=== PATIENT | female | born 1940 | race Caucasian/White ===

== ENCOUNTER 2019-07-17 04:47 | Inpatient (IN) | payer MEDICARE, MEDICAID, SELFPAY | END 2019-07-19 20:55 | disposition home or self-care (01) | DRG 391 | PROVIDERS: Admitting Provider Internal Medicine; Emergency Provider Emergency Medicine; PCP Physician Assistant; Visit Provider Family Medicine | DX: A08.4 Viral intestinal infection, unspecified (principal); N18.6 End stage renal disease; I50.32 Chronic diastolic (congestive) heart failure; I13.2 Hypertensive heart and chronic kidney disease with heart failure and with stage 5 chronic kidney disease, or end stage renal disease; Z28.21 Immunization not carried out because of patient refusal; M79.662 Pain in left lower leg; M79.661 Pain in right lower leg; E11.22 Type 2 diabetes mellitus with diabetic chronic kidney disease; H40.9 Unspecified glaucoma; H54.7 Unspecified visual loss; E11.42 Type 2 diabetes mellitus with diabetic polyneuropathy; E03.9 Hypothyroidism, unspecified; G47.33 Obstructive sleep apnea (adult) (pediatric); R91.1 Solitary pulmonary nodule; Z87.11 Personal history of peptic ulcer disease; Z91.19 Patient's noncompliance with other medical treatment and regimen; Z86.73 Personal history of transient ischemic attack (TIA), and cerebral infarction without residual deficits; I35.0 Nonrheumatic aortic (valve) stenosis; Z95.0 Presence of cardiac pacemaker; Z98.49 Cataract extraction status, unspecified eye; Z90.49 Acquired absence of other specified parts of digestive tract; Z90.710 Acquired absence of both cervix and uterus; Z90.722 Acquired absence of ovaries, bilateral; R58 Hemorrhage, not elsewhere classified; M19.90 Unspecified osteoarthritis, unspecified site; M10.9 Gout, unspecified; Z99.2 Dependence on renal dialysis; K57.30 Diverticulosis of large intestine without perforation or abscess without bleeding; J45.909 Unspecified asthma, uncomplicated | CPT/HCPCS: 36415; 71045; 74176; 80048; 80053; 80069; 82607; 82746; 83036; 83690; 83735; 84100; 84443; 85014; 85018; 85025; 85027; 85610; 85730; 87081; 93306; 93970; 94640; 96361; 96374; 96375; 97110; 97116; 97162; 97165; 99285; A9270; G0257; G0378; J1815; J2405; J7030; J7120; Q4081 ==

== ENCOUNTER 2019-11-26 08:38 | Inpatient (IN) | payer MEDICARE, MEDICAID, SELFPAY ==
[2019-11-26] VITALS (29 sets, daily range): BP systolic 156–193; BP diastolic 49–76; PULSE 69–88; RESP 14–24; TEMP 36.3–36.7; O2SAT 85–100; BMI 42.1
--- NOTE | ~2019-11-26 | XR_ITS ---
EXAMINATION: XR chest 1V portable DATE: 11/26/2019 09:51 INDICATION: Shortness of breath TECHNIQUE: frontal view of the chest was obtained. COMPARISON: Chest radiograph dated 07/17/[address] dated 07/31/2019 FINDINGS: Right apical pleural-parenchymal scarring. Mild streaky atelectasis in the lateral right midlung zone . Cardiomegaly with pulmonary vascular congestion but without melchor pulmonary edema. No pleural effus ion or pneumothorax. Dual lead pacemaker seen with leads projecting over the expected locations of th e right atrium and right ventricle. Stenting at the right subclavian vein. IMPRESSION: 1. Cardiomegaly with pulmonary vascular congestion but without melchor pulmonary edema. 2. Streaky atelectasis in the right midlung zone and chronic pleural parenchymal scarring at the righ t apex. Reviewed, dictated and finalized at location A. 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 Cardiomegaly with pulmonary vascular congestion but without melchor pulmonary edema. 2. Streaky atelectasis in the right midlung zone and chronic pleural parenchyma l scarring at the right apex.
--- NOTE | ~2019-11-26 | XR_ITS ---
XR chest 2V DATE: 11/28/2019 13:43 INDICATION: Shortness of breath. Weakness. TECHNIQUE: AP and lateral views COMPARISON: 11/26/2019 portable AP chest FINDINGS: Left-sided dual-lead pacemaker device with leads overlying right atrium and right ventricle . Mild cardiomegaly. There is aortic calcification and mild unfolding. No hilar or mediastinal enlarg ement. No pulmonary infiltrate or consolidation, pleural effusion or pulmonary vascular congestion or pneumothorax. There is a vascular stent overlying the right subclavian artery. Moderate diffuse osteopenia is suggested. Postoperative change of the upper abdomen. IMPRESSION: Mild cardiomegaly. 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
--- NOTE | 2019-11-26 08:50 | ED.SOB ---
HPI - SOB/Dyspnea General Chief Complaint: Shortness of Breath/Dyspnea Stated Complaint: short of breath Time Seen by Provider: 11/26/19 08:50 Source: patient Mode of arrival: EMS Limitations: other (hearing impairment) History of Present Illness HPI Narrative: An 79 y/o female presents to the ED from [facility], via EMS, with c/o SOB that began a couple days ago and worsened today. Pt does not normally wear oxygen. She reports a cough and a subjective fever, but denies smoking. A complete HPI is limited due to pt's hearing impairment. Onset (ago): day(s) (couple) Timing: progressively worsening Related Data Home Medications Medication Instructions Recorded Confirmed Basaglar KwikPen U-100 Insulin See Rx Instructions .ROUTE .COMPLEX 11/02/19 12/05/19 bumetanide 2 mg PO DAILY 11/02/19 12/05/19 carvedilol 3.125 mg PO BID 11/02/19 12/05/19 gabapentin 100 mg PO BID 11/02/19 12/05/19 levothyroxine 25 mcg PO DAILY 11/02/19 12/05/19 simvastatin 10 mg PO HS 11/02/19 12/05/19 acetaminophen 500 mg tablet 500 mg PO Q6H PRN tablet 11/03/19 12/05/19 blood sugar diagnostic #10 each 11/03/19 12/05/19 docusate sodium 100 mg tablet 100 mg PO .qhs PRN tablet 11/03/19 12/05/19 lancets 30 gauge #25 each 11/03/19 12/05/19 melatonin 3 mg tablet 3 mg PO DAILY PRN tablet 11/03/19 12/05/19 pen needle, diabetic 32 gauge x #50 each 11/03/19 12/05/19 1/ aspirin [Aspir-Low] 81 mg PO DAILY 11/26/19 12/05/19 colchicine 0.6 mg PO DIRECTED 11/26/19 12/05/19 ergocalciferol (vitamin D2) 50,000 unit PO WEEKLY 11/26/19 12/05/19 [Vitamin D2] guaifenesin [Robafen] 200 mg PO DIRECTED 11/26/19 12/05/19 pantoprazole 40 mg PO DAILY 11/26/19 12/05/19 polyethylene glycol 3350 [Gavilax] 17 g PO DAILY PRN 11/26/19 12/05/19 sevelamer HCl 800 mg PO TID 11/26/19 12/05/19 Allergies Allergy/AdvReac Type Severity Reaction Status Date / Time Penicillins Allergy Unknown Unknown Verified 11/26/19 08:48 Review of Systems Review of Systems: Narrative: A complete ROS is limited due to pt's hearing impairment. Constitutional: Constitutional: Reports fever(s) (subjective) Respiratory: Respiratory: Reports cough and Reports dyspnea PMFSH Past Medical History Medical History (Updated 12/05/19 @ 07:08 by Glen Ahn APN) Anemia Arthritis Asthma Bronchitis Cataracts, bilateral CHF (congestive heart failure) CVA (cerebral vascular accident) Several. Affected her memory, her site and her hearing Depression Dialysis patient Wednesday DM II (diabetes mellitus, type II), controlled Glaucoma History of GI bleed History of rectal polyps HTN (hypertension) with goal to be determined Hunner's ulcer Hx of gout Hx of transient ischemic attack (TIA) Multiple Hx: UTI (urinary tract infection) Hypercholesteremia Hyperkalemia Hypothyroid OA (osteoarthritis) Peripheral neuropathy Renal disease Sleep apnea Cannot tolerate a mask but is willing to use a nasal pillow Surgical History Surgical History History of appendectomy History of cholecystectomy History of hysterectomy History of permanent cardiac pacemaker placement History of vascular surgery An abscess to the right arm fistula removed still has a right arm fistula that is actively working Hx of bilateral cataract extraction Family History Family History Father Acute myocardial infarction Mother Family history of congestive heart failure Breast cancer Sibling Family history of cardiovascular disease Family history of rheumatic fever Sister Other Cerebrovascular accident Diabetes mellitus Family history of malignant neoplasm Hypertension Social History Social History Social History: She desires to be a full code. She had 4 pregnancies but had 1 miscarriage. Had 3 live births. 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
--- NOTE | 2019-11-26 09:28 | ECG_ITS ---
Measurements Intervals [place] Rate: 70 P: [place]: 0 QRS: -60 QRSD: 170 T: 91 QT: 479 QTc: 518 Interpretive Statements ELECTRONIC VENTRICULAR PACEMAKER BASELINE ARTIFACT- V1 NO FURTHER INTERPRETATION IS POSSIBLE ATYPICAL ECG Electronically Signed On 11-26-2019 12:40:24 STRETCHING MACHINE TENDER FRAME by Nagi Devi D.O.
[2019-11-26 09:40] LABS: Basophils Percent Auto 0.4 % (0.2-1.2); Eosinophils Absolute Auto 0.4 K/mm3 (0-0.3); Eosinophils Percent Auto 7.4 % (0-4.4); Hematocrit 36.3 % (37.0-47.0); Hemoglobin 11.1 g/dL (12.0-15.0); Immature Granulocyte Absolute 0.02 K/mm3 (0.00-0.031); Immature Granulocyte Percent A 0.4 % (0-0.5); Lymphocytes Absolute Auto 1.03 K/mm3 (0.9-3.2); Lymphocytes Percent Auto 21.7 % (18.3-44.2); Mean Corpuscular HGB Conc 30.6 g/dl (32-36); Mean Corpuscular Hemoglobin 33.4 pg (26-34); Mean Corpuscular Volume 109.3 fl (80-100); Mean Platelet Volume 10.4 fl (7.4-10.4); Monocytes Absolute Auto 0.5 K/mm3 (0.1-0.6); Monocytes Percent Auto 10.8 % (2.6-8.5); Neutrophils Absolute Auto 2.8 K/mm3 (1.3-6.7); Neutrophils Percent Auto 59.3 % (45.5-73.1); Platelet Count Result 186 k/mm3 (150-375); Red Blood Count 3.32 M/mm3 (4.2-5.4); Red Cell Distribution Width 14.5 % (11.5-14.5); White Blood Count 4.7 K/mm3 (4.5-10.0)
[2019-11-26 09:53] LABS: Blood Urea Nitrogen 42 mg/dL (7-17); Calcium 7.8 mg/dL (8.4-10.2); Carbon Dioxide 20 mmol/L (22-30); Chloride 98 mmol/L (98-107); Estimated Glomerular Filt Rate 4; Glucose 131 mg/dL (65-105); Potassium 5.1 mmol/L (3.4-5.0); Sodium 135 mmol/L (137-145)
[2019-11-26 09:58] LABS: INR 1.2; Prothrombin Time 14.4 Seconds (11.1-14.7)
[2019-11-26 09:59] LABS: Partial Thromboplastin Time 32.7 SECONDS (22.3-36.8)
[2019-11-26] MEDS: ALBUTEROL SULFATE NEB 2.5 MG/0.5 ML INH 5 MG INHALATION ×3 (10:08→19:30)
[2019-11-26 10:09] LABS: NT Pro B Type Natriuretic Pept 21900 PG/ML (5-100)
[2019-11-26] MEDS: IPRATROPIUM BR 0.02% INH SOLN 0.5 MG/2.5 ML VIAL INHALATION ×2 (10:09→19:30)
--- NOTE | 2019-11-26 10:10 | PC.NURSE ---
RT at bedside for ABG's and UDT
[2019-11-26 10:13] LABS: Troponin I 0.041 ng/mL (0.000-0.034)
[2019-11-26 10:14] LABS: Alveolar/Arterial O2 Gradient 42.7 mmHg; Base Excess ABG -8.3 mEq/l (+/-2.0); Fractional Inspired Oxygen 21 %; HCO3 ABG 17.9 mEq/l (22.0-26.0); Oxygen Content ABG 14.6 %vol (16.0-22.0); Oxygen Saturation ABG 88.2 % (95.0-100.0); Oxyhemoglobin 87.1 % THb (90.0-100.0); PO2 ABG 60.3 mmHg (80.0-100.0); PO2 FiO2 Ratio Arterial Blood 2.87 %; Total Hemoglobin 11.9 g/dL (12.0-18.0)
[2019-11-26 10:15] LABS: Device ROOM AIR; Site Drawn LEFT BRACHIAL; pH ABG 7.279 (7.350-7.450)
--- NOTE | 2019-11-26 10:45 | PC.NURSE ---
Pt states is feeling much better after udt. Note is napping and snoring loudly. Pt states she should probably have a sleep apnea machine but she would never wear it.
[2019-11-26] MEDS: methylPREDNISolone SOD SUCC 40 MG VIAL IV PUSH (11:40)
--- NOTE | 2019-11-26 12:21 | PC.NURSE ---
floor unable to take report at this time
--- NOTE | 2019-11-26 13:22 | ADMGEN ---
This patient, Christopher Larry, was admitted to IMU Room 203-01. Patient/family oriented to hospital policies and general routines including ID bracelet, bed and alarms, visiting hours, pain management, procedures, bathroom and other care routines, personal items, smoking policy, room service/diet, and visiting hours. Valuables list has been completed. Information on how to activate the Rapid Response Team has been discussed. Patient/Family are encouraged to report perceived risks to care and to ask questions if they do not understand what they are told or what they should do.
--- NOTE | 2019-11-26 14:10 | PM.IMHP ---
H&P: HPI History of Present Illness Chief complaint: acute hypoxic respiratory failure/resp viral infec Narrative: Christopher Larry is a 79 year old female who resides at [facility]. The patient is on dialysis Wednesday and has not missed any treatments. The patient does have a history of diastolic congestive heart failure. The patient started to cough yesterday and felt like she had an upper respiratory infection. The patient was checked for influenza a and B was found to be negative. She had a nonproductive cough and felt herself wheezing. She does not have a smoking history or any history of COPD. Patient does dialysis on Wednesday. Patient stated she has been short of breath for the last couple days but today she started to cough but did not remember having a fever. She does not wear home O2. Chest x-ray was read as cardiomegaly with pulmonary vascular congestion but without melchor pulmonary edema. History atelectasis in the right mid lung zone and chronic pleural parenchymal scarring at the right apex. Patient was given nebulizer treatment and a dose of steroids in the emergency room. Nephrology has been consulted. Date of service 11/26/2019 Review of Systems Review of Systems: All systems reviewed & are unremarkable except as noted in HPI and below Constitutional: Constitutional: Reports as per HPI, Reports no additional constitutional complaints and Reports fatigue Eyes: Eyes: Reports as per HPI and Reports no additional eye complaints ENT: Reports system reviewed and no additional complaints, except as documented, Reports Normal hearing present and Reports hearing loss (After stroke. Only has 1 hearing aid with her) Cardiovascular: Cardiovascular: Reports no additional cardiovascular complaints Comments: History of congestive heart failure. She has been coughing nonproductive cough Respiratory: Respiratory: Reports no additional respiratory complaints and Reports no additional respiratory complaints Gastrointestinal: Gastrointestinal: Reports as per HPI and Reports no additional gastrointestinal complaints Musculoskeletal: Musculoskeletal: Reports no additional musculoskeletal complaints Integumentary/Breasts: Skin/Breast: Reports system reviewed and no additional complaints, except as docu and Reports as per HPI Neurologic: Reports system reviewed and no additional complaints, except as documented, Reports as per HPI and Reports Normal hearing present Psychiatric: Psychiatric: Reports no additional psychiatric complaints and Reports as per HPI Endocrine: Endocrine: Reports no additional endocrine complaints Hematologic/Lymphatic: Hematologic/Lymphatic: Reports no additional hematologic/lymphatic complaints Allergic/Immunologic: Allergic/Immunologic: Reports no additional allergic/immunologic complaints PMFSH Past Medical History Medical History (Updated 11/26/19 @ 14:20 by Mary Snyder NP) Anemia Arthritis Asthma Bronchitis Cataracts, bilateral CHF (congestive heart failure) CVA (cerebral vascular accident) Several. Affected her memory, her site and her hearing Depression Dialysis patient Wednesday DM II (diabetes mellitus, type II), controlled Glaucoma History of GI bleed History of rectal polyps HTN (hypertension) with goal to be determined Hunner's ulcer Hx of gout Hx of transient ischemic attack (TIA) Multiple Hx: UTI (urinary tract infection) Hypercholesteremia Hypothyroid OA (osteoarthritis) Peripheral neuropathy Renal disease Sleep apnea Cannot tolerate a mask but is willing to use a nasal pillow Surgical History Surgical History (Updated 11/26/19 @ 14:20 by Mary Snyder NP) History of appendectomy History of cholecystectomy History of hysterectomy History of permanent cardiac pacemaker placement History of vascular surgery An abscess to the right arm fistula removed still has a right arm fistula that is actively
[2019-11-26 15:14] LABS: Troponin I 0.037 ng/mL (0.000-0.034)
[2019-11-26] MEDS: BUMETANIDE INJ 1 MG/4 ML VIAL IV PUSH (15:35)
[2019-11-26 17:55] LABS: Glucose Point of Care 195 (65-105)
[2019-11-26 18:22] LABS: Troponin I 0.037 ng/mL (0.000-0.034)
[2019-11-26 20:24] LABS: Glucose Point of Care 310 (65-105)
[2019-11-26] MEDS: INSULIN GLARGINE (*BKC) 100 UNITS/ML 20 UNITS SUB-Q (21:14)
[2019-11-26] MEDS: ERGOCALCIFEROL 50,000 UNIT CAPSULE 50000 UNITS PO (21:39)
[2019-11-26] MEDS: carvediloL 3.125 MG TABLET PO (21:40)
[2019-11-26] MEDS: GABAPENTIN 100 MG CAPSULE PO (21:40)
[2019-11-26] MEDS: SIMVASTATIN 10 MG TABLET PO (21:40)
[2019-11-26] MEDS: SEVELAMER CARBONATE 800 MG TABLET PO (21:40)
[2019-11-27] VITALS (33 sets, daily range): BP systolic 130–179; BP diastolic 41–67; PULSE 68–83; RESP 15–24; TEMP 36.1–37; O2SAT 91–96
[2019-11-27] MEDS: IPRATROPIUM BR 0.02% INH SOLN 0.5 MG/2.5 ML VIAL INHALATION ×4 (02:08→22:00)
[2019-11-27] MEDS: ALBUTEROL SULFATE NEB 2.5 MG/0.5 ML INH 5 MG INHALATION ×4 (02:08→21:59)
[2019-11-27 05:32] LABS: Basophils Percent Auto 0.3 % (0.2-1.2); Eosinophils Percent Auto 0.3 % (0-4.4); Hemoglobin 9.9 g/dL (12.0-15.0); Immature Granulocyte Absolute 0.01 K/mm3 (0.00-0.031); Immature Granulocyte Percent A 0.3 % (0-0.5); Lymphocytes Absolute Auto 0.84 K/mm3 (0.9-3.2); Lymphocytes Percent Auto 21.1 % (18.3-44.2); Mean Corpuscular HGB Conc 30.9 g/dl (32-36); Mean Corpuscular Hemoglobin 33.6 pg (26-34); Mean Corpuscular Volume 108.5 fl (80-100); Mean Platelet Volume 10.6 fl (7.4-10.4); Monocytes Absolute Auto 0.5 K/mm3 (0.1-0.6); Monocytes Percent Auto 11.3 % (2.6-8.5); Neutrophils Absolute Auto 2.7 K/mm3 (1.3-6.7); Neutrophils Percent Auto 66.7 % (45.5-73.1); Platelet Count Result 168 k/mm3 (150-375); Red Blood Count 2.95 M/mm3 (4.2-5.4); Red Cell Distribution Width 14.6 % (11.5-14.5)
[2019-11-27 05:38] LABS: Alanine Aminotransferase 18 U/L (4-35); Albumin Level 3.9 g/dL (3.5-5.1); Alkaline Phosphatase 177 U/L (38-126); Aspartate Amino Transferase 29 U/L (14-36); Bilirubin,Total 0.5 mg/dL (0.2-1.3); Blood Urea Nitrogen 55 mg/dL (7-17); Calcium 7.5 mg/dL (8.4-10.2); Carbon Dioxide 16 mmol/L (22-30); Chloride 99 mmol/L (98-107); Estimated CRCL calculation 5 ml/min; Estimated Glomerular Filt Rate 4; Glucose 189 mg/dL (65-105); Magnesium 2.1 mg/dL (1.6-2.3); Sodium 132 mmol/L (137-145)
[2019-11-27] MEDS: LEVOTHYROXINE SODIUM 25 MCG TABLET PO (06:30)
--- NOTE | 2019-11-27 07:09 | PM.CNNEP ---
Assessment and Plan Assessment and plan (1) Viral respiratory infection: Code(s): J98.8 - Other specified respiratory disorders; B97.89 - Other viral agents as the cause of diseases classified elsewhere Status: Acute Assessment and Plan: The patient has cough and shortness of breath. She has been diagnosed with viral bronchitis. She is still somewhat short of breath. She is on her CPAP machine. She is not on oxygen. Her flu swabs were negative. (2) DM II (diabetes mellitus, type II), controlled: Code(s): E11.9 - Type 2 diabetes mellitus without complications Status: Chronic Assessment and Plan: The patient has diabetes. Her sugars are running 120-190. (3) Hyperkalemia: Code(s): E87.5 - Hyperkalemia Status: Acute Assessment and Plan: 6 this morning. The nurse is going to find out what time she is getting dialysis. If it is not till later today will give her some Kayexalate. (4) Anemia: Code(s): D64.9 - Anemia, unspecified Status: Chronic Assessment and Plan: She has anemia from her chronic kidney disease. Hemoglobin runs around 10-11 usually. Today she is 9.9. It might be down a little bit because of her infection. We will give her Epogen with dialysis. If it drops much more will look into other sources of anemia. (5) Sleep apnea: Code(s): G47.30 - Sleep apnea, unspecified Status: Chronic Assessment and Plan: She uses a CPAP machine religiously. (6) CHF (congestive heart failure): Code(s): I50.9 - Heart failure, unspecified Status: Chronic Assessment and Plan: She has a little pulmonary vascular congestion on her chest x-ray. Will go ahead and take some fluid off with dialysis today. History of Present Illness Reason for Consult Consult date: 11/27/19 Chief Complaint Chief complaint: acute hypoxic respiratory failure/resp viral infec History of Present Illness Narrative: Christopher is a very pleasant 79-year-old lady was multiple medical problems including end-stage renal disease on dialysis 3 times a week on Wednesdays and Fridays under Dr. Mayorga, congestive heart failure, gout, vitamin-D deficiency, renal osteodystrophy, anemia of chronic kidney disease, diabetes, hypothyroidism, GERD, hyperlipidemia. The patient came into the hospital because she has been short of breath and has had a cough. This is been slowly worsening over the last couple of days. She went to dialysis on Wednesday and had a good treatment and felt okay at that time. She started feeling bad Wednesday night and Wednesday. She has not had any fevers. No chest pain. It has been gradually worsening. There is been scant sputum production. She has been taking her medications as prescribed. Review of Systems Constitutional: Constitutional: Reports no additional constitutional complaints Eyes: Eyes: Reports no additional eye complaints ENT: Reports system reviewed and no additional complaints, except as documented Cardiovascular: Cardiovascular: Reports no additional cardiovascular complaints Respiratory: Respiratory: Reports no additional respiratory complaints Gastrointestinal: Gastrointestinal: Reports no additional gastrointestinal complaints Genitourinary: Genitourinary: Reports no additional female genitourinary complaints Musculoskeletal: Musculoskeletal: Reports no additional musculoskeletal complaints Integumentary/Breasts: Skin/Breast: Reports system reviewed and no additional complaints, except as docu Neurologic: Reports system reviewed and no additional complaints, except as documented Psychiatric: Psychiatric: Reports no additional psychiatric complaints [facility] Past Medical History Medical History Anemia Arthritis Asthma Bronchitis Cataracts, bilateral CHF (congestive heart failure) CVA (cerebral vascular accident) Several. Affected her memory,
--- NOTE | 2019-11-27 08:02 | PHAR ---
EPOGEN PT INFO SHEET SENT WITH FIRST DOSE
[2019-11-27 08:10] LABS: Glucose Point of Care 144 (65-105)
[2019-11-27] MEDS: PANTOPRAZOLE 40 MG TABLET PO (08:38)
[2019-11-27] MEDS: ASPIRIN 81 MG ENTERIC TABLET PO (08:38)
[2019-11-27] MEDS: carvediloL 3.125 MG TABLET PO ×2 (08:39→16:56)
[2019-11-27] MEDS: GABAPENTIN 100 MG CAPSULE PO ×2 (08:39→16:56)
[2019-11-27] MEDS: SEVELAMER CARBONATE 800 MG TABLET PO ×3 (08:39→16:56)
[2019-11-27] MEDS: BUMETANIDE 1 MG TABLET 2 MG PO (08:39)
[2019-11-27 09:30] LABS: Hepatitis B Surface Antigen Negative (Negative)
[2019-11-27 09:47] LABS: Hepatitis B Surface Anti Res Negative
--- NOTE | 2019-11-27 10:01 | PM.EVENT ---
Event Note Event Note Event Note: On HD alyce it well. seen at 9:45am bp is doing well. removing fluid as tolerated.
[2019-11-27 13:46] LABS: Glucose Point of Care 120 (65-105)
--- NOTE | 2019-11-27 16:22 | PM.IMPN ---
Progress Note: A&P Assessment and Plan (1) CHF (congestive heart failure): Code(s): I50.9 - Heart failure, unspecified Status: Chronic Assessment and Plan: . As her chest x-ray looks more like mild pulmonary edema she will have dialysis within the hour.. She has had a recent echo that shows diastolic dysfunction.11/23/19 which also revealed mild to moderate MR, mild mitral stenosis, and mild aortic stenosis with pulmonary hypertension estimated at 50 Fluid removal at dialysis should help (2) Acute respiratory failure with hypoxia: Code(s): J96.01 - Acute respiratory failure with hypoxia Status: Acute Assessment and Plan: Patient has an upper respiratory infection is wheezing she has a history of asthma but she is not tachypneic or hypoxic so will not give parental steroids since she is diabetic and end-stage renal disease which may worsen fluid retention and elevated blood sugar. She only received 1 dose in the emergency room . Continue with nebulizer treatments. (3) Dialysis patient: Code(s): Z99.2 - Dependence on renal dialysis Status: Chronic Assessment and Plan: On dialysis Wednesday. She has not missed any sessions. Nephrology has been consulted. Continue with renal diet and Renvela. She has a positive bruit and thrill to right AV fistula. Dialysis early this a.m. (4) Asthma: Code(s): J45.909 - Unspecified asthma, uncomplicated Status: Chronic Assessment and Plan: Continue with nebulizer treatments and guaifenesin. (5) Hypothyroid: Code(s): E03.9 - Hypothyroidism, unspecified Status: Chronic Assessment and Plan: Continue with levothyroxine and check her thyroid level. (6) HTN (hypertension) with goal to be determined: Code(s): I10 - Essential (primary) hypertension Status: Chronic Assessment and Plan: Continue with Coreg and Bumex (7) Sleep apnea: Code(s): G47.30 - Sleep apnea, unspecified Status: Chronic Assessment and Plan: The patient does not typically use of machine at home and cannot tolerate a mask. She stated that she would be willing to try a CPAP with a nasal pillow while she is here. (8) DM II (diabetes mellitus, type II), controlled: Code(s): E11.9 - Type 2 diabetes mellitus without complications Status: Chronic Assessment and Plan: Accu-Cheks and HS. (9) Anemia: Code(s): D64.9 - Anemia, unspecified Status: Chronic Assessment and Plan: Of chronic disease related to the chronic renal failure. Slightly lower than it has been in the past will recheck iron studies and B12 with the elevated MCV (10) DVT prophylaxis: Code(s): Z29.9 - Encounter for prophylactic measures, unspecified Status: Acute Assessment and Plan: Subcu heparin with her renal failure Subjective Date/time seen: 11/27/19 16:22 Interval history: Date of visit 11/27. 79-year-old white female with end-stage renal disease on dialysis and history of diastolic heart failure with mild valvular heart disease admitted with increasing cough wheezing and shortness of breath. No infiltrates on chest x-ray and thought to be bronchospasm with possible mild fluid overload. Potassium is elevated 6.0 but was having dialysis within the hour. No chest pain PND orthopnea Exam Narrative: Exam Narrative: Blood pressure 140/52 pulse 70 respirations 18 per minute saturating 93% on room air afebrile Pupil equal reactive to light sclera anicteric Lungs prolonged expiratory phase and end expiratory faint wheeze no rales CV faint systolic murmur regular Abdomen is soft nontender obese Extremities trace edema if any dorsalis pedis posterior tibial 1+ Neuro alert cooperative pleasant no focal deficits Objective Data Vital Signs Vital Signs: Vital Signs - 24 hr 11/26/19 18:00 11/26/19 19:30 11/26/19 19:31 Temperature Pulse Rate 70 88 Respiratory R
[2019-11-27] MEDS: HEPARIN SODIUM 5,000 UNITS/ML VIAL 5000 UNITS SUB-Q ×2 (16:55→22:54)
[2019-11-27 17:11] LABS: Glucose Point of Care 150 (65-105)
--- NOTE | 2019-11-27 17:15 | PC.NURSE ---
This patient, Christopher Larry, was received from IMU on 11/27/19 at 1715. Personal belongings list checked and signed. Patient/family oriented to unit policies and routines
--- NOTE | 2019-11-27 17:15 | PC.NURSE ---
Patient transferred to room 312, report given to Giana SHUKLA, all belongings sent with patient
[2019-11-27] MEDS: INSULIN GLARGINE (*BKC) 100 UNITS/ML 20 UNITS SUB-Q (18:22)
[2019-11-27 18:23] LABS: Glucose Point of Care 137 (65-105)
[2019-11-27] MEDS: SIMVASTATIN 10 MG TABLET PO (21:40)
[2019-11-27 22:17] LABS: Glucose Point of Care 135 (65-105)
[2019-11-28] VITALS (13 sets, daily range): BP systolic 142–156; BP diastolic 54–76; PULSE 70–102; RESP 15–20; TEMP 36.3–36.9; O2SAT 91–97
[2019-11-28] MEDS: HEPARIN SODIUM 5,000 UNITS/ML VIAL 5000 UNITS SUB-Q ×3 (06:13→21:41)
[2019-11-28] MEDS: LEVOTHYROXINE SODIUM 25 MCG TABLET PO (06:13)
[2019-11-28 06:34] LABS: Basophils Percent Auto 0.5 % (0.2-1.2); Eosinophils Absolute Auto 0.3 K/mm3 (0-0.3); Eosinophils Percent Auto 7.9 % (0-4.4); Hematocrit 33.3 % (37.0-47.0); Hemoglobin 10.4 g/dL (12.0-15.0); Lymphocytes Absolute Auto 0.85 K/mm3 (0.9-3.2); Lymphocytes Percent Auto 23.3 % (18.3-44.2); Mean Corpuscular HGB Conc 31.2 g/dl (32-36); Mean Corpuscular Hemoglobin 33.4 pg (26-34); Mean Corpuscular Volume 107.1 fl (80-100); Mean Platelet Volume 10.3 fl (7.4-10.4); Monocytes Absolute Auto 0.5 K/mm3 (0.1-0.6); Monocytes Percent Auto 13.4 % (2.6-8.5); Neutrophils Percent Auto 54.9 % (45.5-73.1); Platelet Count Result 160 k/mm3 (150-375); Red Blood Count 3.11 M/mm3 (4.2-5.4); Red Cell Distribution Width 14.4 % (11.5-14.5); White Blood Count 3.7 K/mm3 (4.5-10.0)
[2019-11-28 06:44] LABS: Albumin Level 3.9 g/dL (3.5-5.1); Blood Urea Nitrogen 36 mg/dL (7-17); Calcium 7.8 mg/dL (8.4-10.2); Carbon Dioxide 21 mmol/L (22-30); Chloride 93 mmol/L (98-107); Estimated CRCL calculation 7 ml/min; Estimated Glomerular Filt Rate 6; Glucose 87 mg/dL (65-105); Phosphorus 4.2 mg/dL (2.5-4.5); Potassium 4.7 mmol/L (3.4-5.0); Sodium 133 mmol/L (137-145)
[2019-11-28 07:01] LABS: Iron 36 ug/dL (37-170)
[2019-11-28 07:10] LABS: Percent Iron Saturation 13 % (20-50)
[2019-11-28 07:44] LABS: Glucose Point of Care 86 (65-105)
--- NOTE | 2019-11-28 08:16 | PM.PNNEP ---
Progress Note: A&P Assessment and Plan (1) Viral respiratory infection: Code(s): J98.8 - Other specified respiratory disorders; B97.89 - Other viral agents as the cause of diseases classified elsewhere Status: Acute Assessment and Plan: The patient has cough and shortness of breath. She has been diagnosed with viral bronchitis. She is breathing better today. She no longer needs the Pap machine During the day. on no oxygen (2) DM II (diabetes mellitus, type II), controlled: Code(s): E11.9 - Type 2 diabetes mellitus without complications Status: Chronic Assessment and Plan: The patient has diabetes. Her sugars are running 120-190. (3) Hyperkalemia: Code(s): E87.5 - Hyperkalemia Status: Acute Assessment and Plan: potassium is better today. (4) Anemia: Code(s): D64.9 - Anemia, unspecified Status: Chronic Assessment and Plan: Hemoglobin is back up to 10.4 today. She is getting Epogen therapy (5) Sleep apnea: Code(s): G47.30 - Sleep apnea, unspecified Status: Chronic Assessment and Plan: She uses a CPAP machine religiously. for sleep (6) CHF (congestive heart failure): Code(s): I50.9 - Heart failure, unspecified Status: Chronic Assessment and Plan: She is feeling better with respect to breathing. on her echo in July, her LVEF is okay, she has some diastolic dysfunction, she has moderate mitral regurgitation, and [id number] tricuspid regurgitation. Her chest x-ray on admission was wet. We removed fluid yesterday. Will check another chest x-ray today to guide fluid removal tomorrow. Subjective Date/time seen: 11/28/19 08:16 Interval history: Patient is alert. breathing is better. She says that she is okay when she is lying in bed but when she gets up the bathroom she become short of breath. Review of Systems Cardiovascular: Cardiovascular: Reports no additional cardiovascular complaints Respiratory: Respiratory: Reports no additional respiratory complaints Gastrointestinal: Gastrointestinal: Reports no additional gastrointestinal complaints Genitourinary: Genitourinary: Reports no additional female genitourinary complaints Exam Narrative: Exam Narrative: Well developed well-nourished in no acute distress Lungs Bilateral rhonchi. Increased expiratory phase. Heart regular without rub Abdomen bowel sounds positive soft nontender Extremities no edema Skin no rash Objective Data Vital Signs Vital Signs: Vital Signs - 24 hr 11/27/19 08:29 11/27/19 08:36 11/27/19 08:39 Temperature Pulse Rate 70 70 70 Respiratory Rate 16 16 Blood Pressure Pulse Oximetry 93 11/27/19 08:48 11/27/19 09:00 11/27/19 09:15 Temperature 36.6 C Pulse Rate 70 70 70 Respiratory Rate 16 Blood Pressure 148/52 H 141/52 H 154/57 H Pulse Oximetry 11/27/19 09:30 11/27/19 09:45 11/27/19 10:00 Temperature Pulse Rate 72 70 70 Respiratory Rate Blood Pressure 139/56 L 157/54 H 150/57 H Pulse Oximetry 11/27/19 10:15 11/27/19 10:30 11/27/19 10:45 Temperature Pulse Rate 71 71 70 Respiratory Rate Blood Pressure 154/58 H 167/43 H 152/49 H Pulse Oximetry 11/27/19 11:00 11/27/19 11:15 11/27/19 11:30 Temperature Pulse Rate 70 70 70 Respiratory Rate Blood Pressure 159/56 H 169/51 H 162/52 H Pulse Oximetry 11/27/19 11:45 11/27/19 12:00 11/27/19 12:15 Temperature 36.6 C Pulse Rate 70 70 70 Respiratory Rate 18 Blood Pressure 166/56 H 144/53 H 171/52 H Pulse Oximetry 93 11/27/19 12:30 11/27/19 12:35 11/27/19 16:11 Temperature 36.6 C Pulse Rate 70 70 75 Respiratory Rate 18 16 Blood Pressure 179/55 H 170/57 H Pulse Oximetry 11/27/19 16:20 11/27/19 16:56 11/27/19 17:30 Temperature 36.3 C L Pulse Rate 76 70 69 Respiratory Rate 16 20 Blood Pressure 159/62 H Pulse Oximetry 95 02/1
[2019-11-28] MEDS: ALBUTEROL SULFATE NEB 2.5 MG/0.5 ML INH 5 MG INHALATION ×3 (08:38→21:24)
[2019-11-28] MEDS: IPRATROPIUM BR 0.02% INH SOLN 0.5 MG/2.5 ML VIAL INHALATION ×3 (08:38→21:25)
[2019-11-28] MEDS: BUMETANIDE 1 MG TABLET 2 MG PO (08:49)
[2019-11-28] MEDS: SEVELAMER CARBONATE 800 MG TABLET PO ×3 (08:49→17:21)
[2019-11-28] MEDS: ASPIRIN 81 MG ENTERIC TABLET PO (08:49)
[2019-11-28] MEDS: PANTOPRAZOLE 40 MG TABLET PO (08:50)
[2019-11-28] MEDS: GABAPENTIN 100 MG CAPSULE PO ×2 (08:50→17:21)
[2019-11-28] MEDS: carvediloL 3.125 MG TABLET PO ×2 (08:50→17:20)
[2019-11-28 11:26] LABS: Glucose Point of Care 153 (65-105)
--- NOTE | 2019-11-28 15:53 | PM.IMPN ---
Progress Note: A&P Assessment and Plan (1) CHF (congestive heart failure): Qualifiers: Heart failure type: diastolic Heart failure chronicity: acute on chronic Qualified Code(s): I50.33 - Acute on chronic diastolic (congestive) heart failure Code(s): I50.9 - Heart failure, unspecified Status: Chronic Assessment and Plan: Continue with dialysis for volume management (2) Acute respiratory failure with hypoxia: Code(s): J96.01 - Acute respiratory failure with hypoxia Status: Acute Assessment and Plan: Viral upper respiratory infection with asthma exacerbation Now off oxygen Continue steroids and bronchodilators (3) Asthma: Qualifiers: Asthma severity: unspecified severity Asthma persistence: unspecified Asthma complication type: unspecified Qualified Code(s): J45.909 - Unspecified asthma, uncomplicated Code(s): J45.909 - Unspecified asthma, uncomplicated Status: Chronic Assessment and Plan: Continue with nebulizer treatments and guaifenesin. (4) Hypothyroid: Qualifiers: Hypothyroidism type: acquired Qualified Code(s): E03.9 - Hypothyroidism, unspecified Code(s): E03.9 - Hypothyroidism, unspecified Status: Chronic Assessment and Plan: Continue with levothyroxine and check her thyroid level. (5) HTN (hypertension) with goal to be determined: Code(s): I10 - Essential (primary) hypertension Status: Chronic Assessment and Plan: Continue with Coreg and Bumex (6) Sleep apnea: Qualifiers: Sleep apnea type: unspecified type Qualified Code(s): G47.30 - Sleep apnea, unspecified Code(s): G47.30 - Sleep apnea, unspecified Status: Chronic Assessment and Plan: The patient does not typically use of machine at home and cannot tolerate a mask. She stated that she would be willing to try a CPAP with a nasal pillow while she is here. (7) DM II (diabetes mellitus, type II), controlled: Qualifiers: Diabetes mellitus terminal make up operator insulin use: unspecified long-term insulin use status Diabetes mellitus complication status: with unspecified complications Qualified Code(s): E11.8 - Type 2 diabetes mellitus with unspecified complications Code(s): E11.9 - Type 2 diabetes mellitus without complications Status: Chronic Assessment and Plan: Accu-Cheks AC and HS. (8) Anemia: Qualifiers: Anemia type: due to chronic kidney disease Chronic kidney disease stage: on chronic dialysis Qualified Code(s): N18.6 - End stage renal disease; D63.1 - Anemia in chronic kidney disease; Z99.2 - Dependence on renal dialysis Code(s): D64.9 - Anemia, unspecified Status: Chronic Assessment and Plan: Of chronic disease related to the chronic renal failure. Slightly lower than it has been in the past will recheck iron studies and B12 with the elevated MCV (9) Dialysis patient: Code(s): Z99.2 - Dependence on renal dialysis Status: Chronic Assessment and Plan: On dialysis Wednesday. She has not missed any sessions. Nephrology has been consulted. Continue with renal diet and Renvela. She has a positive bruit and thrill to right AV fistula. Dialysis early this a.m. Subjective Date/time seen: 11/28/19 15:53 Interval history: Still feeling very tired. Short of breath with exertion. Dry cough. No chest pain, nausea vomiting, diarrhea constipation, dysuria hematuria, other abnormal bleeding, fevers chills or sweats. Review of Systems Review of Systems: All systems reviewed & are unremarkable except as noted in HPI and below Exam Narrative: Exam Narrative: HEENT: EOMI, PERRL, pharyngeal mucosa pink and intact NECK: No JVD, adenopathy, or thyromegaly CHEST: Diffuse rhonchi with normal effort HEART: NL S1/S2, regular, no murmur ABDOMEN: BS+, soft, nontender, no mass, no bruits EXTREMITIES: No cyanosis, jesica
[2019-11-28] MEDS: INSULIN GLARGINE (*BKC) 100 UNITS/ML 20 UNITS SUB-Q (17:19)
[2019-11-28 17:27] LABS: Glucose Point of Care 142 (65-105)
[2019-11-28] MEDS: SIMVASTATIN 10 MG TABLET PO (21:42)
[2019-11-28 21:58] LABS: Glucose Point of Care 118 (65-105)
[2019-11-29] VITALS (34 sets, daily range): BP systolic 126–153; BP diastolic 40–58; PULSE 64–84; RESP 14–20; TEMP 36.5–37; O2SAT 92–100
[2019-11-29] MEDS: ALBUTEROL SULFATE NEB 2.5 MG/0.5 ML INH 5 MG INHALATION ×4 (01:37→20:15)
[2019-11-29] MEDS: IPRATROPIUM BR 0.02% INH SOLN 0.5 MG/2.5 ML VIAL INHALATION ×4 (01:38→15:22)
[2019-11-29] MEDS: LEVOTHYROXINE SODIUM 25 MCG TABLET PO (05:40)
[2019-11-29] MEDS: HEPARIN SODIUM 5,000 UNITS/ML VIAL 5000 UNITS SUB-Q ×3 (05:40→21:20)
[2019-11-29 05:46] LABS: Hepatitis B Core Ab Total Nonreactive (Nonreactive)
[2019-11-29 06:22] LABS: Hematocrit 31.7 % (37.0-47.0); Hemoglobin 10.1 g/dL (12.0-15.0); Mean Corpuscular HGB Conc 31.9 g/dl (32-36); Mean Corpuscular Hemoglobin 33.8 pg (26-34); Mean Platelet Volume 10.6 fl (7.4-10.4); Platelet Count Result 164 k/mm3 (150-375); Red Blood Count 2.99 M/mm3 (4.2-5.4); Red Cell Distribution Width 14.3 % (11.5-14.5)
[2019-11-29 06:31] LABS: Albumin Level 3.8 g/dL (3.5-5.1); Calcium 7.6 mg/dL (8.4-10.2); Carbon Dioxide 23 mmol/L (22-30); Chloride 92 mmol/L (98-107); Glucose 65 mg/dL (65-105); Phosphorus 4.8 mg/dL (2.5-4.5); Potassium 4.4 mmol/L (3.4-5.0); Sodium 134 mmol/L (137-145)
[2019-11-29] MEDS: SEVELAMER CARBONATE 800 MG TABLET PO ×3 (08:30→18:09)
[2019-11-29] MEDS: PANTOPRAZOLE 40 MG TABLET PO (08:31)
[2019-11-29] MEDS: GABAPENTIN 100 MG CAPSULE PO ×2 (08:31→17:14)
--- NOTE | 2019-11-29 09:00 | PC.NURSE ---
To dialysis via bed.
--- NOTE | 2019-11-29 09:47 | PM.PNNEP ---
Progress Note: A&P Assessment and Plan (1) Viral respiratory infection: Code(s): J98.8 - Other specified respiratory disorders; B97.89 - Other viral agents as the cause of diseases classified elsewhere Status: Acute Assessment and Plan: The patient has cough and shortness of breath. She has been diagnosed with viral bronchitis. feels better. looks better. off oxygen. (2) DM II (diabetes mellitus, type II), controlled: Qualifiers: Diabetes mellitus fpc insulin use: unspecified fpc insulin use status Diabetes mellitus complication status: with unspecified complications Qualified Code(s): E11.8 - Type 2 diabetes mellitus with unspecified complications Code(s): E11.9 - Type 2 diabetes mellitus without complications Status: Chronic Assessment and Plan: The patient has diabetes. on accuchecks. (3) Hyperkalemia: Code(s): E87.5 - Hyperkalemia Status: Acute Assessment and Plan: resolved. (4) Anemia: Qualifiers: Anemia type: due to chronic kidney disease Chronic kidney disease stage: on chronic dialysis Qualified Code(s): N18.6 - End stage renal disease; D63.1 - Anemia in chronic kidney disease; Z99.2 - Dependence on renal dialysis Code(s): D64.9 - Anemia, unspecified Status: Chronic Assessment and Plan: Hemoglobin is ranging in the 10s. She is getting Epogen therapy with dialysis. (5) Sleep apnea: Qualifiers: Sleep apnea type: unspecified type Qualified Code(s): G47.30 - Sleep apnea, unspecified Code(s): G47.30 - Sleep apnea, unspecified Status: Chronic Assessment and Plan: She uses a CPAP machine religiously. for sleep (6) CHF (congestive heart failure): Qualifiers: Heart failure type: diastolic Heart failure chronicity: acute on chronic Qualified Code(s): I50.33 - Acute on chronic diastolic (congestive) heart failure Code(s): I50.9 - Heart failure, unspecified Status: Chronic Assessment and Plan: She is feeling better with respect to breathing. on her echo in July, her LVEF is okay, she has some diastolic dysfunction, she has moderate mitral regurgitation, and [id number] tricuspid regurgitation. Her chest x-ray on admission was wet. repeta yesteday was better. no fluid. We are removing fluid today. (7) Dialysis patient: Code(s): Z99.2 - Dependence on renal dialysis Status: Chronic Assessment and Plan: ON HD doing well. Subjective Date/time seen: 11/29/19 09:47 Interval history: Patient is alert. breathing is better. coughing occasionally but better. On HD alyce it well. seen at 940am. her BP is good. removing some fluid. Review of Systems Constitutional: Constitutional: Reports no additional constitutional complaints Eyes: Eyes: Reports no additional eye complaints ENT: Reports system reviewed and no additional complaints, except as documented Cardiovascular: Cardiovascular: Reports no additional cardiovascular complaints Respiratory: Respiratory: Reports no additional respiratory complaints Gastrointestinal: Gastrointestinal: Reports no additional gastrointestinal complaints Genitourinary: Genitourinary: Reports no additional female genitourinary complaints Musculoskeletal: Musculoskeletal: Reports no additional musculoskeletal complaints Integumentary/Breasts: Skin/Breast: Reports system reviewed and no additional complaints, except as docu Neurologic: Reports system reviewed and no additional complaints, except as documented Psychiatric: Psychiatric: Reports no additional psychiatric complaints Objective Data Vital Signs Vital Signs: Vital Signs - 24 hr 11/28/19 13:00 11/28/19 13:09 11/28/19 14:00 Temperature 36.3 C L Pulse Rate 75 73 72 Respiratory Rate 16 18 20 Blood Pressure 156/76 H Pulse Oximetry 93 11/28/19 17:20 11/28/19 21:30
[2019-11-29 10:39] LABS: Glucose Point of Care 78 (65-105)
[2019-11-29 11:47] LABS: Blood Urea Nitrogen 15 mg/dL (7-17); Estimated CRCL calculation 57 ml/min; Estimated Glomerular Filt Rate > 60
[2019-11-29] MEDS: EPOETIN ALFA 10,000 UNITS/ML VIAL 10000 UNITS IV PUSH (11:49)
--- NOTE | 2019-11-29 13:13 | PC.NURSE ---
Back from dialysis via bed.
[2019-11-29] MEDS: ASPIRIN 81 MG ENTERIC TABLET PO (14:33)
[2019-11-29] MEDS: carvediloL 3.125 MG TABLET PO ×2 (14:33→20:23)
[2019-11-29] MEDS: BUMETANIDE 1 MG TABLET 2 MG PO (14:35)
[2019-11-29 14:43] LABS: Glucose Point of Care 97 (65-105)
--- NOTE | 2019-11-29 15:27 | PM.IMPN ---
Progress Note: A&P Assessment and Plan (1) CHF (congestive heart failure): Qualifiers: Heart failure type: diastolic Heart failure chronicity: acute on chronic Qualified Code(s): I50.33 - Acute on chronic diastolic (congestive) heart failure Code(s): I50.9 - Heart failure, unspecified Status: Chronic Assessment and Plan: Continue with dialysis for volume management (2) Acute respiratory failure with hypoxia: Code(s): J96.01 - Acute respiratory failure with hypoxia Status: Acute Assessment and Plan: Viral upper respiratory infection with asthma exacerbation Now off oxygen Continue steroids and bronchodilators PT/OT Possibly return to [facility] 11/30/19 (3) Asthma: Qualifiers: Asthma severity: unspecified severity Asthma persistence: unspecified Asthma complication type: unspecified Qualified Code(s): J45.909 - Unspecified asthma, uncomplicated Code(s): J45.909 - Unspecified asthma, uncomplicated Status: Chronic Assessment and Plan: Continue with nebulizer treatments and guaifenesin. (4) Hypothyroid: Qualifiers: Hypothyroidism type: acquired Qualified Code(s): E03.9 - Hypothyroidism, unspecified Code(s): E03.9 - Hypothyroidism, unspecified Status: Chronic Assessment and Plan: Continue with levothyroxine and check her thyroid level. (5) HTN (hypertension) with goal to be determined: Code(s): I10 - Essential (primary) hypertension Status: Chronic Assessment and Plan: Continue with Coreg and Bumex (6) Sleep apnea: Qualifiers: Sleep apnea type: unspecified type Qualified Code(s): G47.30 - Sleep apnea, unspecified Code(s): G47.30 - Sleep apnea, unspecified Status: Chronic Assessment and Plan: The patient does not typically use of machine at home and cannot tolerate a mask. She stated that she would be willing to try a CPAP with a nasal pillow while she is here. (7) DM II (diabetes mellitus, type II), controlled: Qualifiers: Diabetes mellitus assisted insulin use: unspecified assisted insulin use status Diabetes mellitus complication status: with unspecified complications Qualified Code(s): E11.8 - Type 2 diabetes mellitus with unspecified complications Code(s): E11.9 - Type 2 diabetes mellitus without complications Status: Chronic Assessment and Plan: Accu-Cheks AC and HS. (8) Anemia: Qualifiers: Anemia type: due to chronic kidney disease Chronic kidney disease stage: on chronic dialysis Qualified Code(s): N18.6 - End stage renal disease; D63.1 - Anemia in chronic kidney disease; Z99.2 - Dependence on renal dialysis Code(s): D64.9 - Anemia, unspecified Status: Chronic Assessment and Plan: Of chronic disease related to the chronic renal failure. Slightly lower than it has been in the past will recheck iron studies and B12 with the elevated MCV (9) Dialysis patient: Code(s): Z99.2 - Dependence on renal dialysis Status: Chronic Assessment and Plan: On dialysis Wednesday. She has not missed any sessions. Nephrology has been consulted. Continue with renal diet and Renvela. She has a positive bruit and thrill to right AV fistula. Dialysis early this a.m. Subjective Date/time seen: 11/29/19 15:27 Interval history: Still with dry cough. Mild wheezing. Dyspnea on exertion. Ate well. no chest pain palpitations dizziness or edema. No GI or complaints. No abnormal bleeding. No fevers or chills. Tolerated hemodialysis. Review of Systems Review of Systems: All systems reviewed & are unremarkable except as noted in HPI and below Exam Narrative: Exam Narrative: HEENT: EOMI, PERRL, pharyngeal mucosa pink and intact NECK: No JVD, adenopathy, or thyromegaly CHEST: Diffuse rhonchi with normal effort HEART: NL S1/S2, regular, no murmur ABDOMEN: BS+, soft
[2019-11-29] MEDS: INSULIN GLARGINE (*BKC) 100 UNITS/ML 20 UNITS SUB-Q (17:15)
[2019-11-29 18:54] LABS: Glucose Point of Care 148 (65-105)
--- NOTE | 2019-11-29 20:22 | PC.NURSE ---
1700 dose of Coreg given now since patient didn't receive first dose of the day until 1433 because she was in dialysis.
[2019-11-29] MEDS: SIMVASTATIN 10 MG TABLET PO (20:23)
[2019-11-29 21:25] LABS: Glucose Point of Care 146 (65-105)
[2019-11-30] VITALS (8 sets, daily range): BP systolic 119–150; BP diastolic 41–71; PULSE 72–84; RESP 14–16; TEMP 36.7–37.2; O2SAT 92–100
[2019-11-30] MEDS: IPRATROPIUM BR 0.02% INH SOLN 0.5 MG/2.5 ML VIAL INHALATION ×2 (02:55→08:15)
[2019-11-30] MEDS: ALBUTEROL SULFATE NEB 2.5 MG/0.5 ML INH 5 MG INHALATION ×2 (02:55→08:15)
[2019-11-30] MEDS: HEPARIN SODIUM 5,000 UNITS/ML VIAL 5000 UNITS SUB-Q (05:39)
[2019-11-30] MEDS: LEVOTHYROXINE SODIUM 25 MCG TABLET PO (05:39)
[2019-11-30 08:24] LABS: Glucose Point of Care 122 (65-105)
[2019-11-30] MEDS: GABAPENTIN 100 MG CAPSULE PO (08:44)
[2019-11-30] MEDS: carvediloL 3.125 MG TABLET PO (08:45)
[2019-11-30] MEDS: SEVELAMER CARBONATE 800 MG TABLET PO ×2 (08:45→12:45)
[2019-11-30] MEDS: BUMETANIDE 1 MG TABLET 2 MG PO (08:45)
[2019-11-30] MEDS: PANTOPRAZOLE 40 MG TABLET PO (08:46)
[2019-11-30] MEDS: ASPIRIN 81 MG ENTERIC TABLET PO (08:46)
--- NOTE | 2019-11-30 11:51 | PM.DS ---
DS: Diagnosis Admitting Diagnosis Admitting Diagnosis: Heart failure, unspecified Discharge Diagnosis (1) CHF (congestive heart failure): Qualifiers: Heart failure chronicity: acute on chronic Heart failure type: diastolic Qualified Code(s): I50.33 - Acute on chronic diastolic (congestive) heart failure Code(s): I50.9 - Heart failure, unspecified Status: Chronic Assessment and Plan: Continue with dialysis for volume management (2) Acute respiratory failure with hypoxia: Code(s): J96.01 - Acute respiratory failure with hypoxia Status: Acute Assessment and Plan: Viral upper respiratory infection with asthma exacerbation Now off oxygen Continue steroids and bronchodilators PT/OT return to [facility] 11/30/19 (3) Asthma: Qualifiers: Asthma complication type: unspecified Asthma persistence: unspecified Asthma severity: unspecified severity Qualified Code(s): J45.909 - Unspecified asthma, uncomplicated Code(s): J45.909 - Unspecified asthma, uncomplicated Status: Chronic Assessment and Plan: Continue with nebulizer treatments and guaifenesin. (4) Hypothyroid: Qualifiers: Hypothyroidism type: acquired Qualified Code(s): E03.9 - Hypothyroidism, unspecified Code(s): E03.9 - Hypothyroidism, unspecified Status: Chronic Assessment and Plan: Continue with levothyroxine (5) HTN (hypertension) with goal to be determined: Code(s): I10 - Essential (primary) hypertension Status: Chronic Assessment and Plan: Continue with Coreg and Bumex (6) Sleep apnea: Qualifiers: Sleep apnea type: unspecified type Qualified Code(s): G47.30 - Sleep apnea, unspecified Code(s): G47.30 - Sleep apnea, unspecified Status: Chronic Assessment and Plan: The patient does not typically use of machine at home and cannot tolerate a mask. She stated that she would be willing to try a CPAP with a nasal pillow while she is here. (7) DM II (diabetes mellitus, type II), controlled: Qualifiers: Diabetes mellitus complication status: with unspecified complications Diabetes mellitus group home insulin use: unspecified buttermilk drier operator insulin use status Qualified Code(s): E11.8 - Type 2 diabetes mellitus with unspecified complications Code(s): E11.9 - Type 2 diabetes mellitus without complications Status: Chronic Assessment and Plan: Accu-Cheks AC and HS. (8) Anemia: Qualifiers: Anemia type: due to chronic kidney disease Chronic kidney disease stage: on chronic dialysis Qualified Code(s): N18.6 - End stage renal disease; D63.1 - Anemia in chronic kidney disease; Z99.2 - Dependence on renal dialysis Code(s): D64.9 - Anemia, unspecified Status: Chronic Assessment and Plan: Of chronic disease related to the chronic renal failure. Slightly lower than it has been in the past will recheck iron studies and B12 with the elevated MCV (9) Dialysis patient: Code(s): Z99.2 - Dependence on renal dialysis Status: Chronic Assessment and Plan: On dialysis Wednesday. DS: Summary Hospital Course Reason for hospitalization: Cough and dyspnea Hospital Course: Admitted with nonproductive cough dyspnea. X-ray consistent with. CBC with leukopenia. Symptoms began with upper respiratory congestion. Diagnosis was volume overload due to heart failure and chronic kidney failure with end-stage renal disease as well as viral upper respiratory syndrome acute bronchitis bronchospasm. She responded well to dialysis treatments and bronchodilators and steroids. By day of discharge was able ambulate independently with standby assist. She was tolerating diet and up and about without difficulty. Time Spent with Patient Time attestation: Total time spent providing and/or coordinating discharge services: 35 min Exam Narrative: Exam Narrative:
--- NOTE | 2019-11-30 12:03 | PM.PNNEP ---
Progress Note: A&P Assessment and Plan (1) Viral respiratory infection: Code(s): J98.8 - Other specified respiratory disorders; B97.89 - Other viral agents as the cause of diseases classified elsewhere Status: Acute Assessment and Plan: The patient has cough and shortness of breath. She has been diagnosed with viral bronchitis. Still has a little bit of a cough but not bad. (2) DM II (diabetes mellitus, type II), controlled: Qualifiers: Diabetes mellitus senior care insulin use: unspecified senior care insulin use status Diabetes mellitus complication status: with unspecified complications Qualified Code(s): E11.8 - Type 2 diabetes mellitus with unspecified complications Code(s): E11.9 - Type 2 diabetes mellitus without complications Status: Chronic Assessment and Plan: The patient has diabetes. on accuchecks. (3) Hyperkalemia: Code(s): E87.5 - Hyperkalemia Status: Acute Assessment and Plan: resolved. (4) Anemia: Qualifiers: Anemia type: due to chronic kidney disease Chronic kidney disease stage: on chronic dialysis Qualified Code(s): N18.6 - End stage renal disease; D63.1 - Anemia in chronic kidney disease; Z99.2 - Dependence on renal dialysis Code(s): D64.9 - Anemia, unspecified Status: Chronic Assessment and Plan: Hemoglobin is ranging in the 10s. She is getting Epogen therapy with dialysis. (5) Sleep apnea: Qualifiers: Sleep apnea type: unspecified type Qualified Code(s): G47.30 - Sleep apnea, unspecified Code(s): G47.30 - Sleep apnea, unspecified Status: Chronic Assessment and Plan: She uses a CPAP machine religiously. for sleep (6) CHF (congestive heart failure): Qualifiers: Heart failure type: diastolic Heart failure chronicity: acute on chronic Qualified Code(s): I50.33 - Acute on chronic diastolic (congestive) heart failure Code(s): I50.9 - Heart failure, unspecified Status: Chronic Assessment and Plan: Compensated. (7) Dialysis patient: Code(s): Z99.2 - Dependence on renal dialysis Status: Chronic Assessment and Plan: ON HD doing well. Subjective Date/time seen: 11/30/19 12:03 Interval history: Patient is alert. breathing is better. Eager for discharge Review of Systems Cardiovascular: Cardiovascular: Reports no additional cardiovascular complaints Respiratory: Respiratory: Reports no additional respiratory complaints Gastrointestinal: Gastrointestinal: Reports no additional gastrointestinal complaints Genitourinary: Genitourinary: Reports no additional female genitourinary complaints Exam Narrative: Exam Narrative: Well developed well-nourished in no acute distress Lungs fairly clear today. Heart regular without rub Abdomen bowel sounds positive soft nontender Extremities no edema Skin no rash or subcu nodules Objective Data Vital Signs Vital Signs: Vital Signs - 24 hr 11/29/19 12:15 11/29/19 12:30 11/29/19 12:45 Temperature Pulse Rate 70 70 70 Respiratory Rate Blood Pressure 135/50 L 134/42 L 127/42 L Pulse Oximetry 11/29/19 12:50 11/29/19 13:00 11/29/19 14:00 Temperature 36.8 C 36.7 C Pulse Rate 70 72 68 Respiratory Rate 16 16 Blood Pressure 132/42 L 136/46 L 140/40 L Pulse Oximetry 100 11/29/19 14:20 11/29/19 14:33 11/29/19 20:15 Temperature Pulse Rate 71 64 73 Respiratory Rate 16 16 16 Blood Pressure Pulse Oximetry 95 11/29/19 20:21 11/29/19 20:23 11/29/19 20:24 Temperature Pulse Rate 70 70 73 Respiratory Rate 16 Blood Pressure 132/55 L Pulse Oximetry 95 11/29/19 20:30 11/29/19 22:00 11/30/19 00:00 Temperature 36.6 C Pulse Rate 71 71 Respiratory Rate 16 16 Blood Pressure 128/41 L Pulse Oximetry 92 96 11/30/19 02:55 11/30/19 03:06 11/30/19 06:00 Temperature 36.7 C Pulse Rate 72 74 78 Respiratory R
[2019-11-30] MEDS: predniSONE 20 MG TABLET 40 MG PO (12:44)
[2019-11-30 13:26] LABS: Glucose Point of Care 182 (65-105)
== END 2019-11-30 14:10 | disposition home or self-care (01) | DRG 291 ==
LOC: ANHED 11:35 → ANHIMU 13:37 → ANH3MEDSUR 11-28 01:09 → ANHIMU 12-04 10:47
PROVIDERS: Internal Medicine; Internal Medicine Nephrology; Nurse Practitioner; Admitting Provider Hospitalist; Emergency Provider Emergency Medicine; PCP Physician Assistant; Visit Provider Internal Medicine
DX: I13.2 Hypertensive heart and chronic kidney disease with heart failure and with stage 5 chronic kidney disease, or end stage renal disease (principal); J96.01 Acute respiratory failure with hypoxia; N18.6 End stage renal disease; I50.33 Acute on chronic diastolic (congestive) heart failure; Z99.2 Dependence on renal dialysis; M19.90 Unspecified osteoarthritis, unspecified site; J45.909 Unspecified asthma, uncomplicated; Z90.49 Acquired absence of other specified parts of digestive tract; H40.9 Unspecified glaucoma; I69.311 Memory deficit following cerebral infarction; I69.398 Other sequelae of cerebral infarction; H53.9 Unspecified visual disturbance; H93.299 Other abnormal auditory perceptions, unspecified ear; E11.42 Type 2 diabetes mellitus with diabetic polyneuropathy; Z87.19 Personal history of other diseases of the digestive system; M10.9 Gout, unspecified; E78.00 Pure hypercholesterolemia, unspecified; E03.9 Hypothyroidism, unspecified; Z95.0 Presence of cardiac pacemaker; G47.30 Sleep apnea, unspecified; Z98.41 Cataract extraction status, right eye; Z98.42 Cataract extraction status, left eye; E11.22 Type 2 diabetes mellitus with diabetic chronic kidney disease; J20.8 Acute bronchitis due to other specified organisms; E87.5 Hyperkalemia; D63.1 Anemia in chronic kidney disease; E55.9 Vitamin D deficiency, unspecified; Z90.710 Acquired absence of both cervix and uterus
CPT/HCPCS: 36415; 36600; 71045; 71046; 80048; 80053; 80069; 82607; 82728; 82805; 83540; 83550; 83735; 83880; 84443; 84484; 85025; 85027; 85610; 85730; 86704; 86706; 87340; 87420; 87804; 93005; 94003; 94640; 94660; 96374; 97161; 97165; 99291; A9270; G0257; J1644; J1815; J2920; J7030; J7512; Q4081

== ENCOUNTER 2019-12-25 08:56 | Outpatient (CLI) | payer MEDICARE, MEDICAID, SELFPAY | END 2019-12-25 08:57 | disposition home or self-care (01) | LOC: ANHCSM 08:57 | PROVIDERS: PCP Physician Assistant; Visit Provider Nurse Practitioner Family | DX: G47.10 Hypersomnia, unspecified (principal) | CPT/HCPCS: 95811 ==

== ENCOUNTER 2020-01-21 09:53 | Emergency (ER) | payer MEDICARE, MEDICAID, SELFPAY ==
--- NOTE | ~2020-01-21 | XR_ITS ---
EXAMINATION: XR ankle RT 2V DATE: 01/21/2020 10:10 INDICATION: Right ankle pain. TECHNIQUE: 2 views of right ankle were obtained. COMPARISON: None. FINDINGS: Bone alignment is normal. No fracture. There is moderate midfoot osteoarthritis. There are enthesophytes at the posterior and plantar aspects of calcaneal tuberosity. Ankle soft tissue swellin g is noted. IMPRESSION: 1. Moderate midfoot osteoarthritis. Reviewed, dictated and finalized at location A.
--- NOTE | ~2020-01-21 | US_ITS ---
EXAMINATION: US venous doppler LE RT DATE: 01/21/2020 10:58 INDICATION: Right lower limb pain. TECHNIQUE: Grayscale ultrasound images without and with compression and Doppler ultrasound images of the right lower extremity veins were obtained. COMPARISON: Ultrasound 07/18/2019 FINDINGS: The visualized portions of right common femoral vein, profunda (deep) femoral vein, femoral vein, pop liteal vein, peroneal veins, posterior tibial veins, and greater saphenous vein outflow are patent. IMPRESSION: 1. No deep venous thrombosis. Reviewed, dictated and finalized at location A.
[2020-01-21 09:51] VITALS: PULSE 72; RESP 12; TEMP 36.6; O2SAT 100
[2020-01-21 10:03] VITALS: BP 160/106; PULSE 70; RESP 14; O2SAT 97
--- NOTE | 2020-01-21 10:04 | ED.EXTPRO ---
HPI - Extremity Problem General Chief complaint: Extremity Problem,Nontraumatic Stated complaint: leg pain Time Seen by Provider: 01/21/20 09:56 History of Present Illness HPI Narrative: Pain and swelling in the right ankle and calf since yesterday. Noted a small tender bump on the lateral ankle today. Pain is moderate in severity. Worse with pressure. She has never had this before. No h/o DVT, trauma. Related Data Home Medications Medication Instructions Recorded Confirmed Basaglar KwikPen U-100 Insulin See Rx Instructions .ROUTE .COMPLEX 11/02/19 12/05/19 bumetanide 2 mg PO DAILY 11/02/19 12/05/19 carvedilol 3.125 mg PO BID 11/02/19 12/05/19 gabapentin 100 mg PO BID 11/02/19 12/05/19 levothyroxine 25 mcg PO DAILY 11/02/19 12/05/19 simvastatin 10 mg PO HS 11/02/19 12/05/19 acetaminophen 500 mg tablet 500 mg PO Q6H PRN tablet 11/03/19 12/05/19 blood sugar diagnostic #10 each 11/03/19 12/05/19 docusate sodium 100 mg tablet 100 mg PO .qhs PRN tablet 11/03/19 12/05/19 lancets 30 gauge #25 each 11/03/19 12/05/19 melatonin 3 mg tablet 3 mg PO DAILY PRN tablet 11/03/19 12/05/19 pen needle, diabetic 32 gauge x #50 each 11/03/19 12/05/19 1/ aspirin [Aspir-Low] 81 mg PO DAILY 11/26/19 12/05/19 colchicine 0.6 mg PO DIRECTED 11/26/19 12/05/19 ergocalciferol (vitamin D2) 50,000 unit PO WEEKLY 11/26/19 12/05/19 [Vitamin D2] guaifenesin [Robafen] 200 mg PO DIRECTED 11/26/19 12/05/19 pantoprazole 40 mg PO DAILY 11/26/19 12/05/19 polyethylene glycol 3350 [Gavilax] 17 g PO DAILY PRN 11/26/19 12/05/19 sevelamer HCl 800 mg PO TID 11/26/19 12/05/19 guaifenesin [Robafen] 200 mg PO Q4H PRN 01/21/20 polyethylene glycol 3350 [Miralax] 17 g PO DAILY 01/21/20 Allergies Allergy/AdvReac Type Severity Reaction Status Date / Time Penicillins Allergy Unknown Unknown Verified 01/21/20 09:56 Review of Systems Review of Systems: All systems reviewed & are unremarkable except as noted in HPI and below Constitutional: Constitutional: Denies chills and Denies fever(s) ENT: Denies dizziness Cardiovascular: Cardiovascular: Reports no additional cardiovascular complaints and Denies chest pain Respiratory: Respiratory: Reports dyspnea (chronic) Gastrointestinal: Gastrointestinal: Denies nausea and Denies vomiting Neurologic: Denies dizziness and Denies weakness [facility] Past Medical History Medical History Anemia Arthritis Asthma Bronchitis Cataracts, bilateral CHF (congestive heart failure) CVA (cerebral vascular accident) Several. Affected her memory, her site and her hearing Depression Dialysis patient Wednesday DM II (diabetes mellitus, type II), controlled Glaucoma History of GI bleed History of rectal polyps HTN (hypertension) with goal to be determined Hunner's ulcer Hx of gout Hx of transient ischemic attack (TIA) Multiple Hx: UTI (urinary tract infection) Hypercholesteremia Hyperkalemia Hypothyroid OA (osteoarthritis) Peripheral neuropathy Renal disease Sleep apnea Cannot tolerate a mask but is willing to use a nasal pillow Surgical History Surgical History History of appendectomy History of cholecystectomy History of hysterectomy History of permanent cardiac pacemaker placement History of vascular surgery An abscess to the right arm fistula removed still has a right arm fistula that is actively working Hx of bilateral cataract extraction Family History Family History Father Acute myocardial infarction Mother Family history of congestive heart failure Breast cancer Sibling Family history of cardiovascular disease Family history of rheumatic fever Sister Other Cerebrovascular accident Diabetes mellitus Family history of malignant neoplasm Hypertension Social History Social History (Reviewed
[2020-01-21 10:16] VITALS: BP 179/66
[2020-01-21 10:19] LABS: Basophils Percent Auto 0.5 % (0.2-1.2); Eosinophils Absolute Auto 0.4 K/mm3 (0-0.3); Eosinophils Percent Auto 8.8 % (0-4.4); Hematocrit 36.1 % (37.0-47.0); Immature Granulocyte Absolute 0.01 K/mm3 (0.00-0.031); Immature Granulocyte Percent A 0.2 % (0-0.5); Lymphocytes Absolute Auto 1.22 K/mm3 (0.9-3.2); Lymphocytes Percent Auto 28.1 % (18.3-44.2); Mean Corpuscular HGB Conc 30.5 g/dl (32-36); Mean Corpuscular Hemoglobin 32.5 pg (26-34); Mean Corpuscular Volume 106.8 fl (80-100); Mean Platelet Volume 10.4 fl (7.4-10.4); Monocytes Absolute Auto 0.5 K/mm3 (0.1-0.6); Monocytes Percent Auto 10.4 % (2.6-8.5); Neutrophils Absolute Auto 2.3 K/mm3 (1.3-6.7); Platelet Count Result 146 k/mm3 (150-375); Red Blood Count 3.38 M/mm3 (4.2-5.4); Red Cell Distribution Width 14.8 % (11.5-14.5); White Blood Count 4.3 K/mm3 (4.5-10.0)
[2020-01-21 10:29] LABS: INR 1.1; Prothrombin Time 14.2 Seconds (11.1-14.7)
[2020-01-21 10:30] LABS: Blood Urea Nitrogen 43 mg/dL (7-17); Calcium 7.7 mg/dL (8.4-10.2); Carbon Dioxide 22 mmol/L (22-30); Chloride 103 mmol/L (98-107); Estimated CRCL calculation 5 ml/min; Estimated Glomerular Filt Rate 4; Glucose 119 mg/dL (65-105); Potassium 4.7 mmol/L (3.4-5.0); Sodium 138 mmol/L (137-145)
--- NOTE | 2020-01-21 10:31 | PC.NURSE ---
Pt to US
--- NOTE | 2020-01-21 10:51 | PC.NURSE ---
Returned from US
[2020-01-21 10:52] VITALS: BP 187/66; PULSE 70; RESP 25; O2SAT 97
[2020-01-21] MEDS: ACETAMINOPHEN 500 MG TABLET 1000 MG PO (11:38)
[2020-01-21] MEDS: TRAMADOL HCL 50 MG TABLET PO (11:39)
[2020-01-21 11:40] VITALS: BP 196/67; PULSE 70; RESP 14; O2SAT 98
--- NOTE | 2020-01-21 12:34 | PC.NURSE ---
Patients daughter, Jaimee. Updated her on plan of care.
[2020-01-21 12:45] VITALS: BP 202/91; PULSE 70; RESP 14; O2SAT 99
== END 2020-01-21 13:04 ==
PROVIDERS: Emergency Provider Emergency Medicine; PCP Physician Assistant
DX: M25.571 Pain in right ankle and joints of right foot (principal); I13.2 Hypertensive heart and chronic kidney disease with heart failure and with stage 5 chronic kidney disease, or end stage renal disease; N18.6 End stage renal disease; I50.9 Heart failure, unspecified; E11.22 Type 2 diabetes mellitus with diabetic chronic kidney disease; Z99.2 Dependence on renal dialysis; D64.9 Anemia, unspecified; E11.42 Type 2 diabetes mellitus with diabetic polyneuropathy; I69.311 Memory deficit following cerebral infarction; I69.398 Other sequelae of cerebral infarction; H53.9 Unspecified visual disturbance; H93.90 Unspecified disorder of ear, unspecified ear; M10.9 Gout, unspecified; J45.909 Unspecified asthma, uncomplicated; H40.9 Unspecified glaucoma; E78.00 Pure hypercholesterolemia, unspecified; E03.9 Hypothyroidism, unspecified; M19.071 Primary osteoarthritis, right ankle and foot; G47.30 Sleep apnea, unspecified; Z79.4 Long term (current) use of insulin; Z79.82 Long term (current) use of aspirin; Z95.0 Presence of cardiac pacemaker; Z98.42 Cataract extraction status, left eye; Z98.41 Cataract extraction status, right eye
CPT/HCPCS: 36415; 73600; 80048; 85025; 85610; 85730; 93971; 99284; A9270

== ENCOUNTER 2020-02-05 15:00 | Inpatient (IN) | payer MEDICARE, MEDICAID, SELFPAY ==
[2020-02-05] VITALS (8 sets, daily range): BP systolic 122–142; BP diastolic 61–86; PULSE 70; RESP 12–18; TEMP 35.5–36.3; O2SAT 90–100; BMI 34.9
--- NOTE | ~2020-02-05 | XR_ITS ---
EXAMINATION: XR chest 1V portable EXAM DATE: 02/05/2020 16:11 INDICATION: Shortness of breath. TECHNIQUE: Portable AP frontal chest x-ray was obtained. Comparison is made to prior examination from 11/28/2019. FINDINGS: There is a dual lead pacemaker/AICD seen with leads projecting over the expected locations of the right atrial appendage and right ventricle. There is cardiomegaly and pulmonary vascular conge stion. Some developing indistinct reticulation, could be mild pulmonary edema, clinical correlation. No confluent consolidation, pneumothorax or pleural effusion. There is aortic arterial sclerosis. IMPRESSION: 1. Cardiomegaly. Possible developing mild pulmonary edema. Reviewed, dictated and finalized at location A.
--- NOTE | 2020-02-05 15:06 | ECG_ITS ---
Measurements Intervals [place] Rate: 70 P: ID: 0 QRS: -64 QRSD: 166 T: 109 QT: 492 QTc: 532 Interpretive Statements ELECTRONIC VENTRICULAR PACEMAKER BASELINE ARTIFACT- I, II, AVR NO FURTHER INTERPRETATION IS POSSIBLE ATYPICAL ECG Electronically Signed On 02-05-2020 16:22:26 CDT by Nagi Devi D.O.
--- NOTE | 2020-02-05 15:21 | ED.URI ---
HPI - URI/Sore Throat General Chief Complaint: Upper Respiratory Infection Stated Complaint: SOB Time Seen by Provider: 02/05/20 15:04 History of Present Illness HPI Narrative: Patient presents via EMS from the senior living for increasing shortness of breath. She is a dialysis patient and they just changed her from Wednesday to Wednesday. She is to have dialysis tomorrow. Otherwise she is up-to-date with her treatments. She is able to walk and she says the shortness of breath is worse with any exertion. She does not wear oxygen at home. She denies having any inhalers although they are on her med list. She denies having problems with her memory and knows the year. Her dialysis site is on her right forearm. She has a chronic dry cough, and said that she was told she had a fever in the ambulance. Related Data Home Medications Medication Instructions Recorded Confirmed Basaglar KwikPen U-100 Insulin See Rx Instructions .ROUTE .COMPLEX 11/02/19 12/05/19 bumetanide 2 mg PO DAILY 11/02/19 12/05/19 carvedilol 3.125 mg PO BID 11/02/19 12/05/19 gabapentin 100 mg PO BID 11/02/19 12/05/19 levothyroxine 25 mcg PO DAILY 11/02/19 12/05/19 simvastatin 10 mg PO HS 11/02/19 12/05/19 acetaminophen 500 mg tablet 500 mg PO Q6H PRN tablet 11/03/19 12/05/19 blood sugar diagnostic #10 each 11/03/19 12/05/19 docusate sodium 100 mg tablet 100 mg PO .qhs PRN tablet 11/03/19 12/05/19 lancets 30 gauge #25 each 11/03/19 12/05/19 melatonin 3 mg tablet 3 mg PO DAILY PRN tablet 11/03/19 12/05/19 pen needle, diabetic 32 gauge x #50 each 11/03/19 12/05/19 1/ aspirin [Aspir-Low] 81 mg PO DAILY 11/26/19 12/05/19 colchicine 0.6 mg PO DIRECTED 11/26/19 12/05/19 ergocalciferol (vitamin D2) 50,000 unit PO WEEKLY 11/26/19 12/05/19 [Vitamin D2] guaifenesin [Robafen] 200 mg PO DIRECTED 11/26/19 12/05/19 pantoprazole 40 mg PO DAILY 11/26/19 12/05/19 sevelamer HCl 800 mg PO TID 11/26/19 12/05/19 guaifenesin [Robafen] 200 mg PO Q4H PRN 01/21/20 polyethylene glycol 3350 [Miralax] 17 g PO DAILY 01/21/20 Allergies Allergy/AdvReac Type Severity Reaction Status Date / Time Penicillins Allergy Unknown Unknown Verified 02/05/20 16:04 Review of Systems Review of Systems: Narrative: CONSTITUTIONAL: Denies chills, or sweats. EYES: Denies visual changes, redness, or discharge. ENT: Denies rhinorrhea, congestion, sore throat, or otalgia. CARDIOVASCULAR: Denies chest pain, palpitations, or edema. RESPIRATORY: She has cough and shortness of breath. GASTROINTESTINAL: Denies abdominal pain, nausea, vomiting, or diarrhea. GENITOURINARY: Denies dysuria or hematuria. SKIN: Denies rash or itching. MUSCULOSKELETAL: Denies back pain, joint pain, or myalgia. NEUROLOGIC: Denies headache, numbness, or weakness. PSYCHIATRIC: Denies anxiety or depression. [facility] Past Medical History Medical History Anemia Arthritis Asthma Bronchitis Cataracts, bilateral CHF (congestive heart failure) CVA (cerebral vascular accident) Several. Affected her memory, her site and her hearing Depression Dialysis patient Wednesday DM II (diabetes mellitus, type II), controlled Glaucoma History of GI bleed History of rectal polyps HTN (hypertension) with goal to be determined Hunner's ulcer Hx of gout Hx of transient ischemic attack (TIA) Multiple Hx: UTI (urinary tract infection) Hypercholesteremia Hyperkalemia Hypothyroid OA (osteoarthritis) Peripheral neuropathy Renal disease Sleep apnea Cannot tolerate a mask but is willing to use a nasal pillow Surgical History Surgical History History of appendectomy History of cholecystectomy History of hysterectomy History of permanent cardiac pacemaker placement History of vascular surgery An abscess to the right arm fistula removed still has a right arm fistula that is actively working Hx
[2020-02-05 15:35] LABS: Basophils Percent Auto 0.5 % (0.2-1.2); Eosinophils Absolute Auto 0.2 K/mm3 (0-0.3); Hematocrit 36.1 % (37.0-47.0); Immature Granulocyte Absolute 0.01 K/mm3 (0.00-0.031); Immature Granulocyte Percent A 0.3 % (0-0.5); Lymphocytes Absolute Auto 0.94 K/mm3 (0.9-3.2); Lymphocytes Percent Auto 23.5 % (18.3-44.2); Mean Corpuscular HGB Conc 30.5 g/dl (32-36); Mean Corpuscular Hemoglobin 32.4 pg (26-34); Mean Corpuscular Volume 106.5 fl (80-100); Mean Platelet Volume 10.9 fl (7.4-10.4); Monocytes Absolute Auto 0.5 K/mm3 (0.1-0.6); Monocytes Percent Auto 11.5 % (2.6-8.5); Neutrophils Absolute Auto 2.4 K/mm3 (1.3-6.7); Neutrophils Percent Auto 60.2 % (45.5-73.1); Platelet Count Result 174 k/mm3 (150-375); Red Blood Count 3.39 M/mm3 (4.2-5.4); Red Cell Distribution Width 15.7 % (11.5-14.5)
[2020-02-05 15:47] LABS: Potassium 5.3 mmol/L (3.4-5.0)
[2020-02-05 15:53] LABS: Alanine Aminotransferase 25 U/L (4-35); Albumin Level 4.5 g/dL (3.5-5.1); Alkaline Phosphatase 177 U/L (38-126); Aspartate Amino Transferase 37 U/L (14-36); Bilirubin,Total 0.6 mg/dL (0.2-1.3); Blood Urea Nitrogen 50 mg/dL (7-17); Calcium 7.4 mg/dL (8.4-10.2); Carbon Dioxide 23 mmol/L (22-30); Chloride 94 mmol/L (98-107); Estimated Glomerular Filt Rate 4; Glucose 131 mg/dL (65-105); Sodium 132 mmol/L (137-145)
[2020-02-05 16:05] LABS: Troponin I 0.096 ng/mL (0.000-0.034)
[2020-02-05 16:19] LABS: NT Pro B Type Natriuretic Pept > 35000 PG/ML (5-100)
[2020-02-05] MEDS: FUROSEMIDE INJ 100 MG/10 ML VIAL 80 MG IV PUSH (16:40)
[2020-02-05] MEDS: ASPIRIN 81 MG CHEWABLE TABLET 324 MG PO (16:40)
[2020-02-05 16:53] LABS: Add Urine Microscopic? YES; Appearance Urine Turbid (Clear); Bacteria Urine 1+ /hpf; Bilirubin Urine Negative (Negative); Blood Urine 2+ (Negative); Budding Yeast Urine Present /hpf; Color Urine Yellow (Yellow); Glucose Urine UA Negative (Negative); Ketones Urine Negative (Negative); Leukocyte Esterase Ur 2+ LEU/UL (Negative); Mucus Urine Heavy /lpf; Nitrate Urine Negative (Negative); Protein Urine 2+ mg/dL (Negative); RBC Urine 51-75 /hpf (0-2); Specific Grav Ur 1.015 (1.001-1.035); Squamous Epithelial Cell Urine Many /hpf (Few); Urobilinogen Urine Negative mg/dL (<2.0); WBC Clumps Urine Present /HPF; WBC Urine >75 /hpf
--- NOTE | 2020-02-05 16:55 | PCRCNOTE ---
UNABLE TO OBTAIN ABG. DIFFICULT STICK
--- NOTE | 2020-02-05 18:40 | PC.NURSE ---
This patient, Christopher Larry, was admitted to Intensive Care Unit-3. Patient/family oriented to hospital policies and general routines including ID bracelet, bed and alarms, visiting hours, pain management, procedures, bathroom and other care routines, personal items, smoking policy, room service/diet, and visiting hours. Valuables list has been completed. Information on how to activate the Rapid Response Team has been discussed. Patient/Family are encouraged to report perceived risks to care and to ask questions if they do not understand what they are told or what they should do.
[2020-02-05 18:44] LABS: Troponin I 0.076 ng/mL (0.000-0.034)
--- NOTE | 2020-02-05 19:47 | PM.IMHP ---
H&P: HPI History of Present Illness Chief complaint: shortness of breath++ Narrative: This is a moribdly obese Diabetic female with known history of CHF, ESRD on HD normally M/W/F, Hypothyroidism, SHANE among other diseases who presented to the hospital today with a complaint of shortness of breath for the past few days. The patient is known to have a chronic sporadic dry cough although tonight she denies any coughing. She also denies fevers or chills. The patient has been compliant with her dialysis sessions and she reports that today she did not undergo dialysis as she has just been switched to dialysis on //Wed. The patient denies any sore throat, wheezing, palpitations, chest pain, abdominal pain, worsening LE swelling, nausea, vomiting, diarrhea or rectal bleeding. She was evaluated in the ER today and found to have an abnormal urinalysis. CXR demonstrated mild pulmonary edema. Troponin was mildly elevated. The patient was treated with ceftriaxone IV. She has recently been tested for novel COVID-19 viral infection at the snf although the results are not back yet. The patient was admitted to the hospital for dialysis. Review of Systems Review of Systems: All systems reviewed & are unremarkable except as noted in HPI and below PMFSH Past Medical History Medical History Anemia Arthritis Asthma Bronchitis Cataracts, bilateral CHF (congestive heart failure) CVA (cerebral vascular accident) Several. Affected her memory, her site and her hearing Depression Dialysis patient Wednesday DM II (diabetes mellitus, type II), controlled Glaucoma History of GI bleed History of rectal polyps HTN (hypertension) with goal to be determined Hunner's ulcer Hx of gout Hx of transient ischemic attack (TIA) Multiple Hx: UTI (urinary tract infection) Hypercholesteremia Hyperkalemia Hypothyroid OA (osteoarthritis) Peripheral neuropathy Renal disease Sleep apnea Cannot tolerate a mask but is willing to use a nasal pillow Surgical History Surgical History History of appendectomy History of cholecystectomy History of hysterectomy History of permanent cardiac pacemaker placement History of vascular surgery An abscess to the right arm fistula removed still has a right arm fistula that is actively working Hx of bilateral cataract extraction Family History Family History Father Acute myocardial infarction Mother Family history of congestive heart failure Breast cancer Sibling Family history of cardiovascular disease Family history of rheumatic fever Sister Other Cerebrovascular accident Diabetes mellitus Family history of malignant neoplasm Hypertension Social History Social History Social History: She desires to be a full code. She had 4 pregnancies but had 1 miscarriage. Had 3 live births. 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 Lifelong nonsmoker does not drink or use illicit drugs Smoking status: Never smoker Second hand tobacco smoke exposure: No Alcohol intake: never Substance use: never Substance use type: does not use Gender identity (if verbalized by the patient): Female Spiritual care concerns: No Agree to blood products: Yes Meds Home Medications and Allergies Home Medications Medication Instructions Recorded Confirmed Type Basaglar KwikPen U-100 Insulin See Rx Instructions .ROUTE .COMPLEX 11/02/19 02/05/20 History bumetanide 2 mg PO DAILY 11/02/19 02/05/20 History carvedilol 3.125 mg PO DIRECTED 11/02/19 02/05/20 History gabapentin 100 mg PO BID 11/02/19 02/05/20 History levothyroxine 25 mcg PO DAILY 11/02/19 02/05/20 History simvastatin 10 mg PO HS 11/02/19 02/05/20 History acetaminophen 500 mg tablet 500 mg PO Q6H PRN tablet 11/03/19 02/05/20 His
[2020-02-05] MEDS: carvediloL 3.125 MG TABLET PO (21:37)
[2020-02-05] MEDS: GABAPENTIN 100 MG CAPSULE PO (21:37)
[2020-02-05] MEDS: SIMVASTATIN 10 MG TABLET PO (21:38)
[2020-02-05 22:16] LABS: CRP < 0.5 mg/dL (<1.0); Lactate Dehydrogenase 365 U/L (313-618)
[2020-02-05 22:27] LABS: Troponin I 0.066 ng/mL (0.000-0.034)
[2020-02-05 23:03] LABS: Glucose 162 mg/dL (65-105)
[2020-02-06] VITALS (32 sets, daily range): BP systolic 102–148; BP diastolic 51–93; PULSE 68–70; RESP 11–21; TEMP 35.9–37; O2SAT 93–100
[2020-02-06] MEDS: LEVOTHYROXINE SODIUM 25 MCG TABLET PO (05:02)
[2020-02-06 05:10] LABS: Basophils Percent Auto 0.3 % (0.2-1.2); Eosinophils Absolute Auto 0.2 K/mm3 (0-0.3); Eosinophils Percent Auto 4.2 % (0-4.4); Hematocrit 33.1 % (37.0-47.0); Hemoglobin 10.3 g/dL (12.0-15.0); Immature Granulocyte Absolute 0.01 K/mm3 (0.00-0.031); Immature Granulocyte Percent A 0.3 % (0-0.5); Lymphocytes Absolute Auto 0.86 K/mm3 (0.9-3.2); Lymphocytes Percent Auto 22.7 % (18.3-44.2); Mean Corpuscular HGB Conc 31.1 g/dl (32-36); Mean Corpuscular Hemoglobin 32.9 pg (26-34); Mean Corpuscular Volume 105.8 fl (80-100); Mean Platelet Volume 10.9 fl (7.4-10.4); Monocytes Absolute Auto 0.4 K/mm3 (0.1-0.6); Neutrophils Absolute Auto 2.4 K/mm3 (1.3-6.7); Neutrophils Percent Auto 62.5 % (45.5-73.1); Platelet Count Result 144 k/mm3 (150-375); Red Blood Count 3.13 M/mm3 (4.2-5.4); Red Cell Distribution Width 15.5 % (11.5-14.5); White Blood Count 3.8 K/mm3 (4.5-10.0)
[2020-02-06 05:21] LABS: Blood Urea Nitrogen 54 mg/dL (7-17); Calcium 6.9 mg/dL (8.4-10.2); Carbon Dioxide 21 mmol/L (22-30); Chloride 96 mmol/L (98-107); Estimated CRCL calculation 5 ml/min; Estimated Glomerular Filt Rate 4; Glucose 103 mg/dL (65-105); Magnesium 2.1 mg/dL (1.6-2.3); Potassium 5.4 mmol/L (3.4-5.0); Sodium 132 mmol/L (137-145)
[2020-02-06 06:17] LABS: Hepatitis B Surface Antigen Negative (Negative)
[2020-02-06 06:23] LABS: HAV RESULT Negative (Negative); Hepatitis B Core IgM Result Negative (Negative)
[2020-02-06 06:34] LABS: Hepatitis B Surface Anti Res Negative; Hepatitis C Virus Antibody Negative (Negative)
[2020-02-06] MEDS: BUMETANIDE 1 MG TABLET 2 MG PO (08:33)
[2020-02-06] MEDS: PANTOPRAZOLE 40 MG TABLET PO (08:33)
[2020-02-06] MEDS: SEVELAMER CARBONATE 800 MG TABLET PO ×3 (08:33→16:12)
[2020-02-06] MEDS: ASPIRIN 81 MG ENTERIC TABLET PO (08:33)
[2020-02-06] MEDS: GABAPENTIN 100 MG CAPSULE PO ×2 (08:34→20:52)
[2020-02-06] MEDS: SODIUM CHLORIDE 0.9% IV 1,000 ML 333 ML (10:11)
--- NOTE | 2020-02-06 11:37 | PM.IMPN ---
Progress Note: A&P Assessment and Plan (1) SOB (shortness of breath): Code(s): R06.02 - Shortness of breath Status: Acute Assessment and Plan: CXR showing mild pulmonary edema and BNP>35K. Secondary to being fluid overloaded from ESRD. The patient currently undergoing hemodialysis. Continue oxygen therapy as needed to maintain pulse ox >94%. Wean oxygen as tolerated. Continuous pulse oximetry. COVID negative. (2) End-stage renal disease needing dialysis: Code(s): N18.6 - End stage renal disease; Z99.2 - Dependence on renal dialysis Status: Chronic Assessment and Plan: Nephrology has been consulted. Continue hemodialysis per Nephrology recommendations. Continue to manage fluid status with dialysis. Appreciate Nephrology input. (3) Suspected 2019 novel coronavirus infection: Code(s): R68.89 - Other general symptoms and signs Status: Acute Assessment and Plan: The patient has been tested for Coronavirus at the longterm and results are still pending. Repeat testing was performed here. Continue isolation and supportive care. (4) Elevated troponin: Code(s): R79.89 - Other specified abnormal findings of blood chemistry Status: Acute Assessment and Plan: Elevated 0.096. EKG showing paced rhythm. No complaints of chest pain. Elevated Troponin likely secondary to ESRD and fluid overload. (5) Acute hyperkalemia: Code(s): E87.5 - Hyperkalemia Status: Acute Assessment and Plan: Potassium to 5.4. Likely secondary to ESRD. Hemodialysis today. Continue to monitor potassium level. (6) Anemia: Qualifiers: Anemia type: unspecified type Qualified Code(s): D64.9 - Anemia, unspecified Code(s): D64.9 - Anemia, unspecified Status: Chronic Assessment and Plan: Likely anemia of chronic disease from ERSD. Hemoglobin in the 10-11 range in stable. Monitor periodically. (7) Type 2 diabetes mellitus with chronic kidney disease: Qualifiers: Chronic kidney disease stage: on chronic dialysis Diabetes mellitus medical terminologist insulin use: with medical terminologist use Qualified Code(s): E11.22 - Type 2 diabetes mellitus with diabetic chronic kidney disease; N18.6 - End stage renal disease; Z79.4 - termite control servicer (current) use of insulin; Z99.2 - Dependence on renal dialysis Code(s): E11.22 - Type 2 diabetes mellitus with diabetic chronic kidney disease Status: Chronic Assessment and Plan: A1c 6.5 in July. Glucose reviewed on 02/06/2020. Glucose well controlled. Continue Accuchecks with SSI Coverage. Continue home insulin regimen. Hypoglycemic protocol available as needed. (8) HTN (hypertension) with goal to be determined: Code(s): I10 - Essential (primary) hypertension Status: Chronic Assessment and Plan: Blood pressure reviewed on 02/06/2020. Blood pressure well controlled. Continue Coreg. (9) Hypothyroid: Qualifiers: Hypothyroidism type: acquired Qualified Code(s): E03.9 - Hypothyroidism, unspecified Code(s): E03.9 - Hypothyroidism, unspecified Status: Chronic Assessment and Plan: TSH normal in Februrary. Continue Levothyroxine. 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 She requires 15L nasal pillows. Will discuss with her to see if this has been started at home. (11) Hypercholesteremia: Code(s): E78.00 - Pure hypercholesterolemia, unspecified Status: Chronic Assessment and Plan: LFTs reasonable. Continue simvastatin. Subjective Date/time seen: 02/06/20 11:37 Interval history: 79yo female with ESRD here for SOB from probable fluid overload.
--- NOTE | 2020-02-06 11:38 | PM.PNNEP ---
Progress Note: A&P Assessment and Plan (1) End stage renal disease: Code(s): N18.6 - End stage renal disease Status: Acute Assessment and Plan: HD today currently on T/T/S schedule while under investigation of possibility of COVID-19 exposure follow electrolytes, volume status, and clearance if COVID-19 testing negative, plan to resume M/W/F schedule FULL CONSULT TO FOLLOW Subjective Date/time seen: 02/06/20 11:38 Tolerating dialysis at the time of my visit (seen on HD at ~ 11:20AM); sleeping comfortably at the time of my visit; no apparent distress noted. Exam Narrative: Exam Narrative: General: WD/WN female in NAD Heart: normal S1 and S2; no rub Lungs: coarse with decreased breath sounds at bases Abdomen: soft, nontender, nondistended, positive bowel sounds Extremities: no cyanosis or clubbing; no edema Skin: warm and dry Objective Data Vital Signs Vital Signs: Vital Signs Temp Pulse Resp BP Pulse Ox 02/06/20 11:30 70 139/57 L 02/06/20 11:15 69 121/66 02/06/20 11:00 69 133/62 02/06/20 10:45 69 142/63 H 02/06/20 10:30 70 133/66 02/06/20 10:15 70 142/69 H 02/06/20 10:11 70 135/64 02/06/20 10:00 70 02/06/20 09:51 35.9 C L 70 11 L 123/57 L 98 02/06/20 08:00 35.9 C L 70 15 142/93 H 100 02/06/20 06:00 70 02/06/20 05:05 36.3 C L 02/06/20 04:00 70 21 H 102/60 98 02/06/20 02:00 70 02/06/20 00:00 70 11 L 141/61 H 98 02/05/20 22:00 70 02/05/20 21:37 70 02/05/20 20:00 36.2 C L 70 12 142/86 H 98 02/05/20 18:42 35.5 C L 70 13 136/69 90 02/05/20 18:24 70 13 122/61 99 02/05/20 17:34 70 17 123/65 100 02/05/20 16:40 70 14 135/65 100 02/05/20 15:03 36.3 C L 70 18 95 Intake/Output Intake/Output: Intake & Output 02/03/20 02/04/20 02/05/20 02/06/20 23:59 23:59 23:59 23:59 Intake Total 180 Output Total 20 Balance -20 180 Meds/Results Medications: Active Medications Generic Name Dose Route Start Last Admin Trade Name Freq PRN Reason Stop Dose Admin Acetaminophen 650 mg 02/05/20 20:11 Tylenol Tablet PO Q4H PRN Mild Pain (1-3) or Fever Albuterol 2 puff 02/05/20 20:11 Proventil Hfa INHALATION Q6H PRN Shortness Of Breath Aspirin 81 mg 02/06/20 09:00 02/06/20 08:33 Aspirin Ec PO 81 mg DAILY ANISA Administration Bumetanide 2 mg 02/06/20 09:00 02/06/20 08:33 Bumex Po PO 2 mg DAILY AINSA Administration Carvedilol 3.125 mg 02/05/20 21:00 02/05/20 21:37 Coreg PO 3.125 mg 1200,2100 ANIAS Administration Colchicine 0.6 mg 02/07/20 09:00 Colchicine Po PO MoWeFr [facility] Dextrose 12.5 gm 02/05/20 20:07 Dextrose 50% Syringe IV PUSH PRN PRN Hypoglycemia Protocol Docusate Sodium 100 mg 02/05/20 21:00 Colace Capsule PO HS PRN Constipation Epoetin Wallace 10,000 units 02/06/20 08:00 Epogen IV PUSH TuThSa [facility] Ergocalciferol 50,000 unit 02/11/20 09:00 Drisdol PO WEEKLY ANISA Gabapentin 100 mg 02/05/20 21:00 02/06/20 08:34 Neurontin PO 100 mg Q12HR ANISA Administration Glucagon 1 mg 02/05/20 20:07 Glucagon For Inj IM PRN PRN Hypoglycemia Protocol Glucose 15 gm 02/05/20 20:07 Glutose 15 PO PRN PRN Hypoglycemia Protocol Guaifenesin 200 mg 02/05/20 20:11 Guaifenesin Liq PO Q4H PRN Cough Dextrose 1,000 mls @ 100 mls/hr 02/05/20 20:07 Dextrose 5% 1,000 Ml IVPB PRN PRN Hypoglycemia Protocol Albumin Human 50 mls @ 999 mls/hr 02/06/20 07:22 Albutein IVPB 03/07/20 07:23 Q10M PRN HYPOTENSION Insulin Aspart 3 - 6 units 02/06/20 08:00 02/06/20 08:16 Novolog SUB-Q Not Given TIDWM ANISA Protocol Insulin Glargine 20 units 02/06/20 17:00 Lantus SUB-Q 1700 ANISA Levothyroxine Sodium 25 mcg 02/06/20 06:30
[2020-02-06 12:09] LABS: Glucose Point of Care 97 (65-105)
[2020-02-06] MEDS: carvediloL 3.125 MG TABLET PO ×2 (14:10→20:52)
[2020-02-06 14:31] LABS: SARS-CoV-2 RNA PCR Negative
[2020-02-06 16:19] LABS: Glucose Point of Care 122 (65-105)
[2020-02-06] MEDS: INSULIN GLARGINE (*BKC) 100 UNITS/ML 20 UNITS SUB-Q (16:42)
--- NOTE | 2020-02-06 18:00 | PC.NURSE ---
This patient, Christopher Larry, was received from ICU-3 on 02/06/20 at 1600. Personal belongings list checked and signed. Patient/family oriented to unit policies and routines
[2020-02-06 20:35] LABS: Glucose Point of Care 159 (65-105)
[2020-02-06] MEDS: SIMVASTATIN 10 MG TABLET PO (20:52)
[2020-02-06] MEDS: MELATONIN 3 MG TABLET PO (22:10)
[2020-02-07] VITALS (31 sets, daily range): BP systolic 112–177; BP diastolic 49–71; PULSE 60–71; RESP 12–20; TEMP 35.6–37; O2SAT 94–98
[2020-02-07 04:37] LABS: Hematocrit 32.9 % (37.0-47.0); Hemoglobin 10.1 g/dL (12.0-15.0); Mean Corpuscular HGB Conc 30.7 g/dl (32-36); Mean Corpuscular Hemoglobin 33.1 pg (26-34); Mean Corpuscular Volume 107.9 fl (80-100); Mean Platelet Volume 11.5 fl (7.4-10.4); Platelet Count Result 105 k/mm3 (150-375); Red Blood Count 3.05 M/mm3 (4.2-5.4)
[2020-02-07] MEDS: LEVOTHYROXINE SODIUM 25 MCG TABLET PO (06:19)
[2020-02-07 06:31] LABS: Albumin Level 3.9 g/dL (3.5-5.1); Blood Urea Nitrogen 37 mg/dL (7-17); Calcium 7.2 mg/dL (8.4-10.2); Carbon Dioxide 21 mmol/L (22-30); Chloride 95 mmol/L (98-107); Estimated CRCL calculation 12 ml/min; Estimated Glomerular Filt Rate 6; Glucose 93 mg/dL (65-105); Phosphorus 5.3 mg/dL (2.5-4.5); Potassium 4.3 mmol/L (3.4-5.0); Sodium 131 mmol/L (137-145)
[2020-02-07] MEDS: ACETAMINOPHEN 325 MG TABLET 650 MG PO (06:55)
[2020-02-07 07:35] LABS: Folic Acid 7.3 ng/mL (2.76->20)
[2020-02-07 08:45] LABS: Glucose Point of Care 87 (65-105)
[2020-02-07] MEDS: ASPIRIN 81 MG ENTERIC TABLET PO (09:06)
[2020-02-07] MEDS: carvediloL 3.125 MG TABLET PO (09:06)
[2020-02-07] MEDS: SEVELAMER CARBONATE 800 MG TABLET PO ×2 (09:07→13:50)
[2020-02-07] MEDS: PANTOPRAZOLE 40 MG TABLET PO (09:07)
[2020-02-07] MEDS: GABAPENTIN 100 MG CAPSULE PO (09:07)
[2020-02-07] MEDS: COLCHICINE 0.6 MG TABLET PO (09:07)
[2020-02-07] MEDS: BUMETANIDE 1 MG TABLET 2 MG PO (09:07)
[2020-02-07] MEDS: FLUCONAZOLE 150 MG TABLET PO (10:14)
--- NOTE | 2020-02-07 10:29 | PM.CNNEP ---
Assessment and Plan Assessment and plan (1) End stage renal disease: Code(s): N18.6 - End stage renal disease Status: Acute (2) SOB (shortness of breath): Code(s): R06.02 - Shortness of breath Status: Acute (3) Suspected 2019 novel coronavirus infection: Code(s): R68.89 - Other general symptoms and signs Status: Acute Assessment and Plan: . Additional Plan Christopher has end-stage renal disease and is currently receiving dialysis at this time. She received dialysis yesterday given her admission symptoms with remarkable improvement in her respiratory status. Her COVID-19 testing is negative which argues that her shortness of breath is more related to fluid overload likely precipitated by the fact that she has stretched from last Wednesday to Wednesday of this week without dialysis. This would argue that she does not tolerate too long of stretches and when comes dialysis in general. As she is clinically better at this time, I am not opposed to discharge from a kidney perspective. I will discuss with her outpatient dialysis unit the possibility of doing dialysis 4 days a week in the hopes that maintain stability in her respiratory and volume status thereby preventing future hospital admissions. I will continue follow patient with you while she remains hospitalized and make further recommendations during her hospital course. Thank you for allowing me to participate in the care of this patient. History of Present Illness Reason for Consult Consult date: 02/07/20 Reason for consult: end stage renal disease Chief Complaint Chief complaint: ESRD needs dialysis, Fluid overload History of Present Illness Narrative: The patient is a 79y/o female with past medical history as outlined below who presented to the [facility] ER with a complaints of shortness of breath. Her shortness of breath appears to have been present for the last few days. Associated symptoms include dry cough but no reported chest pain, sore throat, wheezing, palpitations, chest pain, abdominal pain, worsening LE swelling, nausea, vomiting, fevers, or chills. It should be noted that she was switched to T/T/S schedule from // schedule due to concerns for possible COVID-19 infection so her last dialysis treatment was on February 01, prior to admssion. Work-up and evaluation in the ER demonstrated found labs consistent with her known history of end-stage renal disease as well as a chest x-ray which demonstrated mild pulmonary edema. Her urinalysis was also somewhat suggestive of a urinary tract infection as well. Her troponin was mildly elevated. Appropriate cultures were obtained and she was started on IV antibiotic therapy. She was subsequently to the hospital for further evaluation and therapy. Renal consultation was requested due to her end-stage renal disease. The patient is quite familiar to me as I take care of her outpatient needs with regard to her end-stage disease. As mentioned above, she normally dialyzes on a Wednesday, Wednesday, Wednesday schedule but was switched to Wednesday, , Wednesday as there was some concern that she may have COVID-19 infection. Outpatient testing was performed but the results were not back by the time of admission. Since her admission, she received dialysis yesterday and is currently receiving dialysis at this time. Her COVID-19 testing was negative and she clinically feels better with more aggressive ultrafiltration arguing that her shortness of breath is more related to fluid overload. Currently, as we mentioned, her respiratory status has improved significantly and she is likely to be discharged after dialysis today. [facility] Past Medical History Medical History Anemia Arthritis Asthma Bronchitis Cataracts, bilateral CHF (congestive heart failure) CVA (cerebral vascular accident) Several. Affected her memory, her site and
--- NOTE | 2020-02-07 11:15 | PM.DS ---
DS: Diagnosis Admitting Diagnosis Admitting Diagnosis: Other fluid overload Discharge Diagnosis (1) SOB (shortness of breath): Code(s): R06.02 - Shortness of breath Status: Acute Assessment and Plan: CXR showing mild pulmonary edema and BNP>35K. Secondary to being fluid overloaded from ESRD. Tolerated HD 02/05 and 02/06 with marked improvement in dyspnea SARS-CoV-2 rt-PCR negative. (2) End-stage renal disease needing dialysis: Code(s): N18.6 - End stage renal disease; Z99.2 - Dependence on renal dialysis Status: Chronic Assessment and Plan: Nephrology managing HD (3) Suspected 2019 novel coronavirus infection: Code(s): R68.89 - Other general symptoms and signs Status: Acute Assessment and Plan: 02/04 NEGATIVE rt-PCR (4) Elevated troponin: Code(s): R79.89 - Other specified abnormal findings of blood chemistry Status: Acute Assessment and Plan: Elevated 0.096. EKG showing paced rhythm. No complaints of chest pain. Elevated Troponin likely secondary to ESRD and fluid overload. (5) Acute hyperkalemia: Code(s): E87.5 - Hyperkalemia Status: Acute Assessment and Plan: Resolved with HD (6) Anemia: Qualifiers: Anemia type: unspecified type Qualified Code(s): D64.9 - Anemia, unspecified Code(s): D64.9 - Anemia, unspecified Status: Chronic Assessment and Plan: Likely anemia of chronic disease from ERSD. Hemoglobin in the 10-11 range in stable. Monitor periodically. (7) Type 2 diabetes mellitus with chronic kidney disease: Qualifiers: Chronic kidney disease stage: on chronic dialysis Diabetes mellitus long-term insulin use: with lobsterman use Qualified Code(s): E11.22 - Type 2 diabetes mellitus with diabetic chronic kidney disease; N18.6 - End stage renal disease; Z79.4 - joint terminal attack controller (current) use of insulin; Z99.2 - Dependence on renal dialysis Code(s): E11.22 - Type 2 diabetes mellitus with diabetic chronic kidney disease Status: Chronic Assessment and Plan: A1c 6.5 in July. Glucose reviewed on 02/06/2020. Glucose well controlled. Continue Accuchecks with SSI Coverage. Continue home insulin regimen. Hypoglycemic protocol available as needed. Home regimen upon discharge. (8) HTN (hypertension) with goal to be determined: Code(s): I10 - Essential (primary) hypertension Status: Chronic Assessment and Plan: Blood pressure reviewed on 02/06/2020. Blood pressure well controlled. Continue Coreg. (9) Hypothyroid: Qualifiers: Hypothyroidism type: acquired Qualified Code(s): E03.9 - Hypothyroidism, unspecified Code(s): E03.9 - Hypothyroidism, unspecified Status: Chronic Assessment and Plan: TSH normal in Februrary. Continue Levothyroxine. 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 She requires 15L nasal pillows. Will discuss with her to see if this has been started at home. (11) Hypercholesteremia: Code(s): E78.00 - Pure hypercholesterolemia, unspecified Status: Chronic Assessment and Plan: LFTs reasonable. Continue simvastatin. DS: Summary Hospital Course Reason for hospitalization: dyspnea Hospital Course: Admitted with increasing dyspnea after change in dialysis schedule. Improved dramatically after 2 HD treatments and hospital. Was tolerating diet. Never required supplemental oxygen. Tolerated diet. Blood sugars well controlled from 80s to 150s. Time Spent with Patient Time attestation: Total time spent providing and/or coordinating discharge services: Exam Narrative: Exam Narrative: Gen Kwan FISCHER, appears comf
[2020-02-07 11:46] LABS: Glucose Point of Care 153 (65-105)
--- NOTE | 2020-02-07 15:51 | PCPTNOTE ---
Attempted to see Christopher for PT francis this p.m. She was in dialysis and then possibly be discharged from hospital afterwards. Will try tomorrow for PT francis if she is still an inpatient.
[2020-02-07] MEDS: EPOETIN ALFA 10,000 UNITS/ML VIAL 10000 UNITS IV PUSH (17:10)
[2020-02-07 18:47] LABS: Glucose Point of Care 79 (65-105)
== END 2020-02-07 19:00 | disposition home or self-care (01) | DRG 640 ==
LOC: ANHED 17:23 → ANHICU 17:45 → ANHIMU 02-07 10:46 → ANHICU 02-08 14:17 → ANHIMU 02-08 14:17
PROVIDERS: Family Medicine; Internal Medicine; Internal Medicine Nephrology; Admitting Provider Internal Medicine; Emergency Provider Emergency Medicine; PCP Physician Assistant; Visit Provider Internal Medicine
DX: E87.79 Other fluid overload (principal); N18.6 End stage renal disease; I13.2 Hypertensive heart and chronic kidney disease with heart failure and with stage 5 chronic kidney disease, or end stage renal disease; Z68.45 Body mass index [BMI] 70 or greater, adult; M19.90 Unspecified osteoarthritis, unspecified site; I50.9 Heart failure, unspecified; H40.9 Unspecified glaucoma; Z87.19 Personal history of other diseases of the digestive system; Z87.442 Personal history of urinary calculi; Z90.49 Acquired absence of other specified parts of digestive tract; Z98.41 Cataract extraction status, right eye; Z98.42 Cataract extraction status, left eye; Z20.828 Contact with and (suspected) exposure to other viral communicable diseases; E66.01 Morbid (severe) obesity due to excess calories; E11.9 Type 2 diabetes mellitus without complications; E03.9 Hypothyroidism, unspecified; G47.33 Obstructive sleep apnea (adult) (pediatric); J45.909 Unspecified asthma, uncomplicated; E78.00 Pure hypercholesterolemia, unspecified; Z95.0 Presence of cardiac pacemaker; Z90.710 Acquired absence of both cervix and uterus; E87.5 Hyperkalemia; D63.1 Anemia in chronic kidney disease; Z99.2 Dependence on renal dialysis; G62.9 Polyneuropathy, unspecified; I69.398 Other sequelae of cerebral infarction; I69.311 Memory deficit following cerebral infarction; H53.9 Unspecified visual disturbance
CPT/HCPCS: 36415; 51701; 71045; 80048; 80053; 80069; 80074; 81001; 82607; 82728; 82746; 82947; 83615; 83735; 83880; 84484; 85025; 85027; 86140; 86706; 87086; 87635; 87804; 93005; 96374; 96375; 97165; 99285; A9270; G0257; G0378; J0696; J1644; J1815; J1940; J7030; Q4081; U0003

== ENCOUNTER 2020-03-28 07:45 | Outpatient (CLI) | payer MEDICARE, MEDICAID, SELFPAY | END 2020-03-28 07:46 | disposition home or self-care (01) | LOC: ANHAUDIO 07:48 | PROVIDERS: PCP Physician Assistant; Visit Provider Physician Assistant | DX: H90.41 Sensorineural hearing loss, unilateral, right ear, with unrestricted hearing on the contralateral side (principal); H90.72 Mixed conductive and sensorineural hearing loss, unilateral, left ear, with unrestricted hearing on the contralateral side | CPT/HCPCS: 92557; 92567 ==

== ENCOUNTER 2020-04-09 08:39 | Outpatient (RCR) | payer MEDICAID, SELFPAY | END 2020-04-09 23:59 | disposition home or self-care (01) | LOC: ANHAUDIO 08:39 | PROVIDERS: PCP Physician Assistant; Visit Provider Physician Assistant | DX: Z46.1 Encounter for fitting and adjustment of hearing aid (principal) | CPT/HCPCS: V5160; V5260 ==

== ENCOUNTER 2020-04-17 14:14 | Outpatient (CLI) | payer MEDICARE, MEDICAID, SELFPAY ==
[2020-04-17 14:52] LABS: Alanine Aminotransferase 20 U/L (4-35); Albumin Level 4.5 g/dL (3.5-5.1); Alkaline Phosphatase 148 U/L (38-126); Aspartate Amino Transferase 25 U/L (14-36); Bilirubin,Total 0.6 mg/dL (0.2-1.3); Blood Urea Nitrogen 25 mg/dL (7-17); Calcium 8.4 mg/dL (8.4-10.2); Carbon Dioxide 22 mmol/L (22-30); Chloride 101 mmol/L (98-107); Estimated Glomerular Filt Rate 8; Glucose 143 mg/dL (65-105); Potassium 4.3 mmol/L (3.4-5.0); Sodium 137 mmol/L (137-145)
== END 2020-04-17 14:15 | disposition home or self-care (01) ==
PROVIDERS: PCP Physician Assistant; Visit Provider Physician Assistant
DX: L29.9 Pruritus, unspecified (principal)
CPT/HCPCS: 36415; 80053

== ENCOUNTER 2020-06-21 15:10 | Observation (INO) | payer MEDICARE, MEDICAID, SELFPAY ==
[2020-06-21] VITALS (9 sets, daily range): BP systolic 96–128; BP diastolic 33–78; PULSE 70–73; RESP 18–20; TEMP 36–36.2; O2SAT 94–99; BMI 38.0
--- NOTE | ~2020-06-21 | NM_ITS ---
EXAMINATION: NM pulmonary perfusion EXAM DATE: 06/21/2020 19:07 INDICATION: Shortness of breath, weakness, lightheadedness. TECHNIQUE: A perfusion lung scan was performed. The patient was injected with 5.5 mCi technetium 99m MAA and imaged. Modified PIOPED 2 criteria used for interpretation of perfusion without ventilation study (recent chest x-ray instead for comparison). Comparison is made to prior examination from 08/23. FINDINGS: Mildly heterogeneous perfusion without discrete segmental defects. Chest x-ray same date suarez s no corresponding airspace disease. IMPRESSION: Very low probability for embolism. Reviewed, dictated and finalized at location A.
--- NOTE | ~2020-06-21 | CT_ITS ---
EXAMINATION: CT brain wo con DATE: 06/21/2020 17:47 INDICATION: Paresis. Weakness. TECHNIQUE: Computed tomography (CT) of the head was performed without intravenous contrast. The mA wa s adjusted according to patient size. Iterative reconstruction technique was employed. Exam dose: 60 5.33 mGy-cm total exam DLP. COMPARISON: 07/11/2017 CT brain FINDINGS: Again noted are chronic infarcts involving the left occipital lobe and right frontotemporal and right parietal areas. Chronic lacunar infarct of the left basal ganglia. There is nonspecific diminished attenuation of the cerebral white matter, likely due to chronic small vessel ischemic changes. No intracranial mass lesion or hemorrhage or recent cerebrovascular accident is evident. No midline s hift or mass effect. There are prominent bilateral carotid siphon internal carotid artery calcifications as well as basila r and vertebral artery calcification. No subdural or epidural hematoma. No fracture or bone destruction of the cranial vault. Included paranasal sinuses and mastoid air cell s are normally developed and aerated. IMPRESSION: Chronic left occipital and right frontotemporal and right parietal infarcts and chronic left basal ganglia lacunar infarct Cerebral atherosclerosis and chronic small vessel ischemic changes of the cerebral white matter No acute intracranial finding or significant change since 07/06/2019 Reviewed, dictated and finalized at Location A. Reviewed, dictated and finalized at location A. IMPRESSION: Chronic left occipital and right frontotemporal and right parietal infarcts and chronic left basal ganglia lacunar infarct Cerebral atherosclerosis and chronic small vessel ischemic changes of the cereb ral white matter No acute intracranial finding or significant change since 07/06/2019
--- NOTE | ~2020-06-21 | XR_ITS ---
EXAMINATION: XR chest 2V EXAM DATE: 06/21/2020 17:05 INDICATION: Shortness of breath weakness lightheadedness. History of CHF, hypertension, asthma. TECHNIQUE: Frontal and lateral projections of the chest obtained and reviewed. Comparison is made to prior examination from 02/05/2020. FINDINGS: There is a dual lead pacemaker/AICD seen with leads projecting over the expected locations of the right atrial appendage and right ventricle. The lungs are clear. There are no pleural effu sions. Cardiac silhouette is prominent but magnified on this AP technique. There is no pneumothora x suspected. The bones and soft tissues are unremarkable. There is aortic arteriosclerosis. There are cholecystectomy clips. IMPRESSION: No acute cardiopulmonary findings. Reviewed, dictated and finalized at location A.
--- NOTE | 2020-06-21 15:13 | ECG_ITS ---
Measurements Intervals [place] Rate: 70 P: [place]: 0 QRS: -64 QRSD: 166 T: 74 QT: 461 QTc: 498 Interpretive Statements ELECTRONIC VENTRICULAR PACEMAKER BASELINE ARTIFACT- I, II, AVR, NO FURTHER INTERPRETATION IS POSSIBLE ATYPICAL ECG Electronically Signed On 06-21-2020 15:50:47 CDT by Nagi Devi D.O.
[2020-06-21 15:30] LABS: Basophils Percent Auto 0.4 % (0.2-1.2); Eosinophils Absolute Auto 0.2 K/mm3 (0-0.3); Eosinophils Percent Auto 3.4 % (0-4.4); Hematocrit 35.7 % (37.0-47.0); Hemoglobin 11.4 g/dL (12.0-15.0); Immature Granulocyte Absolute 0.02 K/mm3 (0.00-0.031); Immature Granulocyte Percent A 0.4 % (0-0.5); Lymphocytes Absolute Auto 1.48 K/mm3 (0.9-3.2); Lymphocytes Percent Auto 26.7 % (18.3-44.2); Mean Corpuscular HGB Conc 31.9 g/dl (32-36); Mean Corpuscular Volume 106.6 fl (80-100); Mean Platelet Volume 10.1 fl (7.4-10.4); Monocytes Absolute Auto 0.6 K/mm3 (0.1-0.6); Monocytes Percent Auto 9.9 % (2.6-8.5); Neutrophils Absolute Auto 3.3 K/mm3 (1.3-6.7); Neutrophils Percent Auto 59.2 % (45.5-73.1); Platelet Count Result 190 k/mm3 (150-375); Red Blood Count 3.35 M/mm3 (4.2-5.4); Red Cell Distribution Width 14.6 % (11.5-14.5); White Blood Count 5.6 K/mm3 (4.5-10.0)
[2020-06-21 15:40] LABS: Anion Gap 13 mmol/L (8-16); Blood Urea Nitrogen 25 mg/dL (7-17); Calcium 8.4 mg/dL (8.4-10.2); Carbon Dioxide 26 mmol/L (22-30); Chloride 94 mmol/L (98-107); Estimated CRCL calculation 6 ml/min; Estimated Glomerular Filt Rate 7; Glucose 166 mg/dL (65-105); Potassium 4.6 mmol/L (3.4-5.0); Sodium 133 mmol/L (137-145)
--- NOTE | 2020-06-21 16:21 | ED.SOB ---
HPI - SOB/Dyspnea General Chief Complaint: Shortness of Breath/Dyspnea Stated Complaint: Can't breathe, pains around pace maker Time Seen by Provider: 06/21/20 16:21 Source: patient and family Mode of arrival: ambulatory Limitations: no limitations History of Present Illness HPI Narrative: Pt is a 80 yo female with a history of end-stage renal disease, Wednesday dialysis, hypertension, hyperlipidemia who presents for evaluation of shortness of breath. Patient reports worsening shortness of breath with exertion over the past 24 hours. Patient denies fever or cough. Patient reports chest pain over her left-sided chest which seems to center around where her pacemaker is position. She denies any redness or swelling at the site of the pacemaker. No recent falls, injury or chest wall trauma. Patient denies any new leg swelling or pain. She states that usually she feels unwell until after she attends her dialysis session, but afterwards, her symptoms did not improve. 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 Patient denies any rhinorrhea, sore throat, congestion or diarrhea. No recent sick contacts. Related Data Home Medications Medication Instructions Recorded Confirmed Basaglar KwikPen U-100 Insulin See Rx Instructions .ROUTE .COMPLEX 11/02/19 04/20/20 bumetanide 2 mg PO DAILY 11/02/19 04/20/20 carvedilol 3.125 mg PO DIRECTED 11/02/19 04/20/20 gabapentin 100 mg PO BID 11/02/19 04/20/20 levothyroxine 25 mcg PO DAILY 11/02/19 04/20/20 simvastatin 10 mg PO HS 11/02/19 04/20/20 acetaminophen 500 mg tablet 500 mg PO Q6H PRN tablet 11/03/19 04/20/20 docusate sodium 100 mg tablet 100 mg PO .qhs PRN tablet 11/03/19 04/20/20 lancets 30 gauge #25 each 11/03/19 04/20/20 melatonin 3 mg tablet 3 mg PO HS PRN tablet 11/03/19 04/20/20 colchicine 0.6 mg PO DIRECTED 11/26/19 04/20/20 ergocalciferol (vitamin D2) 50,000 unit PO WEEKLY 02/16/20 07/11/20 [Vitamin D2] pantoprazole 40 mg PO DAILY 11/26/19 04/20/20 sevelamer HCl 800 mg PO TID 11/26/19 04/20/20 polyethylene glycol 3350 [Miralax] 17 g PO DAILY PRN 01/21/20 04/20/20 Epogen 10,000 units IVPUSH QTUTHSA 02/05/20 04/20/20 Novofine Autocover 02/05/20 04/20/20 Allergies Allergy/AdvReac Type Severity Reaction Status Date / Time Penicillins Allergy Unknown Unknown Verified 06/21/20 16:27 Review of Systems Review of Systems: Narrative: CONSTITUTIONAL: Denies fever, chills, or sweats. ENT: Denies rhinorrhea, congestion, sore throat, or otalgia. CARDIOVASCULAR: Reports left-sided chest pain, denies palpitations or leg edema RESPIRATORY: Denies cough, reports shortness of breath GASTROINTESTINAL: Denies abdominal pain, nausea, vomiting, or diarrhea. GENITOURINARY: Denies dysuria or hematuria. SKIN: Denies rash or itching. MUSCULOSKELETAL: Denies back pain, joint pain, or myalgia. NEUROLOGIC: Denies headache, numbness, reports diffuse weakness and fatigue PMFSH Past Medical History Medical History Anemia Arthritis Asthma Bronchitis Cataracts, bilateral CHF (congestive heart failure) CVA (cerebral vascular accident) Several. Affected her memory, her site and her hearing Depression Dialysis patient Wednesday DM II (diabetes mellitus, type II), controlled Glaucoma History of GI bleed History of rectal polyps HTN (hypertension) with goal to be determined Hunner's ulcer Hx of gout Hx of transient ischemic attack (TIA) Multiple Hx: UTI (urinary tract infection) Hypercholesteremia Hyperkalemia Hypothyroid OA (osteoarthritis) Peripheral neuropathy Renal disease Sleep apnea Cannot tolerate a mask but is willing to use a nasal pillow Surgical History Surgical History History of appendectomy History of cholecystectomy History of hysterectomy History of perma
[2020-06-21 16:38] LABS: INR 1.1; Prothrombin Time 13.5 Seconds (11.1-14.7)
[2020-06-21 16:39] LABS: Partial Thromboplastin Time 30.5 SECONDS (22.3-36.8)
[2020-06-21 16:49] LABS: NT Pro B Type Natriuretic Pept 13800 PG/ML (5-100); Troponin I 0.067 ng/mL (0.000-0.034)
--- NOTE | 2020-06-21 17:39 | PC.NURSE ---
Patient to VQ scan.
[2020-06-21 19:52] LABS: Troponin I 0.073 ng/mL (0.000-0.034)
--- NOTE | 2020-06-21 20:50 | PC.NURSE ---
This patient, Christopher Larry, was admitted to IMU Room 201-01 on 06/21/20 at 2020. Patient/family oriented to hospital policies and general routines including ID bracelet, bed and alarms, visiting hours, pain management, procedures, bathroom and other care routines, personal items, smoking policy, room service/diet, and visiting hours. Valuables list has been completed. Information on how to activate the Rapid Response Team has been discussed. Patient/Family are encouraged to report perceived risks to care and to ask questions if they do not understand what they are told or what they should do.
[2020-06-21 23:50] LABS: Troponin I 0.085 ng/mL (0.000-0.034)
[2020-06-22] VITALS: PULSE 70; PULSE 73; RESP 20; O2SAT 99
[2020-06-22] MEDS: MELATONIN 3 MG TABLET PO (00:12)
--- NOTE | 2020-06-22 00:29 | PM.IMHP ---
H&P: HPI History of Present Illness Date/Time: 06/22/20 00:29 Chief complaint: Chest pain, Dyspnea Narrative: This is an 80 year old Diabetic female with known ESRD on HD on // and CHF who presented to the hospital yesterday with a complaint of shortness of breath and intermittent left sided chest pain. She describes that her chest pain has been ongoing for over a week now and comes and goes. The patient denies any cough, fevers, chills, abdominal pain, dysuria, hematuria, nausea, vomiting, or diarrhea. She was evaluated in the ER and found to have a mildly elevated troponin which is not unusual for a dialysis patient. She was admitted to the hospital for cardiac rule out. On my encounter with the patient, she is on room air and in no acute distress. She currently denies any chest pain, shortness of breath, or other symptoms. ER provider has consulted nephrology and cardiology. Review of Systems Review of Systems: All systems reviewed & are unremarkable except as noted in HPI and below PMFSH Past Medical History Medical History Anemia Arthritis Asthma Bronchitis Cataracts, bilateral CHF (congestive heart failure) CVA (cerebral vascular accident) Several. Affected her memory, her site and her hearing Depression Dialysis patient Wednesday DM II (diabetes mellitus, type II), controlled Glaucoma History of GI bleed History of rectal polyps HTN (hypertension) with goal to be determined Hunner's ulcer Hx of gout Hx of transient ischemic attack (TIA) Multiple Hx: UTI (urinary tract infection) Hypercholesteremia Hyperkalemia Hypothyroid OA (osteoarthritis) Peripheral neuropathy Renal disease Sleep apnea Cannot tolerate a mask but is willing to use a nasal pillow Surgical History Surgical History History of appendectomy History of cholecystectomy History of hysterectomy History of permanent cardiac pacemaker placement History of vascular surgery An abscess to the right arm fistula removed still has a right arm fistula that is actively working Hx of bilateral cataract extraction Family History Family History Father Acute myocardial infarction Mother Family history of congestive heart failure Breast cancer Sibling Family history of cardiovascular disease Family history of rheumatic fever Sister Other Cerebrovascular accident Diabetes mellitus Family history of malignant neoplasm Hypertension Social History Social History Social History: She desires to be a full code. She had 4 pregnancies but had 1 miscarriage. Had 3 live births. 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 Lifelong nonsmoker does not drink or use illicit drugs Smoking status: Never smoker Second hand tobacco smoke exposure: No Alcohol intake: never Substance use: never Substance use type: does not use Gender identity (if verbalized by the patient): Female Sexual Orientation (if Verbalized by the Patient): Straight or Heterosexual Spiritual care concerns: No Agree to blood products: Yes Meds Home Medications and Allergies Home Medications Medication Instructions Recorded Confirmed Type Basaglar KwikPen U-100 Insulin 15 unit SUBCUT HS 11/02/19 06/21/20 History bumetanide 2 mg PO DAILY 11/02/19 06/21/20 History carvedilol 3.125 mg PO BID 11/02/19 06/21/20 History gabapentin 100 mg PO BID 11/02/19 06/21/20 History levothyroxine 25 mcg PO DAILY 11/02/19 06/21/20 History simvastatin 10 mg PO HS 11/02/19 06/21/20 History acetaminophen 500 mg tablet 500 mg PO Q6H PRN tablet 11/03/19 06/21/20 History docusate sodium 100 mg tablet 100 mg PO HS PRN tablet 11/03/19 06/21/20 History colchicine 0.6 mg PO QMWF 11/26/19 06/21/20 History ergocalciferol (vitamin D2) 50,000 unit PO WEEKLY 11/11
[2020-06-22 01:34] VITALS: PULSE 70
[2020-06-22 04:00] VITALS: BP 109/43; PULSE 77; PULSE 86; RESP 16; TEMP 36; O2SAT 93
[2020-06-22 05:56] VITALS: PULSE 70
[2020-06-22 08:00] VITALS: BP 135/54; PULSE 70; RESP 12; TEMP 35.8; O2SAT 100
[2020-06-22 08:16] LABS: Glucose Point of Care 95 (65-105)
[2020-06-22] MEDS: PANTOPRAZOLE 40 MG TABLET PO (10:32)
[2020-06-22] MEDS: ASPIRIN 81 MG ENTERIC TABLET PO (10:32)
--- NOTE | 2020-06-22 10:50 | PM.CNCAR ---
Assessment and Plan Additional Plan 80-year-old woman who was hospitalized from what I can tell mostly because of concerns regarding shortness of breath. Despite her complaints her oxygenation on room air appears to be normal and I really do not appreciate any physical exam evidence that this lady is volume overloaded. The admitting diagnosis was diastolic heart failure I really see very little evidence to support this on her physical exam. She could certainly be short of breath because of her chronic mitral valve regurgitation although there is no evidence that she has been has any pulmonary congestion going on at this time. I do not believe her mitral valve disease was severe enough to warrant considering mitral valve repair or replacement on several echocardiograms that are in her chart over the course of the last year. She expresses some concern about pacemaker dysfunction. Her cardiac rhythm is electronically paced at 70 beats per minute I do not see any reason right now to be concerned about difficulty with her pacemaker device. The current generator I believe is less than 2 years old and has been functioning well and office follow-up. Her troponin levels were sampled also prompting consultation for me today. The troponin levels are negative for any evidence of acute coronary syndrome she is a chronic renal failure patient will always have modestly elevated troponin like this. For now I do not see any need for adjusting her medical regimen nor any ongoing cardiac need for hospitalization. Mo Marsh MD [facility] History of Present Illness History of Present Illness Consult date/time: 06/22/20 10:50 Consult reason: shortness of breath Reason For Visit: Chest pain, Dyspnea Narrative: This is an 80-year-old woman on known to me but I believe known to Dr. Gregorio of our practice who is being seen in consultation at the request of the hospitalist's. She was admitted to the hospital after being seen in the office yesterday by our nurse practitioner reporting shortness of breath and was sent to the ER and was subsequently admitted. The patient states that she typically has some exertional dyspnea which has been chronic but apparently it has worsened recently. she is a patient on chronic hemodialysis with a end-stage kidney disease she was apparently getting dialyzed yesterday and she states she was feeling unwell during dialysis with symptoms of lightheadedness and blurring of her vision. She was then told to keep her appointment with our nurse practitioner because they were concerned about congestive heart failure. She is not reporting any orthopnea PND or accumulating edema. In the emergency room she was evaluated does not sound like any obvious evidence of heart failure or volume overload was identified she was oxygenating normally on room air. Her chest x-ray does not look particularly congested to me. Troponins were sampled x3 sets they are negative for evidence of acute coronary syndrome. In this setting of seeing her in consultation today. The patient also states someone either in our office or the emergency room told her that they thought possibly her pacemaker was not functioning properly. She has a chronically implanted pacemaker for sick sinus syndrome. She also has lapsed into chronic atrial fibrillation in the last couple of years. As I dictate this note I do not have the identity of her pacemaker available to me those details are obviously available downstairs in the office chart. When she was found to PN chronic atrial fibrillation that was I believe last year. It was determined that she was not a candidate for anticoagulation because of a history of significant GI bleeding in the past. Of note the patient has had several echocardiograms in the last couple of years demonstrating normal left ventricular systolic function she does have a at least moderate mitral valve insufficiency and I believe modest tricuspid insufficiency. Sh
[2020-06-22 12:00] VITALS: BP 146/63; PULSE 70; RESP 12; TEMP 36.3; O2SAT 100
[2020-06-22 12:39] LABS: Glucose Point of Care 111 (65-105)
--- NOTE | 2020-06-22 12:44 | PM.DS ---
DS: Admitting Diagnosis Admitting Diagnosis Admitting Diagnosis: Chest pain, Dyspnea DS: Discharge Diagnosis Discharge Diagnosis (1) Chest discomfort: Code(s): R07.89 - Other chest pain Status: Acute (2) End stage renal disease: Code(s): N18.6 - End stage renal disease Status: Acute (3) Elevated troponin: Code(s): R79.89 - Other specified abnormal findings of blood chemistry Status: Acute (4) Type 2 diabetes mellitus with chronic kidney disease: Qualifiers: Diabetes mellitus mcc insulin use: with mcc use Chronic kidney disease stage: on chronic dialysis Qualified Code(s): E11.22 - Type 2 diabetes mellitus with diabetic chronic kidney disease; N18.6 - End stage renal disease; Z79.4 - 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 Her workup has been unremarkable, no pulmonary edema on cxr, she had a mild elevation of troponins however that is expected on a patient on HD. Her EKG did not have acute changes, she was seen by cardiology and they don't have any further recommendations, apparently they had seen her in the office last week and she seems to be at baseline. She is going to be discharged back to the [facility], no changes on her home medications. Of notice she mentioned feeling light headed while on HD , not sure if she is having episodes of hypotension while on dialysis but like I mentioned before at this time she is completely asymptomatic. Status at Discharge Cognitive/behavioral status at discharge: Alert and oriented. Overall status at discharge: patient is back to baseline Time Spent with Patient Time attestation: Total time spent providing and/or coordinating discharge services: Time spent: Greater than 30 minutes Exam Const: General: comfortable and no acute distress Neck: Neck: supple and no JVD Resp: Effort & Inspection: normal respiratory effort Auscultation: clear to auscultation bilaterally Other: No rhonchi, no wheezing. Cardio: Rate: regular rate Rhythm: regular rhythm Other: No bradycardia or tachycardia. GI: GI Palp: Yes Soft to palpation Other: Non tender, bowel sounds are normal. Skin: General skin exam: no rashes or lesions noted Neuro: Motor exam (neuro): 5/5 motor strength present throughout and Normal motor muscle tone present throughout Sensory Exam: normal sensation DS: Data Data Completed and Pending Labs on day of discharge: Labs from last 24 hours 06/22/20 06/22/20 06/21/20 12:08 07:45 23:06 WBC RBC Hgb Hct MCV MCH MCHC RDW Plt Count MPV Immature Gran % (Auto) Neut % (Auto) Lymph % (Auto) [place] % (Auto) Eos % (Auto) Baso % (Auto) Lymph # (Auto) [place] # (Auto) Eos # (Auto) Baso # (Auto) Abs Immat Gran (auto) Absolute Neuts (auto) Absolute Nucleated RBC Nucleated RBC % PT INR APTT Sodium Potassium Chloride Carbon Dioxide Anion Gap BUN Creatinine Estim Creat Clear Calc Estimated GFR Glucose POC Capillary Glucose 111 H 95 Calcium Troponin I 0.085 H* NT-Pro-B Natriuret Pep 06/21/20 06/21/20 06/21/20 19:17 15:22 15:22 WBC RBC Hgb Hct MCV MCH MCHC RDW Plt Count MPV Immature Gran % (Auto) Neut % (Auto) Lymph % (Auto) [place] % (Auto) Eos % (Auto) Baso % (Auto) Lymph # (A
--- NOTE | 2020-06-22 14:07 | PCPTNOTE ---
Orders received, but patient discharging from the hospital...spoke with MD and care coordination, patient will not be evaluated due to d/c
== END 2020-06-22 13:34 ==
LOC: ANHED 18:21 → ANHIMU 18:49
PROVIDERS: Admitting Provider Internal Medicine; Emergency Provider Emergency Medicine; PCP Physician Assistant; Visit Provider Hospitalist
DX: R07.9 Chest pain, unspecified (principal); R74.8 Abnormal levels of other serum enzymes; I13.2 Hypertensive heart and chronic kidney disease with heart failure and with stage 5 chronic kidney disease, or end stage renal disease; E11.22 Type 2 diabetes mellitus with diabetic chronic kidney disease; E11.65 Type 2 diabetes mellitus with hyperglycemia; I50.9 Heart failure, unspecified; N18.6 End stage renal disease; Z99.2 Dependence on renal dialysis; E11.42 Type 2 diabetes mellitus with diabetic polyneuropathy; E78.5 Hyperlipidemia, unspecified; Z95.0 Presence of cardiac pacemaker; E03.9 Hypothyroidism, unspecified; G47.33 Obstructive sleep apnea (adult) (pediatric); M10.9 Gout, unspecified; Z86.73 Personal history of transient ischemic attack (TIA), and cerebral infarction without residual deficits; M19.90 Unspecified osteoarthritis, unspecified site; E55.9 Vitamin D deficiency, unspecified
CPT/HCPCS: 36415; 70450; 71046; 78580; 80048; 83880; 84484; 85025; 85610; 85730; 87040; 93005; 99285; A9270; A9540; G0378

== ENCOUNTER 2020-10-22 14:47 | Outpatient (CLI) | payer MEDICARE, MEDICAID, SELFPAY ==
--- NOTE | ~2020-10-22 | XR_ITS ---
EXAMINATION:XR cervical spine 4-5V DATE: 10/22/2020 15:27 INDICATION: Bilateral neck pain radiating to the shoulders TECHNIQUE: AP, lateral, lateral swimmers and odontoid views of the cervical spine are provided. COMPARISON: None FINDINGS: Alignment is normal. Odontoid is intact. Normal atlantoaxial interval. Vertebral body heights are nor mal. Disc spaces are normal. Multilevel cervical facet osteoarthritis, severe on the left at C4-C5 an d otherwise mild to moderate. Atherosclerotic calcifications at the bilateral carotid bulbs. Vasculat ure stent in the right subclavian region. Cardiac pacemaker leads extend through the left subclavian vein into the superior vena cava and beyond the inferior margin of the [id number]. IMPRESSION: 1. Multilevel cervical facet osteoarthritis, severe in the left at C4-C5 and otherwise mild to modera te. Reviewed, dictated and finalized at location A. TING CARD WRITER IMPRESSION: 1. Multilevel cervical facet osteoarthritis, severe in the left at C4-C5 and ot herwise mild to moderate.
== END 2020-10-22 14:48 | disposition home or self-care (01) ==
LOC: ANHIMG 14:52
PROVIDERS: PCP Physician Assistant; Visit Provider Physician Assistant
DX: M47.812 Spondylosis without myelopathy or radiculopathy, cervical region (principal); Z95.828 Presence of other vascular implants and grafts
CPT/HCPCS: 72050

== ENCOUNTER 2020-10-31 12:05 | Outpatient (CLI) | payer MEDICARE, MEDICAID, SELFPAY ==
--- NOTE | ~2020-10-31 | US_ITS ---
EXAMINATION: US carotid duplex BI EXAM DATE: 10/31/2020 13:01 INDICATION: Occlusion, stenosis of carotid arteries. TECHNIQUE: Grayscale, color and pulsed Doppler images of the cervical carotid arteries were obtained . The degree of vessel stenosis is placed in one of the following categories: normal, <50% stenosis, 50-69% stenosis, >=70% stenosis but less than near-occlusion, near-occlusion, or occlusion. Note that percent stenosis relative to normal distal artery lumen diameter is indirectly measured from velocit y measurements as described by Bon, et al. Radiology 2003; [id number]:[id number]. Comparison is made to prior examination from 07/12/2017. FINDINGS: RIGHT SIDE: Common carotid has biphasic high resistance flow. Right common carotid artery peak systolic velocity (PSV in cm/s): 68 Right bulb/internal carotid artery peak systolic velocity (PSV in cm/s): No flow Right internal carotid artery end diastolic velocity (EDV in cm/s): Right ICA/CCA peak systolic ratio: Right external carotid artery peak systolic velocity (PSV in cm/s): 74 Right vertebral artery antegrade flow: yes Completely occluded carotid bulb, ICA. LEFT SIDE: Left common carotid artery peak systolic velocity (PSV in cm/s): 77 Left bulb/internal carotid artery peak systolic velocity (PSV in cm/s): 169 Left internal carotid artery end diastolic velocity (EDV in cm/s): 49 Left ICA/CCA peak systolic ratio: 2.2 Left external carotid artery peak systolic velocity (PSV in cm/s): 64 Left vertebral artery antegrade flow: yes IMPRESSION: 1. Occluded right internal carotid artery. 2. 50-69% stenosis left internal carotid artery. > Reviewed, dictated and finalized at location A. NCED PRACTICE NURSE
== END 2020-10-31 12:06 | disposition home or self-care (01) ==
PROVIDERS: PCP Physician Assistant; Visit Provider Physician Assistant
DX: I65.23 Occlusion and stenosis of bilateral carotid arteries (principal)
CPT/HCPCS: 93880

== ENCOUNTER 2020-11-26 11:49 | Inpatient (IN) | payer MEDICARE, MEDICAID, SELFPAY ==
[2020-11-26] VITALS (47 sets, daily range): BP systolic 118–180; BP diastolic 37–75; PULSE 60–75; RESP 10–20; TEMP 36.3–37.1; O2SAT 91–100; BMI 42.0
--- NOTE | ~2020-11-26 | CT_ITS ---
EXAMINATION: CTA chest PE protocol DATE: 11/26/2020 14:23 INDICATION: Shortness of breath TECHNIQUE: Computed tomography angiography (CTA) of the chest was performed with 100 mL Omnipaque-350 intravenous contrast timed to evaluate the pulmonary arteries. Coronal maximum intensity projection 3D-reconstructions were created by the technologist. Automated exposure control and iterative reconst ruction technique were employed. Exam dose: 846.11 mGy-cm total exam DLP. COMPARISON: November 26, 2020 AP and lateral chest FINDINGS: There is diagnostic contrast enhancement of the pulmonary arteries and no evidence of pulmo nary embolism. Right brachiocephalic/subclavian artery stent. Extensive thoracic aortic calcification but no aneurysm. Coronary artery calcification. Cardiomegaly. Right atrial and right ventricular pacemaker leads, left-sided pacemaker device. No pericardial lesion. No hilar or mediastinal mass lesion or lymphadenopathy. Approximately 1.5 x 2.1 cm soft tissue opacity with radiating spicules in the right apex; differentia l diagnosis includes carcinoma, scar carcinoma or scarring. Consider PET/CT imaging for further evalu ation. Anterior left apical linear scarring. Mild groundglass infiltrates in the left upper anterior greater extent left lower lobe. No pulmonary consolidation is evident. No pleural effusion. Status post cholecystectomy. Adrenal glands are unremarkable. Diffuse idiopathic skeletal hyperostosis of the thoracic spine. No suspicious osteolytic or osteoblas tic lesions are noted. IMPRESSION: No evidence of pulmonary embolism 1.5 x 2.1 cm spiculated right apical soft tissue opacity; diffusion diagnosis includes carcinoma vers us scarring. Consider PET/CT imaging for further evaluation. Cardiomegaly Reviewed, dictated and finalized at [facility]. Reviewed, dictated and finalized at location [facility]. SSMENT DIRECTOR IMPRESSION: No evidence of pulmonary embolism 1.5 x 2.1 cm spiculated right apical soft tissue opacity; diffusion diagnosis i ncludes carcinoma versus scarring. Consider PET/CT imaging for further evaluati on. Cardiomegaly
--- NOTE | ~2020-11-26 | XR_ITS ---
EXAMINATION: XR chest 2V DATE: 11/28/2020 11:43 INDICATION: Shortness of breath TECHNIQUE: AP and lateral views of the chest are obtained. COMPARISON: 11/26/2020 FINDINGS: The lungs are free of acute opacities. There is chronic opacity of the right lung apex whic h has been previously characterized as apical scarring by PET/CT. There is no pleural effusion or pne umothorax. Cardiomegaly is noted. A dual-lead cardiac pacemaker of the left chest wall ends with lead s in expected locations. There is moderate thoracic spondylosis. IMPRESSION: 1. No acute cardiopulmonary abnormality. 2. Chronic right apical opacity, previously characterized as apical scarring by PET/CT. Reviewed, dictated and finalized at location [facility]. MAL TECHNICIAN
--- NOTE | ~2020-11-26 | XR_ITS ---
EXAMINATION: XR chest 2V DATE: 11/26/2020 12:27 INDICATION: Syncope, weakness, nausea and right lower quadrant abdominal pain. TECHNIQUE: frontal and lateral views of the chest were obtained. COMPARISON: Chest radiograph dated 06/21/2020 FINDINGS: The lungs remain clear with no focal airspace opacities, pulmonary edema, pleural effusion or pneumot horax. Borderline heart size accounting for AP technique. Dual lead pacemaker seen with leads project ing over the expected locations of the right atrium and right ventricle. Right subclavian vein stenti ng. Cholecystectomy clips in the right upper quadrant. Thoracic kyphosis with mild anterior wedging o f multiple lower thoracic vertebral bodies. Atherosclerotic aorta. IMPRESSION: 1. No acute cardiopulmonary disease. 2. Borderline heart size. Reviewed, dictated and finalized at location [facility]. REPAIRER
--- NOTE | ~2020-11-26 | US_ITS ---
EXAMINATION: US venous doppler LE RT DATE: 11/27/2020 09:27 INDICATION: Shortness of breath. Elevated d-dimer. TECHNIQUE: Grayscale ultrasound images without and with compression and Doppler ultrasound images of the right lower extremity veins were obtained. Patient refused imaging of the contralateral left lowe r limb due to pain. COMPARISON: 01/21/2020 FINDINGS: The visualized portions of right common femoral vein, profunda (deep) femoral vein, femoral vein, pop liteal vein, peroneal trunk, posterior tibial veins, peroneal veins and greater saphenous vein outflo w are patent. IMPRESSION: 1. No deep venous thrombosis in the right lower limb. Reviewed, dictated and finalized at location A. F CONCIERGE
--- NOTE | 2020-11-26 11:51 | ECG_ITS ---
Measurements Intervals [place] Rate: 61 P: 208 [place]: 312 QRS: 13 QRSD: 117 T: -31 QT: 440 QTc: 445 Interpretive Statements ELECTRONIC ATRIAL PACEMAKER INCOMPLETE RIGHT BUNDLE BRANCH BLOCK LOW QRS VOLTAGE IN PRECORDIAL LEADS ST-T WAVE ABNORMALITY IN ANTEROLAT/INF LEADS- CONSIDER ISCHEMIA BASELINE ARTIFACT- AVR, AVL, AVF, V1-V2 ABNORMAL ECG Electronically Signed On 11-26-2020 12:05:29 THERMAL CUTTING TRACER MACHINE OPERATOR by Nagi Devi D.O.
--- NOTE | 2020-11-26 12:13 | PC.NURSE ---
RN SHEELA ATTEMPTED IV ACCESS X2, NO SUCCESS, THIS RN TO ATTEMPT.
--- NOTE | 2020-11-26 12:19 | PC.NURSE ---
PT TO XRAY, WILL OBTAIN LABS UPON RETURN.
[2020-11-26 12:49] LABS: Basophils Percent Auto 0.5 % (0.2-1.2); Eosinophils Absolute Auto 0.2 K/mm3 (0-0.3); Eosinophils Percent Auto 3.4 % (0-4.4); Hematocrit 28.3 % (37.0-47.0); Hemoglobin 9.2 g/dL (12.0-15.0); Lymphocytes Absolute Auto 0.95 K/mm3 (0.9-3.2); Lymphocytes Percent Auto 21.8 % (18.3-44.2); Mean Corpuscular HGB Conc 32.5 g/dl (32-36); Mean Corpuscular Hemoglobin 34.8 pg (26-34); Mean Corpuscular Volume 107.2 fl (80-100); Mean Platelet Volume 11.8 fl (7.4-10.4); Monocytes Absolute Auto 0.4 K/mm3 (0.1-0.6); Monocytes Percent Auto 9.6 % (2.6-8.5); Neutrophils Absolute Auto 2.8 K/mm3 (1.3-6.7); Neutrophils Percent Auto 64.7 % (45.5-73.1); Platelet Count Result 232 k/mm3 (150-375); Red Blood Count 2.64 M/mm3 (4.2-5.4); White Blood Count 4.4 K/mm3 (4.5-10.0)
--- NOTE | 2020-11-26 13:04 | PC.NURSE ---
LABS CALLED TO LAB FOR ADD ON DIMER AND BNP.
[2020-11-26 13:26] LABS: D Dimer 1.38 ug/mL (<0.48)
--- NOTE | 2020-11-26 13:54 | ED.GENADULT ---
HPI - General Adult General Chief complaint: Shortness of Breath/Dyspnea Stated complaint: SOB Time Seen by Provider: 11/26/20 11:50 Source: patient History of Present Illness HPI narrative: Patient is a 81 y/o female complaining of severe SOB for 1-2 weeks. There is no alleviating or exacerbating factor. She states that she is on dialysis MWF, but missed her treatment yesterday due to weather condition. She has no chest pain or cough. Related Data Home Medications Medication Instructions Recorded Confirmed Sarah Cristobal U-100 Insulin 15 unit SUBCUT HS 11/02/19 11/07/20 bumetanide 2 mg PO DAILY 11/02/19 11/07/20 carvedilol 3.125 mg PO BID 11/02/19 11/07/20 gabapentin 100 mg PO BID 11/02/19 11/07/20 levothyroxine 25 mcg PO DAILY 11/02/19 11/07/20 simvastatin 10 mg PO HS 11/02/19 11/07/20 acetaminophen 500 mg tablet 500 mg PO Q6H PRN tablet 11/03/19 11/07/20 docusate sodium 100 mg tablet 100 mg PO HS PRN tablet 11/03/19 11/07/20 colchicine 0.6 mg PO QMWF 11/26/19 11/07/20 ergocalciferol (vitamin D2) 50,000 unit PO WEEKLY 11/26/19 11/07/20 [Vitamin D2] pantoprazole 40 mg PO DAILY 11/26/19 11/07/20 sevelamer HCl 800 mg PO TID 11/26/19 11/07/20 alprazolam 0.5 mg PO BID PRN 06/21/20 11/07/20 aspirin [Aspirin Low Dose] 81 mg PO DAILY 06/21/20 11/07/20 sertraline 50 mg PO DAILY 06/21/20 11/07/20 Allergies Allergy/AdvReac Type Severity Reaction Status Date / Time Penicillins Allergy Unknown Rash Verified 11/05/20 09:54 Review of Systems Constitutional: Constitutional: Denies chills, Denies fever(s), Denies headache(s) and Denies weakness Eyes: Eyes: Denies blurry vision ENT: Denies headache(s) and Denies neck pain Cardiovascular: Cardiovascular: Denies chest pain and Reports dyspnea Respiratory: Respiratory: Denies cough and Reports dyspnea Gastrointestinal: Gastrointestinal: Denies abdominal pain, Denies diarrhea, Denies nausea and Denies vomiting Genitourinary: Genitourinary: Denies hematuria and Denies dysuria Musculoskeletal: Musculoskeletal: Denies back pain and Denies neck pain Neurologic: Denies headache(s) and Denies weakness [facility] Past Medical History Medical History (Updated 11/26/20 @ 18:30 by Ariadne Stevenson MD) Anemia Arthritis Asthma Bronchitis Cataracts, bilateral CHF (congestive heart failure) CVA (cerebral vascular accident) Several. Affected her memory, her site and her hearing Depression Dialysis patient Wednesday DM II (diabetes mellitus, type II), controlled Glaucoma History of GI bleed History of rectal polyps HTN (hypertension) with goal to be determined Hunner's ulcer Hx of gout Hx of transient ischemic attack (TIA) Multiple Hx: UTI (urinary tract infection) Hypercholesteremia Hyperkalemia Hypothyroid OA (osteoarthritis) Peripheral neuropathy Renal disease Sleep apnea Cannot tolerate a mask but is willing to use a nasal pillow Surgical History Surgical History History of appendectomy History of cholecystectomy History of hysterectomy History of permanent cardiac pacemaker placement History of vascular surgery An abscess to the right arm fistula removed still has a right arm fistula that is actively working Hx of bilateral cataract extraction Family History Family History Father Acute myocardial infarction Mother Family history of congestive heart failure Breast cancer Sibling Family history of cardiovascular disease Family history of rheumatic fever Sister Other Cerebrovascular accident Diabetes mellitus Family history of malignant neoplasm Hypertension Social History Social History Social History: She desires to be a full code. She had 4 pregnancies but had 1 miscarriage. Had 3 live births. 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 Lifelong nonsmoker does not drink or use illicit dr
[2020-11-26 14:00] LABS: NT Pro B Type Natriuretic Pept 14600 PG/ML (5-100)
[2020-11-26 14:01] LABS: Anion Gap 21 mmol/L (8-16); Blood Urea Nitrogen 106 mg/dL (7-17); Calcium 7.8 mg/dL (8.4-10.2); Carbon Dioxide 17 mmol/L (22-30); Chloride 94 mmol/L (98-107); Estimated CRCL calculation 3 ml/min; Estimated Glomerular Filt Rate 2; Glucose 128 mg/dL (65-105); Potassium 6.8 mmol/L (3.4-5.0); Sodium 132 mmol/L (137-145)
[2020-11-26] MEDS: SODIUM POLYSTYRENE SULFONONATE 15 GM/60 ML BTL 30 GM PO (14:31)
[2020-11-26] MEDS: DEXTROSE 50% 25 GM/50 ML SYRINGE IV PUSH (14:31)
[2020-11-26] MEDS: INSULIN HUMAN REGULAR (*BKC) 100 UNITS/ML 10 UNITS IV PUSH (14:32)
[2020-11-26] MEDS: SODIUM BICARBONATE 8.4% 50 MEQ/50 ML VIAL IV PUSH (14:37)
--- NOTE | 2020-11-26 15:16 | PC.NURSE ---
Spoke with pt family member Giana at [phone], updated on pt status.
--- NOTE | 2020-11-26 18:10 | ADMGEN ---
This patient, Christopher Larry, was admitted to Medical Room 248-01. Patient/family oriented to hospital policies and general routines including ID bracelet, bed and alarms, visiting hours, pain management, procedures, bathroom and other care routines, personal items, smoking policy, room service/diet, and visiting hours. Information on how to activate the Rapid Response Team has been discussed. Patient/Family are encouraged to report perceived risks to care and to ask questions if they do not understand what they are told or what they should do.
[2020-11-26] MEDS: HEPARIN SODIUM 1,000 UNITS/ML VIAL 1000 UNITS IV PUSH (18:35)
[2020-11-26] MEDS: HEPARIN SODIUM 1,000 UNITS/ML VIAL 500 UNITS IV PUSH ×3 (18:42→20:42)
[2020-11-26] MEDS: ALBUMIN HUMAN 25% 25 GM/100 ML 100 ML IVPB (18:46)
--- NOTE | 2020-11-26 19:04 | PC.NURSE ---
Patient to dialysis per bed at 1820 11/26/20.
[2020-11-26] MEDS: EPOETIN ALFA-EPBX 10,000 UNITS/ML VIAL 10000 UNITS IV PUSH (21:06)
--- NOTE | 2020-11-26 21:45 | PM.IMHP ---
H&P: HPI History of Present Illness Date/Time: 11/26/20 21:45 Chief Complaint: Shortness of breath Narrative: Christopher Larry is a 80 year old female who has history of having end-stage renal disease. She is on dialysis Wednesday and Wednesday. Her last time that she had dialysis was on Wednesday. She did not have dialysis on Wednesday because of the weather. At least the last week or 2. There is no alleviating factor. No chest pain or fever. Her D-dimer was elevated so they did a CTa to the dialysis today it was read as approximately 1.5 x 2.1 cm soft tissue opacity with radiating speculum was in the right apex differential diagnosis includes carcinoma scar carcinoma or scarring consider a PET scan or CT for further evaluation. Mild ground-glass infiltrates in the left upper anterior greater extent left lower lobe. No evidence of any PE. The patient had a PET scan in 201807/07/2019 which was read as unchanged 2.1 x 1.3 cm anterior mediastinal nodule without evidence of FDG uptake likely chronic reactive prevascular lymph node. Her H&H was 9.2 and 28.3 today. This appears to be somewhat lower than normal. Her potassium was noted to be 6.8 today. D-dimer is 1.38. Are anion gap today was 21 . The patient is currently in dialysis. [place]NP [place] [address]. Dr. Ervin was notified was her regular sales engagement manager. The patient was given sodium bicarb, IV insulin, D50, and Kayexalate. The patient is being admitted for observation on the date of service of 11/26/2020. Review of Systems Review of Systems: All systems reviewed & are unremarkable except as noted in HPI and below Constitutional: Constitutional: Reports as per HPI and Reports no additional constitutional complaints Eyes: Eyes: Reports as per HPI and Reports no additional eye complaints ENT: Reports system reviewed and no additional complaints, except as documented and Reports Normal hearing present Cardiovascular: Cardiovascular: Reports no additional cardiovascular complaints Respiratory: Respiratory: Reports no additional respiratory complaints and Reports no additional respiratory complaints Gastrointestinal: Gastrointestinal: Reports as per HPI and Reports no additional gastrointestinal complaints Musculoskeletal: Musculoskeletal: Reports no additional musculoskeletal complaints Integumentary/Breasts: Skin/Breast: Reports system reviewed and no additional complaints, except as docu and Reports as per HPI Neurologic: Reports system reviewed and no additional complaints, except as documented, Reports as per HPI and Reports Normal hearing present Psychiatric: Psychiatric: Reports no additional psychiatric complaints and Reports as per HPI Endocrine: Endocrine: Reports no additional endocrine complaints Hematologic/Lymphatic: Hematologic/Lymphatic: Reports no additional hematologic/lymphatic complaints Allergic/Immunologic: Allergic/Immunologic: Reports no additional allergic/immunologic complaints [facility] Past Medical History Medical History (Updated 11/26/20 @ 21:55 by Mary Snyder NP) Anemia Arthritis Asthma Bronchitis Cataracts, bilateral CHF (congestive heart failure) CVA (cerebral vascular accident) Several. Affected her memory, her site and her hearing Depression Dialysis patient Wednesday DM II (diabetes mellitus, type II), controlled Glaucoma History of GI bleed History of rectal polyps HTN (hypertension) with goal to be determined Hunner's ulcer Hx of gout Hx of transient ischemic attack (TIA) Multiple Hx: UTI (urinary tract infection) Hypercholesteremia Hyperkalemia Hypothyroid OA (osteoarthritis) Peripheral neuropathy Renal disease Sleep apnea Cannot tolerate a mask but is willing to use a nasal pillow the patient stated she has not been wearing a CPAP machine Surgical History Surgical History History of appendectomy History of cholecystectomy History of hysterectomy
--- NOTE | 2020-11-26 23:05 | PC.NURSE ---
Pt returned from dialysis
[2020-11-26 23:38] LABS: Anion Gap 13 mmol/L (8-16); Blood Urea Nitrogen 50 mg/dL (7-17); Carbon Dioxide 27 mmol/L (22-30); Chloride 95 mmol/L (98-107); Estimated CRCL calculation 6 ml/min; Estimated Glomerular Filt Rate 5; Glucose 80 mg/dL (65-105); Potassium 3.8 mmol/L (3.4-5.0); Sodium 135 mmol/L (137-145)
[2020-11-27] VITALS (28 sets, daily range): BP systolic 116–175; BP diastolic 44–71; PULSE 56–81; RESP 18–20; TEMP 33.8–37; O2SAT 90–93
--- NOTE | 2020-11-27 | ECHO_ITS ---
Patient Info Name: Christopher Larry Age: 80 years : 1940 Gender: Female Ht: 63 in Wt: 240 lbs BSA: 2.26 m2 HR: 78 bpm BP: 170 / 52 mmHg Heart Rhythm: Sinus Rhythm Technical Quality: Fair Exam Date: 11/27/2020 3:52 PM Exam Location: [facility] Pulmonary Exam Room: 248 Patient Status: Inpatient Admit Date: 11/26/2020 Staff Ordering Physician: Wilfrid Ervin MD Supervisor [place]: Elvi Jo RDCS Attending Provider: Stacy Walter PA-C Referring Physician: Aziza DYER; Exam Type: CA echo doppler color flow Study Info Indications - PULM EDEMA Complete two-dimensional, color flow and Doppler transthoracic echocardiogram is performed. Summary 1. Complete two-dimensional, color flow and Doppler transthoracic echocardiogram is performed. 2. Left ventricular chamber dimension is normal. 3. Left ventricular systolic function is normal, estimated at 65-70%. 4. There is mildly increased left ventricular wall thickness. 5. The left ventricular diastolic function is grade II diastolic dysfunction. 6. Right ventricular chamber dimension is mildly enlarged. 7. Left atrial chamber dimension is severely enlarged. 8. Right atrial chamber dimension is moderately enlarged. 9. There is mild aortic valve stenosis with a peak velocity of 230 cm/s, mean gradient of 13 mmHg, and aortic valve area of 1.8 cm2. 10. There is mild to moderate aortic valve regurgitation. 11. There is moderate aortic valve calcification. 12. There is mild to moderate mitral valve regurgitation. 13. The mitral valve annulus is severely calcified. 14. The mitral valve has thickened leaflets. 15. There is moderate tricuspid valve regurgitation. 16. Severe pulmonary hypertension, estimated pulmonary arterial systolic pressure is 64 mmHg. 17. There is mild pulmonic regurgitation. Left Ventricle Left ventricular chamber dimension is normal. Left ventricular systolic function is normal, estimated at 65-70%. There is mildly increased left ventricular wall thickness. The left ventricular diastolic function is grade II diastolic dysfunction. Right Ventricle Right ventricular chamber dimension is mildly enlarged. Right ventricular systolic function is normal. Linear artifact in right ventricle suggestive of catheter(s), pacemaker lead(s), or ICD lead(s). Left Atria Left atrial chamber dimension is severely enlarged. Right Atria Right atrial chamber dimension is moderately enlarged. Atrial Septum Intact interatrial septum visualized by color flow imaging. Aortic Valve The aortic valve is trileaflet. There is no aortic valve sclerosis. There is mild aortic valve stenosis with a peak velocity of 230 cm/s, mean gradient of 13 mmHg, and aortic valve area of 1.8 cm2. There is mild to moderate aortic valve regurgitation. There is moderate aortic valve calcification. Pulmonic Valve The pulmonic valve is normal. There is no pulmonic valve stenosis. There is mild pulmonic regurgitation. Mitral Valve The mitral valve has thickened leaflets. There is no mitral valve stenosis. There is mild to moderate mitral valve regurgitation. The mitral valve annulus is severely calcified. Tricuspid Valve The tricuspid valve leaflets are normal. There is no significant tricuspid valve stenosis. There is moderate tricuspid valve regurgitation. Severe pulmonary hypertension, estimated pulmonary arterial systolic pressure is 64 mmHg. Pericardium/Pleural The pericardium appears normal.
[2020-11-27 00:37] LABS: Glucose Point of Care 82 (65-105)
[2020-11-27] MEDS: SIMVASTATIN 10 MG TABLET PO ×2 (01:04→21:41)
[2020-11-27] MEDS: MELATONIN 3 MG TABLET PO ×2 (01:04→21:41)
[2020-11-27] MEDS: ACETAMINOPHEN 500 MG TABLET PO ×3 (01:04→16:10)
[2020-11-27] MEDS: carvediloL 3.125 MG TABLET PO ×3 (01:05→21:41)
[2020-11-27] MEDS: GABAPENTIN 100 MG CAPSULE PO ×3 (01:05→21:41)
[2020-11-27] MEDS: INSULIN GLARGINE (*BKC) 100 UNITS/ML 15 UNITS SUB-Q ×2 (01:10→21:47)
[2020-11-27 01:45] LABS: Glucose Point of Care 147 (65-105)
[2020-11-27 06:14] LABS: Basophils Percent Auto 0.3 % (0.2-1.2); Eosinophils Absolute Auto 0.1 K/mm3 (0-0.3); Eosinophils Percent Auto 2.5 % (0-4.4); Hematocrit 25.4 % (37.0-47.0); Hemoglobin 8.3 g/dL (12.0-15.0); Immature Granulocyte Absolute 0.01 K/mm3 (0.00-0.031); Immature Granulocyte Percent A 0.3 % (0-0.5); Lymphocytes Absolute Auto 0.39 K/mm3 (0.9-3.2); Lymphocytes Percent Auto 12.3 % (18.3-44.2); Mean Corpuscular HGB Conc 32.7 g/dl (32-36); Mean Corpuscular Hemoglobin 34.6 pg (26-34); Mean Corpuscular Volume 105.8 fl (80-100); Mean Platelet Volume 10.9 fl (7.4-10.4); Monocytes Absolute Auto 0.2 K/mm3 (0.1-0.6); Monocytes Percent Auto 6.9 % (2.6-8.5); Neutrophils Absolute Auto 2.5 K/mm3 (1.3-6.7); Neutrophils Percent Auto 77.7 % (45.5-73.1); Platelet Count Result 140 k/mm3 (150-375); Red Cell Distribution Width 13.8 % (11.5-14.5); White Blood Count 3.2 K/mm3 (4.5-10.0)
[2020-11-27] MEDS: LEVOTHYROXINE SODIUM 25 MCG TABLET PO (06:19)
[2020-11-27 06:30] LABS: Alanine Aminotransferase 14 U/L (4-35); Alkaline Phosphatase 123 U/L (38-126); Anion Gap 13 mmol/L (8-16); Aspartate Amino Transferase 20 U/L (14-36); Bilirubin,Total 0.5 mg/dL (0.2-1.3); Blood Urea Nitrogen 53 mg/dL (7-17); Calcium 7.8 mg/dL (8.4-10.2); Carbon Dioxide 29 mmol/L (22-30); Chloride 94 mmol/L (98-107); Estimated CRCL calculation 5 ml/min; Estimated Glomerular Filt Rate 4; Glucose 82 mg/dL (65-105); Magnesium 1.8 mg/dL (1.6-2.3); Phosphorus 5.2 mg/dL (2.5-4.5); Potassium 4.2 mmol/L (3.4-5.0); Sodium 136 mmol/L (137-145)
[2020-11-27 07:16] LABS: Hemoglobin A1C 5.9 % (<5.7)
[2020-11-27 07:44] LABS: Hepatitis B Surface Antigen Negative (Negative)
[2020-11-27] MEDS: SEVELAMER CARBONATE 800 MG TABLET PO ×3 (08:14→16:57)
[2020-11-27] MEDS: ASPIRIN 81 MG ENTERIC TABLET PO (08:14)
[2020-11-27] MEDS: PANTOPRAZOLE 40 MG TABLET PO (08:15)
[2020-11-27] MEDS: BUMETANIDE 1 MG TABLET 2 MG PO (08:15)
[2020-11-27] MEDS: COLCHICINE 0.6 MG TABLET PO (08:16)
[2020-11-27] MEDS: SERTRALINE HCL 50 MG TABLET PO (08:17)
[2020-11-27] MEDS: traMADol HCL (*CRX) 50 MG TABLET PO ×3 (08:19→16:56)
[2020-11-27 08:33] LABS: Glucose Point of Care 94 (65-105)
--- NOTE | 2020-11-27 09:03 | PC.NURSE ---
Report called to Job Bear RN.
--- NOTE | 2020-11-27 09:40 | PC.NURSE ---
To dialysis via bed.
--- NOTE | 2020-11-27 11:50 | PM.EVENT ---
Event Note Event Note Event Note: On dialysis and tolerating it well. She had dialysis last evening as well. She is still a bit short of breath. Seen at 11:45 a.m.
--- NOTE | 2020-11-27 13:55 | PC.NURSE ---
Returned from dialysis via bed.
[2020-11-27 14:07] LABS: Glucose Point of Care 119 (65-105)
--- NOTE | 2020-11-27 14:11 | PM.CNNEP ---
Assessment and Plan Assessment and plan (1) ESRD on hemodialysis: Code(s): N18.6 - End stage renal disease; Z99.2 - Dependence on renal dialysis Status: Acute Assessment and Plan: the patient has end-stage kidney disease. She does not make much urine. Unfortunately she drinks a lot of fluid which leads to high weight gains between treatments. When she skips the treatment, like she did on Wednesday, she ends up in pulmonary edema because she can't tolerate all that fluid. She had 23 extra lb on when she got here yesterday. Likely she was able to get about 7L off yesterday and will get another 4L off today so hopefully will be close to her dry weight. We discussed at length as stated above how she should cut back on the fluid she drinks. Sometimes of people eat a lot of salt that leads to thirst which can drive the drinking. So she should make sure she is off salty foods. (2) Hyperkalemia: Code(s): E87.5 - Hyperkalemia Status: Acute Assessment and Plan: Her potassium was high as well. This was not only due to the skip treatments but she probably drinks up and eat a lot of food that has high potassium content. Her potassium was better today. (3) SOB (shortness of breath): Code(s): R06.02 - Shortness of breath Status: Acute Assessment and Plan: This was due to pulmonary edema. (4) HTN (hypertension) with goal to be determined: Code(s): I10 - Essential (primary) hypertension Status: Chronic Assessment and Plan: Her blood pressure is still a little bit high. Will see how it is when the fluid is gone. (5) Type 2 diabetes mellitus with chronic kidney disease: Qualifiers: Diabetes mellitus intermediate card tender insulin use: with intermediate card tender use Chronic kidney disease stage: on chronic dialysis Qualified Code(s): E11.22 - Type 2 diabetes mellitus with diabetic chronic kidney disease; N18.6 - End stage renal disease; Z79.4 - FDC (current) use of insulin; Z99.2 - Dependence on renal dialysis Code(s): E11.22 - Type 2 diabetes mellitus with diabetic chronic kidney disease Status: Chronic Assessment and Plan: She is on Accu-Cheks and sliding-scale insulin. History of Present Illness Reason for Consult Consult date: 11/27/20 Chief Complaint Chief complaint: hyperkalemia History of Present Illness Narrative: Christopher is a very pleasant 80-year-old lady who has end-stage renal disease on dialysis 3 times a week, anemia, renal osteodystrophy, bronchitis, cataracts, CHF, stroke, hypertension, hyperlipidemia, sleep apnea but does not use a mask, depression, diabetes, glaucoma, history of GI bleed, gout, bladder infection, hyperlipidemia, hyperkalemia, hypothyroidism. The patient was doing well until Wednesday when she skipped dialysis because of the weather. Yesterday the patient became more short of breath and ended up coming to the emergency room yesterday afternoon. She was evaluated found to be volume overloaded. She was admitted to the hospital. Dialysis came in and gave her treatment last night. She tolerated the treatment well and they got about 7L off of her yesterday. Today were going for another 3 or 4. The patient drinks water and also chews a lot of ice. She often comes in volume overloaded and is sometimes resistant to taking all the fluid off because she cramps. I talked with her at length about drinking so much fluid in about eating salt which makes her thirsty. The excess fluid gains can lead to congestive heart failure and then it is easier and easier for her to get symptomatic from her volume overload. When she was weighed yesterday before dialysis she had about 23 lb of fluid on, and amazingly high amount of fluid to gain in just 4 days. Review of Systems Constitutional: Constitutional: Reports no additional constitutional complaints Eyes: Eyes: Reports no additional eye complaints ENT: Reports system reviewe
--- NOTE | 2020-11-27 15:53 | PM.IMPN ---
Progress Note: A&P Assessment and Plan (1) End stage renal disease: Code(s): N18.6 - End stage renal disease Status: Acute Assessment and Plan: Typically receives dialysis on [facility]. she missed dialysis on Wednesday due to the weather. Upon presentation to the emergency department, she was 23 lb above her dry weight. She had dialysis last night and 7 L was removed and then she had dialysis today with 4 L removed. nephrology is following and input is appreciated discussed monitoring her oral intake. It appears that she drinks quite a bit of fluid and this will need to be decreased. Continue renal dialysis diet. (2) Acute hyperkalemia: Code(s): E87.5 - Hyperkalemia Status: Acute Assessment and Plan: Secondary to ESRD and missed dialysis. additionally, it appears that she eats foods that are high in potassium content. Potassium improved following dialysis and is stable today at 4.2. Monitor potassium closely with daily BMP continue dialysis. Appreciate nephrology input (3) Anemia: Qualifiers: Anemia type: unspecified type Qualified Code(s): D64.9 - Anemia, unspecified Code(s): D64.9 - Anemia, unspecified Status: Chronic Assessment and Plan: appears chronic on review of prior labs. Most likely anemia of chronic disease secondary to ESRD. H&H slightly decreased from baseline but is remaining stable. No signs or symptoms to suggest active bleeding and her vital signs are stable. monitor H&H closely. Transfuse as needed with hemoglobin threshold <7.0 Check iron panel, B12, and folate. (4) Type 2 diabetes mellitus with chronic kidney disease: Qualifiers: Diabetes mellitus superintendent container terminal insulin use: with shelter use Chronic kidney disease stage: on chronic dialysis Qualified Code(s): E11.22 - Type 2 diabetes mellitus with diabetic chronic kidney disease; N18.6 - End stage renal disease; Z79.4 - superintendent container terminal (current) use of insulin; Z99.2 - Dependence on renal dialysis Code(s): E11.22 - Type 2 diabetes mellitus with diabetic chronic kidney disease Status: Chronic Assessment and Plan: A1c is 5.9. blood sugars reviewed and are well controlled at this time. Accu-Cheks ACHS, SSI, and hypoglycemic protocol. continue home Lantus (5) Hypothyroid: Qualifiers: Hypothyroidism type: acquired Qualified Code(s): E03.9 - Hypothyroidism, unspecified Code(s): E03.9 - Hypothyroidism, unspecified Status: Chronic Assessment and Plan: TSH is within normal limits Continue levothyroxine (6) Apical lung nodule: Code(s): R91.1 - Solitary pulmonary nodule Status: Acute Assessment and Plan: chest CTA demonstrated spiculated right apical soft tissue opacity. it appears that this has already been evaluated and she had a PET scan in the past for evaluation of this nodule, felt to be related to pleural-parenchymal scarring. Continue with scheduled primary care follow up. (7) HTN (hypertension) with goal to be determined: Code(s): I10 - Essential (primary) hypertension Status: Chronic Assessment and Plan: BP reviewed and is elevated above target. Last BP 169/48. Continue Coreg and Bumex monitor BP trends and adjust regimen as needed Subjective Date/time seen: 11/27/20 15:53 Interval history: Date of service: 11/27/20 Christopher Becerril is a 1-year-old female with a history of end-stage renal disease on hemodialysis, type 2 diabetes mellitus, anemia of chronic disease, CHF, CVA, and several other comorbidities who is seen in follow-up for pulmonary edema secondary to missed dialysis. She is still feeling short of breath and is not able to say whether it is better or worse following dialysis. She denies coughing. She does endorse PND. She denies peripheral edema. She has been eating well. She denies nausea, vomiting, fe
[2020-11-27 17:06] LABS: Glucose Point of Care 161 (65-105)
[2020-11-27 22:13] LABS: Glucose Point of Care 108 (65-105)
[2020-11-27] MEDS: ALPRAZolam (*CRX) 0.5 MG TABLET PO (23:25)
[2020-11-28] VITALS (13 sets, daily range): BP systolic 100–155; BP diastolic 44–62; PULSE 59–89; RESP 12–20; TEMP 36.3–36.8; O2SAT 90–97
[2020-11-28 05:55] LABS: Hematocrit 27.5 % (37.0-47.0); Hemoglobin 8.8 g/dL (12.0-15.0); Immature Platelet Fraction Pct 5.5 % (0.9-11.2); Mean Corpuscular Hemoglobin 34.5 pg (26-34); Mean Corpuscular Volume 107.8 fl (80-100); Platelet Count Result 150 k/mm3 (150-375); Red Blood Count 2.55 M/mm3 (4.2-5.4); White Blood Count 6.5 K/mm3 (4.5-10.0)
[2020-11-28 06:06] LABS: Alanine Aminotransferase 13 U/L (4-35); Alkaline Phosphatase 106 U/L (38-126); Anion Gap 12 mmol/L (8-16); Aspartate Amino Transferase 19 U/L (14-36); Bilirubin,Total 0.7 mg/dL (0.2-1.3); Blood Urea Nitrogen 39 mg/dL (7-17); Calcium 8.2 mg/dL (8.4-10.2); Carbon Dioxide 31 mmol/L (22-30); Chloride 91 mmol/L (98-107); Estimated CRCL calculation 6 ml/min; Estimated Glomerular Filt Rate 5; Glucose 127 mg/dL (65-105); Magnesium 1.7 mg/dL (1.6-2.3); Phosphorus 4.7 mg/dL (2.5-4.5); Potassium 3.6 mmol/L (3.4-5.0); Sodium 134 mmol/L (137-145)
[2020-11-28] MEDS: LEVOTHYROXINE SODIUM 25 MCG TABLET PO (06:08)
[2020-11-28 08:06] LABS: Glucose Point of Care 134 (65-105)
[2020-11-28] MEDS: ASPIRIN 81 MG ENTERIC TABLET PO (08:49)
[2020-11-28] MEDS: SERTRALINE HCL 50 MG TABLET PO (08:49)
[2020-11-28] MEDS: SEVELAMER CARBONATE 800 MG TABLET PO ×3 (08:49→17:15)
[2020-11-28] MEDS: GABAPENTIN 100 MG CAPSULE PO ×2 (08:49→21:35)
[2020-11-28] MEDS: carvediloL 3.125 MG TABLET PO ×2 (08:49→21:34)
[2020-11-28] MEDS: PANTOPRAZOLE 40 MG TABLET PO (08:49)
[2020-11-28] MEDS: BUMETANIDE 1 MG TABLET 2 MG PO (08:49)
[2020-11-28] MEDS: traMADol HCL (*CRX) 50 MG TABLET PO ×3 (08:51→17:15)
--- NOTE | 2020-11-28 09:25 | PM.PNNEP ---
Progress Note: A&P Assessment and Plan (1) ESRD on hemodialysis: Code(s): N18.6 - End stage renal disease; Z99.2 - Dependence on renal dialysis Status: Acute Assessment and Plan: the patient has end-stage kidney disease. She does not make much urine. more fluid removed. she feels a bit sob. she has had 2 tx in a row and almost 10L removed. check cxr. (2) Hyperkalemia: Code(s): E87.5 - Hyperkalemia Status: Acute Assessment and Plan: Her potassium is better. (3) SOB (shortness of breath): Code(s): R06.02 - Shortness of breath Status: Acute Assessment and Plan: This was due to pulmonary edema. see what cxr shows (4) HTN (hypertension) with goal to be determined: Code(s): I10 - Essential (primary) hypertension Status: Chronic Assessment and Plan: Her blood pressure is still a little bit high. Will see how it is when the fluid is gone. (5) Type 2 diabetes mellitus with chronic kidney disease: Qualifiers: Chronic kidney disease stage: on chronic dialysis Diabetes mellitus fci insulin use: with fci use Qualified Code(s): E11.22 - Type 2 diabetes mellitus with diabetic chronic kidney disease; N18.6 - End stage renal disease; Z79.4 - termination clerk (current) use of insulin; Z99.2 - Dependence on renal dialysis Code(s): E11.22 - Type 2 diabetes mellitus with diabetic chronic kidney disease Status: Chronic Assessment and Plan: She is on Accu-Cheks and sliding-scale insulin. Subjective Date/time seen: 11/28/20 09:25 Interval history: patient still feels short of breath when she moves around, even after taking [id number] off in dialysis in the last 2 days. She has no chest pain. Eating okay. Review of Systems Cardiovascular: Cardiovascular: Reports no additional cardiovascular complaints Respiratory: Respiratory: Reports no additional respiratory complaints Gastrointestinal: Gastrointestinal: Reports no additional gastrointestinal complaints Genitourinary: Genitourinary: Reports no additional female genitourinary complaints Exam Narrative: Exam Narrative: WDWN in NAD skin no rash head ncat lungs clear Bilaterally cor reg no rub abd BS+ nontender and soft ext no edema. Objective Data Vital Signs Vital Signs: Vital Signs - 24 hr 11/27/20 09:53 02/17/21 10:05 11/27/20 10:15 Temperature 36.8 C Pulse Rate 81 60 61 Respiratory Rate 18 Blood Pressure 116/71 121/56 L 134/59 L Pulse Oximetry 11/27/20 10:30 11/27/20 10:45 11/27/20 11:00 Temperature Pulse Rate 64 64 66 Respiratory Rate Blood Pressure 158/62 H 158/62 H 161/64 H Pulse Oximetry 11/27/20 11:15 11/27/20 11:30 11/27/20 11:45 Temperature Pulse Rate 66 65 66 Respiratory Rate Blood Pressure 161/63 H 158/54 H 155/61 H Pulse Oximetry 11/27/20 12:00 11/27/20 12:15 11/27/20 12:30 Temperature Pulse Rate 66 67 64 Respiratory Rate Blood Pressure 146/66 H 151/52 H 175/62 H Pulse Oximetry 11/27/20 12:45 11/27/20 13:00 11/27/20 13:10 Temperature Pulse Rate 65 65 62 Respiratory Rate Blood Pressure 169/71 H 120/58 L 172/64 H Pulse Oximetry 11/27/20 13:15 11/27/20 14:00 11/27/20 16:00 Temperature 37.0 C 33.8 C L Pulse Rate 62 65 67 Respiratory Rate 18 18 Blood Pressure 170/52 H 170/52 H Pulse Oximetry 93 11/27/20 20:00 11/27/20 21:41 11/27/20 21:48 Temperature 36.7 C Pulse Rate 70 64 62 Respiratory Rate 20 Blood Pressure 131/44 L Pulse Oximetry 90 11/28/20 00:00 11/28/20 02:00 11/28/20 04:00 Temperature 36.4 C Pulse Rate 61 63 66 Respiratory Rate 20 Blood Pressure 115/54 L Pulse Oximetry 90 11/28/20 04:46 11/28/20 05:19 11/28/20 05:20 Temperature 36.3 C L 36.8 C Pulse Rate 75 66 59 L Respiratory Rate 18 20 Blood Pressure 155/44 H 130/44 L Pulse Oximetry 95 96 11/28/20 08:49 Temperature Pul
[2020-11-28 12:00] LABS: Glucose Point of Care 170 (65-105)
--- NOTE | 2020-11-28 14:05 | PM.IMPN ---
Progress Note: A&P Assessment and Plan (1) End stage renal disease: Code(s): N18.6 - End stage renal disease Status: Acute Assessment and Plan: Typically receives dialysis on MWF. she missed dialysis on Wednesday (11/25) due to the weather. Upon presentation to the emergency department, she was 23 lb above her dry weight. She had dialysis on 11/26 and 7 L was removed and then she had dialysis again 11/27 with 4 L removed. nephrology is following and input is appreciated discussed monitoring her oral intake. It appears that she drinks quite a bit of fluid and this will need to be decreased. Continue renal dialysis diet. Plan to resume usual dialysis schedule tomorrow. She will need to be dialyzed while inpatient prior to discharge tomorrow. (2) Dyspnea: Code(s): R06.00 - Dyspnea, unspecified Status: Acute Assessment and Plan: she is endorsing dyspnea at rest and with exertion. Chest x-ray repeated today given lack of improvement following dialysis. There is no airspace opacities, pleural effusion, or other acute cardiopulmonary findings. PE unlikely as she does not have tachycardia or tachypnea. Suspect her dyspnea is related to congestion due to excess fluid. She will be due for dialysis tomorrow. Monitor volume status closely. Monitor I&O and measure daily weights. (3) Acute hyperkalemia: Code(s): E87.5 - Hyperkalemia Status: Acute Assessment and Plan: Secondary to ESRD and missed dialysis. additionally, it appears that she eats foods that are high in potassium content. Potassium improved following dialysis and is stable today at 3.6. Monitor potassium closely with daily BMP Continue dialysis. Appreciate nephrology input (4) Anemia: Qualifiers: Anemia type: unspecified type Qualified Code(s): D64.9 - Anemia, unspecified Code(s): D64.9 - Anemia, unspecified Status: Chronic Assessment and Plan: appears chronic on review of prior labs. Most likely anemia of chronic disease secondary to ESRD. H&H slightly decreased from baseline but is remaining stable. No signs or symptoms to suggest active bleeding and her vital signs are stable. monitor H&H closely. Transfuse as needed with hemoglobin threshold <7.0 Check iron panel, B12, and folate. (5) Type 2 diabetes mellitus with chronic kidney disease: Qualifiers: Chronic kidney disease stage: on chronic dialysis Diabetes mellitus penitentiary insulin use: with exterminator helper termite use Qualified Code(s): E11.22 - Type 2 diabetes mellitus with diabetic chronic kidney disease; N18.6 - End stage renal disease; Z79.4 - watermelon inspector (current) use of insulin; Z99.2 - Dependence on renal dialysis Code(s): E11.22 - Type 2 diabetes mellitus with diabetic chronic kidney disease Status: Chronic Assessment and Plan: A1c is 5.9. blood sugars reviewed and are well controlled at this time. Accu-Cheks ACHS, SSI, and hypoglycemic protocol. continue home Lantus (6) Hypothyroid: Qualifiers: Hypothyroidism type: acquired Qualified Code(s): E03.9 - Hypothyroidism, unspecified Code(s): E03.9 - Hypothyroidism, unspecified Status: Chronic Assessment and Plan: TSH is within normal limits Continue levothyroxine (7) HTN (hypertension) with goal to be determined: Code(s): I10 - Essential (primary) hypertension Status: Chronic Assessment and Plan: BP reviewed and is labile. Better controlled today. Last BP 130/44. Continue Coreg and Bumex monitor BP trends and adjust regimen as needed (8) Apical lung nodule: Code(s): R91.1 - Solitary pulmonary nodule Status: Acute Assessment and Plan: chest CTA demonstrated spiculated right apical soft tissue opacity. it appears that this has already been evaluated and she had a PET scan in the past for evaluation of this nodule, felt
[2020-11-28 18:10] LABS: Glucose Point of Care 124 (65-105)
[2020-11-28] MEDS: SIMVASTATIN 10 MG TABLET PO (21:35)
[2020-11-28] MEDS: guaiFENesin 12 HR 600 MG TABCR PO (21:35)
[2020-11-28] MEDS: INSULIN GLARGINE (*BKC) 100 UNITS/ML 15 UNITS SUB-Q (21:38)
[2020-11-28] MEDS: ALPRAZolam (*CRX) 0.5 MG TABLET PO (21:44)
[2020-11-28 22:11] LABS: Glucose Point of Care 150 (65-105)
[2020-11-29] VITALS (19 sets, daily range): BP systolic 109–130; BP diastolic 27–80; PULSE 64–87; RESP 16–18; TEMP 36–36.7; O2SAT 92–95
[2020-11-29 05:52] LABS: Mean Corpuscular HGB Conc 32.1 g/dl (32-36); Mean Corpuscular Hemoglobin 34.2 pg (26-34); Mean Corpuscular Volume 106.5 fl (80-100); Mean Platelet Volume 11.1 fl (7.4-10.4); Platelet Count Result 145 k/mm3 (150-375); Red Blood Count 2.63 M/mm3 (4.2-5.4); Red Cell Distribution Width 13.6 % (11.5-14.5)
[2020-11-29] MEDS: LEVOTHYROXINE SODIUM 25 MCG TABLET PO (06:04)
[2020-11-29 06:09] LABS: Alanine Aminotransferase 11 U/L (4-35); Albumin Level 3.8 g/dL (3.5-5.1); Alkaline Phosphatase 84 U/L (38-126); Anion Gap 16 mmol/L (8-16); Aspartate Amino Transferase 20 U/L (14-36); Bilirubin,Total 0.6 mg/dL (0.2-1.3); Blood Urea Nitrogen 51 mg/dL (7-17); Calcium 7.9 mg/dL (8.4-10.2); Carbon Dioxide 28 mmol/L (22-30); Chloride 90 mmol/L (98-107); Estimated CRCL calculation 5 ml/min; Estimated Glomerular Filt Rate 4; Glucose 63 mg/dL (65-105); Magnesium 1.8 mg/dL (1.6-2.3); Phosphorus 5.9 mg/dL (2.5-4.5); Potassium 3.7 mmol/L (3.4-5.0); Sodium 134 mmol/L (137-145)
[2020-11-29] MEDS: carvediloL 3.125 MG TABLET PO (08:05)
[2020-11-29] MEDS: guaiFENesin 12 HR 600 MG TABCR PO (08:05)
[2020-11-29] MEDS: SEVELAMER CARBONATE 800 MG TABLET PO (08:05)
[2020-11-29] MEDS: SERTRALINE HCL 50 MG TABLET PO (08:05)
[2020-11-29] MEDS: PANTOPRAZOLE 40 MG TABLET PO (08:05)
[2020-11-29] MEDS: BUMETANIDE 1 MG TABLET 2 MG PO (08:06)
[2020-11-29] MEDS: ASPIRIN 81 MG ENTERIC TABLET PO (08:06)
[2020-11-29] MEDS: COLCHICINE 0.6 MG TABLET PO (08:06)
[2020-11-29] MEDS: GABAPENTIN 100 MG CAPSULE PO (08:06)
[2020-11-29 08:07] LABS: Glucose Point of Care 63 (65-105)
[2020-11-29] MEDS: traMADol HCL (*CRX) 50 MG TABLET PO (08:09)
--- NOTE | 2020-11-29 11:03 | PCPTNOTE ---
Addendum entered by Carol Ann Serna, PT 11/29/20 11:03: Attempted to see patient this AM for PT evaluation, patient in dialysis will attempt this afternoon. Original Note: Attepted to see patient this
--- NOTE | 2020-11-29 11:05 | P.CDI_ITS ---
CDI Query Clarification Request -Pulmonary edema secondary to missed dialysis has been documented - Shortness of breath due to pulmonary edema documented by Dr Ervin Please further specify acuity of pulmonary edema: * Acute * Chronic * Acute on chronic * Unable to determine
--- NOTE | 2020-11-29 13:19 | PM.DS ---
DS: Admitting Diagnosis Admitting Diagnosis Admitting Diagnosis: ESRD, hyperkalemia DS: Discharge Diagnosis Discharge Diagnosis (1) End stage renal disease: Code(s): N18.6 - End stage renal disease Status: Acute Assessment and Plan: Typically receives dialysis on MWF. she missed dialysis on Wednesday (11/25) due to the weather. Upon presentation to the emergency department, she was 23 lb above her dry weight. She had dialysis on 11/26 and 7 L was removed and then she had dialysis again 11/27 with 4 L removed. she was seen in consultation by nephrology. Discussed monitoring her oral intake. It appears that she drinks quite a bit of fluid and this will need to be decreased. Renal dialysis diet reinforced. Her usual MWF schedule was resumed. She received dialysis as an inpatient on 11/29 and then was discharged to her assisted living facility. (2) Dyspnea: Code(s): R06.00 - Dyspnea, unspecified Status: Acute Assessment and Plan: She endorsed dyspnea at rest and with exertion. CTA on admission negative for PE. Chest x-ray on 11/28 following dialysis given lack of improvement, which showed no airspace opacities, pleural effusion, or other acute cardiopulmonary findings. Her dyspnea was felt to be related to acute pulmonary congestion due to excess fluid and did improve after her 3rd dialysis on 11/29. Continue with regular dialysis schedule. (3) Acute hyperkalemia: Code(s): E87.5 - Hyperkalemia Status: Acute Assessment and Plan: Secondary to ESRD and missed dialysis. Additionally, it appears that she eats foods that are high in potassium content. Potassium improved following dialysis and was 3.7 at time of discharge. (4) Anemia: Qualifiers: Anemia type: unspecified type Qualified Code(s): D64.9 - Anemia, unspecified Code(s): D64.9 - Anemia, unspecified Status: Chronic Assessment and Plan: Appears chronic on review of prior labs. Most likely anemia of chronic disease secondary to ESRD. H&H slightly decreased from baseline but remained stable. No signs or symptoms to suggest active bleeding and vital signs were stable. Iron panel consistent with ACD. (5) Type 2 diabetes mellitus with chronic kidney disease: Qualifiers: Diabetes mellitus custodial insulin use: with custodial use Chronic kidney disease stage: on chronic dialysis Qualified Code(s): E11.22 - Type 2 diabetes mellitus with diabetic chronic kidney disease; N18.6 - End stage renal disease; Z79.4 - long term care social worker (current) use of insulin; Z99.2 - Dependence on renal dialysis Code(s): E11.22 - Type 2 diabetes mellitus with diabetic chronic kidney disease Status: Chronic Assessment and Plan: A1c is 5.9. blood sugars reviewed and were well controlled at this time. Continue home Lantus (6) Hypothyroid: Qualifiers: Hypothyroidism type: acquired Qualified Code(s): E03.9 - Hypothyroidism, unspecified Code(s): E03.9 - Hypothyroidism, unspecified Status: Chronic Assessment and Plan: TSH is within normal limits. Continue levothyroxine (7) HTN (hypertension) with goal to be determined: Code(s): I10 - Essential (primary) hypertension Status: Chronic Assessment and Plan: BP reviewed and was overall well controlled. Continue Coreg and Bumex (8) Apical lung nodule: Code(s): R91.1 - Solitary pulmonary nodule Status: Acute Assessment and Plan: chest CTA demonstrated spiculated right apical soft tissue opacity. it appears that this has already been evaluated and she had a PET scan in the past for evaluation of this nodule, felt to be related to pleural-parenchymal scarring. Continue with scheduled primary care follow up. DS: Summary Hospital Course Reason for hospitalization: ESRD, missed dialysis Hospital Course: date of admission: 11/26/2019 date of discharge:
[2020-11-29 21:58] LABS: SARS-CoV-2 RNA PCR Negative
--- NOTE | 2020-11-30 09:00 | PM.PNNEP ---
Progress Note: A&P Assessment and Plan (1) ESRD on hemodialysis: Code(s): N18.6 - End stage renal disease; Z99.2 - Dependence on renal dialysis Status: Acute Assessment and Plan: the patient has end-stage kidney disease. She does not make much urine. getting HD now,. (2) Hyperkalemia: Code(s): E87.5 - Hyperkalemia Status: Acute Assessment and Plan: Her potassium is better. (3) SOB (shortness of breath): Code(s): R06.02 - Shortness of breath Status: Acute Assessment and Plan: cxr better. remove moer fluid today discussed avoiding salt and salty foods and fluid restricion (4) HTN (hypertension) with goal to be determined: Code(s): I10 - Essential (primary) hypertension Status: Chronic Assessment and Plan: Her blood pressure is better (5) Type 2 diabetes mellitus with chronic kidney disease: Qualifiers: Diabetes mellitus [facility] use: with [facility] use Chronic kidney disease stage: on chronic dialysis Qualified Code(s): E11.22 - Type 2 diabetes mellitus with diabetic chronic kidney disease; N18.6 - End stage renal disease; Z79.4 - termite control representative (current) use of insulin; Z99.2 - Dependence on renal dialysis Code(s): E11.22 - Type 2 diabetes mellitus with diabetic chronic kidney disease Status: Chronic Assessment and Plan: She is on Accu-Cheks and sliding-scale insulin. Subjective Date/time seen: 11/29/20 11:00 Interval history: On HD alyce iut well. seen at 10:55am bp doing okay. removing fluid Review of Systems Cardiovascular: Cardiovascular: Reports no additional cardiovascular complaints Respiratory: Respiratory: Reports no additional respiratory complaints Gastrointestinal: Gastrointestinal: Reports no additional gastrointestinal complaints Genitourinary: Genitourinary: Reports no additional female genitourinary complaints Exam Narrative: Exam Narrative: WDWN in NAD skin no rash head ncat lungs clear cor reg no rub abd BS+ nontender and soft ext no edema. Objective Data Vital Signs Vital Signs: Vital Signs - 24 hr 11/29/20 09:41 11/29/20 09:45 11/29/20 10:00 Temperature Pulse Rate 74 75 70 Respiratory Rate Blood Pressure 122/50 L 127/50 L 123/55 L Pulse Oximetry 11/29/20 10:15 11/29/20 10:30 11/29/20 10:45 Temperature Pulse Rate 68 70 70 Respiratory Rate Blood Pressure 121/47 L 109/49 L 123/43 L Pulse Oximetry 11/29/20 11:00 11/29/20 11:15 11/29/20 11:30 Temperature Pulse Rate 70 64 69 Respiratory Rate Blood Pressure 125/70 118/47 L 121/75 Pulse Oximetry 11/29/20 11:45 11/29/20 12:00 11/29/20 12:15 Temperature Pulse Rate 70 71 67 Respiratory Rate Blood Pressure 117/35 L 117/27 L 112/48 L Pulse Oximetry 11/29/20 12:30 11/29/20 14:00 11/29/20 15:24 Temperature 36.3 C L Pulse Rate 70 69 68 Respiratory Rate 18 Blood Pressure 109/48 L 128/80 120/72 Pulse Oximetry 95 Intake/Output Intake/Output: Intake & Output 11/27/20 11/28/20 11/29/20 11/30/20 23:59 23:59 23:59 23:59 Intake Total 670 1290 740 Output Total 3261 500 4400 Balance -2591 790 -3660 Meds/Results Radiology Results: ITS Impressions Chest CTA 11/26/20 14:30 IMPRESSION: No evidence of pulmonary embolism 1.5 x 2.1 cm spiculated right apical soft tissue opacity; diffusion diagnosis includes carcinoma versus scarring. Consider PET/CT imaging for further evaluation. Cardiomegaly Venous Doppler Study 11/27/20 09:40 IMPRESSION: 1. No deep venous thrombosis in the right lower limb. Chest X-Ray 11/28/20 11:47 IMPRESSION: 1. No acute cardiopulmonary abnormality. 2. Chronic right apical opacity, previously characterized as apical scarring by PET/CT. Labs Labs: Laboratory Results - last 24 hr 11/29/20 00:45 SARS-CoV-2 RNA (RT-PCR) Negative Quality VTE Prophylaxis VTE pr
== END 2020-11-29 14:33 | DRG 640 ==
LOC: ANHED 12:50 → ANH2MED 18:20
PROVIDERS: Internal Medicine; Internal Medicine Nephrology; Nurse Practitioner; Physician Assistant; Admitting Provider Family Medicine; Emergency Provider Emergency Medicine; PCP Internal Medicine; Visit Provider Internal Medicine
DX: E87.5 Hyperkalemia (principal); N18.6 End stage renal disease; I13.2 Hypertensive heart and chronic kidney disease with heart failure and with stage 5 chronic kidney disease, or end stage renal disease; Z20.822 Contact with and (suspected) exposure to COVID-19; I50.9 Heart failure, unspecified; E11.22 Type 2 diabetes mellitus with diabetic chronic kidney disease; D63.1 Anemia in chronic kidney disease; Z99.2 Dependence on renal dialysis; E11.42 Type 2 diabetes mellitus with diabetic polyneuropathy; M10.9 Gout, unspecified; E03.9 Hypothyroidism, unspecified; E78.00 Pure hypercholesterolemia, unspecified; G47.30 Sleep apnea, unspecified; R91.1 Solitary pulmonary nodule; N25.0 Renal osteodystrophy; H40.9 Unspecified glaucoma; Z28.21 Immunization not carried out because of patient refusal; Z79.4 Long term (current) use of insulin; Z79.82 Long term (current) use of aspirin; Z88.0 Allergy status to penicillin; Z86.73 Personal history of transient ischemic attack (TIA), and cerebral infarction without residual deficits; Z95.0 Presence of cardiac pacemaker; Z98.42 Cataract extraction status, left eye; Z98.41 Cataract extraction status, right eye
CPT/HCPCS: 36415; 71046; 71275; 80048; 80053; 82948; 83036; 83735; 83880; 84100; 84443; 85025; 85027; 85055; 85380; 87340; 93005; 93306; 93971; 96374; 96375; 96376; 97161; 97165; 99285; A9270; C9803; G0257; G0378; J1644; J1815; J7030; P9047; Q5106; Q9967; U0003; U0005

== ENCOUNTER 2021-05-06 01:01 | Day surgery (SDC) | payer MEDICARE, MEDICAID, SELFPAY ==
[2021-05-06] VITALS (7 sets, daily range): BP systolic 121–156; BP diastolic 36–66; PULSE 70; RESP 12–14; TEMP 35.6–36.6; O2SAT 93–100; BMI 43.3
[2021-05-06 08:10] LABS: Basophils Percent Auto 0.4 % (0.2-1.2); Eosinophils Absolute Auto 0.3 K/mm3 (0-0.3); Eosinophils Percent Auto 5.1 % (0-4.4); Hematocrit 30.6 % (37.0-47.0); Hemoglobin 9.3 g/dL (12.0-15.0); Immature Granulocyte Absolute 0.01 K/mm3 (0.00-0.031); Immature Granulocyte Percent A 0.2 % (0-0.5); Lymphocytes Absolute Auto 1.39 K/mm3 (0.9-3.2); Lymphocytes Percent Auto 27.5 % (18.3-44.2); Mean Corpuscular HGB Conc 30.4 g/dl (32-36); Mean Corpuscular Hemoglobin 33.8 pg (26-34); Mean Corpuscular Volume 111.3 fl (80-100); Mean Platelet Volume 10.4 fl (7.4-10.4); Monocytes Absolute Auto 0.6 K/mm3 (0.1-0.6); Monocytes Percent Auto 12.5 % (2.6-8.5); Neutrophils Absolute Auto 2.7 K/mm3 (1.3-6.7); Neutrophils Percent Auto 54.3 % (45.5-73.1); Platelet Count Result 159 k/mm3 (150-375); Red Blood Count 2.75 M/mm3 (4.2-5.4); Red Cell Distribution Width 14.6 % (11.5-14.5); White Blood Count 5.1 K/mm3 (4.5-10.0)
--- NOTE | 2021-05-06 08:36 | PM.IMHP ---
H&P: HPI History of Present Illness Date/Time: 05/06/21 08:36 Chief Complaint: Pacemaker pulse generator at elective replacement interval . She has a [employer] dual-chamber pacemaker implanted 11/24/2013 when she lived in [place], which went SOLIS 01/08/2021. She paces 94% of the time and underlying rhythm was bradycardia rate 50 beats per minute. Narrative: Christopher Larry is an 80-year-old white female followed by Dr. Gregorio for chronic diastolic heart failure, sick sinus syndrome, pacemaker, atrial fibrillation, old stroke and dyslipidemia. She also has diabetes, end-stage renal disease on hemodialysis, as untreated sleep apnea ( refused evaluation ) , mild and MS. Not anticoagulated due to history of GI bleed requiring blood transfusions and peptic ulcer disease. She takes midodrine for low blood pressure issues. Review of Systems Review of Systems: Narrative: feels well today, no new changes in her health, no fevers or infection Constitutional: Constitutional: Reports fatigue, Reports lethargy and Reports weakness ENT: Denies Normal hearing present Comments: Very hard of hearing, hearing aid battery this morning but can hear if 1 speaks very close to her were Cardiovascular: Cardiovascular: Denies chest pain and Reports pedal edema Respiratory: Respiratory: Reports dyspnea and Reports dyspnea on exertion Comments: chronic MAY, no change Gastrointestinal: Gastrointestinal: Denies abdominal pain Comments: has been NPO Genitourinary: Comments: had dialysis yesterday Musculoskeletal: Musculoskeletal: Reports no additional musculoskeletal complaints Integumentary/Breasts: Skin/Breast: Denies rash Neurologic: Reports confusion Comments: some mild memory loss since her strokes Psychiatric: Psychiatric: Denies behavioral changes [facility] Past Medical History Medical History Anemia Arthritis Asthma Bronchitis Cataracts, bilateral CHF (congestive heart failure) CVA (cerebral vascular accident) Several. Affected her memory, her site and her hearing Depression Dialysis patient Wednesday DM II (diabetes mellitus, type II), controlled Glaucoma History of GI bleed History of rectal polyps HTN (hypertension) with goal to be determined Hunner's ulcer Hx of gout Hx of transient ischemic attack (TIA) Multiple Hx: UTI (urinary tract infection) Hypercholesteremia Hyperkalemia Hypothyroid OA (osteoarthritis) Peripheral neuropathy Renal disease Sleep apnea Cannot tolerate a mask but is willing to use a nasal pillow the patient stated she has not been wearing a CPAP machine Surgical History Surgical History History of appendectomy History of cholecystectomy History of hysterectomy History of permanent cardiac pacemaker placement History of vascular surgery An abscess to the right arm fistula removed still has a right arm fistula that is actively working Hx of bilateral cataract extraction Family History Family History Father Acute myocardial infarction Mother Breast cancer Family history of congestive heart failure Sibling Family history of cardiovascular disease Family history of rheumatic fever Sister Hypertension Daughter Diabetes mellitus Other Cerebrovascular accident Family history of malignant neoplasm Social History Social History Social History: She desires to be a full code. She had 4 pregnancies but had 1 miscarriage. Had 3 live births. 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 Lifelong nonsmoker does not drink or use illicit drugs. The patient resides at [facility]. She is . Her children are the durable power staff attorney for healthcare. Smoking status: Never smoker Second hand tobacco smoke exposure: No
[2021-05-06 08:47] LABS: Hematocrit 32.5 % (37.0-47.0); Mean Corpuscular HGB Conc 30.8 g/dl (32-36); Mean Corpuscular Volume 110.5 fl (80-100); Mean Platelet Volume 10.1 fl (7.4-10.4); Platelet Count Result 153 k/mm3 (150-375); Red Blood Count 2.94 M/mm3 (4.2-5.4); Red Cell Distribution Width 14.5 % (11.5-14.5); White Blood Count 4.8 K/mm3 (4.5-10.0)
[2021-05-06 08:58] LABS: Anion Gap 13 mmol/L (8-16); Blood Urea Nitrogen 34 mg/dL (7-17); Calcium 7.7 mg/dL (8.4-10.2); Carbon Dioxide 25 mmol/L (22-30); Chloride 98 mmol/L (98-107); Estimated CRCL calculation 6 ml/min; Estimated Glomerular Filt Rate 5; Glucose 85 mg/dL (65-110); Potassium 4.9 mmol/L (3.4-5.0); Sodium 136 mmol/L (137-145)
--- NOTE | 2021-05-06 09:05 | WPDMODSED ---
Moderate Sedation Note-Pt Data Patient Data Diagnosis: pacemaker at [facility] Present Complaint: patient with history of persistent atrial fibrillation, chronic diastolic heart failure, pacemaker (not dependent), old stroke, end-stage renal disease and sleep apnea here for generator change. Procedure to be performed/Plan: Conscious sedation Generator change Allergies Allergy/AdvReac Type Severity Reaction Status Date / Time Penicillins Allergy Unknown Rash Verified 05/06/21 07:39 Home Medications Medication Instructions Recorded Confirmed Type Sarah Cristobal U-100 Insulin 15 unit SUBCUT HS 11/02/19 05/06/21 History bumetanide 2 mg PO DAILY 11/02/19 05/06/21 History carvedilol 3.125 mg PO BID 11/02/19 05/06/21 History gabapentin 100 mg PO BID 11/02/19 05/06/21 History levothyroxine 25 mcg PO DAILY 11/02/19 05/06/21 History simvastatin 10 mg PO HS 11/02/19 05/06/21 History acetaminophen 500 mg tablet 500 mg PO Q6H PRN tablet 11/03/19 05/06/21 History docusate sodium 100 mg tablet 100 mg PO HS PRN tablet 11/03/19 05/06/21 History colchicine 0.6 mg PO QMWF 11/26/19 05/06/21 History ergocalciferol (vitamin D2) 50,000 unit PO WEEKLY 11/26/19 05/06/21 History [Vitamin D2] pantoprazole 40 mg PO DAILY 11/26/19 05/06/21 History sevelamer HCl 800 mg PO TID 11/26/19 05/06/21 History albuterol sulfate 90 mcg/actuation 2 puff INHALATION Q6H PRN #8.5 gm 05/15/20 05/06/21 Rx aerosol inhaler alprazolam 0.5 mg PO BID PRN 06/21/20 05/06/21 History aspirin [Aspirin Low Dose] 81 mg PO DAILY 06/21/20 05/06/21 History sertraline 50 mg PO DAILY 06/21/20 05/06/21 History albuterol sulfate 1.25 mg INHALATION Q6H PRN 11/27/20 05/06/21 History guaifenesin [Robafen] 200 mg PO Q4H PRN 11/27/20 05/06/21 History melatonin 3 mg PO HS PRN 11/27/20 05/06/21 History tramadol 50 mg PO TID 11/27/20 05/06/21 History diphenhydramine 25 1 tablet PO QHS PRN #90 tablet 04/01/21 05/06/21 Rx mg-acetaminophen 500 mg tablet hydroxyzine HCl 25 mg PO QID PRN 05/06/21 05/06/21 History midodrine 5 mg PO QMWF 05/06/21 05/06/21 History polyethylene glycol 3350 [Gavilax] 17 g PO DAILY PRN 05/06/21 05/06/21 History Sedation/Anesthesia: No previous sedation/anesthesia problems (including family history). [facility], [facility] Past Medical History Medical History Anemia Arthritis Asthma Bronchitis Cataracts, bilateral CHF (congestive heart failure) CVA (cerebral vascular accident) Several. Affected her memory, her site and her hearing Depression Dialysis patient Wednesday DM II (diabetes mellitus, type II), controlled Glaucoma History of GI bleed History of rectal polyps HTN (hypertension) with goal to be determined Hunner's ulcer Hx of gout Hx of transient ischemic attack (TIA) Multiple Hx: UTI (urinary tract infection) Hypercholesteremia Hyperkalemia Hypothyroid OA (osteoarthritis) Peripheral neuropathy Renal disease Sleep apnea Cannot tolerate a mask but is willing to use a nasal pillow the patient stated she has not been wearing a CPAP machine Surgical History Surgical History History of appendectomy History of cholecystectomy History of hysterectomy History of permanent cardiac pacemaker placement History of vascular surgery An abscess to the right arm fistula removed still has a right arm fistula that is actively working Hx of bilateral cataract extraction Family History Family History Father Acute myocardial infarction Mother Breast cancer Family history of congestive heart failure Sibling Family history of cardiovascular disease Family history of rheumatic fever Sister Hypertension Daughter Diabetes mellitus Other Cerebrovascular accident Family history of malignant neoplasm Social History Social History (Reviewed 05/06/21 @ 08:42 by Stephenie Jeff
--- NOTE | 2021-05-06 11:32 | PM.OP ---
Procedure Note - Brief Procedure Note - Brief Date of procedure: 05/06/21 Pre-op diagnosis: battery end of life Post-op diagnosis: same Procedure performed: Conscious sedation elective generator change Description of procedure: uneventful generator change Anesthesia: local ( with conscious sedation) Surgeon: Stephenie Jeff MD Pathology: none sent Complications: No immediate complications Condition: stable Disposition: observation Findings: patient has been in atrial flutter since mid February. Chronically Mildly elevated thresholds noted.
--- NOTE | 2021-05-06 11:33 | P.OP_ITS ---
Procedure Note - Detailed Date of Procedure 05/06/21 Pre-op Diagnosis battery end of life Post-op Diagnosis same Procedure Performed PROCEDURE: Conscious sedation Generator change Surgeon Stephenie Jeff MD Anesthesia local ( with conscious sedation) Indications 80-year-old female with multiple medical problems, history of [employer] pacemaker implanted in 2004 with a generator change in 2013, whose generator has reached [facility]. Patient is here for elective generator change. History of atrial fibrillation, not anticoagulated due to GI bleeding, history of stroke, end-stage renal disease, sleep apnea, valvular heart disease. Findings Patient has been in atrial flutter since mid February Description of Procedure UNDERLYING RHYTHM: atrial flutter, bradycardia CONSCIOUS SEDATION: Assessment: The patient has no history of anesthesia problems. The oropharynx is clear. The patient was deemed to be a good candidate for conscious sedation. The patient had continuous hemodynamic and oximetric monitoring during the procedure. Start time: 1059 Completion time: 1125 Total conscious sedation time: 26 minutes Medications: fentanyl 25 mcg IV push Trained observe Mague Roberts RNr: Outcome: The patient tolerated the procedure well with no complications. PROCEDURE: After informed consent, the patient is brought to the labor training manager and the left prepectoral area was prepped and draped in usual fashion. The patient was given a prophylactic antibiotic intravenously with vancomycin. After conscious sedation as described above, the area was anesthetized with 1% lidocaine. A skin incision is made with the Plasma Blade and carried down to the pacing capsule which was also incised. Hemostasis is obtained using the Plasma Blade. The lead/s was/were freed from the underlying capsule and inspected and were found to be intact. The pulse generator was delivered from the pocket. The lead/s was/were disconnected from the existing device and reconnected to the new device. A gentle tug could not remove it/them. The device and lead/s was/were interrogated and found to be functioning appropriately. The area was copiously irrigated with antibiotic-containing solution. The device was replaced in the pocket. The subcutaneous tissues were closed in a two-layer fashion with interrupted 2 0 Vicryl sutures and the skin was closed in a continuous fashion using 4 0 Vicryl. The area was cleansed, an Aquacel dressing applied. The patient tolerated the procedure well with no complications. Estimated blood loss was negligible. THRESHOLD INFORMATION: Right atrial lead: A flutter waves at 2.0 mV, impedance 495 Ohms, threshold could not be determined because of underlying atrial flutter Right ventricular lead: R-wave 10.4 mV, impedance 519 Ohms, threshold 1.8 volts at 0.4 millisecond PROGRAMMED PARAMETERS: DDDR 60/130 . Implants New pulse generator: [employer] Accolade DR IS-1, model L301, serial [id number] Right atrial lead: [employer] model 4086, serial [id number] implanted 03/14/2004 Right ventricular lead: [employer] [facility] Guidant model 4087, serial [id number], implanted 03/14/2014 Explanted device: [employer] model K173, serial [id number], implanted 11/24/2013 . Estimated Blood Loss 5 Drains No Packing No Pathology none sent Complications No immediate complications Condition stable Disposition observation
--- NOTE | 2021-05-06 11:43 | ECG_ITS ---
Measurements Intervals [place] Rate: 70 P: MT: 0 QRS: -62 QRSD: 178 T: 100 QT: 489 QTc: 528 Interpretive Statements ELECTRONIC VENTRICULAR PACEMAKER NO FURTHER INTERPRETATION IS POSSIBLE ATYPICAL ECG Electronically Signed On 05-06-2021 12:54:42 CDT by Nagi Devi D.O.
--- NOTE | 2021-05-06 14:29 | SUR.PHASEII ---
Drsg to left upper chest remained dry and intact. No redness or swelling at the site. discharge instructions reviewed with patient and daughters with stated understanding. IV d/c'd with catheter intact. No redness or swelling at the site. Discharged via wheelchair to daughters vehicle to return to extended care facility.
== END 2021-05-06 13:15 | disposition home or self-care (01) ==
PROVIDERS: PCP Physician Assistant; Visit Provider Internal Medicine Cardiovascular Disease
PROC: 0JPT0PZ Removal of Cardiac Rhythm Related Device from Trunk Subcutaneous Tissue and Fascia, Open Approach (ICD-10-PCS; CPT 33228; principal; 2021-05-06 08:30)
DX: Z45.010 Encounter for checking and testing of cardiac pacemaker pulse generator [battery] (principal); I48.19 Other persistent atrial fibrillation; E78.5 Hyperlipidemia, unspecified; I13.2 Hypertensive heart and chronic kidney disease with heart failure and with stage 5 chronic kidney disease, or end stage renal disease; I50.32 Chronic diastolic (congestive) heart failure; E11.22 Type 2 diabetes mellitus with diabetic chronic kidney disease; N18.6 End stage renal disease; Z99.2 Dependence on renal dialysis; G47.30 Sleep apnea, unspecified; E03.9 Hypothyroidism, unspecified; E11.42 Type 2 diabetes mellitus with diabetic polyneuropathy; D64.9 Anemia, unspecified; J45.909 Unspecified asthma, uncomplicated; F32.9 Major depressive disorder, single episode, unspecified; H40.9 Unspecified glaucoma; Z86.73 Personal history of transient ischemic attack (TIA), and cerebral infarction without residual deficits; Z79.51 Long term (current) use of inhaled steroids; Z79.82 Long term (current) use of aspirin; Z79.4 Long term (current) use of insulin
CPT/HCPCS: 33228; 36415; 80048; 85025; 85027; 85610; C1785; J2250; J3010; J3370; J7040

== ENCOUNTER 2021-05-10 15:34 | Emergency (ER) | payer MEDICARE, MEDICAID, SELFPAY ==
--- NOTE | ~2021-05-10 | XR_ITS ---
EXAMINATION: XR chest 2V DATE: 05/10/2021 15:58 INDICATION: Chest pain TECHNIQUE: AP and lateral views of the chest are obtained. COMPARISON: 11/28/2020 FINDINGS: The lungs are free of acute opacities. Again noted is a chronic right apical opacity, previ ously characterized as scarring by PET/CT. There is no pleural effusion or pneumothorax. Cardiomegaly is noted. A dual-lead cardiac pacemaker of the left chest wall ends with leads in expected locations . There is moderate thoracic spondylosis. A right subclavian endovascular stent is noted. IMPRESSION: 1. No acute cardiopulmonary abnormality. Reviewed, dictated and finalized at location A.
--- NOTE | 2021-05-10 15:34 | ECG_ITS ---
Measurements Intervals [place] Rate: 70 P: OR: 0 QRS: -59 QRSD: 152 T: 95 QT: 457 QTc: 494 Interpretive Statements ELECTRONIC VENTRICULAR PACEMAKER NO FURTHER INTERPRETATION IS POSSIBLE ATYPICAL ECG Electronically Signed On 05-10-2021 18:17:12 CDT by Nagi Devi D.O.
[2021-05-10 15:35] VITALS: BP 164/61; PULSE 70; RESP 18; TEMP 36.8; O2SAT 100
[2021-05-10 15:38] VITALS: PULSE 70
[2021-05-10 16:00] LABS: Basophils Percent Auto 0.2 % (0.2-1.2); Eosinophils Absolute Auto 0.3 K/mm3 (0-0.3); Eosinophils Percent Auto 5.6 % (0-4.4); Hemoglobin 9.9 g/dL (12.0-15.0); Immature Granulocyte Absolute 0.01 K/mm3 (0.00-0.031); Immature Granulocyte Percent A 0.2 % (0-0.5); Lymphocytes Absolute Auto 1.32 K/mm3 (0.9-3.2); Lymphocytes Percent Auto 23.1 % (18.3-44.2); Mean Corpuscular HGB Conc 30.9 g/dl (32-36); Mean Corpuscular Hemoglobin 33.9 pg (26-34); Mean Corpuscular Volume 109.6 fl (80-100); Mean Platelet Volume 10.3 fl (7.4-10.4); Monocytes Absolute Auto 0.6 K/mm3 (0.1-0.6); Monocytes Percent Auto 10.3 % (2.6-8.5); Neutrophils Absolute Auto 3.5 K/mm3 (1.3-6.7); Neutrophils Percent Auto 60.6 % (45.5-73.1); Platelet Count Result 184 k/mm3 (150-375); Red Blood Count 2.92 M/mm3 (4.2-5.4); Red Cell Distribution Width 14.5 % (11.5-14.5); White Blood Count 5.7 K/mm3 (4.5-10.0)
[2021-05-10 16:09] LABS: Anion Gap 14 mmol/L (8-16); Blood Urea Nitrogen 29 mg/dL (7-17); Calcium 7.8 mg/dL (8.4-10.2); Carbon Dioxide 25 mmol/L (22-30); Chloride 94 mmol/L (98-107); Estimated CRCL calculation 7 ml/min; Estimated Glomerular Filt Rate 6; Glucose 143 mg/dL (65-110); Potassium 4.7 mmol/L (3.4-5.0); Sodium 133 mmol/L (137-145)
[2021-05-10 16:10] LABS: Prothrombin Time 12.7 Seconds (11.1-14.7)
[2021-05-10 16:11] LABS: Partial Thromboplastin Time 31.9 SECONDS (22.3-36.8)
[2021-05-10 16:32] LABS: Troponin I 0.046 ng/mL (0.000-0.034)
--- NOTE | 2021-05-10 16:37 | ED.CHESTPAIN ---
HPI - Chest Pain General Chief Complaint: Chest Pain Stated Complaint: Chest Burning Time Seen by Provider: 05/10/21 15:58 History of Present Illness HPI narrative: Patient is an 80-year-old female who presents ER with reports of discomfort when swallowing solid food. Reports ongoing for last week. No issues with swallowing liquids. She is not vomiting and food does not get stuck. She feels like a burning discomfort when she swallows food. Patient recently had her pacemaker battery exchanged. No complications with the wound site. Patient has history of end-stage renal disease and received her dialysis yesterday. Patient reports exertional shortness of breath that occurs at times. No fevers or chills or sweats. No new productive cough orthopnea. Related Data Home Medications Medication Instructions Recorded Confirmed Basaglar BrittikPen U-100 Insulin 15 unit SUBCUT HS 11/02/19 05/06/21 bumetanide 2 mg PO DAILY 11/02/19 05/06/21 carvedilol 3.125 mg PO BID 11/02/19 05/06/21 gabapentin 100 mg PO BID 11/02/19 05/06/21 levothyroxine 25 mcg PO DAILY 11/02/19 05/06/21 simvastatin 10 mg PO HS 11/02/19 05/06/21 acetaminophen 500 mg tablet 500 mg PO Q6H PRN tablet 11/03/19 05/06/21 docusate sodium 100 mg tablet 100 mg PO HS PRN tablet 11/03/19 05/06/21 colchicine 0.6 mg PO QMWF 11/26/19 05/06/21 ergocalciferol (vitamin D2) 50,000 unit PO WEEKLY 11/26/19 05/06/21 [Vitamin D2] pantoprazole 40 mg PO DAILY 11/26/19 05/06/21 sevelamer HCl 800 mg PO TID 11/26/19 05/06/21 alprazolam 0.5 mg PO BID PRN 06/21/20 05/06/21 aspirin [Aspirin Low Dose] 81 mg PO DAILY 06/21/20 05/06/21 sertraline 50 mg PO DAILY 06/21/20 05/06/21 albuterol sulfate 1.25 mg INHALATION Q6H PRN 11/27/20 05/06/21 guaifenesin [Robafen] 200 mg PO Q4H PRN 11/27/20 05/06/21 melatonin 3 mg PO HS PRN 11/27/20 05/06/21 tramadol 50 mg PO TID 11/27/20 05/06/21 hydroxyzine HCl 25 mg PO QID PRN 05/06/21 05/06/21 midodrine 5 mg PO QMWF 05/06/21 05/06/21 polyethylene glycol 3350 [Gavilax] 17 g PO DAILY PRN 05/06/21 05/06/21 Allergies Allergy/AdvReac Type Severity Reaction Status Date / Time Penicillins Allergy Unknown Rash Verified 05/10/21 15:39 Review of Systems Review of Systems: All systems reviewed & are unremarkable except as noted in HPI and below Constitutional: Constitutional: Denies chills, Denies fever(s) and Denies weakness ENT: Reports dysphagia, Denies nasal congestion and Denies sore throat Cardiovascular: Cardiovascular: Denies chest pain and Denies radiating jaw, neck or arm pain Respiratory: Respiratory: Denies cough, Reports dyspnea and Denies wheezing Gastrointestinal: Gastrointestinal: Denies abdominal pain, Denies nausea and Denies vomiting PMFSH Past Medical History Medical History Anemia Arthritis Asthma Bronchitis Cataracts, bilateral CHF (congestive heart failure) CVA (cerebral vascular accident) Several. Affected her memory, her site and her hearing Depression Dialysis patient Wednesday DM II (diabetes mellitus, type II), controlled Glaucoma History of GI bleed History of rectal polyps HTN (hypertension) with goal to be determined Hunner's ulcer Hx of gout Hx of transient ischemic attack (TIA) Multiple Hx: UTI (urinary tract infection) Hypercholesteremia Hyperkalemia Hypothyroid OA (osteoarthritis) Peripheral neuropathy Renal disease Sleep apnea Cannot tolerate a mask but is willing to use a nasal pillow the patient stated she has not been wearing a CPAP machine Surgical History Surgical History History of appendectomy History of cholecystectomy History of hysterectomy History of permanent cardiac pacemaker placement History of vascular surgery An abscess to the right arm fistula removed still has a right arm fistula that is actively working Hx of bilateral cataract extraction Family History Fam
[2021-05-10 16:53] LABS: NT Pro B Type Natriuretic Pept 17600 pg/mL (5-100)
[2021-05-10 16:54] VITALS: BP 124/50; PULSE 70; RESP 18; O2SAT 96
[2021-05-10] MEDS: ASPIRIN 81 MG CHEWABLE TABLET 324 MG PO (16:59)
[2021-05-10 17:33] VITALS: BP 110/46; PULSE 70; RESP 97; O2SAT 16
[2021-05-10] MEDS: BELLADONNA ALK/PHENOB ELIX 10 ML, MAG HYDROX/ALUMINUM HYD/SIMETH 30 ML, LIDOCAINE HCL 2... PO (17:34)
[2021-05-10 18:50] VITALS: BP 101/74; PULSE 70; RESP 16; O2SAT 100
[2021-05-10 18:57] LABS: Troponin I 0.044 ng/mL (0.000-0.034)
== END 2021-05-10 18:50 ==
PROVIDERS: Emergency Provider Emergency Medicine; PCP Physician Assistant
DX: R13.10 Dysphagia, unspecified (principal); E11.22 Type 2 diabetes mellitus with diabetic chronic kidney disease; I13.2 Hypertensive heart and chronic kidney disease with heart failure and with stage 5 chronic kidney disease, or end stage renal disease; I50.9 Heart failure, unspecified; N18.6 End stage renal disease; Z99.2 Dependence on renal dialysis; E11.42 Type 2 diabetes mellitus with diabetic polyneuropathy; H40.9 Unspecified glaucoma; M10.9 Gout, unspecified; E03.9 Hypothyroidism, unspecified; E78.00 Pure hypercholesterolemia, unspecified; M19.90 Unspecified osteoarthritis, unspecified site; G47.30 Sleep apnea, unspecified; J45.909 Unspecified asthma, uncomplicated; D64.9 Anemia, unspecified; I69.911 Memory deficit following unspecified cerebrovascular disease; I69.998 Other sequelae following unspecified cerebrovascular disease; H53.9 Unspecified visual disturbance; F32.9 Major depressive disorder, single episode, unspecified; Z87.440 Personal history of urinary (tract) infections; Z87.19 Personal history of other diseases of the digestive system; Z79.4 Long term (current) use of insulin; Z96.89 Presence of other specified functional implants; Z79.82 Long term (current) use of aspirin; Z98.42 Cataract extraction status, left eye; Z98.41 Cataract extraction status, right eye
CPT/HCPCS: 36415; 71046; 80048; 83880; 84484; 85025; 85610; 85730; 93005; 99284; A9270

== ENCOUNTER 2021-05-12 11:42 | Inpatient (IN) | payer MEDICARE, MEDICAID, SELFPAY ==
[2021-05-12] VITALS (7 sets, daily range): BP systolic 129–141; BP diastolic 49–80; PULSE 70–80; RESP 14–20; TEMP 36.4–36.6; O2SAT 95–100; BMI 40.7
--- NOTE | ~2021-05-12 | XR_ITS ---
EXAMINATION: XR barium swallow DATE: 05/12/2021 13:29 INDICATION: Dysphagia TECHNIQUE: The patient drank thin barium. Fluoroscopy of the hypopharynx and esophagus was performed. Fluoroscopy exposure time was 1.5 minutes. The DAP for this procedure was 11.681 Gycm2. COMPARISON: None. FINDINGS: There is no mass or filling defect of the esophagus. There is smooth tapering of the distal esophagus somewhat delayed emptying. Presbyesophagus is noted. No hiatal hernia was observed. IMPRESSION: 1. Findings suggestive of achalasia. Reviewed, dictated and finalized at location A.
--- NOTE | 2021-05-12 11:48 | ECG_ITS ---
Measurements Intervals [place] Rate: 70 P: CT: 0 QRS: -66 QRSD: 149 T: 95 QT: 461 QTc: 498 Interpretive Statements ELECTRONIC VENTRICULAR PACEMAKER BASELINE ARTIFACT- I, II, AVR NO FURTHER INTERPRETATION IS POSSIBLE ATYPICAL ECG Electronically Signed On 05-12-2021 12:42:00 CDT by Nagi Devi D.O.
--- NOTE | 2021-05-12 13:59 | ED.GENADULT ---
HPI - General Adult General Chief complaint: Abdominal Pain Stated complaint: chest soreness for 1 week Time Seen by Provider: 05/12/21 12:42 History of Present Illness HPI narrative: Patient is an 80-year-old female who presents ER with reports of dysphagia. Ongoing for the last week or more. Burning when she swallows. Causes discomfort in her chest. No exertional chest pain or shortness of breath. She reports occasionally medication or food comes right back up. Has not had a GI referral. Saw her PCP who felt it may take her to [facility] and recommend she come back to the ER. Related Data Home Medications Medication Instructions Recorded Confirmed Basaglkeiry De La TorreikPen U-100 Insulin 15 unit SUBCUT HS 11/02/19 05/12/21 bumetanide 2 mg PO DAILY 11/02/19 05/12/21 carvedilol 3.125 mg PO BID 11/02/19 05/12/21 gabapentin 100 mg PO BID 11/02/19 05/12/21 levothyroxine 25 mcg PO DAILY 11/02/19 05/12/21 simvastatin 10 mg PO HS 11/02/19 05/12/21 acetaminophen 500 mg tablet 500 mg PO Q6H PRN tablet 11/03/19 05/12/21 docusate sodium 100 mg tablet 100 mg PO HS PRN tablet 11/03/19 05/12/21 colchicine 0.6 mg PO QMWF 11/26/19 05/12/21 ergocalciferol (vitamin D2) 50,000 unit PO WEEKLY 11/26/19 05/12/21 [Vitamin D2] sevelamer HCl 800 mg PO TID 11/26/19 05/12/21 alprazolam 0.5 mg PO BID PRN 06/21/20 05/12/21 aspirin [Aspirin Low Dose] 81 mg PO DAILY 06/21/20 05/12/21 sertraline 50 mg PO DAILY 06/21/20 05/12/21 albuterol sulfate 1.25 mg INHALATION Q6H PRN 11/27/20 05/12/21 guaifenesin [Robafen] 200 mg PO Q4H PRN 11/27/20 05/12/21 melatonin 3 mg PO HS PRN 11/27/20 05/12/21 tramadol 50 mg PO TID PRN 11/27/20 05/12/21 hydroxyzine HCl 25 mg PO QID PRN 05/06/21 05/12/21 midodrine 5 mg PO QMWF 05/06/21 05/12/21 polyethylene glycol 3350 [Gavilax] 17 g PO DAILY PRN 05/06/21 05/12/21 Allergies Allergy/AdvReac Type Severity Reaction Status Date / Time Penicillins Allergy Unknown Rash Verified 05/13/21 12:48 Review of Systems Review of Systems: All systems reviewed & are unremarkable except as noted in HPI and below Constitutional: Constitutional: Denies chills, Denies fever(s) and Denies weakness ENT: Reports dysphagia, Denies nasal congestion and Denies sore throat Cardiovascular: Cardiovascular: Denies chest pain and Denies radiating jaw, neck or arm pain Respiratory: Respiratory: Denies cough and Denies dyspnea Gastrointestinal: Gastrointestinal: Denies abdominal pain, Denies diarrhea, Reports nausea and Reports vomiting PMFSH Past Medical History Medical History (Updated 05/17/21 @ 08:42 by Sandoval Raymond MD) Abnormal esophagram Amyloidosis Anemia Arthritis Asthma Bronchitis Chronic diastolic CHF (congestive heart failure) CVA (cerebral vascular accident) Several. 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 The patient is intolerant to CPAP therapy. Surgical History Surgical History History of appendectomy History of cholecystectomy History of hysterectomy History of permanent cardiac pacemaker placement battery exchange 05/06/2021. Managed by Dr. Saunders History of vascular surgery An abscess to the right arm fistula removed still has a right arm fistula that is actively working Hx of bilateral cataract extraction Family History Family History Father Acute
[2021-05-12 14:35] LABS: Basophils Percent Auto 0.2 % (0.2-1.2); Eosinophils Absolute Auto 0.2 K/mm3 (0-0.3); Eosinophils Percent Auto 3.6 % (0-4.4); Hematocrit 34.4 % (37.0-47.0); Hemoglobin 10.8 g/dL (12.0-15.0); Immature Granulocyte Absolute 0.02 K/mm3 (0.00-0.031); Immature Granulocyte Percent A 0.4 % (0-0.5); Lymphocytes Absolute Auto 1.11 K/mm3 (0.9-3.2); Lymphocytes Percent Auto 20.8 % (18.3-44.2); Mean Corpuscular HGB Conc 31.4 g/dl (32-36); Mean Corpuscular Hemoglobin 34.3 pg (26-34); Mean Corpuscular Volume 109.2 fl (80-100); Mean Platelet Volume 10.2 fl (7.4-10.4); Monocytes Absolute Auto 0.6 K/mm3 (0.1-0.6); Monocytes Percent Auto 11.1 % (2.6-8.5); Neutrophils Absolute Auto 3.4 K/mm3 (1.3-6.7); Neutrophils Percent Auto 63.9 % (45.5-73.1); Platelet Count Result 215 k/mm3 (150-375); Red Blood Count 3.15 M/mm3 (4.2-5.4); Red Cell Distribution Width 14.5 % (11.5-14.5); White Blood Count 5.3 K/mm3 (4.5-10.0)
[2021-05-12 14:47] LABS: Alanine Aminotransferase 19 U/L (4-35); Albumin Level 4.6 g/dL (3.5-5.1); Alkaline Phosphatase 189 U/L (38-126); Anion Gap 15 mmol/L (8-16); Aspartate Amino Transferase 27 U/L (14-36); Bilirubin,Total 0.6 mg/dL (0.2-1.3); Blood Urea Nitrogen 26 mg/dL (7-17); Calcium 8.2 mg/dL (8.4-10.2); Carbon Dioxide 27 mmol/L (22-30); Chloride 93 mmol/L (98-107); Estimated CRCL calculation 8 ml/min; Estimated Glomerular Filt Rate 6; Glucose 143 mg/dL (65-110); Lipase 71 U/L (23-300); Potassium 4.6 mmol/L (3.4-5.0); Sodium 135 mmol/L (137-145)
--- NOTE | 2021-05-12 18:23 | PC.NURSE ---
This patient, Christopher Larry, was admitted to Medical Room 250-01. Patient/family oriented to hospital policies and general routines including ID bracelet, bed and alarms, visiting hours, pain management, procedures, bathroom and other care routines, personal items, smoking policy, room service/diet, and visiting hours. Information on how to activate the Rapid Response Team has been discussed. Patient/Family are encouraged to report perceived risks to care and to ask questions if they do not understand what they are told or what they should do.
[2021-05-12 18:52] LABS: Glucose Point of Care 123 mg/dl (65-105)
--- NOTE | 2021-05-12 19:11 | PM.IMHP ---
H&P: HPI History of Present Illness Date/Time: 05/12/21 22:11 Chief Complaint: hard to swallow Narrative: 80-year-old female with past medical history of diabetes, hypertension, CHF, chronic kidney disease on hemodialysis and sarcoidosis who presented to the ER from [facility] due to difficulty swallowing. The patient had been seen in the ER and evaluated for chest pain this past weekend. Today she presented complaining of epigastric pain and abdominal pain for the past week. The patient had a modified barium swallow ordered from the ER which demonstrated findings suggestive of achalasia. Gastroenterology was consulted and recommended that the patient be admitted so that she can have a EGD with injections in a.m..She reports that she has significant difficulty eating anything salad. She is able to swallow liquids if she drinks some slow enough. She denies any chest pain or shortness of breath. She has not been having any vomiting. she does not produce urine. She did undergo hemodialysis prior to coming to the hospital. Review of Systems Review of Systems: 12 systems were reviewed with pertinent positives and negatives per HPI. Except as documented in the HPI, all other systems were reviewed and are negative. [facility] Past Medical History Medical History (Updated 05/12/21 @ 23:47 by Sabina Aguilar DO) Amyloidosis Anemia Arthritis Asthma Bronchitis Chronic diastolic CHF (congestive heart failure) CVA (cerebral vascular accident) Several. 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 The patient is intolerant to CPAP therapy. Surgical History Surgical History (Updated 05/12/21 @ 22:18 by Sabina Aguilar DO) History of appendectomy History of cholecystectomy History of hysterectomy History of permanent cardiac pacemaker placement battery exchange 05/06/2021. Managed by Dr. Saunders History of vascular surgery An abscess to the right arm fistula removed still has a right arm fistula that is actively working Hx of bilateral cataract extraction Family History Family History Father Acute myocardial infarction Mother Breast cancer Family history of congestive heart failure Sibling Family history of cardiovascular disease Family history of rheumatic fever Sister Hypertension Daughter Diabetes mellitus Other Cerebrovascular accident Family history of malignant neoplasm Social History Social History (Updated 05/12/21 @ 22:19 by Sabina Aguilar DO) Social History: She desires to be a full code. She had 4 pregnancies but had 1 miscarriage. Had 3 live births. 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 Lifelong nonsmoker does not drink or use illicit drugs. The patient resides at [facility]. She is . Her children are the durable power admitted attorneys for healthcare. Smoking status: Never smoker Second hand tobacco smoke exposure: No Alcohol intake: never Substance use: never Substance use type: does not use Gender identity (if verbalized by the patient): Female Spiritual care concerns: No Agree to blood products: Yes Meds Home Medications and Allergies Home Medications Medication Instructions Recorded Confirmed Type Sarah Cristobal U-100 Insulin 15 unit SUBCUT HS 11/02/19 05/12/21 History bumetanide 2 mg PO DAILY 11/02/19 05/12/21 History carvedilol 3.125 mg PO BID 11/02/19 05/12/21 History anaid
[2021-05-12] MEDS: GABAPENTIN 100 MG CAPSULE PO (23:08)
[2021-05-12] MEDS: carvediloL 3.125 MG TABLET PO (23:08)
[2021-05-12] MEDS: SIMVASTATIN 10 MG TABLET PO (23:08)
[2021-05-12 23:33] LABS: Glucose Point of Care 145 mg/dl (65-105)
[2021-05-13] VITALS (10 sets, daily range): BP systolic 108–149; BP diastolic 40–87; PULSE 70–76; RESP 13–20; TEMP 36–36.6; O2SAT 93–97
[2021-05-13] MEDS: LEVOTHYROXINE SODIUM 25 MCG TABLET PO (06:19)
[2021-05-13 06:55] LABS: Glucose Point of Care 110 mg/dl (65-105)
[2021-05-13] MEDS: ASPIRIN 81 MG ENTERIC TABLET PO (09:02)
[2021-05-13] MEDS: BUMETANIDE 1 MG TABLET 2 MG PO (09:02)
[2021-05-13] MEDS: GABAPENTIN 100 MG CAPSULE PO ×2 (09:02→21:15)
[2021-05-13] MEDS: carvediloL 3.125 MG TABLET PO ×2 (09:03→21:15)
[2021-05-13] MEDS: SEVELAMER CARBONATE 800 MG TABLET PO ×2 (09:04→17:07)
[2021-05-13] MEDS: PANTOPRAZOLE 40 MG TABLET PO (09:04)
[2021-05-13] MEDS: SERTRALINE HCL 50 MG TABLET PO (09:04)
[2021-05-13 11:37] LABS: Glucose Point of Care 90 mg/dl (65-105)
--- NOTE | 2021-05-13 11:56 | WPDANESEPPF ---
Anes - Initial Pre Proc Eval Procedure: Operation Date: 05/13/21 13:30 Proposed Procedures p Esophagogastroduodenoscopy - Pramod Gallego MD Date/Time: 05/13/21 11:56 Surgeon: Sabina Aguilar DO Pre Op Diagnosis: Achalasia Patient Data Age: 80 Gender: F Height: 1.6 m Weight: 104.4 kg Last Vital Signs Temp 36.6 C 05/13/21 06:00 Pulse 70 05/13/21 09:03 Resp 16 05/13/21 06:00 BP 149/59 H 05/13/21 06:00 Pulse Ox 97 05/13/21 06:00 Allergies Allergy/AdvReac Type Severity Reaction Status Date / Time Penicillins Allergy Unknown Rash Verified 05/13/21 12:48 Home Medications Medication Instructions Recorded Confirmed Type Basaglar BrittikPen U-100 Insulin 15 unit SUBCUT HS 11/02/19 05/12/21 History bumetanide 2 mg PO DAILY 11/02/19 05/12/21 History carvedilol 3.125 mg PO BID 11/02/19 05/12/21 History gabapentin 100 mg PO BID 11/02/19 05/12/21 History levothyroxine 25 mcg PO DAILY 11/02/19 05/12/21 History simvastatin 10 mg PO HS 11/02/19 05/12/21 History acetaminophen 500 mg tablet 500 mg PO Q6H PRN tablet 11/03/19 05/12/21 History docusate sodium 100 mg tablet 100 mg PO HS PRN tablet 11/03/19 05/12/21 History colchicine 0.6 mg PO QMWF 11/26/19 05/12/21 History ergocalciferol (vitamin D2) 50,000 unit PO WEEKLY 11/26/19 05/12/21 History [Vitamin D2] pantoprazole 40 mg PO DAILY 11/26/19 05/12/21 History sevelamer HCl 800 mg PO TID 11/26/19 05/12/21 History albuterol sulfate 90 mcg/actuation 2 puff INHALATION Q6H PRN #8.5 gm 05/15/20 05/12/21 Rx aerosol inhaler alprazolam 0.5 mg PO BID PRN 06/21/20 05/12/21 History aspirin [Aspirin Low Dose] 81 mg PO DAILY 06/21/20 05/12/21 History sertraline 50 mg PO DAILY 06/21/20 05/12/21 History albuterol sulfate 1.25 mg INHALATION Q6H PRN 11/27/20 05/12/21 History guaifenesin [Robafen] 200 mg PO Q4H PRN 11/27/20 05/12/21 History melatonin 3 mg PO HS PRN 11/27/20 05/12/21 History tramadol 50 mg PO TID PRN 11/27/20 05/12/21 History diphenhydramine 25 1 tablet PO QHS PRN #90 tablet 04/01/21 05/12/21 Rx mg-acetaminophen 500 mg tablet hydroxyzine HCl 25 mg PO QID PRN 05/06/21 05/12/21 History midodrine 5 mg PO QMWF 05/06/21 05/12/21 History polyethylene glycol 3350 [Gavilax] 17 g PO DAILY PRN 05/06/21 05/12/21 History Laboratory Tests 05/12/21 05/12/21 05/12/21 14:22 14:22 18:42 WBC 5.3 K/mm3 K/mm3 (4.5-10.0) RBC 3.15 M/mm3 L M/mm3 (4.2-5.4) Hgb 10.8 g/dL L g/dL (12.0-15.0) Hct 34.4 % L % (37.0-47.0) MCV 109.2 fl H fl (80-100) MCH 34.3 pg H pg (26-34) MCHC 31.4 g/dl L g/dl (32-36) RDW 14.5 % % (11.5-14.5) Plt Count 215 k/mm3 k/mm3 (150-375) MPV 10.2 fl fl (7.4-10.4) Immature Gran % (Auto) 0.4 % % (0-0.5) Neut % (Auto) 63.9 % % (45.5-73.1) Lymph % (Auto) 20.8 % % (18.3-44.2) [place] % (Auto) 11.1 % H % (2.6-8.5) Eos % (Auto) 3.6 % % (0-4.4) Baso % (Auto) 0.2 % % (0.2-1.2) Lymph # (Auto) 1.11 K/mm3 K/mm3 (0.9-3.2) [place] # (Auto) 0.6 K/mm3 K/mm3 (0.1-0.6) Eos # (Auto) 0.2 K/mm3 K/mm3 (0-0.3) Baso # (Auto) 0.0 K/mm3 K/mm3 (0.0-0.1) Abs Immat Gran (auto) 0.02 K/mm3 K/mm3 (0.00-0.031) Absolute Neuts (auto) 3.4 K/mm3 K/mm3 (1.3-6.7) Absolute Nucleated RBC 0.0 K/mm3 K/mm3 (0.0-0.012) Nucleated RBC % 0.0 % % (0.0-0.2) Sodium 135 mmol/L L mmol/L (137-145) Potassium 4.6 mmol/L mmol/L (3.4-5.0) Chloride 93 mmol/L L mmol/L (98-107) Carbon Dioxide 27 mmol/L mmol/L (22-30) Anion Gap 15 mmol/L mmol/L (8-16) BUN 26 mg/dL H mg/dL (7-17) Creatinine 6.20 mg/dL H mg/dL (0.7-1.0) Estim Creat Clear Calc 8 ml/min ml/min Estimated GFR 6 L (59 - ) Glucose 143 mg/dL H mg/dL
--- NOTE | 2021-05-13 12:35 | PC.NURSE ---
To GI Lab per [ ], IV [ ]. Report given to [ ].
[2021-05-13] MEDS: SODIUM CHLORIDE 0.9% IV 500 ML 10 ML IV CONT (12:59)
[2021-05-13 13:04] LABS: Glucose Point of Care 103 mg/dl (65-105)
--- NOTE | 2021-05-13 13:19 | WPDGICN ---
Assessment and Plan Assessment and plan (1) Dysphagia: Code(s): R13.10 - Dysphagia, unspecified Status: Inactive Assessment and Plan: we are going to assess with EGD to see if strictures/rings, esophagitis, ulcers or even achalasia (just in case I ask pharmacist to have ready botox in case she may need injection of lower esophageal sphincter) she is already npo more recommendations after EGD (2) Non-cardiac chest pain: Code(s): R07.89 - Other chest pain Status: Acute Assessment and Plan: probably related to dysphagia, recently she was in ER because chest pain (3) ESRD (end stage renal disease) on dialysis: Code(s): N18.6 - End stage renal disease; Z99.2 - Dependence on renal dialysis Status: Inactive Assessment and Plan: on dialysis 3 times a week (4) Diabetes mellitus: Qualifiers: Diabetes mellitus type: type 2 Diabetes mellitus termite treater insulin use: with chcf use Diabetes mellitus complication status: with neurologic complications Diabetes mellitus complication detail: with polyneuropathy Qualified Code(s): E11.42 - Type 2 diabetes mellitus with diabetic polyneuropathy; Z79.4 - nursing home (current) use of insulin Code(s): E11.9 - Type 2 diabetes mellitus without complications Status: Acute Assessment and Plan: on insulin (5) CHF (congestive heart failure): Qualifiers: Heart failure type: diastolic Heart failure chronicity: acute on chronic Qualified Code(s): I50.33 - Acute on chronic diastolic (congestive) heart failure Code(s): I50.9 - Heart failure, unspecified Status: Chronic (6) Abnormal esophagram: Code(s): R93.3 - Abnormal findings on diagnostic imaging of other parts of digestive tract Status: Acute Assessment and Plan: ? achalasia but we need to proceed with EGD to see if typical changes GI Consult Note Consult date/time: 05/13/21 13:19 Reason for consult: difficulty swallowing, abnormal esophagram HPI: Christopher Larry is a 80 year old female with past medical history of diabetes, hypertension, CHF, ESRD on hemodialysis and sarcoidosis here with two weeks of progressive difficulty swallowing, last few days she has not been hardly eating much, also has chest discomfort in fact she was here last weekend for chest pain and epigastric discomfort described as moderate. She is back again and had modified barium swallow that was reviewed and showed possible achalasia. She does not remember having recent EGD. Review of Systems Constitutional: Constitutional: Denies chills Eyes: Eyes: Denies blurry vision ENT: Reports Normal hearing present Cardiovascular: Cardiovascular: Reports chest pain Respiratory: Respiratory: Denies dyspnea Gastrointestinal: Gastrointestinal: Reports abdominal pain Comments: dysphagia Genitourinary: Comments: on dialysis Musculoskeletal: Musculoskeletal: Denies neck pain Integumentary/Breasts: Skin/Breast: Denies dry skin Neurologic: Denies headache(s) Psychiatric: Psychiatric: Denies behavioral changes [facility] Past Medical History Medical History (Updated 05/13/21 @ 15:21 by Pramod Gallego MD) Abnormal esophagram Amyloidosis Anemia Arthritis Asthma Bronchitis Chronic diastolic CHF (congestive heart failure) CVA (cerebral vascular accident) Several. Affected her memory, her site and her hearing Depression DM II (diabetes mellitus, type II), controlled ESRD on hemodialysis Due to amyloidosis; on hemodialysis Wednesday Essential hypertension Glaucoma Gout History of GI bleed History of rectal polyps Hunner's ulcer Hx of transient ischemic attack (TIA) Multiple Hypercholesteremia Hyperkalemia Hypothyroid Non-cardiac chest pain OA (osteoarthritis) Peripheral neuropathy Persistent atrial fibrillation Sleep apnea Polysomnogram 01/08/2020 demonstrated severe obstructive sleep apnea. The patient is in
[2021-05-13 14:06] LABS: Glucose Point of Care 88 mg/dl (65-105)
--- NOTE | 2021-05-13 14:58 | PM.IMPN ---
Progress Note: A&P Assessment and Plan (1) Esophagitis: Code(s): K20.90 - Esophagitis, unspecified without bleeding Status: Acute Assessment and Plan: original imaging concerning for achalasia. patient is now status post EGD by Dr. Ortez with findings of severe esophagitis and midesophagus and no achalasia. Will continue b.i.d. Protonix and repeat EGD in 3 months. Patient is also to be on Carafate a.c. HS for 2 weeks. Findings have been explained to family and we will see if she tolerates low-fiber diet tonight for discharge for tomorrow. Patient is not to be on any aspirin for a week. (2) ESRD on hemodialysis: Code(s): N18.6 - End stage renal disease; Z99.2 - Dependence on renal dialysis Status: Acute Assessment and Plan: longstanding ESRD on hemodialysis Wednesday, consulting child care cook for dialysis tomorrow (3) Diabetes mellitus: Qualifiers: Diabetes mellitus type: type 2 Diabetes mellitus termite helper insulin use: with termite helper use Diabetes mellitus complication status: with neurologic complications Diabetes mellitus complication detail: with polyneuropathy Qualified Code(s): E11.42 - Type 2 diabetes mellitus with diabetic polyneuropathy; Z79.4 - intermediate (current) use of insulin Code(s): E11.9 - Type 2 diabetes mellitus without complications Status: Acute Assessment and Plan: continue sliding-scale insulin (4) Pacemaker battery depletion: Code(s): Z45.010 - Encounter for checking and testing of cardiac pacemaker pulse generator [battery] Status: Acute Assessment and Plan: patient is due for bandage removal battery replacement. consulting tracer powder blender to address Additional Plan diet: Low fiber DVT prophylaxis: SCDs GI prophylaxis: Ppi b.i.d. Code status: Full code Disposition: Home tomorrow continue home medications, holding blood thinners no aspirin for 1 week Subjective Date/time seen: 05/13/21 14:58 Patient is status post EGD for achalasia. Findings are of severe esophagitis and midesophagus, no signs of achalasia. Recommendation to continue Carafate for 2 weeks a.c. HS, Also Protonix b.i.d.. Follow-up EGD for 3 months now. Plan for discharge tomorrow morning if she can tolerate her diet low fiber this evening. Patient also is due to see tracer powder blender for bandage removal for her pacemaker battery replacement which will place consult to tracer powder blender. Patient is also due for hemodialysis Wednesday, consulting Nephrology. Patient is otherwise doing well we will see how she does with her diet. Patient denies fever, chills, nausea, vomiting, diarrhea, chest pain. She has never had issues with achalasia before. Review of Systems Review of Systems: All systems reviewed & are unremarkable except as noted in HPI and below Exam Narrative: - GENERAL: No acute distress. Well-nourished. Pleasant elder woman who appears stated age. - EYES: EOMI. Anicteric. - HENT: Moist mucous membranes. - LUNGS: Clear to auscultation bilaterally, no wheezing, rhonchi, or rales. - CARDIOVASCULAR: Regular rate and rhythm. No murmur. No JVD. - ABDOMEN: Soft, non-tender and non-distended. No palpable masses. - EXTREMITIES: No edema. Peripheral pulses 2+. Non-tender. - NEUROLOGIC: No focal neurological deficits. CN II-XII grossly intact. - PSYCHIATRIC: Awake, Alert and oriented x 3. Appropriate mood and affect. - SKIN: No rashes or lesions. Warm. - LYMPH: No cervical lymphadenopathy. Objective Data Vital Signs Vital Signs: Vital Signs - 24 hr 05/12/21 17:19 05/12/21 18:57 05/12/21 20:00 Temperature 36.4 C L Pulse Rate 70 70 70 Respiratory Rate 14 14 14 Blood Pressure 130/49 L 139/52 L Pulse Oximetry 100 100 100 05/12/21 22:00 05/12/21 23:08 05/13/21 06:00 Temperature 36.6 C 36.6 C Pulse Rate 80 70 70 Respiratory Rate 18 16 Blood Pressure 130/64 149/59 H Pulse Oximetry 95 97 05/13/21
[2021-05-13 17:08] LABS: Glucose Point of Care 107 mg/dl (65-105)
[2021-05-13] MEDS: PANTOPRAZOLE SODIUM IV 40 MG VIAL IV PUSH (21:15)
[2021-05-13] MEDS: SIMVASTATIN 10 MG TABLET PO (21:15)
[2021-05-13] MEDS: SUCRALFATE SUSP 100 MG/ML 10 ML UDC 1000 MG PO (21:15)
[2021-05-13 21:40] LABS: Glucose Point of Care 172 mg/dl (65-105)
[2021-05-14] VITALS (19 sets, daily range): BP systolic 128–166; BP diastolic 42–65; PULSE 60–90; RESP 16–20; TEMP 36–36.8; O2SAT 95
[2021-05-14] MEDS: LEVOTHYROXINE SODIUM 25 MCG TABLET PO (06:23)
[2021-05-14] MEDS: SUCRALFATE SUSP 100 MG/ML 10 ML UDC 1000 MG PO ×2 (06:23→12:15)
[2021-05-14 06:29] LABS: Glucose Point of Care 147 mg/dl (65-105)
--- NOTE | 2021-05-14 07:34 | PM.CNNEP ---
Assessment and Plan Assessment and plan (1) ESRD on hemodialysis: Code(s): N18.6 - End stage renal disease; Z99.2 - Dependence on renal dialysis Status: Acute Assessment and Plan: the patient has e nd-stage marv disease. This is due to diabetes and hypertension. It is unclear family doses is playing a role or not. She is due for dialysis today. her volume status looks okay. Potassium is normal in the 4s. Will do treatment today. Will remove some fluid. (2) Reflux esophagitis: Code(s): K21.00 - Gastro-esophageal reflux disease with esophagitis, without bleeding Status: Acute Assessment and Plan: The patient has severe reflux Esophagitis. She is on Protonix now. Hopefully will have some recovery soon so she can eat. (3) Diabetes mellitus: Qualifiers: Diabetes mellitus type: type 2 Diabetes mellitus termite control servicer insulin use: with longterm use Diabetes mellitus complication status: with neurologic complications Diabetes mellitus complication detail: with polyneuropathy Qualified Code(s): E11.42 - Type 2 diabetes mellitus with diabetic polyneuropathy; Z79.4 - termite renewal inspector (current) use of insulin Code(s): E11.9 - Type 2 diabetes mellitus without complications Status: Acute Assessment and Plan: She is on Accu-Cheks and sliding-scale insulin (4) Anemia: Qualifiers: Anemia type: unspecified type Qualified Code(s): D64.9 - Anemia, unspecified Code(s): D64.9 - Anemia, unspecified Status: Chronic Assessment and Plan: hemoglobin is target at 10.8 will give EPO. (5) Renal osteodystrophy: Code(s): N25.0 - Renal osteodystrophy Status: Acute Assessment and Plan: Will check a renal panel in the morning if still here. (6) HTN (hypertension) with goal to be determined: Code(s): I10 - Essential (primary) hypertension Status: Chronic Assessment and Plan: blood pressure is under good control History of Present Illness Reason for Consult Consult date: 05/14/21 Chief Complaint Chief complaint: Achalasia History of Present Illness Narrative: Jung a very pleasant lady who has multiple medical problems including end-stage renal disease on dialysis 3 times a week under Dr. Mayorga due today, diabetes, hypertension, atrial fibrillation, congestive heart failure, stroke, anemia, renal osteodystrophy, amyloidosis, gout, history of GI bleed, hyperlipidemia, and sleep apnea. She does not use a CPAP machine. The patient came in the hospital because of difficulty swallowing. This has been going on for about a week or so. She had burning in her chest and also abdominal discomfort. This would happen when she swallowed almost anything but lettuce . The patient was seen in the emergency room and evaluated. He she was admitted to the floor. Dr. Ortez saw the patient and did an endoscopy showing severe reflux esophagitis. There was some mention of achalasia before that but this test ruled that out. The patient feels okay today. She is eager for discharge. She is due for dialysis. She denies any chest pain or shortness of breath. She has a little bit of swelling. Review of Systems Constitutional: Constitutional: Reports no additional constitutional complaints Eyes: Eyes: Reports no additional eye complaints ENT: Reports system reviewed and no additional complaints, except as documented Cardiovascular: Cardiovascular: Reports no additional cardiovascular complaints Respiratory: Respiratory: Reports no additional respiratory complaints Gastrointestinal: Gastrointestinal: Reports no additional gastrointestinal complaints Genitourinary: Genitourinary: Reports no additional female genitourinary complaints Musculoskeletal: Musculoskeletal: Reports no additional musculoskeletal complaints Integumentary/Breasts: Skin/Breast: Reports system reviewed and no reji
--- NOTE | 2021-05-14 09:32 | PM.EVENT ---
Event Note Event Note Event Note: patient is on dialysis. She is tolerating this well. Her blood pressure is doing well she is resting comfortably. She was seen at 8:30 a.m.
[2021-05-14] MEDS: SODIUM CHLORIDE 0.9% IV 1,000 ML 999 ML IV CONT (09:45)
[2021-05-14] MEDS: EPOETIN ALFA-EPBX 10,000 UNITS/ML VIAL 10000 UNITS IV PUSH (09:45)
--- NOTE | 2021-05-14 10:17 | PC.NURSE ---
This patient, Christopher Larry, was transferred to [ Dialysis] on 05/14/21 at 0800. Personal belongings sent with patient. Appropriate documentation sent with patient.
[2021-05-14] MEDS: GABAPENTIN 100 MG CAPSULE PO (12:15)
[2021-05-14] MEDS: SERTRALINE HCL 50 MG TABLET PO (12:15)
[2021-05-14] MEDS: SEVELAMER CARBONATE 800 MG TABLET PO (12:16)
[2021-05-14] MEDS: BUMETANIDE 1 MG TABLET 2 MG PO (12:16)
[2021-05-14] MEDS: COLCHICINE 0.6 MG TABLET PO (12:16)
[2021-05-14] MEDS: carvediloL 3.125 MG TABLET PO (12:16)
[2021-05-14] MEDS: PANTOPRAZOLE SODIUM IV 40 MG VIAL IV PUSH (12:17)
[2021-05-14 12:41] LABS: Glucose Point of Care 103 mg/dl (65-105)
--- NOTE | 2021-05-14 12:45 | WPDANESPN ---
Anes - Prog Note Post-Op Date/Time: 05/14/21 12:45 Cardiovascular status: normal Respiratory status: normal Airway patency: baseline Mental status: baseline Post-Op hydration status: normal and other (dialysis today) Vital Signs: Last Vital Signs Temp 36.7 C 05/14/21 11:40 Pulse 90 05/14/21 12:16 Resp 16 05/14/21 11:40 BP 164/58 H 05/14/21 11:40 Pulse Ox 95 05/14/21 05:05 Pain Score (VAS): 0/10 I/O: Intake & Output 05/13/21 05/14/21 05/14/21 23:59 07:59 15:59 Intake Total 120 0 Output Total 0 2000 Balance 120 0 -2000 Laboratory Tests 05/12/21 14:22 05/12/21 14:22 05/13/21 05/13/21 05/13/21 13:01 14:04 16:37 POC Capillary Glucose 103 88 107 H 05/13/21 05/14/21 05/14/21 21:13 06:21 12:30 POC Capillary Glucose 172 H 147 H 103 Post-procedural complaints: none Patient Feedback: Patient satisfied with anesthetic care.
--- NOTE | 2021-05-14 13:10 | PM.DS ---
DS: Admitting Diagnosis Admitting Diagnosis Dysphagia DS: Discharge Diagnosis Discharge Diagnosis (1) Reflux esophagitis: Qualifiers: Esophagitis bleeding: without hemorrhage Qualified Code(s): K21.00 - Gastro-esophageal reflux disease with esophagitis, without bleeding Code(s): K21.00 - Gastro-esophageal reflux disease with esophagitis, without bleeding Status: Acute Assessment and Plan: confirmed on EGD by Dr. Ortez, will need repeat EGD in 3 months outpatient continue PPI b.i.d. 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: with jail use Diabetes mellitus complication status: with neurologic complications Diabetes mellitus complication detail: with polyneuropathy Qualified Code(s): E11.42 - Type 2 diabetes mellitus with diabetic polyneuropathy; Z79.4 - [facility] (current) use of insulin Code(s): E11.9 - Type 2 diabetes mellitus without complications Status: Acute Assessment and Plan: stable continue home medications (5) Non-cardiac chest pain: Code(s): R07.89 - Other chest pain Status: Acute Assessment and Plan: secondary to esophagitis -Cardiology was consulted to examine pacemaker after battery exchange, bandage removed. She is doing well DS: Summary Hospital Course Reason for hospitalization: dysphagia Hospital Course: patient is a 80-year-old female with past med history of diabetes, ESRD on hemodialysis, sarcoidosis, hypertension presents to ED from [facility] from complaints of dysphagia. in the ER modified barium swallow demonstrated signs of achalasia. Patient had EGD with Dr. Ortez which found severe esophagitis. Recommendations to increase PPI to b.i.d. Protonix. Also patient will be on Carafate for 2 weeks a.c. HS. We will hold aspirin for 1 week. Patient had dialysis on 05/14/2021. patient recently had pacemaker battery exchanged and cardiology evaluated patient in removed bandage stating she is doing well. Patient will be discharged home with prescriptions for Protonix and Carafate, follow-up with PCP in 1 week. Patient will need to follow-up with Dr. Ortez for EGD in 3 months. Patient and daughter at bedside who understand and agree with plan. Patient's vitals stable, labs stable, patient is stable for discharge. Status at Discharge Cognitive/behavioral status at discharge: At baseline Functional status at discharge: independent ambulation Overall status at discharge: patient is back to baseline Time Spent with Patient Time attestation: Total time spent providing and/or coordinating discharge services: 35 Time spent: Greater than 30 minutes Exam Narrative: - GENERAL: No acute distress. Well-nourished. Pleasant elder woman who appears stated age. undergoing dialysis. - EYES: EOMI. Anicteric. - HENT: Moist mucous membranes. - LUNGS: Clear to auscultation bilaterally, no wheezing, rhonchi, or rales. - CARDIOVASCULAR: Regular rate and rhythm. No murmur. No JVD. - ABDOMEN: Soft, non-tender and non-distended. No palpable masses. - EXTREMITIES: No edema. Peripheral pulses 2+. Non-tender. Bruises on arms from dialysis and blood draws, left upper extremity dialysis access - NEUROLOGIC: No focal neurological deficits. CN II-XII grossly intact. - PSYCHIATRIC: Awake, Alert and oriented. Appropriate mood and affect. - SKIN: No rashes or lesions. Warm. - LYMPH: No cervical lym
== END 2021-05-14 14:21 | DRG 391 ==
LOC: ANHED 12:44 → ANH2MED 17:08
PROVIDERS: Internal Medicine Gastroenterology; Admitting Provider Internal Medicine; Emergency Provider Emergency Medicine; PCP Physician Assistant; Visit Provider Student in an Organized Health Care Education/Training Program
PROC: 0DJ08ZZ Inspection of Upper Intestinal Tract, Via Natural or Artificial Opening Endoscopic (ICD-10-PCS; CPT 43235; principal; 2021-05-13 13:30)
DX: K21.00 Gastro-esophageal reflux disease with esophagitis, without bleeding (principal); N18.6 End stage renal disease; I50.33 Acute on chronic diastolic (congestive) heart failure; I13.2 Hypertensive heart and chronic kidney disease with heart failure and with stage 5 chronic kidney disease, or end stage renal disease; E85.9 Amyloidosis, unspecified; I48.19 Other persistent atrial fibrillation; E11.22 Type 2 diabetes mellitus with diabetic chronic kidney disease; K29.70 Gastritis, unspecified, without bleeding; R13.10 Dysphagia, unspecified; I69.311 Memory deficit following cerebral infarction; Z99.2 Dependence on renal dialysis; E11.42 Type 2 diabetes mellitus with diabetic polyneuropathy; G47.33 Obstructive sleep apnea (adult) (pediatric); E03.9 Hypothyroidism, unspecified; M10.9 Gout, unspecified; E78.5 Hyperlipidemia, unspecified; Z79.4 Long term (current) use of insulin; Z79.899 Other long term (current) drug therapy; Z88.0 Allergy status to penicillin; Z95.0 Presence of cardiac pacemaker; Z98.42 Cataract extraction status, left eye; Z98.41 Cataract extraction status, right eye
CPT/HCPCS: 36415; 71046; 74220; 80048; 80053; 82948; 83690; 83880; 84484; 85025; 85610; 85730; 88305; 88312; 88342; 93005; 99284; 99285; A9270; C9113; G0257; G0378; J2704; J7030; J7040; Q5106

== ENCOUNTER 2021-05-21 12:48 | Outpatient (RCR) | payer MEDICARE, BC, SELFPAY | END 2021-05-21 23:59 | disposition home or self-care (01) | LOC: ANHAUDIO 12:48 | PROVIDERS: PCP Physician Assistant; Visit Provider Physician Assistant | DX: Z46.1 Encounter for fitting and adjustment of hearing aid (principal) | CPT/HCPCS: 99199 ==

== ENCOUNTER 2021-05-24 15:38 | Emergency (ER) | payer MEDICARE, MEDICAID, SELFPAY ==
--- NOTE | ~2021-05-24 | XR_ITS ---
EXAMINATION: XR hip LT 2V w AP pelvis DATE: 05/24/2021 16:03 INDICATION: Left hip pain post fall TECHNIQUE: Anteroposterior view of the pelvis and anteroposterior and cross-table lateral views of th e left hip were obtained. COMPARISON: CT dated 07/17/2019 FINDINGS: Bone alignment is normal. No fracture. Mild left and severe right hip osteoarthritis. Mild bilateral hip osteoarthritis. Multiple phleboliths in the pelvis. Atherosclerotic calcifications extend from th e abdominal aorta into the iliac and proximal femoral arteries. IMPRESSION: 1. Mild left and severe right hip osteoarthritis. No acute osseous abnormality. Reviewed, dictated and finalized at location A.
--- NOTE | ~2021-05-24 | XR_ITS ---
EXAMINATION: XR elbow LT min 3V DATE: 05/24/2021 16:03 INDICATION: Left elbow pain post fall TECHNIQUE: Anteroposterior, two oblique and lateral views of the left elbow were obtained. COMPARISON: None. FINDINGS: Alignment is normal. No fracture or joint effusion. Joint spaces are normal. Vascular calcifications at the proximal left forearm. Soft tissues are otherwise unremarkable. IMPRESSION: 1. No left elbow joint effusion or osseous abnormality. Reviewed, dictated and finalized at location A.
[2021-05-24 15:38] VITALS: BP 134/44; PULSE 70; RESP 14; TEMP 36.9; O2SAT 100
--- NOTE | 2021-05-24 17:18 | ED.FALL ---
HPI - Fall General Chief Complaint: Fall Stated Complaint: fall/hip pain Time Seen by Provider: 05/24/21 16:40 Source: patient, EMS and RN notes reviewed Mode of arrival: EMS Limitations: no limitations History of Present Illness HPI Narrative: Patient is 80 years old white female came from a [facility] because of a fall. Patient got out of the hospital recently, and feels stiff all over. Patient was walking, while turning lost her balance and fell. Patient denies loss of consciousness. Patient complaining of left elbow and may be left head pain. Patient denies other injuries. Currently patient is asymptomatic Related Data Home Medications Medication Instructions Recorded Confirmed acetaminophen 500 mg PO Q6H PRN 05/24/21 albuterol mcg INHALATION 05/24/21 albuterol sulfate 1.25 mg INHALATION Q4H 05/24/21 alprazolam 0.5 mg PO PRN PRN 05/24/21 aspirin mg PO 05/24/21 bumetanide 2 mg PO DAILY 05/24/21 carvedilol 3.125 mg PO BID 05/24/21 colchicine 0.6 mg PO DAILY 05/24/21 diphenhydramine-acetaminophen 1 tablet PO HS PRN 05/24/21 [Acetaminophen PM] docusate sodium 100 mg PO PRN PRN 05/24/21 ergocalciferol (vitamin D2) 1,250 mcg PO WEEKLY 05/24/21 [Vitamin D2] gabapentin 100 mg PO BID 05/24/21 guaifenesin [Robafen] 200 mg PO Q4H PRN 05/24/21 hydroxyzine HCl 25 mg PO QID PRN 05/24/21 insulin glargine [Basaglar KwikPen 15 unit SUBCUT HS 05/24/21 U-100 Insulin] levothyroxine 25 mcg PO DAILY 05/24/21 05/24/21 melatonin 3 mg PO HS PRN 05/24/21 midodrine 5 mg PO 3XW 05/24/21 pantoprazole 40 mg PO DAILY 05/24/21 polyethylene glycol 3350 [Gavilax] 17 g PO PRN PRN 05/24/21 sertraline 50 mg PO DAILY 05/24/21 sevelamer carbonate 800 mg PO TID 05/24/21 simvastatin 10 mg PO QPM 05/24/21 tramadol 50 mg PO TID PRN 05/24/21 Allergies Allergy/AdvReac Type Severity Reaction Status Date / Time Penicillins Allergy Unknown Verified 05/24/21 15:49 Review of Systems Review of Systems: CONSTITUTIONAL: Denies fever, chills, or sweats. EYES: Denies visual changes, redness, or discharge. ENT: Denies rhinorrhea, congestion, sore throat, or otalgia. CARDIOVASCULAR: Denies chest pain, palpitations, or edema. RESPIRATORY: Denies cough or dyspnea. GASTROINTESTINAL: Denies abdominal pain, nausea, vomiting, or diarrhea. GENITOURINARY: Denies dysuria or hematuria. SKIN: Denies rash or itching. MUSCULOSKELETAL: Denies back pain, joint pain, or myalgia. NEUROLOGIC: Denies headache, numbness, or weakness. PSYCHIATRIC: Denies anxiety or depression. Exam Narrative: General appearance: Well-developed, well-nourished Skin: Normal color Head: Normocephalic, nontraumatic Eyes: Clear conjunctiva ENT: Oropharynx normal, ears normal, nose normal Neck: Supple, nontender Chest and respiratory: Airway patent, no respiratory distress, no accessory muscle use Heart: Regular rate/rhythm Abdomen: Soft, nontender, no organomegaly, quiet bowel sounds Vascular: Normal peripheral pulses, normal capillary refill. Musculoskeletal: Normal range of motion, nontender back Neurologic: Alert and oriented ?3, LOCUM TENENS PSYCHIATRIST is normal as tested, no gross motor deficit Course Course Emergency Course: Stable Vital Signs Vital signs: Vital Signs Temperature 36.9 C 05/24/21 15:38 Pulse Rate 70 05/24/21 15:38 Respiratory Rate 14 05/24/21 15:38 Blood Pressure 134/44 L 05/24/21 15:38 Pulse Oximetry 100 05/24/21 15:38 Temperature 36.9 C 05/24/21 15:38 Pulse Rate 70 05/24/21 15:38 Respiratory Rate 14 05/24/21 15:38 Blood Pressure 134/44 L 05/24/21 15:38 Pulse Oximetry 100 05/24/21 15:38 MDM - Fall MDM Narrative Medical decision making
[2021-05-24 17:27] VITALS: BP 143/54; PULSE 70; RESP 15; O2SAT 100
== END 2021-05-24 17:43 ==
PROVIDERS: Emergency Provider Emergency Medicine; PCP Physician Assistant
DX: S40.022A Contusion of left upper arm, initial encounter (principal); Z86.73 Personal history of transient ischemic attack (TIA), and cerebral infarction without residual deficits; I10 Essential (primary) hypertension; Z95.0 Presence of cardiac pacemaker; E11.9 Type 2 diabetes mellitus without complications; E03.9 Hypothyroidism, unspecified; N28.9 Disorder of kidney and ureter, unspecified; Z79.82 Long term (current) use of aspirin; Z79.4 Long term (current) use of insulin; M16.11 Unilateral primary osteoarthritis, right hip; W18.39XA Other fall on same level, initial encounter
CPT/HCPCS: 73080; 73502; 99284

== ENCOUNTER 2021-06-02 12:51 | Emergency (ER) | payer MEDICARE, MEDICAID, SELFPAY ==
--- NOTE | ~2021-06-02 | XR_ITS ---
EXAMINATION: XR knee RT min 4V DATE: 06/02/2021 14:10 INDICATION: Right knee pain. TECHNIQUE: 4 views of right knee were obtained. COMPARISON: None. FINDINGS: Bone alignment is normal. No fracture. There is severe osteoarthritis of medial compartment including an osteochondral lesion of the central articular surface of femoral condyle. There is mild osteoarthritis of lateral and patellofemoral compartments. No knee joint effusion. IMPRESSION: 1. Severe right knee osteoarthritis. Reviewed, dictated and finalized at location A.
--- NOTE | ~2021-06-02 | XR_ITS ---
XR hip RT 2V w AP pelvis DATE: 06/02/2021 17:50 INDICATION: Fall one week ago. Right groin pain. TECHNIQUE: AP pelvis. AP and lateral views of right hip COMPARISON: 05/24/2021 pelvis and left hip FINDINGS: There is diffuse osteopenia. The pubic symphysis and sacroiliac joints are intact. No pelvi c fracture or bone destruction is detected. There is severe asymmetric right hip osteoarthritis with severe joint space narrowing and prominent d egenerative spurring. There is mild cortical irregularity and patchy sclerosis and lucency of the rig ht femoral head; avascular necrosis is likely. There is extensive calcification of the abdominal aorta and iliac and femoral arteries. No abdominal aortic aneurysm is evident from the mid L3 level caudally. 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 IMPRESSION: Right femoral head avascular necrosis and prominent secondary osteo arthritis Diffuse osteopenia Extensive calcified atherosclerosis
--- NOTE | ~2021-06-02 | XR_ITS ---
EXAMINATION: XR shoulder RT min 2V DATE: 06/02/2021 14:10 INDICATION: Right shoulder pain. TECHNIQUE: 4 views of right shoulder were obtained. COMPARISON: Right shoulder radiographs 04/09/2018, chest CT 11/26/2020 FINDINGS: Bone alignment is normal. No fracture. There is mild osteoarthritis of glenohumeral joint a nd acromioclavicular joint. There is a vascular stent in right subclavian vein. Partially visualized are pacer wires. IMPRESSION: 1. Mild polyarticular osteoarthritis. Reviewed, dictated and finalized at location A.
[2021-06-02 13:40] VITALS: BP 127/40; PULSE 107; RESP 16; TEMP 36.5; O2SAT 99
--- NOTE | 2021-06-02 17:25 | PC.NURSE ---
additional xrays ordered. family at bedside.
--- NOTE | 2021-06-02 17:35 | ED.GENADULT ---
HPI - General Adult General Chief complaint: Extremity Injury, Lower Stated complaint: RT SHOULDER, RT GROIN PAIN, FALL 2WKS AGO. Time Seen by Provider: 06/02/21 16:15 Source: patient, family and RN notes reviewed History of Present Illness HPI narrative: Patient is a 80 y/o female complaining of right groin pain and right shoulder pain after she had a fall about 1 1/2 week ago. She describes her pain as sharp and rates it as 10/10. Movement worsen the pain. She is able to ambulate with a walker. Related Data Home Medications Medication Instructions Recorded Confirmed Sarah BrittikPen U-100 Insulin 15 unit SUBCUT HS 11/02/19 05/12/21 bumetanide 2 mg PO DAILY 11/02/19 05/12/21 carvedilol 3.125 mg PO BID 11/02/19 05/12/21 gabapentin 100 mg PO BID 11/02/19 05/12/21 levothyroxine 25 mcg PO DAILY 11/02/19 05/12/21 simvastatin 10 mg PO HS 11/02/19 05/12/21 acetaminophen 500 mg tablet 500 mg PO Q6H PRN tablet 11/03/19 05/12/21 docusate sodium 100 mg tablet 100 mg PO HS PRN tablet 11/03/19 05/12/21 colchicine 0.6 mg PO QMWF 11/26/19 05/12/21 ergocalciferol (vitamin D2) 50,000 unit PO WEEKLY 11/26/19 05/12/21 [Vitamin D2] sevelamer HCl 800 mg PO TID 11/26/19 05/12/21 alprazolam 0.5 mg PO BID PRN 06/21/20 05/12/21 aspirin [Aspirin Low Dose] 81 mg PO DAILY 06/21/20 05/12/21 sertraline 50 mg PO DAILY 06/21/20 05/12/21 albuterol sulfate 1.25 mg INHALATION Q6H PRN 11/27/20 05/12/21 guaifenesin [Robafen] 200 mg PO Q4H PRN 11/27/20 05/12/21 melatonin 3 mg PO HS PRN 11/27/20 05/12/21 tramadol 50 mg PO TID PRN 11/27/20 05/12/21 hydroxyzine HCl 25 mg PO QID PRN 05/06/21 05/12/21 midodrine 5 mg PO QMWF 05/06/21 05/12/21 polyethylene glycol 3350 [Gavilax] 17 g PO DAILY PRN 05/06/21 05/12/21 Allergies Allergy/AdvReac Type Severity Reaction Status Date / Time Penicillins Allergy Unknown Rash Verified 06/02/21 15:32 Review of Systems Constitutional: Constitutional: Denies chills, Denies fever(s), Denies headache(s) and Denies weakness Eyes: Eyes: Denies blurry vision ENT: Denies headache(s) and Denies neck pain Cardiovascular: Cardiovascular: Denies chest pain and Denies dyspnea Respiratory: Respiratory: Denies cough and Denies dyspnea Gastrointestinal: Gastrointestinal: Denies abdominal pain, Denies diarrhea, Denies nausea and Denies vomiting Genitourinary: Genitourinary: Denies hematuria and Denies dysuria Musculoskeletal: Musculoskeletal: Denies back pain, Denies neck pain and Reports other (right groin pain and shoulder pain) Neurologic: Denies headache(s) and Denies weakness PMFSH Past Medical History Medical History Abnormal esophagram Amyloidosis Anemia Arthritis Asthma Bronchitis Chronic diastolic CHF (congestive heart failure) CVA (cerebral vascular accident) Several. 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 The patient is intolerant to CPAP therapy. Surgical History Surgical History History of appendectomy History of cholecystectomy History of hysterectomy History of permanent cardiac pacemaker placement battery exchange 05/06/2021. Managed by Dr. Saunders History of vascular surgery An abscess to the right arm fistula removed still has a right arm fistula that is actively working Hx of bilateral cataract extraction Family History Family History (Rev
[2021-06-02] MEDS: MORPHINE SULFATE (*CRX) 2 MG/ML INJ IM (18:54)
== END 2021-06-02 19:08 | disposition home or self-care (01) ==
PROVIDERS: Emergency Provider Emergency Medicine; PCP Physician Assistant
DX: R10.31 Right lower quadrant pain (principal); M25.511 Pain in right shoulder; M87.9 Osteonecrosis, unspecified; E11.22 Type 2 diabetes mellitus with diabetic chronic kidney disease; I13.2 Hypertensive heart and chronic kidney disease with heart failure and with stage 5 chronic kidney disease, or end stage renal disease; I50.32 Chronic diastolic (congestive) heart failure; N18.6 End stage renal disease; Z99.2 Dependence on renal dialysis; J45.909 Unspecified asthma, uncomplicated; H40.9 Unspecified glaucoma; M10.9 Gout, unspecified; E78.00 Pure hypercholesterolemia, unspecified; E03.9 Hypothyroidism, unspecified; M19.90 Unspecified osteoarthritis, unspecified site; I48.19 Other persistent atrial fibrillation; K21.00 Gastro-esophageal reflux disease with esophagitis, without bleeding; N25.0 Renal osteodystrophy; G47.30 Sleep apnea, unspecified; I69.911 Memory deficit following unspecified cerebrovascular disease; I69.998 Other sequelae following unspecified cerebrovascular disease; H53.9 Unspecified visual disturbance; Z86.2 Personal history of diseases of the blood and blood-forming organs and certain disorders involving the immune mechanism; E85.9 Amyloidosis, unspecified; Z95.0 Presence of cardiac pacemaker; Z98.42 Cataract extraction status, left eye; Z98.41 Cataract extraction status, right eye; Z79.82 Long term (current) use of aspirin; Z79.4 Long term (current) use of insulin; M85.88 Other specified disorders of bone density and structure, other site; I70.0 Atherosclerosis of aorta; I70.201 Unspecified atherosclerosis of native arteries of extremities, right leg; M16.11 Unilateral primary osteoarthritis, right hip; M17.11 Unilateral primary osteoarthritis, right knee; M19.011 Primary osteoarthritis, right shoulder; W19.XXXA Unspecified fall, initial encounter
CPT/HCPCS: 73030; 73502; 73564; 96372; 99284; J2270

== ENCOUNTER 2021-06-26 11:35 | Emergency (ER) | payer MEDICARE, MEDICAID, SELFPAY ==
--- NOTE | ~2021-06-26 | CT_ITS ---
EXAMINATION: CT brain wo con INDICATION: Head injury COMPARISON: 06/21/2020 TECHNIQUE: Standard unenhanced head CT. The dose-length product (DLP) was 681.00 mGy-cm. The mA was a djusted according to patient size. Iterative reconstruction technique was employed. FINDINGS: There is no acute intraparenchymal hemorrhage. No evidence of mass lesion. No evidence of a cute infarction. There are areas of prior infarction in the left cerebellum, left occipital lobe, the right parietal lobe, and the right frontal lobe. There is mild periventricular and subcortical hypod ensity probably related to small vessel ischemic disease. There is mild prominence of the sulci and v entricles related to cerebral atrophy. Intracranial calcified cerebral atherosclerosis is noted. Ther e are no extra-axial collections. There is no mass effect or midline shift. Changes in the globes are likely from ocular lens surgery. The visualized sinuses and mastoid air cells are well aerated. IMPRESSION: 1. Areas of prior infarction without acute intracranial abnormality. 2. Age related findings. Reviewed, dictated and finalized at location A.
--- NOTE | ~2021-06-26 | CT_ITS ---
EXAMINATION: CT cervical spine wo con DATE: 06/26/2021 12:26 INDICATION: Head injury TECHNIQUE: Computed tomography (CT) of the cervical spine was performed without intravenous contrast. The dose-length product (DLP) was 446.81 mGy-cm. Automated exposure control and iterative reconstruc tion technique were employed. COMPARISON: PET/CT, 05/26/2018 FINDINGS: There is 1 mm of anterolisthesis of C4 on C5. The vertebral body heights are maintained. Th e odontoid is intact. There is no fracture. There is mild loss of disc space height throughout the ce rvical spine. Mild multilevel facet and uncovertebral joint osteoarthritis is noted. There is a chron ic 2.5 cm nodule of the right lung apex which did not demonstrate FDG uptake on the comparison examin ation, consistent with scarring. IMPRESSION: 1. Mild cervical spondylosis without acute findings. Reviewed, dictated and finalized at location A.
--- NOTE | ~2021-06-26 | XR_ITS ---
EXAMINATION: XR shoulder RT min 2V DATE: 06/26/2021 11:54 INDICATION: Right shoulder pain post fall TECHNIQUE: AP internally and externally rotated, Grashey and transscapular Y views of the right shoul lucia were obtained. COMPARISON: None FINDINGS: Normal alignment. No fracture. Glenohumeral joint appears unremarkable on the provided projections b ut is not adequately profiled to assess for joint space narrowing. Mild to moderate acromioclavicular osteoarthritis. Stenting along the right subclavian vein and visualized portion of the right lung ar e clear. Soft tissues are unremarkable. IMPRESSION: Mild to moderate acromioclavicular osteoarthritis. No acute osseous abnormality. Reviewed, dictated and finalized at location A. IMPRESSION: Mild to moderate acromioclavicular osteoarthritis. No acute osseous abnormality .
--- NOTE | ~2021-06-26 | XR_ITS ---
EXAMINATION: [id number] INDICATION: Generalized right-sided chest pain TECHNIQUE: A frontal view of the chest and 3 views of the right ribs were obtained. COMPARISON: 05/10/2021 FINDINGS: Cardiomegaly is noted. The lungs are free of acute opacities. Chronic scarring is noted in the right lung apex. There is a right subclavian endovascular stent. No displaced right-sided rib fra cture is identified. A dual-lead cardiac pacemaker of the left chest wall ends with leads in expected locations. IMPRESSION: 1. No acute cardiopulmonary abnormality or evidence of displaced rib fracture. Reviewed, dictated and finalized at location A.
[2021-06-26 11:31] VITALS: BP 183/93; PULSE 70; RESP 18; TEMP 36.7; O2SAT 99
[2021-06-26] MEDS: HYDROcodone/acetaminophen (*CRX) 5-325 MG TABLET 1 TAB PO (12:52)
--- NOTE | 2021-06-26 13:19 | PC.NURSE ---
c-collar removed with PA approval
[2021-06-26 13:21] VITALS: PULSE 70; RESP 18; O2SAT 98
--- NOTE | 2021-06-26 13:51 | ED.GENADULT ---
HPI - General Adult General Chief complaint: Fall Stated complaint: FALL/R SHOULDER PAIN Time Seen by Provider: 06/26/21 11:53 Source: patient Mode of arrival: EMS Limitations: no limitations History of Present Illness HPI narrative: Patient with history of recurrent right rotator cuff injury presents with chief complaint of right shoulder pain and decreased range of motion that began after falling in a restaurant earlier today. Patient states that she also hit her head and has pain to the right side of her neck. Patient denies no loss of consciousness, change in vision or hearing or neurological deficits. Patient has seen agriculture extension specialist Dr. Henry for her prior rotator cuff injury. She has not had surgery. She reports mild discomfort to her right rib area. Patient denies any pain to her back abdomen or lower extremities. Related Data Home Medications Medication Instructions Recorded Confirmed Sarah ClayPen U-100 Insulin 15 unit SUBCUT HS 11/02/19 05/12/21 bumetanide 2 mg PO DAILY 11/02/19 05/12/21 carvedilol 3.125 mg PO BID 11/02/19 05/12/21 gabapentin 100 mg PO BID 11/02/19 05/12/21 levothyroxine 25 mcg PO DAILY 11/02/19 05/12/21 simvastatin 10 mg PO HS 11/02/19 05/12/21 acetaminophen 500 mg tablet 500 mg PO Q6H PRN tablet 11/03/19 05/12/21 docusate sodium 100 mg tablet 100 mg PO HS PRN tablet 11/03/19 05/12/21 colchicine 0.6 mg PO QMWF 11/26/19 05/12/21 ergocalciferol (vitamin D2) 50,000 unit PO WEEKLY 11/26/19 05/12/21 [Vitamin D2] sevelamer HCl 800 mg PO TID 11/26/19 05/12/21 alprazolam 0.5 mg PO BID PRN 06/21/20 05/12/21 aspirin [Aspirin Low Dose] 81 mg PO DAILY 06/21/20 05/12/21 sertraline 50 mg PO DAILY 06/21/20 05/12/21 albuterol sulfate 1.25 mg INHALATION Q6H PRN 11/27/20 05/12/21 guaifenesin [Robafen] 200 mg PO Q4H PRN 11/27/20 05/12/21 melatonin 3 mg PO HS PRN 11/27/20 05/12/21 tramadol 50 mg PO TID PRN 11/27/20 05/12/21 hydroxyzine HCl 25 mg PO QID PRN 05/06/21 05/12/21 midodrine 5 mg PO QMWF 05/06/21 05/12/21 polyethylene glycol 3350 [Gavilax] 17 g PO DAILY PRN 05/06/21 05/12/21 acetaminophen 500 mg PO Q6H PRN 05/24/21 06/01/21 albuterol mcg INHALATION 05/24/21 06/01/21 albuterol sulfate 1.25 mg INHALATION Q4H 05/24/21 06/01/21 alprazolam 0.5 mg PO PRN PRN 05/24/21 06/01/21 aspirin mg PO 05/24/21 06/01/21 bumetanide 2 mg PO DAILY 05/24/21 06/01/21 carvedilol 3.125 mg PO BID 05/24/21 06/01/21 colchicine 0.6 mg PO DAILY 05/24/21 06/01/21 diphenhydramine-acetaminophen 1 tablet PO HS PRN 05/24/21 06/01/21 [Acetaminophen PM] docusate sodium 100 mg PO PRN PRN 05/24/21 06/01/21 ergocalciferol (vitamin D2) 1,250 mcg PO WEEKLY 05/24/21 06/01/21 [Vitamin D2] gabapentin 100 mg PO BID 05/24/21 06/01/21 guaifenesin [Robafen] 200 mg PO Q4H PRN 05/24/21 06/01/21 hydroxyzine HCl 25 mg PO QID PRN 05/24/21 06/01/21 insulin glargine [Basaglar KwikPen 15 unit SUBCUT HS 05/24/21 06/01/21 U-100 Insulin] levothyroxine 25 mcg PO DAILY 05/24/21 06/01/21 melatonin 3 mg PO HS PRN 05/24/21 06/01/21 midodrine 5 mg PO 3XW 05/24/21 06/01/21 pantoprazole 40 mg PO DAILY 05/24/21 06/01/21 polyethylene glycol 3350 [Gavilax] 17 g PO PRN PRN 05/24/21 06/01/21 sertraline 50 mg PO DAILY 05/24/21 06/01/21 sevelamer carbonate 800 mg PO TID 05/24/21 06/01/21 simvastatin 10 mg PO QPM 05/24/21 06/01/21 tramadol 50 mg PO TID PRN 05/24/21 06/01/21 Allergies Allergy/AdvReac Type Severity Reaction Status Date / Time Penicillins Allergy Unknown Rash Verified 06/26/21 11:40 Review of Systems Review of Systems: CONSTITUTIONAL: Denies fever, chills, or sweats. EYES: Denies visual changes, redness, or discharge. ENT: Denies rhinorrhea, congestion, sore throat, or otalgia. CARDIOVASCULAR: Denies chest pain, palpitations, or edema. RESPIRATORY: Denies cough or dyspnea. GASTROINTESTINAL: Denies abdominal pain, nausea, vomiting, or diarrhea. GENITOURINARY: Denies dysuria or hematuria. SKIN: Denies rash or itching. MUSCULOSKELETAL: Reports right
== END 2021-06-26 14:35 ==
PROVIDERS: Emergency Provider Emergency Medicine; PCP Physician Assistant
DX: S16.1XXA Strain of muscle, fascia and tendon at neck level, initial encounter (principal); S46.911A Strain of unspecified muscle, fascia and tendon at shoulder and upper arm level, right arm, initial encounter; S09.90XA Unspecified injury of head, initial encounter; I69.911 Memory deficit following unspecified cerebrovascular disease; I69.998 Other sequelae following unspecified cerebrovascular disease; H53.9 Unspecified visual disturbance; E11.22 Type 2 diabetes mellitus with diabetic chronic kidney disease; I13.2 Hypertensive heart and chronic kidney disease with heart failure and with stage 5 chronic kidney disease, or end stage renal disease; I50.32 Chronic diastolic (congestive) heart failure; N18.6 End stage renal disease; Z99.2 Dependence on renal dialysis; E11.42 Type 2 diabetes mellitus with diabetic polyneuropathy; J45.909 Unspecified asthma, uncomplicated; M10.9 Gout, unspecified; M19.011 Primary osteoarthritis, right shoulder; H40.9 Unspecified glaucoma; E78.00 Pure hypercholesterolemia, unspecified; E03.9 Hypothyroidism, unspecified; I48.19 Other persistent atrial fibrillation; N25.0 Renal osteodystrophy; G47.30 Sleep apnea, unspecified; Z79.82 Long term (current) use of aspirin; Z79.4 Long term (current) use of insulin; Z87.19 Personal history of other diseases of the digestive system; Z95.0 Presence of cardiac pacemaker; Z98.42 Cataract extraction status, left eye; Z98.41 Cataract extraction status, right eye; M47.812 Spondylosis without myelopathy or radiculopathy, cervical region; W19.XXXA Unspecified fall, initial encounter
CPT/HCPCS: 70450; 71101; 72125; 73030; 99284; A9270; L0140

== ENCOUNTER 2021-10-29 08:45 | Inpatient (IN) | payer MEDICARE, MEDICAID, SELFPAY ==
[2021-10-29] VITALS (48 sets, daily range): BP systolic 95–165; BP diastolic 51–76; PULSE 64–84; RESP 15–21; TEMP 36.1–37.3; O2SAT 91–100; BMI 40.6
--- NOTE | ~2021-10-29 | XR_ITS ---
XR chest 1V portable DATE: 11/02/2021 06:32 INDICATION: Pulmonary edema. Shortness of breath. TECHNIQUE: Portable AP chest on 11/02/2021 at 0551 hours COMPARISON: 10/29/2021 portable AP chest at 0907 hours FINDINGS: Left-sided transvenous pacemaker device with leads overlying right atrium and right ventric le. Cardiomegaly, pulmonary vascular congestion and redistribution. There are relatively stable patchy bi lateral lung infiltrates scattered throughout the right lung and left lower lung primarily. No pleura l effusion or pneumothorax. Vascular stent overlies the right subclavian vessels. Status post cholecystectomy. IMPRESSION: No significant change since 10/29/2021 Reviewed, dictated and finalized at location A. SYSTEM MAINTENANCE SUPERVISOR
--- NOTE | ~2021-10-29 | XR_ITS ---
EXAMINATION: XR chest 1V portable DATE: 10/29/2021 09:13 INDICATION: Shortness of breath TECHNIQUE: frontal view of the chest was obtained. COMPARISON: Chest radiograph dated 05/10/2021 FINDINGS: Right apical pleural-parenchymal scarring. Bilateral perihilar and basilar opacities. There are some bronchial wall thickening. No pleural effusion or pneumothorax. Cardiomegaly. Dual lead pacemaker see n with leads projecting over the expected locations of the right atrium and right ventricle. Right s ubclavian vein stenting. IMPRESSION: 1. Bilateral perihilar and basilar opacities which could represent pulmonary edema, atelectasis, pneu monia or some combination thereof. 2. Cardiomegaly. Reviewed, dictated and finalized at location A. ING MOLDER IMPRESSION: 1. Bilateral perihilar and basilar opacities which could represent pulmonary ed zander, atelectasis, pneumonia or some combination thereof. 2. Cardiomegaly.
--- NOTE | 2021-10-29 08:54 | ED.GENADULT ---
HPI - General Adult General Chief complaint: Shortness of Breath/Dyspnea Stated complaint: SOB Time Seen by Provider: 10/29/21 08:46 Source: patient and RN notes reviewed Limitations: altered mental status History of Present Illness HPI narrative: 81-year-old female that gets dialysis on Wednesday and Wednesday presents to the emergency department due to testing positive for COVID on Wednesday and being unable to get her dialysis since Wednesday. Patient states she has had worsening shortness of breath. Patient describes exertional fatigue with walking that would not normally tire her out. Patient is unsure if the symptoms are due to her COVID or due to her missing her dialysis. Patient denies any associated chest pain with this. Patient has missed her dialysis on Wednesday and Wednesday. Patient follows up with Dr. Mayorga. Related Data Home Medications Medication Instructions Recorded Confirmed Sarah Cristobal U-100 Insulin 15 unit SUBCUT HS 11/02/19 05/12/21 carvedilol 3.125 mg PO BID 11/02/19 05/12/21 gabapentin 100 mg PO BID 11/02/19 05/12/21 simvastatin 10 mg PO HS 11/02/19 05/12/21 docusate sodium 100 mg tablet 100 mg PO HS PRN tablet 11/03/19 05/12/21 colchicine 0.6 mg PO QMWF 11/26/19 05/12/21 ergocalciferol (vitamin D2) 50,000 unit PO WEEKLY 11/26/19 05/12/21 [Vitamin D2] sevelamer HCl 800 mg PO TID 11/26/19 05/12/21 alprazolam 0.5 mg PO BID PRN 06/21/20 05/12/21 aspirin [Aspirin Low Dose] 81 mg PO DAILY 06/21/20 05/12/21 sertraline 50 mg PO DAILY 06/21/20 05/12/21 albuterol sulfate 1.25 mg INHALATION Q6H PRN 11/27/20 05/12/21 midodrine 5 mg PO QMWF 05/06/21 05/12/21 acetaminophen 500 mg PO Q6H PRN 05/24/21 06/01/21 bumetanide 2 mg PO DAILY 05/24/21 06/01/21 colchicine 0.3 mg PO QMWF 05/24/21 06/01/21 diphenhydramine-acetaminophen 1 tablet PO HS PRN 05/24/21 06/01/21 [Acetaminophen PM] guaifenesin [Robafen] 200 mg PO Q4H PRN 05/24/21 06/01/21 hydroxyzine HCl 25 mg PO QID PRN 05/24/21 06/01/21 levothyroxine 25 mcg PO DAILY 05/24/21 06/01/21 melatonin 3 mg PO HS PRN 05/24/21 06/01/21 polyethylene glycol 3350 [Gavilax] 17 g PO PRN PRN 05/24/21 06/01/21 tramadol 50 mg PO TID PRN 05/24/21 06/01/21 Allergies Allergy/AdvReac Type Severity Reaction Status Date / Time Penicillins Allergy Unknown Rash Verified 10/29/21 08:54 Review of Systems Review of Systems: CONSTITUTIONAL: Subjective fevers chills, exertional shortness of breath and fatigue EYES: Denies visual changes, redness, or discharge. ENT: Denies rhinorrhea, congestion, sore throat, or otalgia. CARDIOVASCULAR: Denies chest pain, palpitations, or edema. RESPIRATORY: Does report cough and some shortness of breath GASTROINTESTINAL: Denies abdominal pain, nausea, vomiting, or diarrhea. SKIN: Denies rash or itching. MUSCULOSKELETAL: Denies back pain, joint pain, or myalgia. NEUROLOGIC: Denies headache, numbness, or weakness. PENDING SALE TO [facility] Past Medical History Medical History Abnormal esophagram Amyloidosis Anemia Arthritis Asthma Bronchitis Chronic diastolic CHF (congestive heart failure) CVA (cerebral vascular accident) Several. 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 The patient is intolerant to CPAP therapy. Surgical History Surgical History History of appendectomy History of cholecystectomy H
--- NOTE | 2021-10-29 09:13 | ECG_ITS ---
Measurements Intervals Stuart Rate: 70 P: 252 CO: 62 QRS: -67 QRSD: 137 T: 82 QT: 443 QTc: 479 Interpretive Statements ELECTRONIC VENTRICULAR PACEMAKER WITH INHIBITION VENTRICULAR PREMATURE COMPLEX NO FURTHER INTERPRETATION IS POSSIBLE ATYPICAL ECG Electronically Signed On 10-29-2021 10:16:42 EDUCATIONAL RECRUITER by Nagi Devi D.O.
[2021-10-29 09:27] LABS: Basophils Percent Auto 0.2 % (0.2-1.2); Eosinophils Percent Auto 0.5 % (0-4.4); Hematocrit 33.4 % (37.0-47.0); Hemoglobin 10.6 g/dL (12.0-15.0); Immature Granulocyte Absolute 0.01 K/mm3 (0.00-0.031); Immature Granulocyte Percent A 0.2 % (0-0.5); Lymphocytes Absolute Auto 1.24 K/mm3 (0.9-3.2); Mean Corpuscular HGB Conc 31.7 g/dl (32-36); Mean Corpuscular Hemoglobin 33.8 pg (26-34); Mean Corpuscular Volume 106.4 fl (80-100); Mean Platelet Volume 11.1 fl (7.4-10.4); Monocytes Absolute Auto 0.4 K/mm3 (0.1-0.6); Monocytes Percent Auto 8.4 % (2.6-8.5); Neutrophils Absolute Auto 2.8 K/mm3 (1.3-6.7); Neutrophils Percent Auto 62.7 % (45.5-73.1); Platelet Count Result 104 k/mm3 (150-375); Red Blood Count 3.14 M/mm3 (4.2-5.4); Red Cell Distribution Width 15.9 % (11.5-14.5); White Blood Count 4.4 K/mm3 (4.5-10.0)
[2021-10-29 09:40] LABS: Lactic Acid Reflex 1.2 mmol/L (0.7-2.1)
[2021-10-29 10:20] LABS: Alanine Aminotransferase 13 U/L (4-35); Albumin Level 4.4 g/dL (3.5-5.1); Alkaline Phosphatase 146 U/L (38-126); Anion Gap 22 mmol/L (8-16); Aspartate Amino Transferase 26 U/L (14-36); Bilirubin,Total 0.6 mg/dL (0.2-1.3); Blood Urea Nitrogen 70 mg/dL (7-17); Calcium 7.5 mg/dL (8.4-10.2); Carbon Dioxide 18 mmol/L (22-30); Chloride 95 mmol/L (98-107); Estimated CRCL calculation 4 ml/min; Estimated Glomerular Filt Rate 3; Glucose 109 mg/dL (65-110); Lactate Dehydrogenase 524 U/L (313-618); Potassium 5.5 mmol/L (3.4-5.0); Sodium 135 mmol/L (137-145)
--- NOTE | 2021-10-29 13:08 | PM.IMHP ---
H&P: HPI History of Present Illness Date/Time: 10/29/21 13:08 this is an 81-year-old female patient who has end-stage renal disease she is on dialysis Wednesday. I asked the patient if she was due to have dialysis today and she could not recall. She states that her schedule gets messed up sometimes. The patient is somewhat foggy on her history. The patient came to the emergency room because she tested positive for COVID on Wednesday and it is noted that she has not gotten dialysis since last Wednesday. The patient denies any fever chills or any chest pain. The patient is complaining of feeling very achy and having some pain in her neck. She is very fatigued and weak. ER noted that the patient missed dialysis on Wednesday today. Nephrology has been consulted. H&H is 10.6 and 33.4. Platelet count is 104. Creatinine 12.0 sodium 135. Potassium 5.5. Chloride 95. Carbon dioxide 18. Anion gap 22. BUN 70 GFR is 3. Ferritin is 637. Alkaline phosphatase 146. I spoke with Nephrology concerning starting remdesivir on a dialysis patient and the patient is requiring oxygen at this time. I also spoke with the pharmacist and is typically contraindicated to give remdesivir do a patient that has a GFR less than 30. However she is already a dialysis patient already. Diary spoke with the patient and she is agreeable to continue with remdesivir and Decadron. In the event that the patient has dialysis and is taken off of oxygen is back on room air that I would discontinue the remdesivir. Her chest x-ray was read as bilateral perihilar and basilar opacities which could represent pulmonary edema, atelectasis, pneumonia or some combination thereof. Cardiomegaly. Patient's dyspnea could be related to fluid overload due to the missed dialysis. The patient was initially admitted to observation but was changed to inpatient status on the date of service of 10/29/2021. Chief Complaint: Shortness of breath Review of Systems Review of Systems: All systems reviewed & are unremarkable except as noted in HPI and below Constitutional: Constitutional: Reports as per HPI and Reports no additional constitutional complaints Eyes: Eyes: Reports as per HPI and Reports no additional eye complaints ENT: Reports system reviewed and no additional complaints, except as documented and Reports Normal hearing present Cardiovascular: Cardiovascular: Reports no additional cardiovascular complaints Respiratory: Respiratory: Reports no additional respiratory complaints and Reports no additional respiratory complaints Gastrointestinal: Gastrointestinal: Reports as per HPI and Reports no additional gastrointestinal complaints Musculoskeletal: Musculoskeletal: Reports no additional musculoskeletal complaints Integumentary/Breasts: Skin/Breast: Reports system reviewed and no additional complaints, except as docu and Reports as per HPI Neurologic: Reports system reviewed and no additional complaints, except as documented, Reports as per HPI and Reports Normal hearing present Psychiatric: Psychiatric: Reports no additional psychiatric complaints and Reports as per HPI Endocrine: Endocrine: Reports no additional endocrine complaints Hematologic/Lymphatic: Hematologic/Lymphatic: Reports no additional hematologic/lymphatic complaints Allergic/Immunologic: Allergic/Immunologic: Reports no additional allergic/immunologic complaints PMFSH Past Medical History Medical History Abnormal esophagram Amyloidosis Anemia Arthritis Asthma Bronchitis Chronic diastolic CHF (congestive heart failure) CVA (cerebral vascular accident) Several. 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
[2021-10-29 14:04] LABS: INR 1.2; Prothrombin Time 14.6 Seconds (11.1-14.7)
[2021-10-29 14:10] LABS: Alanine Aminotransferase 14 U/L (4-35); Estimated CRCL calculation 4 ml/min; Estimated Glomerular Filt Rate 3
[2021-10-29] MEDS: REMDESIVIR 200 MG/NS 250 ML 200 MG/250 ML BAG 250 MG IVPB (14:18)
--- NOTE | 2021-10-29 14:36 | PC.NURSE ---
pts family eduardo updated [phone]
--- NOTE | 2021-10-29 16:02 | PHAR ---
SPOKE WITH RISSA DEL REAL [employer] P[employer]ER ABOUT USING REMDESIVIR WHEN PT ON DIALYSIS. SHE SAID DR PATEL WAS BONSULTED & THEY WANT REMDESIVIR TO BE GIVEN.
--- NOTE | 2021-10-29 16:16 | PC.NURSE ---
pts family eduardo contacted and made aware pt moved to room [id number]
--- NOTE | 2021-10-29 17:54 | PM.CNNEP ---
Assessment and Plan Assessment and plan (1) ESRD needing dialysis: Code(s): N18.6 - End stage renal disease; Z99.2 - Dependence on renal dialysis Status: Acute Assessment and Plan: the patient has end-stage renal disease. She dialyzes on Wednesdays and Fridays morning's. However because of her positive COVID test she is going to switch to Wednesday afternoon as an outpatient. We cannot do dialysis on her today so we will do her is tomorrow in the morning. Her potassium is a little high. I will give her some Kayexalate. (2) COVID: Code(s): U07.1 - COVID-19 Status: Acute Assessment and Plan: She has COVID. She is hypoxic. Management per hospitalists. (3) HTN (hypertension) with goal to be determined: Code(s): I10 - Essential (primary) hypertension Status: Chronic Assessment and Plan: Her blood pressure has been running 100-150. Occasionally it is higher than that. Will restart her home medications and take fluid off in dialysis and see if that makes her better. (4) Hypothyroidism: Qualifiers: Hypothyroidism type: unspecified Qualified Code(s): E03.9 - Hypothyroidism, unspecified Code(s): E03.9 - Hypothyroidism, unspecified Status: Acute Assessment and Plan: She is on supplements. (5) Diabetes mellitus: Qualifiers: Diabetes mellitus type: type 2 Diabetes mellitus chief crna insulin use: with chief crna use Diabetes mellitus complication status: with neurologic complications Diabetes mellitus complication detail: with polyneuropathy Qualified Code(s): E11.42 - Type 2 diabetes mellitus with diabetic polyneuropathy; Z79.4 - emergency manager (current) use of insulin Code(s): E11.9 - Type 2 diabetes mellitus without complications Status: Acute Assessment and Plan: she is on Accu-Cheks and sliding-scale insulin (6) Hypercholesteremia: Code(s): E78.00 - Pure hypercholesterolemia, unspecified Status: Chronic History of Present Illness Reason for Consult Consult date: 10/29/21 Chief Complaint Chief complaint: sob,esrd,covid History of Present Illness Narrative: Christopher is a very pleasant 81-year-old lady who has multiple medical problems including end-stage renal disease on dialysis Wednesdays and Fridays under Dr. Kanungo, amyloidosis, anemia of chronic kidney disease, history of GI bleed, peripheral vascular disease status post multiple TIAs, stroke,sleep apnea but the patient does not wear a CPAP mask, diabetes, asthma, arthritis, hypertension, gout, hyperlipidemia, hypothyroidism, atrial fibrillation. The patient went to dialysis on Wednesday and felt well. I saw her in dialysis myself and she had no complaints. Yesterday and today the patient developed gradually worsening shortness of breath. She has a cough. She does not have a headache. She is not hungry but she does have taste and smell. She has got a little bit of a cough. She had a little bit of a fever. She apparently had a positive COVID test as an outpatient as she is listed is having COVID. She was evaluated in the emergency room. She was hypoxic. They give her some oxygen and her oxygenation is much better. She got some labs done. Her chemistries look like typical dialysis patient chemistries. Her potassium is a little bit high at 5.5. Her hemoglobin is 10.6. Review of Systems Constitutional: Constitutional: Reports no additional constitutional complaints Eyes: Eyes: Reports no additional eye complaints ENT: Reports system reviewed and no additional complaints, except as documented Cardiovascular: Cardiovascular: Reports no additional cardiovascular complaints Respiratory: Respiratory: Reports no additional respiratory complaints Gastrointestinal: Gastrointestinal: Reports no additional gastrointestinal complaints Genitourinary: Genitourinary: Reports no additional female genitou
[2021-10-29 18:29] LABS: Glucose Point of Care 200 mg/dl (65-105)
[2021-10-29 19:01] LABS: Anion Gap 20 mmol/L (8-16); Blood Urea Nitrogen 76 mg/dL (7-17); Calcium 7.3 mg/dL (8.4-10.2); Carbon Dioxide 17 mmol/L (22-30); Chloride 94 mmol/L (98-107); Estimated CRCL calculation 4 ml/min; Estimated Glomerular Filt Rate 3; Glucose 237 mg/dL (65-110); Potassium 5.7 mmol/L (3.4-5.0); Sodium 131 mmol/L (137-145)
[2021-10-29 19:59] LABS: Hepatitis B Surface Antigen Negative (Negative)
[2021-10-29 20:16] LABS: Hepatitis B Surface Anti Res Negative
[2021-10-29 20:17] LABS: Anion Gap 19 mmol/L (8-16); Blood Urea Nitrogen 78 mg/dL (7-17); Calcium 7.2 mg/dL (8.4-10.2); Carbon Dioxide 18 mmol/L (22-30); Chloride 92 mmol/L (98-107); Estimated CRCL calculation 4 ml/min; Estimated Glomerular Filt Rate 3; Glucose 343 mg/dL (65-110); Potassium 5.7 mmol/L (3.4-5.0); Sodium 129 mmol/L (137-145)
--- NOTE | 2021-10-29 22:58 | PC.NURSE ---
Spoke with Dr. Oneil. Pt's blood sugar 322. Orders to give 4 units of Novolog.
[2021-10-29 23:03] LABS: Glucose Point of Care 322 mg/dl (65-105)
[2021-10-29] MEDS: INSULIN ASPART (*BKC) 100 UNITS/ML SUB-Q (23:05)
[2021-10-30] VITALS (20 sets, daily range): BP systolic 114–174; BP diastolic 38–75; PULSE 62–92; RESP 16–20; TEMP 35.9–36.5; O2SAT 20–100
--- NOTE | 2021-10-30 06:52 | PM.PNNEP ---
Progress Note: A&P Assessment and Plan (1) ESRD needing dialysis: Code(s): N18.6 - End stage renal disease; Z99.2 - Dependence on renal dialysis Status: Acute Assessment and Plan: She will get dialysis today. (2) COVID: Code(s): U07.1 - COVID-19 Status: Acute Assessment and Plan: She has COVID. She is hypoxic. On remdesivir and dexamethasone check hepatic pane. Management per hospitalists. (3) HTN (hypertension) with goal to be determined: Code(s): I10 - Essential (primary) hypertension Status: Chronic Assessment and Plan: Her blood pressure has been running 100-150. Occasionally it is higher than that. Will restart her home medications and take fluid off in dialysis and see if that makes her better. (4) Hypothyroidism: Qualifiers: Hypothyroidism type: unspecified Qualified Code(s): E03.9 - Hypothyroidism, unspecified Code(s): E03.9 - Hypothyroidism, unspecified Status: Acute Assessment and Plan: She is on supplements. (5) Diabetes mellitus: Qualifiers: Diabetes mellitus type: type 2 Diabetes mellitus [facility] insulin use: with terminal operations supervisor use Diabetes mellitus complication status: with neurologic complications Diabetes mellitus complication detail: with polyneuropathy Qualified Code(s): E11.42 - Type 2 diabetes mellitus with diabetic polyneuropathy; Z79.4 - senior living (current) use of insulin Code(s): E11.9 - Type 2 diabetes mellitus without complications Status: Acute Assessment and Plan: she is on Accu-Cheks and sliding-scale insulin (6) Hypercholesteremia: Code(s): E78.00 - Pure hypercholesterolemia, unspecified Status: Chronic Subjective Date/time seen: 10/30/21 06:52 Interval history: Patient feels fair She still is short of breath but is about the same Not much of an appetite Review of Systems Cardiovascular: Cardiovascular: Reports no additional cardiovascular complaints Respiratory: Respiratory: Reports no additional respiratory complaints Gastrointestinal: Gastrointestinal: Reports no additional gastrointestinal complaints Genitourinary: Genitourinary: Reports no additional female genitourinary complaints Exam Narrative: WDWN in NAD skin no rash head ncat lungs clear cor reg no rub abd BS+ nontender and soft ext no edema. Objective Data Vital Signs Vital Signs: Vital Signs - 24 hr 10/29/21 08:45 10/29/21 08:51 10/29/21 08:53 Temperature 37.3 C Pulse Rate 68 75 67 Respiratory Rate 18 20 17 Blood Pressure 130/51 L 130/51 L Pulse Oximetry 93 93 91 10/29/21 09:00 10/29/21 09:10 10/29/21 09:14 Temperature Pulse Rate 84 68 Respiratory Rate 21 H 16 Blood Pressure Pulse Oximetry 92 92 10/29/21 09:15 10/29/21 09:17 10/29/21 09:30 Temperature Pulse Rate 71 70 70 Respiratory Rate 20 17 18 Blood Pressure 157/59 H Pulse Oximetry 92 97 97 10/29/21 09:32 10/29/21 10:13 10/29/21 10:15 Temperature Pulse Rate 70 70 67 Respiratory Rate 19 19 18 Blood Pressure 153/58 H Pulse Oximetry 97 96 96 10/29/21 10:17 10/29/21 10:39 10/29/21 10:45 Temperature Pulse Rate 70 70 68 Respiratory Rate 18 18 18 Blood Pressure 146/61 H Pulse Oximetry 95 96 97 10/29/21 10:47 10/29/21 11:00 10/29/21 11:02 Temperature Pulse Rate 66 70 70 Respiratory Rate 18 18 17 Blood Pressure 160/73 H 143/71 H Pulse Oximetry 97 96 97 10/29/21 11:16 10/29/21 11:17 10/29/21 11:57 Temperature Pulse Rate 69 70 64 Respiratory Rate 17 18 18 Blood Pressure 165/64 H Pulse Oximetry 100 98 10/29/21 12:00 10/29/21 12:02 10/29/21 12:15 Temperature Pulse Rate 70 70 70 Respiratory Rate 17 19 19 Blood Pressure 155/67 H Pulse Oximetry 97 10/29/21 12:17 10/29/21 12:31 10/29/21 12:32 Temperature Pulse Rate 65 64 67 Respiratory Rate 15 19 19 Blood Pressure 151/57 H 151/57 H Pulse Oximetry
[2021-10-30 07:57] LABS: INR 1.1; Prothrombin Time 13.9 Seconds (11.1-14.7)
[2021-10-30 07:58] LABS: Eosinophils Percent Auto 0.3 % (0-4.4); Immature Granulocyte Absolute 0.01 K/mm3 (0.00-0.031); Immature Granulocyte Percent A 0.3 % (0-0.5); Lymphocytes Absolute Auto 0.74 K/mm3 (0.9-3.2); Lymphocytes Percent Auto 23.9 % (18.3-44.2); Mean Corpuscular HGB Conc 32.4 g/dl (32-36); Mean Corpuscular Volume 104.9 fl (80-100); Mean Platelet Volume 12.2 fl (7.4-10.4); Monocytes Absolute Auto 0.2 K/mm3 (0.1-0.6); Monocytes Percent Auto 7.1 % (2.6-8.5); Neutrophils Absolute Auto 2.1 K/mm3 (1.3-6.7); Neutrophils Percent Auto 68.4 % (45.5-73.1); Partial Thromboplastin Time 28.2 SECONDS (22.3-36.8); Platelet Count Result 81 k/mm3 (150-375); Red Blood Count 3.24 M/mm3 (4.2-5.4); Red Cell Distribution Width 15.4 % (11.5-14.5); White Blood Count 3.1 K/mm3 (4.5-10.0)
[2021-10-30 08:26] LABS: Hemoglobin A1C 7.5 % (<5.7)
[2021-10-30 08:47] LABS: Glucose Point of Care 161 mg/dl (65-105)
[2021-10-30 09:00] LABS: Alanine Aminotransferase 14 U/L (4-35); Albumin Level 4.2 g/dL (3.5-5.1); Alkaline Phosphatase 125 U/L (38-126); Anion Gap 21 mmol/L (8-16); Aspartate Amino Transferase 33 U/L (14-36); Bilirubin,Total 0.6 mg/dL (0.2-1.3); Blood Urea Nitrogen 88 mg/dL (7-17); Calcium 7.3 mg/dL (8.4-10.2); Carbon Dioxide 16 mmol/L (22-30); Chloride 95 mmol/L (98-107); Estimated CRCL calculation 3 ml/min; Estimated Glomerular Filt Rate 3; Glucose 180 mg/dL (65-110); Lactate Dehydrogenase 711 U/L (313-618); Lipase 185 U/L (23-300); Magnesium 2.1 mg/dL (1.6-2.3); Phosphorus 10.1 mg/dL (2.5-4.5); Potassium 6.4 mmol/L (3.4-5.0); Sodium 132 mmol/L (137-145)
[2021-10-30 09:42] LABS: Alanine Aminotransferase 16 U/L (4-35); Albumin Level 4.3 g/dL (3.5-5.1); Alkaline Phosphatase 129 U/L (38-126); Aspartate Amino Transferase 33 U/L (14-36); Bilirubin,Total 0.6 mg/dL (0.2-1.3)
[2021-10-30] MEDS: REMDESIVIR 100 MG/NS 250 ML 100 MG/250 ML BAG 250 MG IVPB (10:13)
--- NOTE | 2021-10-30 11:44 | PCOTNOTE ---
Spoke with RN, patient's vitals are not stable and requests that dialysis be completed first.
[2021-10-30 13:11] LABS: Glucose Point of Care 204 mg/dl (65-105)
[2021-10-30] MEDS: INSULIN ASPART (*BKC) 100 UNITS/ML SUB-Q (13:13)
--- NOTE | 2021-10-30 14:33 | PC.NURSE ---
Pt transferred to Dialysis at 1430 via bed.
--- NOTE | 2021-10-30 15:35 | PM.IMPN ---
Progress Note: A&P Assessment and Plan (1) COVID: Code(s): U07.1 - COVID-19 Status: Acute Assessment and Plan: Acute respiratory failure secondary to COVID-19 pneumonia.Patient is currently requiring 2 L per nasal cannula. The patient was Appropriatelystarted on Decadron and remdesivir. Continue with albuterol Robitussin. (2) ESRD on hemodialysis: Code(s): N18.6 - End stage renal disease; Z99.2 - Dependence on renal dialysis Status: Acute Assessment and Plan: The patient states that she typically goes Wednesday and Wednesday . The ER physician reported that the patient did not go to dialysis on Wednesday and Wednesday. acute hypoxic likely related to fluid overload.. The patient has an of right forearm AV fistula with a positive bruit and thrill. Nephrology has been consulted. Continue with Bumex. (3) Diabetes mellitus: Qualifiers: Diabetes mellitus type: type 2 Diabetes mellitus extermination supervisor insulin use: with extermination supervisor use Diabetes mellitus complication status: with neurologic complications Diabetes mellitus complication detail: with polyneuropathy Qualified Code(s): E11.42 - Type 2 diabetes mellitus with diabetic polyneuropathy; Z79.4 - termite control servicer (current) use of insulin Code(s): E11.9 - Type 2 diabetes mellitus without complications Status: Acute Assessment and Plan: Accu-Chek in the 161-204 range.Accu-Cheks AC and HS. Check A1c and do sliding scale insulin. (4) Hypothyroidism: Qualifiers: Hypothyroidism type: unspecified Qualified Code(s): E03.9 - Hypothyroidism, unspecified Code(s): E03.9 - Hypothyroidism, unspecified Status: Acute Assessment and Plan: Continue with levothyroxine . TSH is 2.1. (5) HTN (hypertension) with goal to be determined: Code(s): I10 - Essential (primary) hypertension Status: Chronic Assessment and Plan: Patient was Diagnosed with orthostatic hypotension as she is on midodrine. She is also on no blood pressure med . (6) Hx of gout: Code(s): Z87.39 - Personal history of other diseases of the musculoskeletal system and connective tissue Status: Chronic Assessment and Plan: Continue with home medication (7) Hypercholesteremia: Code(s): E78.00 - Pure hypercholesterolemia, unspecified Status: Chronic Assessment and Plan: Continue with home medication. (8) Depression: Code(s): F32.9 - Major depressive disorder, single episode, unspecified Status: Chronic Assessment and Plan: Looks like the patient may be on sertraline. (9) Anemia: Qualifiers: Anemia type: due to chronic kidney disease Chronic kidney disease stage: on chronic dialysis Qualified Code(s): N18.6 - End stage renal disease; D63.1 - Anemia in chronic kidney disease; Z99.2 - Dependence on renal dialysis Code(s): D64.9 - Anemia, unspecified Status: Chronic Assessment and Plan: Stable macrocytic anemia with hemoglobin at 11.Secondary to chronic renal failure. The patient is at her baseline. Continue to monitor. (10) CHF (congestive heart failure): Qualifiers: Heart failure type: diastolic Heart failure chronicity: acute on chronic Qualified Code(s): I50.33 - Acute on chronic diastolic (congestive) heart failure Code(s): I50.9 - Heart failure, unspecified Status: Chronic Assessment and Plan: Continue with Bumex Additional Plan History of lung nodule that is being monitored outpatient and appears to be stable. Subjective Date/time seen: 10/30/21 15:35 S: Patient was seen examined at the bedside during hemodialysis. She had a stable run without reported issues. She remains short of breath and appetite is poor. Review of Systems Review of Systems: All systems reviewed & are unremarkable except as noted in HPI and below Constitutional: Constitutional: Reports as per HPI and Reports
[2021-10-30] MEDS: SODIUM CHLORIDE 0.9% IV 1,000 ML 999 ML IV CONT (16:07)
--- NOTE | 2021-10-30 17:56 | PC.NURSE ---
Patient completed Dialysis at 1755. 2L removed and tolerated well.
[2021-10-30 18:20] LABS: Glucose Point of Care 197 mg/dl (65-105)
[2021-10-30 19:37] LABS: Hematocrit 36.6 % (37.0-47.0); Hemoglobin 11.8 g/dL (12.0-15.0); Immature Platelet Fraction Pct 8.7 % (0.9-11.2); Mean Corpuscular HGB Conc 32.2 g/dl (32-36); Mean Corpuscular Volume 105.5 fl (80-100); Mean Platelet Volume 11.4 fl (7.4-10.4); Platelet Count Result 112 k/mm3 (150-375); Red Blood Count 3.47 M/mm3 (4.2-5.4); Red Cell Distribution Width 15.4 % (11.5-14.5); White Blood Count 3.4 K/mm3 (4.5-10.0)
[2021-10-30 19:47] LABS: Anion Gap 18 mmol/L (8-16); Blood Urea Nitrogen 50 mg/dL (7-17); Calcium 7.7 mg/dL (8.4-10.2); Carbon Dioxide 19 mmol/L (22-30); Chloride 95 mmol/L (98-107); Estimated CRCL calculation 6 ml/min; Estimated Glomerular Filt Rate 5; Glucose 229 mg/dL (65-110); Potassium 4.5 mmol/L (3.4-5.0); Sodium 132 mmol/L (137-145)
[2021-10-30] MEDS: GABAPENTIN 100 MG CAPSULE PO (21:13)
[2021-10-30] MEDS: SUCRALFATE SUSP 100 MG/ML 10 ML UDC 1000 MG PO (21:13)
[2021-10-30] MEDS: carvediloL 3.125 MG TABLET PO (21:13)
[2021-10-30 21:44] LABS: Glucose Point of Care 233 mg/dl (65-105)
[2021-10-31] VITALS: BP 126/62; PULSE 64; RESP 18; TEMP 36.4; O2SAT 94
[2021-10-31 04:00] VITALS: BP 157/65; PULSE 70; RESP 18; TEMP 36.1; O2SAT 97
[2021-10-31] MEDS: LEVOTHYROXINE SODIUM 25 MCG TABLET PO (05:47)
[2021-10-31 07:01] LABS: INR 1.2; Prothrombin Time 14.6 Seconds (11.1-14.7)
[2021-10-31 07:02] LABS: Alanine Aminotransferase 16 U/L (4-35); Anion Gap 21 mmol/L (8-16); Blood Urea Nitrogen 63 mg/dL (7-17); Calcium 7.3 mg/dL (8.4-10.2); Carbon Dioxide 21 mmol/L (22-30); Chloride 92 mmol/L (98-107); Estimated CRCL calculation 5 ml/min; Estimated Glomerular Filt Rate 4; Glucose 193 mg/dL (65-110); Phosphorus 7.9 mg/dL (2.5-4.5); Potassium 4.6 mmol/L (3.4-5.0); Sodium 134 mmol/L (137-145)
[2021-10-31 08:00] VITALS: BP 129/42; PULSE 70; PULSE 71; RESP 22; TEMP 35.7; O2SAT 95
[2021-10-31 08:06] LABS: Glucose Point of Care 179 mg/dl (65-105)
[2021-10-31] MEDS: BUMETANIDE 1 MG TABLET 2 MG PO (10:06)
[2021-10-31] MEDS: SUCRALFATE SUSP 100 MG/ML 10 ML UDC 1000 MG PO ×4 (10:07→20:46)
[2021-10-31] MEDS: REMDESIVIR 100 MG/NS 250 ML 100 MG/250 ML BAG 250 MG IVPB (10:08)
[2021-10-31 12:00] VITALS: BP 122/51; PULSE 69; RESP 18; TEMP 36.2; O2SAT 99
--- NOTE | 2021-10-31 12:51 | PM.PNNEP ---
Progress Note: A&P Assessment and Plan (1) ESRD needing dialysis: Code(s): N18.6 - End stage renal disease; Z99.2 - Dependence on renal dialysis Status: Chronic Assessment and Plan: HD tomorrow and continue T/T/S schedule follow electrolytes, volume status and clearance (2) COVID: Code(s): U07.1 - COVID-19 Status: Acute Assessment and Plan: symptomatic and hypoxic continue supplemental oxygen and wean as tolerated on remdesivir and dexamethasone continue supportive therapy (3) HTN (hypertension) with goal to be determined: Code(s): I10 - Essential (primary) hypertension Status: Chronic Assessment and Plan: reasonable control at this time follow trend of hemodynamics (4) CHF (congestive heart failure): Qualifiers: Heart failure type: diastolic Heart failure chronicity: acute on chronic Qualified Code(s): I50.33 - Acute on chronic diastolic (congestive) heart failure Code(s): I50.9 - Heart failure, unspecified Status: Chronic Assessment and Plan: appears compensated at this time fluid removal with dialysis to maintain euvolemia (5) Diabetes mellitus: Qualifiers: Diabetes mellitus complication detail: with polyneuropathy Diabetes mellitus complication status: with neurologic complications Diabetes mellitus pen[facility]iary insulin use: with penitentiary use Diabetes mellitus type: type 2 Qualified Code(s): E11.42 - Type 2 diabetes mellitus with diabetic polyneuropathy; Z79.4 - regional airline pilot (current) use of insulin Code(s): E11.9 - Type 2 diabetes mellitus without complications Status: Acute Assessment and Plan: follow Accu-Cheks on sliding-scale insulin Will continue to follow. Subjective Date/time seen: 10/31/21 12:51 Chart reviewed - assuming care from Dr. Ervin; overall, she states she is feeling better at this time; no respiratory distress and supplemental oxygen has been weaned to 2L by nasal cannula; no issues/events overnight or earlier this morning; no acute distress noted. Exam Narrative: General: WD/WN female in NAD Heart: normal S1 and S2; no rub Lungs: clear to auscultation Abdomen: soft, nontender, nondistended, positive bowel sounds Extremities: no cyanosis or clubbing; no edema Skin: warm and dry Objective Data Vital Signs Vital Signs: Vital Signs Temp Pulse Resp BP Pulse Ox 10/31/21 12:00 36.2 C L 69 18 122/51 L 99 10/31/21 08:00 35.7 C L 71 22 H 129/42 L 95 10/31/21 04:00 36.1 C L 70 18 157/65 H 97 10/31/21 00:00 36.4 C 64 18 126/62 94 10/30/21 21:13 92 10/30/21 20:00 35.9 C L 70 18 173/58 H 96 10/30/21 17:56 36.4 C 70 16 136/66 10/30/21 17:43 70 114/39 L 10/30/21 17:15 72 133/47 L 10/30/21 17:00 69 125/39 L 10/30/21 16:48 70 138/51 L 10/30/21 16:30 69 130/75 10/30/21 16:15 70 135/38 L 10/30/21 16:00 69 174/49 H 10/30/21 15:45 69 140/57 L 10/30/21 15:30 69 126/51 L 10/30/21 15:15 70 130/50 L 10/30/21 15:00 69 138/54 L Intake/Output Intake/Output: Intake & Output 10/28/21 10/29/21 10/30/21 10/31/21 23:59 23:59 23:59 23:59 Intake Total 403 1410 910 Output Total 2000 0 Balance 403 -590 910 Meds/Results Medications: Active Medications Generic Name Dose Route Start Last Admin Trade Name Freq PRN Reason Stop Dose Admin Acetaminophen 500 mg 10/30/21 14:46 Acetaminophen 500 Mg Tablet PO Q6H PRN Pain 1-3 Hydrocodone Bitart/Acetaminophen 1 tab 10/30/21 14:46 Hydrocodone/Acetaminophen (*Crx) 5-325 Mg Tablet PO Q8H PRN pain 7-10 Albuterol 2 puff 10/29/21 13:37 Albuterol Sulfate (*Sp) Inhaler INHALATION Q6HRT PRN Shortness Of Breath Albuterol 1.25 mg 10/30/21 15:05 Albuterol Sulfate Neb 2.5 Mg/3 Ml Inh INHALATION Q6H PRN Shortness Of Breath Or Wheezin
[2021-10-31] MEDS: carvediloL 3.125 MG TABLET PO ×2 (12:56→20:46)
[2021-10-31] MEDS: GABAPENTIN 100 MG CAPSULE PO ×2 (12:56→20:46)
[2021-10-31] MEDS: SERTRALINE HCL 50 MG TABLET PO (12:57)
[2021-10-31] MEDS: ASPIRIN 81 MG ENTERIC TABLET PO (12:57)
[2021-10-31] MEDS: COLCHICINE 0.6 MG TABLET PO (12:57)
[2021-10-31 13:12] LABS: Glucose Point of Care 198 mg/dl (65-105)
--- NOTE | 2021-10-31 15:18 | PM.IMPN ---
Progress Note: A&P Assessment and Plan (1) COVID: Code(s): U07.1 - COVID-19 Status: Acute Assessment and Plan: Acute respiratory failure secondary to COVID-19 pneumonia.Patient is currently requiring 2 L per nasal cannula. The patient was Appropriatelystarted on Decadron and remdesivir. Continue with albuterol Robitussin as needed for cough. (2) ESRD on hemodialysis: Code(s): N18.6 - End stage renal disease; Z99.2 - Dependence on renal dialysis Status: Acute Assessment and Plan: The patient states that she typically goes Wednesday and Wednesday . The ER physician reported that the patient did not go to dialysis on Wednesday and Wednesday. acute hypoxic likely related to fluid overload.. The patient has an of right forearm AV fistula with a positive bruit and thrill. Nephrology has been consulted. Continue with Bumex. (3) Diabetes mellitus: Qualifiers: Diabetes mellitus type: type 2 Diabetes mellitus oil heaterman insulin use: with oil heaterman use Diabetes mellitus complication status: with neurologic complications Diabetes mellitus complication detail: with polyneuropathy Qualified Code(s): E11.42 - Type 2 diabetes mellitus with diabetic polyneuropathy; Z79.4 - oil heaterman (current) use of insulin Code(s): E11.9 - Type 2 diabetes mellitus without complications Status: Acute Assessment and Plan: Accu-Chek in the 161-204 range.Accu-Cheks AC and HS. Check A1c and do sliding scale insulin. (4) Hypothyroidism: Qualifiers: Hypothyroidism type: unspecified Qualified Code(s): E03.9 - Hypothyroidism, unspecified Code(s): E03.9 - Hypothyroidism, unspecified Status: Acute Assessment and Plan: Continue with levothyroxine . TSH is 2.1. (5) HTN (hypertension) with goal to be determined: Code(s): I10 - Essential (primary) hypertension Status: Chronic Assessment and Plan: Patient was Diagnosed with orthostatic hypotension as she is on midodrine. She is also on no blood pressure med . (6) Hx of gout: Code(s): Z87.39 - Personal history of other diseases of the musculoskeletal system and connective tissue Status: Chronic Assessment and Plan: Continue with home medication (7) Hypercholesteremia: Code(s): E78.00 - Pure hypercholesterolemia, unspecified Status: Chronic Assessment and Plan: Continue with home medication. (8) Depression: Code(s): F32.9 - Major depressive disorder, single episode, unspecified Status: Chronic Assessment and Plan: Looks like the patient may be on sertraline. (9) Anemia: Qualifiers: Anemia type: due to chronic kidney disease Chronic kidney disease stage: on chronic dialysis Qualified Code(s): N18.6 - End stage renal disease; D63.1 - Anemia in chronic kidney disease; Z99.2 - Dependence on renal dialysis Code(s): D64.9 - Anemia, unspecified Status: Chronic Assessment and Plan: Stable macrocytic anemia with hemoglobin at 11.Secondary to chronic renal failure. The patient is at her baseline. Continue to monitor. (10) CHF (congestive heart failure): Qualifiers: Heart failure type: diastolic Heart failure chronicity: acute on chronic Qualified Code(s): I50.33 - Acute on chronic diastolic (congestive) heart failure Code(s): I50.9 - Heart failure, unspecified Status: Chronic Assessment and Plan: Continue with Bumex Additional Plan History of lung nodule that is being monitored outpatient and appears to be stable. Subjective Date/time seen: 10/31/21 13:00 S: Patient was seen examined at the bedside . She is feeling better after being started on oxygen 2 L today. Review of Systems Review of Systems: All systems reviewed & are unremarkable except as noted in HPI and below Constitutional: Constitutional: Reports as per HPI and Reports no additional constitutional comp
[2021-10-31 16:00] VITALS: BP 133/49; PULSE 70; RESP 18; TEMP 36.1; O2SAT 99
[2021-10-31 16:49] LABS: Glucose Point of Care 295 mg/dl (65-105)
[2021-10-31] MEDS: INSULIN ASPART (*BKC) 100 UNITS/ML SUB-Q (17:14)
[2021-10-31 20:00] VITALS: BP 145/56; PULSE 70; RESP 18; TEMP 36.3; O2SAT 99
[2021-11-01] VITALS (21 sets, daily range): BP systolic 126–151; BP diastolic 45–77; PULSE 68–99; RESP 14–98; TEMP 35.7–36.6; O2SAT 95–100
[2021-11-01] MEDS: LEVOTHYROXINE SODIUM 25 MCG TABLET PO (05:37)
[2021-11-01 07:57] LABS: Alanine Aminotransferase 15 U/L (4-35); Estimated CRCL calculation 4 ml/min; Estimated Glomerular Filt Rate 3
[2021-11-01 07:59] LABS: INR 1.3; Prothrombin Time 15.7 Seconds (11.1-14.7)
--- NOTE | 2021-11-01 08:31 | PC.NURSE ---
Pt went to dialysis at 0815 via bed.
--- NOTE | 2021-11-01 09:54 | PM.IMPN ---
Progress Note: A&P Assessment and Plan (1) COVID: Code(s): U07.1 - COVID-19 Status: Acute Assessment and Plan: Acute respiratory failure secondary to COVID-19 pneumonia.Patient is currently requiring 2 L per nasal cannula. The patient has completed a 5 day course of Decadron and remdesivir. Currently she still requires oxygen at rest which is new. Continue with albuterol Robitussin as needed for cough. Will perform a home oxygen evaluation in anticipation for discharge. (2) ESRD on hemodialysis: Code(s): N18.6 - End stage renal disease; Z99.2 - Dependence on renal dialysis Status: Acute Assessment and Plan: The patient states that she typically goes Wednesday and Wednesday . The ER physician reported that the patient did not go to dialysis on Wednesday and Wednesday. acute hypoxic likely related to fluid overload.. The patient has an of right forearm AV fistula with a positive bruit and thrill. Patient has been receiving regular sessions of dialysis. She had hyperkalemia on admission which has since resolved. Follow-up potassium level today.. (3) Diabetes mellitus: Qualifiers: Diabetes mellitus type: type 2 Diabetes mellitus long filler cigar roller machine insulin use: with long filler cigar roller machine use Diabetes mellitus complication status: with neurologic complications Diabetes mellitus complication detail: with polyneuropathy Qualified Code(s): E11.42 - Type 2 diabetes mellitus with diabetic polyneuropathy; Z79.4 - alf (current) use of insulin Code(s): E11.9 - Type 2 diabetes mellitus without complications Status: Acute Assessment and Plan: Accu-Chek in the 2 to 4-360 range. Start long-acting insulin. Continue insulin sliding scale. Continue Accu-Cheks AC and HS. Ch (4) Hypothyroidism: Qualifiers: Hypothyroidism type: unspecified Qualified Code(s): E03.9 - Hypothyroidism, unspecified Code(s): E03.9 - Hypothyroidism, unspecified Status: Acute Assessment and Plan: Continue with levothyroxine . TSH is 2.1. (5) HTN (hypertension) with goal to be determined: Code(s): I10 - Essential (primary) hypertension Status: Chronic Assessment and Plan: Patient was Diagnosed with orthostatic hypotension as she is on midodrine. She is also on no blood pressure med . (6) Hx of gout: Code(s): Z87.39 - Personal history of other diseases of the musculoskeletal system and connective tissue Status: Chronic Assessment and Plan: Continue with home medication (7) Hypercholesteremia: Code(s): E78.00 - Pure hypercholesterolemia, unspecified Status: Chronic Assessment and Plan: Continue with home medication. (8) Depression: Code(s): F32.9 - Major depressive disorder, single episode, unspecified Status: Chronic Assessment and Plan: Continue Fedder (9) Anemia: Qualifiers: Anemia type: due to chronic kidney disease Chronic kidney disease stage: on chronic dialysis Qualified Code(s): N18.6 - End stage renal disease; D63.1 - Anemia in chronic kidney disease; Z99.2 - Dependence on renal dialysis Code(s): D64.9 - Anemia, unspecified Status: Chronic Assessment and Plan: Stable macrocytic anemia with hemoglobin at 11. Eight. Secondary to chronic renal failure. The patient is at her baseline. Continue to monitor. (10) CHF (congestive heart failure): Qualifiers: Heart failure type: diastolic Heart failure chronicity: acute on chronic Qualified Code(s): I50.33 - Acute on chronic diastolic (congestive) heart failure Code(s): I50.9 - Heart failure, unspecified Status: Chronic Assessment and Plan: Continue with Bumex Subjective Date/time seen: 11/01/21 14:54 S: Patient was seen examined at the bedside. She is breathing comfortably on room air. She denies any complaints. She is anxious to go home. Review of Systems Review o
--- NOTE | 2021-11-01 10:00 | PCPTNOTE ---
The patient treatment was not able to be completed due to patient out of room for dialysis. Will plan to continue treatment per plan of care.
--- NOTE | 2021-11-01 11:41 | PM.PNNEP ---
Progress Note: A&P Assessment and Plan (1) ESRD needing dialysis: Code(s): N18.6 - End stage renal disease; Z99.2 - Dependence on renal dialysis Status: Chronic Assessment and Plan: HD tomorrow and continue T/T/S schedule follow electrolytes, volume status and clearance (2) COVID: Code(s): U07.1 - COVID-19 Status: Acute Assessment and Plan: symptomatic and hypoxic continue supplemental oxygen and wean as tolerated on remdesivir and dexamethasone continue supportive therapy (3) HTN (hypertension) with goal to be determined: Code(s): I10 - Essential (primary) hypertension Status: Chronic Assessment and Plan: reasonable control at this time follow trend of hemodynamics (4) CHF (congestive heart failure): Qualifiers: Heart failure type: diastolic Heart failure chronicity: acute on chronic Qualified Code(s): I50.33 - Acute on chronic diastolic (congestive) heart failure Code(s): I50.9 - Heart failure, unspecified Status: Chronic Assessment and Plan: appears compensated at this time fluid removal with dialysis to maintain euvolemia (5) Diabetes mellitus: Qualifiers: Diabetes mellitus type: type 2 Diabetes mellitus superintendent container terminal insulin use: with senior care use Diabetes mellitus complication status: with neurologic complications Diabetes mellitus complication detail: with polyneuropathy Qualified Code(s): E11.42 - Type 2 diabetes mellitus with diabetic polyneuropathy; Z79.4 - superintendent container terminal (current) use of insulin Code(s): E11.9 - Type 2 diabetes mellitus without complications Status: Acute Assessment and Plan: follow Accu-Cheks on sliding-scale insulin Will continue to follow. Subjective Date/time seen: 11/01/21 11:41 Tolerating hemodialysis treatment at the time of my visit (seen on HD at ~ 11:20AM); no apparent distress noted and oxygen seems to have been weaned off with stable oxygen saturations; asking me about a discharge as she is tired of being in the hospital; no events overnight or earlier this AM. Exam Narrative: General: WD/WN female in NAD Heart: normal S1 and S2; no rub Lungs: clear to auscultation Abdomen: soft, nontender, nondistended, positive bowel sounds Extremities: no cyanosis or clubbing; no edema Skin: warm and intact Objective Data Vital Signs Vital Signs: Vital Signs Temp Pulse Resp BP Pulse Ox 11/01/21 11:40 36.6 C 69 16 145/51 H 11/01/21 11:28 70 147/54 H 11/01/21 11:15 69 143/56 H 11/01/21 11:00 69 143/56 H 11/01/21 10:45 70 148/52 H 11/01/21 10:30 69 147/45 H 11/01/21 10:15 68 150/52 H 11/01/21 10:00 70 145/57 H 11/01/21 09:45 69 140/57 L 11/01/21 09:30 69 144/56 H 11/01/21 09:15 69 135/53 L 11/01/21 09:00 69 140/58 L 100 11/01/21 08:45 69 151/57 H 11/01/21 08:26 69 126/54 L 11/01/21 08:15 36.4 C 70 16 140/58 L 11/01/21 04:00 36.1 C L 70 20 149/58 H 100 11/01/21 00:00 35.8 C L 99 98 H 128/77 99 10/31/21 20:00 36.3 C L 70 18 145/56 H 99 10/31/21 16:00 36.1 C L 70 18 133/49 L 99 Intake/Output Intake/Output: Intake & Output 10/29/21 10/30/21 10/31/21 11/01/21 23:59 23:59 23:59 23:59 Intake Total 403 1410 1200 200 Output Total 2000 0 2500 Balance 403 -590 1200 -2300 Meds/Results Medications: Active Medications Generic Name Dose Route Start Last Admin Trade Name Freq PRN Reason Stop Dose Admin Acetaminophen 500 mg 10/30/21 14:46 Acetaminophen 500 Mg Tablet PO Q6H PRN Pain 1-3 Hydrocodone Bitart/Acetaminophen 1 tab 10/30/21 14:46 Hydrocodone/Acetaminophen (*Crx) 5-325 Mg Tablet PO Q8H PRN pain 7-10 Albuterol 2 puff 10/29/21 13:37 Albuterol Sulfate (*Sp) Inhaler INHALATION Q6HRT PRN Shortness Of Breath Albuterol 1.25 mg 10/30/21 15:05 Albuter
[2021-11-01 12:25] LABS: Glucose Point of Care 129 mg/dl (65-105)
[2021-11-01] MEDS: SERTRALINE HCL 50 MG TABLET PO (12:58)
[2021-11-01] MEDS: MIDODRINE HCL 2.5 MG TABLET 5 MG PO (12:58)
[2021-11-01] MEDS: BUMETANIDE 1 MG TABLET 2 MG PO (12:59)
[2021-11-01] MEDS: SUCRALFATE SUSP 100 MG/ML 10 ML UDC 1000 MG PO ×3 (12:59→20:49)
[2021-11-01] MEDS: ASPIRIN 81 MG ENTERIC TABLET PO (12:59)
[2021-11-01] MEDS: carvediloL 3.125 MG TABLET PO ×2 (12:59→20:48)
[2021-11-01] MEDS: GABAPENTIN 100 MG CAPSULE PO ×2 (12:59→20:48)
[2021-11-01] MEDS: REMDESIVIR 100 MG/NS 250 ML 100 MG/250 ML BAG 250 MG IVPB (13:06)
--- NOTE | 2021-11-01 15:31 | PCPTNOTE ---
Attempted to see pt for therapy today. Pt was in dialysis in AM and refused therapy in the afternoon.
[2021-11-01] MEDS: EPOETIN ALFA-EPBX 4,000 UNITS/ML VIAL 4000 UNITS IV PUSH (16:56)
[2021-11-01 16:59] LABS: Glucose Point of Care 264 mg/dl (65-105)
[2021-11-01] MEDS: INSULIN ASPART (*BKC) 100 UNITS/ML SUB-Q (17:00)
[2021-11-02] VITALS (10 sets, daily range): BP systolic 129–148; BP diastolic 45–64; PULSE 60–76; RESP 16–20; TEMP 36.1–36.9; O2SAT 93–97
[2021-11-02 04:40] LABS: Hepatitis B Core Ab Total Nonreactive (Nonreactive)
[2021-11-02] MEDS: LEVOTHYROXINE SODIUM 25 MCG TABLET PO (06:24)
[2021-11-02] MEDS: SUCRALFATE SUSP 100 MG/ML 10 ML UDC 1000 MG PO ×4 (07:52→20:39)
[2021-11-02] MEDS: BUMETANIDE 1 MG TABLET 2 MG PO (07:53)
[2021-11-02 08:18] LABS: INR 1.3
[2021-11-02 08:26] LABS: Alanine Aminotransferase 16 U/L (4-35); Estimated CRCL calculation 5 ml/min; Estimated Glomerular Filt Rate 4
[2021-11-02 09:01] LABS: Glucose Point of Care 224 mg/dl (65-105)
[2021-11-02] MEDS: REMDESIVIR 100 MG/NS 250 ML 100 MG/250 ML BAG 250 MG IVPB (10:00)
[2021-11-02] MEDS: INSULIN ASPART (*BKC) 100 UNITS/ML SUB-Q ×3 (10:38→17:33)
--- NOTE | 2021-11-02 11:13 | PM.IMPN ---
Progress Note: A&P Assessment and Plan (1) COVID: Code(s): U07.1 - COVID-19 Status: Acute Assessment and Plan: Acute respiratory failure secondary to COVID-19 pneumonia.Patient is currently requiring 2 L per nasal cannula. The patient has completed a 5 day course of Decadron and remdesivir. Currently she still requires oxygen at rest which is new. Continue with albuterol Robitussin as needed for cough. Will perform a home oxygen evaluation in anticipation for discharge. Plan for dialysis on not 01/28/2022 per Nephrology. (2) ESRD on hemodialysis: Code(s): N18.6 - End stage renal disease; Z99.2 - Dependence on renal dialysis Status: Acute Assessment and Plan: The patient states that she typically goes Wednesday and Wednesday . The ER physician reported that the patient did not go to dialysis on Wednesday and Wednesday. acute hypoxic likely related to fluid overload.. The patient has an of right forearm AV fistula with a positive bruit and thrill. Patient has been receiving regular sessions of dialysis. She had hyperkalemia on admission which has since resolved. Follow-up potassium level today.. (3) Diabetes mellitus: Qualifiers: Diabetes mellitus type: type 2 Diabetes mellitus termite control service representative insulin use: with senior living use Diabetes mellitus complication status: with neurologic complications Diabetes mellitus complication detail: with polyneuropathy Qualified Code(s): E11.42 - Type 2 diabetes mellitus with diabetic polyneuropathy; Z79.4 - termite control service representative (current) use of insulin Code(s): E11.9 - Type 2 diabetes mellitus without complications Status: Acute Assessment and Plan: Accu-Chek in the 2 to 4-360 range. Start long-acting insulin. Continue insulin sliding scale. Continue Accu-Cheks AC and HS. Ch (4) Hypothyroidism: Qualifiers: Hypothyroidism type: unspecified Qualified Code(s): E03.9 - Hypothyroidism, unspecified Code(s): E03.9 - Hypothyroidism, unspecified Status: Acute Assessment and Plan: Continue with levothyroxine . TSH is 2.1. (5) HTN (hypertension) with goal to be determined: Code(s): I10 - Essential (primary) hypertension Status: Chronic Assessment and Plan: Patient was Diagnosed with orthostatic hypotension as she is on midodrine. She is also on no blood pressure med . (6) Hx of gout: Code(s): Z87.39 - Personal history of other diseases of the musculoskeletal system and connective tissue Status: Chronic Assessment and Plan: Continue with home medication (7) Hypercholesteremia: Code(s): E78.00 - Pure hypercholesterolemia, unspecified Status: Chronic Assessment and Plan: Continue with home medication. (8) Depression: Code(s): F32.9 - Major depressive disorder, single episode, unspecified Status: Chronic Assessment and Plan: Continue Fedder (9) Anemia: Qualifiers: Anemia type: due to chronic kidney disease Chronic kidney disease stage: on chronic dialysis Qualified Code(s): N18.6 - End stage renal disease; D63.1 - Anemia in chronic kidney disease; Z99.2 - Dependence on renal dialysis Code(s): D64.9 - Anemia, unspecified Status: Chronic Assessment and Plan: Stable macrocytic anemia with hemoglobin at 11. Eight. Secondary to chronic renal failure. The patient is at her baseline. Continue to monitor. (10) CHF (congestive heart failure): Qualifiers: Heart failure type: diastolic Heart failure chronicity: acute on chronic Qualified Code(s): I50.33 - Acute on chronic diastolic (congestive) heart failure Code(s): I50.9 - Heart failure, unspecified Status: Chronic Assessment and Plan: Continue with Bumex Subjective Date/time seen: 11/02/21 11:00 S: Patient was seen examined at the bedside. She denies any active distress. Review of Systems Review of The Networking [employer]
--- NOTE | 2021-11-02 12:02 | PM.PNNEP ---
Progress Note: A&P Assessment and Plan (1) ESRD needing dialysis: Code(s): N18.6 - End stage renal disease; Z99.2 - Dependence on renal dialysis Status: Chronic Assessment and Plan: HD yesterday and continue T/T/S schedule follow electrolytes, volume status and clearance (2) COVID: Code(s): U07.1 - COVID-19 Status: Acute Assessment and Plan: symptomatic and hypoxic on admission supplemental oxygen weaned off on remdesivir and dexamethasone continue supportive therapy (3) HTN (hypertension) with goal to be determined: Code(s): I10 - Essential (primary) hypertension Status: Chronic Assessment and Plan: reasonable control at this time follow trend of hemodynamics (4) CHF (congestive heart failure): Qualifiers: Heart failure chronicity: acute on chronic Heart failure type: diastolic Qualified Code(s): I50.33 - Acute on chronic diastolic (congestive) heart failure Code(s): I50.9 - Heart failure, unspecified Status: Chronic Assessment and Plan: appears compensated at this time fluid removal with dialysis to maintain euvolemia (5) Diabetes mellitus: Qualifiers: Diabetes mellitus complication detail: with polyneuropathy Diabetes mellitus complication status: with neurologic complications Diabetes mellitus supervisor intermediates insulin use: with fdc use Diabetes mellitus type: type 2 Qualified Code(s): E11.42 - Type 2 diabetes mellitus with diabetic polyneuropathy; Z79.4 - termite exterminator helper (current) use of insulin Code(s): E11.9 - Type 2 diabetes mellitus without complications Status: Acute Assessment and Plan: follow Accu-Cheks on sliding-scale insulin Will continue to follow. Subjective Date/time seen: 11/02/21 12:02 She appears to be doing quite well at the time of my visit; tolerated hemodialyis treatment yesterday without any issues or problems; currently on room air and denies any respiratory/breathing complaints; no events overnight or earlier this AM; quite anxious for discharge. Exam Narrative: General: WD/WN female in NAD Heart: normal S1 and S2; no rub Lungs: clear to auscultation Abdomen: soft, nontender, nondistended, positive bowel sounds Extremities: no cyanosis or clubbing; no edema Skin: no rash or nodules Objective Data Vital Signs Vital Signs: Vital Signs Temp Pulse Resp BP Pulse Ox 11/02/21 12:00 36.6 C 70 20 138/48 L 95 11/02/21 08:47 74 18 96 11/02/21 08:00 36.4 C 60 20 129/56 L 95 11/02/21 04:05 36.1 C L 74 18 148/64 H 96 11/02/21 02:00 96 11/02/21 00:05 36.3 C L 70 16 142/55 H 94 11/01/21 20:00 36.5 C 70 18 143/59 H 97 Intake/Output Intake/Output: Intake & Output 10/30/21 10/31/21 11/01/21 11/02/21 23:59 23:59 23:59 23:59 Intake Total 1410 1200 1190 240 Output Total 2000 0 2500 Balance -590 1200 -1310 240 Meds/Results Medications: Active Medications Generic Name Dose Route Start Last Admin Trade Name Freq PRN Reason Stop Dose Admin Acetaminophen 500 mg 10/30/21 14:46 Acetaminophen 500 Mg Tablet PO Q6H PRN Pain 1-3 Hydrocodone Bitart/Acetaminophen 1 tab 10/30/21 14:46 Hydrocodone/Acetaminophen (*Crx) 5-325 Mg Tablet PO Q8H PRN pain 7-10 Albuterol 2 puff 10/29/21 13:37 Albuterol Sulfate (*Sp) Inhaler INHALATION Q6HRT PRN Shortness Of Breath Albuterol 1.25 mg 10/30/21 15:05 Albuterol Sulfate Neb 2.5 Mg/3 Ml Inh INHALATION Q6H PRN Shortness Of Breath Or Wheezing Alprazolam 0.5 mg 10/30/21 14:46 Alprazolam (*Crx) 0.5 Mg Tablet PO BID PRN Anxiety Aspirin 81 mg 10/31/21 12:00 11/02/21 12:32 Aspirin 81 Mg Enteric Tablet PO 81 mg NOON ANISA Administration Bumetanide 2 mg 10/31/21 09:00 11/02/21 07:53 Bumetanide 1 Mg Tablet PO 2 mg DAILY ANISA Administration Carvedilol 3.125 mg
[2021-11-02 12:32] LABS: Glucose Point of Care 360 mg/dl (65-105)
[2021-11-02] MEDS: GABAPENTIN 100 MG CAPSULE PO ×2 (12:32→20:39)
[2021-11-02] MEDS: ASPIRIN 81 MG ENTERIC TABLET PO (12:32)
[2021-11-02] MEDS: carvediloL 3.125 MG TABLET PO ×2 (12:35→20:39)
[2021-11-02] MEDS: SERTRALINE HCL 50 MG TABLET PO (12:35)
[2021-11-02] MEDS: INSULIN GLARGINE (*BKC) 100 UNITS/ML 15 UNITS SUB-Q ×2 (15:13→22:32)
[2021-11-02 17:09] LABS: Glucose Point of Care 377 mg/dl (65-105)
[2021-11-02 17:28] LABS: Potassium 4.8 mmol/L (3.4-5.0)
[2021-11-02] MEDS: ERGOCALCIFEROL 50,000 UNIT CAPSULE 50000 UNITS PO (17:34)
[2021-11-02] MEDS: SIMVASTATIN 10 MG TABLET PO (20:42)
[2021-11-02 22:31] LABS: Glucose Point of Care 389 mg/dl (65-105)
[2021-11-03] VITALS (7 sets, daily range): BP systolic 140–154; BP diastolic 57–81; PULSE 60–74; RESP 16–19; TEMP 36.2–36.6; O2SAT 92–96
[2021-11-03] MEDS: LEVOTHYROXINE SODIUM 25 MCG TABLET PO (05:46)
[2021-11-03] MEDS: SUCRALFATE SUSP 100 MG/ML 10 ML UDC 1000 MG PO ×2 (08:28→11:39)
[2021-11-03] MEDS: BUMETANIDE 1 MG TABLET 2 MG PO (08:28)
[2021-11-03 08:50] LABS: Glucose Point of Care 241 mg/dl (65-105)
[2021-11-03 09:00] LABS: Alanine Aminotransferase 19 U/L (4-35); Estimated CRCL calculation 4 ml/min; Estimated Glomerular Filt Rate 4
[2021-11-03 09:11] LABS: INR 1.3; Prothrombin Time 16.1 Seconds (11.1-14.7)
[2021-11-03] MEDS: INSULIN ASPART (*BKC) 100 UNITS/ML SUB-Q ×2 (09:15→12:41)
[2021-11-03] MEDS: REMDESIVIR 100 MG/NS 250 ML 100 MG/250 ML BAG 250 MG IVPB (10:25)
[2021-11-03] MEDS: carvediloL 3.125 MG TABLET PO (11:39)
[2021-11-03] MEDS: ASPIRIN 81 MG ENTERIC TABLET PO (11:39)
[2021-11-03] MEDS: GABAPENTIN 100 MG CAPSULE PO (11:39)
[2021-11-03] MEDS: SERTRALINE HCL 50 MG TABLET PO (11:39)
--- NOTE | 2021-11-03 11:47 | PCRCNOTE ---
no home o2 needed
[2021-11-03 12:22] LABS: Glucose Point of Care 290 mg/dl (65-105)
--- NOTE | 2021-11-03 12:30 | PM.PNNEP ---
Progress Note: A&P Assessment and Plan (1) ESRD needing dialysis: Code(s): N18.6 - End stage renal disease; Z99.2 - Dependence on renal dialysis Status: Chronic Assessment and Plan: HD tomorrow and continue T/T/S schedule follow electrolytes, volume status and clearance (2) COVID: Code(s): U07.1 - COVID-19 Status: Acute Assessment and Plan: symptomatic and hypoxic on admission supplemental oxygen weaned off on remdesivir and dexamethasone continue supportive therapy (3) HTN (hypertension) with goal to be determined: Code(s): I10 - Essential (primary) hypertension Status: Chronic Assessment and Plan: reasonable control at this time follow trend of hemodynamics (4) CHF (congestive heart failure): Qualifiers: Heart failure chronicity: acute on chronic Heart failure type: diastolic Qualified Code(s): I50.33 - Acute on chronic diastolic (congestive) heart failure Code(s): I50.9 - Heart failure, unspecified Status: Chronic Assessment and Plan: appears compensated at this time fluid removal with dialysis to maintain euvolemia (5) Diabetes mellitus: Qualifiers: Diabetes mellitus complication detail: with polyneuropathy Diabetes mellitus complication status: with neurologic complications Diabetes mellitus half-way insulin use: with half-way use Diabetes mellitus type: type 2 Qualified Code(s): E11.42 - Type 2 diabetes mellitus with diabetic polyneuropathy; Z79.4 - terminal press operator (current) use of insulin Code(s): E11.9 - Type 2 diabetes mellitus without complications Status: Acute Assessment and Plan: follow Accu-Cheks on sliding-scale insulin Ok for discharge from renal perspective if otherwise medically stable - she can go to her outpatient dialysis center for her treatment scheduled tomorrow. Will continue to follow. Subjective Date/time seen: 11/03/21 12:30 Appears to be doing reasonably well at the time of my visit; breathing/respiratory status remains stable without the need for supplemental oxygen; no issues overnight or earlier this AM; anxious for discharge as she is getting tired of being in the hospital. Exam Narrative: General: WD/WN female in NAD Heart: normal S1 and S2; no rub Lungs: clear to auscultation Abdomen: soft, nontender, nondistended, positive bowel sounds Extremities: no cyanosis or clubbing; no edema Skin: warm and dry Objective Data Vital Signs Vital Signs: Vital Signs Temp Pulse Resp BP Pulse Ox 11/03/21 11:39 72 11/03/21 09:45 95 11/03/21 09:35 96 11/03/21 09:30 96 11/03/21 08:00 36.2 C L 74 19 140/57 L 94 11/03/21 07:11 60 16 92 11/03/21 05:26 36.6 C 60 16 154/81 H 92 11/02/21 22:00 36.9 C 71 16 133/45 L 93 11/02/21 16:00 36.3 C L 71 20 142/51 H 97 Intake/Output Intake/Output: Intake & Output 10/31/21 11/01/21 11/02/21 11/03/21 23:59 23:59 23:59 23:59 Intake Total 1200 1190 870 640 Output Total 0 2500 Balance 1200 -1310 870 640 Meds/Results Medications: Active Medications Generic Name Dose Route Start Last Admin Trade Name Freq PRN Reason Stop Dose Admin Acetaminophen 500 mg 10/30/21 14:46 Acetaminophen 500 Mg Tablet PO Q6H PRN Pain 1-3 Hydrocodone Bitart/Acetaminophen 1 tab 10/30/21 14:46 Hydrocodone/Acetaminophen (*Crx) 5-325 Mg Tablet PO Q8H PRN pain 7-10 Albuterol 2 puff 10/29/21 13:37 Albuterol Sulfate (*Sp) Inhaler INHALATION Q6HRT PRN Shortness Of Breath Albuterol 1.25 mg 10/30/21 15:05 Albuterol Sulfate Neb 2.5 Mg/3 Ml Inh INHALATION Q6H PRN Shortness Of Breath Or Wheezing Alprazolam 0.5 mg 10/30/21 14:46 Alprazolam (*Crx) 0.5 Mg Tablet PO BID PRN Anxiety Aspirin 81 mg 10/31/21 12:00 11/03/21 11:39 Aspirin 81 Mg Enteric Tablet PO 81 mg NOON SC
--- NOTE | 2021-11-03 13:13 | PM.DS ---
DS: Admitting Diagnosis Discharge Date 11/03/2021 Admitting Diagnosis (1) COVID: (2) ESRD on hemodialysis: (3) Diabetes mellitus: (4) Hypothyroidism: (5) HTN (hypertension) with goal to be determined: (6) Hx of gout: (7) Hypercholesteremia: (8) Depression: (9) Anemia (10) CHF (congestive heart failure): DS: Discharge Diagnosis Discharge Diagnosis (1) COVID: Code(s): U07.1 - COVID-19 Status: Acute Assessment and Plan: Acute respiratory failure secondary to COVID-19 pneumonia.Patient is currently requiring 2 L per nasal cannula. The patient has completed a 5 day course of Decadron and remdesivir. Currently she still requires oxygen at rest which is new. Continue with albuterol Robitussin as needed for cough. Will perform a home oxygen evaluation in anticipation for discharge. Plan for dialysis on not generate 01/28/2022 per Nephrology. (2) ESRD on hemodialysis: Code(s): N18.6 - End stage renal disease; Z99.2 - Dependence on renal dialysis Status: Acute Assessment and Plan: The patient states that she typically goes Wednesday and Wednesday . The ER physician reported that the patient did not go to dialysis on Wednesday and Wednesday. acute hypoxic likely related to fluid overload.. The patient has an of right forearm AV fistula with a positive bruit and thrill. Patient has been receiving regular sessions of dialysis. She had hyperkalemia on admission which has since resolved. Follow-up potassium level today.. (3) Diabetes mellitus: Qualifiers: Diabetes mellitus type: type 2 Diabetes mellitus terminal carman insulin use: with terminal carman use Diabetes mellitus complication status: with neurologic complications Diabetes mellitus complication detail: with polyneuropathy Qualified Code(s): E11.42 - Type 2 diabetes mellitus with diabetic polyneuropathy; Z79.4 - terminal worker (current) use of insulin Code(s): E11.9 - Type 2 diabetes mellitus without complications Status: Acute Assessment and Plan: Accu-Chek in the 2 to 4-360 range. Start long-acting insulin. Continue insulin sliding scale. Continue Accu-Cheks AC and HS. Ch (4) Hypothyroidism: Qualifiers: Hypothyroidism type: unspecified Qualified Code(s): E03.9 - Hypothyroidism, unspecified Code(s): E03.9 - Hypothyroidism, unspecified Status: Acute Assessment and Plan: Continue with levothyroxine . TSH is 2.1. (5) HTN (hypertension) with goal to be determined: Code(s): I10 - Essential (primary) hypertension Status: Chronic Assessment and Plan: Patient was Diagnosed with orthostatic hypotension as she is on midodrine. She is also on no blood pressure med . (6) Hx of gout: Code(s): Z87.39 - Personal history of other diseases of the musculoskeletal system and connective tissue Status: Chronic Assessment and Plan: Continue with home medication (7) Hypercholesteremia: Code(s): E78.00 - Pure hypercholesterolemia, unspecified Status: Chronic Assessment and Plan: Continue with home medication. (8) Depression: Code(s): F32.9 - Major depressive disorder, single episode, unspecified Status: Chronic Assessment and Plan: Continue Fedder (9) Anemia: Qualifiers: Anemia type: due to chronic kidney disease Chronic kidney disease stage: on chronic dialysis Qualified Code(s): N18.6 - End stage renal disease; D63.1 - Anemia in chronic kidney disease; Z99.2 - Dependence on renal dialysis Code(s): D64.9 - Anemia, unspecified Status: Chronic Assessment and Plan: Stable macrocytic anemia with hemoglobin at 11. Eight. Secondary to chronic renal failure. The patient is at her baseline. Continue to monitor. (10) CHF (congestive heart failure): Qualifiers: Heart failure type: diastolic Heart failure chronicity: acute on chronic Qualified Code(s): I50.33 - Acute on
== END 2021-11-03 15:32 | disposition home health service (06) | DRG 177 ==
LOC: ANHED 10:25 → ANH3MEDSUR 16:01
PROVIDERS: Internal Medicine Nephrology; Nurse Practitioner; Admitting Provider Family Medicine; Emergency Provider Emergency Medicine; PCP Physician Assistant; Visit Provider Internal Medicine
DX: U07.1 COVID-19 (principal); J12.82 Pneumonia due to coronavirus disease 2019; N18.6 End stage renal disease; J96.01 Acute respiratory failure with hypoxia; I13.2 Hypertensive heart and chronic kidney disease with heart failure and with stage 5 chronic kidney disease, or end stage renal disease; I48.19 Other persistent atrial fibrillation; I50.32 Chronic diastolic (congestive) heart failure; E11.22 Type 2 diabetes mellitus with diabetic chronic kidney disease; E11.42 Type 2 diabetes mellitus with diabetic polyneuropathy; E03.9 Hypothyroidism, unspecified; E78.00 Pure hypercholesterolemia, unspecified; F32.9 Major depressive disorder, single episode, unspecified; M1A.9XX0 Chronic gout, unspecified, without tophus (tophi); D63.1 Anemia in chronic kidney disease; M19.90 Unspecified osteoarthritis, unspecified site; H40.9 Unspecified glaucoma; N25.0 Renal osteodystrophy; G47.30 Sleep apnea, unspecified; Z99.2 Dependence on renal dialysis; Z79.4 Long term (current) use of insulin; Z86.73 Personal history of transient ischemic attack (TIA), and cerebral infarction without residual deficits; Z90.49 Acquired absence of other specified parts of digestive tract; Z90.710 Acquired absence of both cervix and uterus; Z95.0 Presence of cardiac pacemaker; Z98.42 Cataract extraction status, left eye; Z98.41 Cataract extraction status, right eye
CPT/HCPCS: 36415; 71045; 80048; 80053; 80069; 80076; 82565; 82728; 82948; 83036; 83605; 83615; 83690; 83735; 84100; 84132; 84443; 84460; 85025; 85027; 85055; 85610; 85730; 86704; 86706; 87340; 93005; 94618; 96365; 96375; 97110; 97161; 97166; 97530; 97535; 99285; A9270; G0257; G0378; J1100; J1815; J7030; Q5105

== ENCOUNTER 2021-12-24 15:11 | Emergency (ER) | payer OTHER, SELFPAY ==
--- NOTE | ~2021-12-24 | XR_ITS ---
XR lumbar spine 2-3V DATE: 12/24/2021 19:34 INDICATION: Fall. Back pain. TECHNIQUE: AP, lateral, coned lateral lumbosacral views COMPARISON: 05/29/2017 lumbar spine FINDINGS: There is diffuse osteopenia. No fracture or bone destruction is evident. The lumbar pedicles are intact. No spondylolisthesis. Lumbar and lumbosacral interspaces are relatively preserved. There is mild degenerative spurring of t he lumbar spine. Sacroiliac joints are unremarkable. There is severe calcification of the abdominal aorta and common iliac arteries, without evidence of a neurysm. Status post cholecystectomy. Severe right hip osteoarthritis, possible avascular necrosis of right femoral head. IMPRESSION: Osteopenia Mild degenerative change of the lumbar spine. Severe right hip osteoarthritis; cannot exclude right femoral head avascular necrosis Reviewed, dictated and finalized at location A. IMPRESSION: Osteopenia Mild degenerative change of the lumbar spine. Severe right hip osteoarthritis; cannot exclude right femoral head avascular ne crosis
--- NOTE | ~2021-12-24 | XR_ITS ---
XR shoulder LT min 2V DATE: 12/24/2021 19:34 INDICATION: Fall. Left shoulder injury, pain TECHNIQUE: 4 views COMPARISON: None FINDINGS: Left-sided pacemaker. Osteopenia. No fracture or dislocation, periosteal reaction or bone destruction or abnormal soft tissue calcifica tion is detected. IMPRESSION: Osteopenia Reviewed, dictated and finalized at location A. IMPRESSION: Osteopenia
--- NOTE | ~2021-12-24 | XR_ITS ---
XR hip LT 2V w AP pelvis DATE: 12/24/2021 19:34 INDICATION: Fall. Left hip injury, pain TECHNIQUE: AP pelvis. AP and lateral views of left hip. COMPARISON: None FINDINGS: There is severe right hip osteoarthritis. There is patchy cystic and sclerotic change of th e right femoral head, suggesting possible avascular necrosis. There is diffuse osteopenia. Normal alignment at the pubic symphysis and sacroiliac joints. No fracture or dislocation, avascular necrosis or bone destruction of the left hip is evident. Extensive abdominal aortic and iliac and femoral artery calcifications. IMPRESSION: Osteopenia No fracture or dislocation of the left hip is detected Severe right hip arthritis, possible avascular necrosis of right femoral head Prominent arterial calcifications Reviewed, dictated and finalized at location A.
[2021-12-24 15:22] VITALS: BP 108/38; PULSE 70; RESP 16; TEMP 36.4; O2SAT 96
--- NOTE | 2021-12-24 20:09 | ED.BACK ---
HPI - Back Pain/Injury General Chief Complaint: Back Pain/Injury Stated Complaint: back pain, fall 5 days ago Time Seen by Provider: 12/24/21 17:54 Source: patient Mode of arrival: EMS Limitations: no limitations History of Present Illness HPI Narrative: 81-year-old with history of multiple medical problems here with complaints of left lower back , left hip pain and left shoulder pain for past few days. Patient states that she lost her balance and fell on her left side. She denies head and neck injuries. No loss of consciousness. MD elicited complaint: back injury and fall Pertinent past history: recent trauma Onset (ago): day(s) (3) Timing: constant Severity: moderate Similar Symptoms Previously: No Quality: aching Location: lumbar spine Radiation: none Exacerbating factors: movement Related Data Home Medications Medication Instructions Recorded Confirmed Basaglkeiry [place] TorreikPen U-100 Insulin 15 unit SUBCUT HS 11/02/19 05/12/21 carvedilol 3.125 mg PO BID 11/02/19 10/29/21 gabapentin 100 mg PO BID 11/02/19 10/29/21 simvastatin 10 mg PO HS 11/02/19 10/29/21 docusate sodium 100 mg tablet 100 mg PO HS PRN tablet 11/03/19 05/12/21 colchicine 0.6 mg PO QMWF 11/26/19 10/29/21 ergocalciferol (vitamin D2) 50,000 unit PO WEEKLY 11/26/19 10/29/21 [Vitamin D2] alprazolam 0.5 mg PO BID PRN 06/21/20 05/12/21 aspirin [Aspirin Low Dose] 81 mg PO DAILY 06/21/20 05/12/21 sertraline 50 mg PO DAILY 06/21/20 10/29/21 albuterol sulfate 1.25 mg INHALATION Q6H PRN 11/27/20 05/12/21 midodrine 5 mg PO QMWF 05/06/21 10/29/21 acetaminophen [Acetaminophen Extra 500 mg PO Q6H PRN 05/24/21 10/29/21 Strength] bumetanide 2 mg PO DAILY 05/24/21 10/29/21 colchicine 0.3 mg PO QMWF 05/24/21 06/01/21 diphenhydramine-acetaminophen 1 tablet PO HS PRN 05/24/21 06/01/21 [Acetaminophen PM] guaifenesin [Robafen] 200 mg PO Q4H PRN 05/24/21 06/01/21 hydroxyzine HCl 25 mg PO QID PRN 05/24/21 06/01/21 levothyroxine 25 mcg PO DAILY 05/24/21 10/29/21 melatonin 3 mg PO HS PRN 05/24/21 10/29/21 polyethylene glycol 3350 [Gavilax] 17 g PO PRN PRN 05/24/21 06/01/21 tramadol 50 mg PO TID PRN 05/24/21 06/01/21 Allergies Allergy/AdvReac Type Severity Reaction Status Date / Time Penicillins Allergy Unknown Rash Verified 10/30/21 17:47 Review of Systems Review of Systems: All systems reviewed & are unremarkable except as noted in HPI and below Constitutional: Constitutional: Reports no additional constitutional complaints Eyes: Eyes: Reports no additional eye complaints ENT: Reports system reviewed and no additional complaints, except as documented Cardiovascular: Cardiovascular: Reports no additional cardiovascular complaints Gastrointestinal: Gastrointestinal: Reports no additional gastrointestinal complaints Musculoskeletal: Musculoskeletal: Reports as per HPI Integumentary/Breasts: Skin/Breast: Reports system reviewed and no additional complaints, except as docu PMFSH Past Medical History Medical History Abnormal esophagram Amyloidosis Anemia Arthritis Asthma Bronchitis Chronic diastolic CHF (congestive heart failure) CVA (cerebral vascular accident) Several. 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 The patient is intolerant to CPAP therapy. Surgical History Surgical History History of appe
[2021-12-24 20:28] VITALS: BP 116/50; PULSE 67; RESP 16; O2SAT 97
== END 2021-12-24 20:28 | disposition home or self-care (01) ==
PROVIDERS: Emergency Provider Family Medicine; PCP Physician Assistant
DX: S30.0XXA Contusion of lower back and pelvis, initial encounter (principal); S40.012A Contusion of left shoulder, initial encounter; D64.9 Anemia, unspecified; J45.909 Unspecified asthma, uncomplicated; I13.2 Hypertensive heart and chronic kidney disease with heart failure and with stage 5 chronic kidney disease, or end stage renal disease; E11.22 Type 2 diabetes mellitus with diabetic chronic kidney disease; N18.6 End stage renal disease; I50.32 Chronic diastolic (congestive) heart failure; M16.11 Unilateral primary osteoarthritis, right hip; Z99.2 Dependence on renal dialysis; M85.88 Other specified disorders of bone density and structure, other site; Z79.4 Long term (current) use of insulin; Z79.82 Long term (current) use of aspirin; W01.0XXA Fall on same level from slipping, tripping and stumbling without subsequent striking against object, initial encounter
CPT/HCPCS: 72100; 73030; 73502; 99284

== ENCOUNTER 2022-03-03 11:18 | Inpatient (IN) | payer MEDICARE, MEDICAID, SELFPAY ==
[2022-03-03] VITALS (11 sets, daily range): BP systolic 108–135; BP diastolic 47–82; PULSE 66–70; RESP 14–20; TEMP 36.6–37; O2SAT 96–99; BMI 39.5
--- NOTE | ~2022-03-03 | US_ITS ---
EXAMINATION: US venous doppler [facility] DATE: 03/03/2022 14:08 INDICATION: swelling , rule out DVT . TECHNIQUE: Grayscale images without and with compression and Doppler images of the bilateral lower ex tremity veins were obtained. COMPARISON: None FINDINGS: The right common femoral vein, profunda (deep) femoral vein, femoral vein, popliteal vein, peroneal v ein, posterior tibial veins, gastrocnemius vein, and greater saphenous vein are patent. The left common femoral vein, profunda femoral vein, femoral vein, popliteal vein, peroneal vein, pos terior tibial veins, gastrocnemius vein, and greater saphenous vein are patent. IMPRESSION: 1. Patent bilateral lower extremity veins. No evidence of deep venous thrombosis Reviewed, dictated and finalized at location K. IMPRESSION: 1. Patent bilateral lower extremity veins. No evidence of deep venous thrombos is
--- NOTE | ~2022-03-03 | CT_ITS ---
EXAMINATION: CT lumbar spine wo con DATE: 03/05/2022 15:46 INDICATION: Leg weakness TECHNIQUE: Computed tomography (CT) of the lumbar spine was performed without intravenous contrast. A utomated exposure control and iterative reconstruction technique were employed. The dose-length produ ct was 1411.74 mGy-cm. COMPARISON: Lumbar spine radiographs dated 12/24/[address] dated 11/26/2020 FINDINGS: Diffuse osteopenia. Exaggerated lumbar lordosis. Chronic mild anterior wedging at T10 and T11. Lumbar vertebral body heights are normal. No acute fracture. Moderate disc height loss at T9-T10 through T1 1-T12. Mild disc height loss with vacuum phenomena at T12-L1. Vacuum phenomena without significant di sc height loss at L1-L2. The more caudal lumbar discs are normal. Mild groundglass opacity and some s mooth septal line thickening at the bilateral lung bases which could represent minimal pulmonary anna a or atelectasis. Paravertebral soft tissues are unremarkable. The following disc levels are specific ally discussed: T12-L1: The disc does not extend beyond the endplate margin. There is mild left and moderate right fa cet joint osteoarthritis. There is no neural foraminal stenosis. There is no central canal stenosis. L1-L2: The disc does not extend beyond the endplate margin. There is mild left and moderate right fac et joint osteoarthritis. There is mild bilateral neural foraminal stenosis. There is no central canal stenosis. L2-L3: Disc is mildly bulging. There is mild left and moderate right facet joint osteoarthritis. Ther e is mild right and mild to moderate left neural foraminal stenosis. There is mild to moderate centra l canal stenosis. L3-L4: Disc is bulging. There is mild bilateral facet joint osteoarthritis. There is moderate right a nd mild to moderate left neural foraminal stenosis. There is mild to moderate central canal stenosis. L4-L5: Disc is bulging. There is severe left and moderate right facet joint osteoarthritis. There is moderate bilateral, left greater than right neural foraminal stenosis. There is mild central canal st enosis. L5-S1: Disc is mildly bulging. There is severe bilateral facet joint osteoarthritis. There is mild to moderate bilateral neural foraminal stenosis. There is no central canal stenosis. IMPRESSION: 1. Mild lumbar and moderate lower thoracic spondylosis. Reviewed, dictated and finalized at location B.
--- NOTE | ~2022-03-03 | XR_ITS ---
XR hip RT 2V w AP pelvis 03/04/2022 09:32 Indication: Right hip pain Procedure: 3 views right hip including AP pelvis Comparison: 06/02/2021 Findings: There is severe osteoarthritis of the right hip with possible underlying avascular necrosis of the femoral head. There is atherosclerosis of the pelvis and femoral regions. Osteopenia. Pelvic rings are intact. No acute fracture is identified. There is lower lumbar spondylosis partially visual ized. Impression: 1: Severe osteoarthritis of the right hip with possible avascular necrosis. Reviewed, dictated and finalized at location A. Impression: 1: Severe osteoarthritis of the right hip with possible avascular necrosis.
--- NOTE | ~2022-03-03 | CT_ITS ---
EXAMINATION: CT cervical spine wo con DATE: 03/06/2022 13:49 INDICATION: Right-sided neck pain. Right-sided weakness. TECHNIQUE: Computed tomography (CT) of the cervical spine was performed without intravenous contrast. Automated exposure control and iterative reconstruction technique were employed. The dose-length pro duct was 410.00 mGy-cm. COMPARISON: Cervical spine CT 06/26/2021, PET CT 07/06/2019 FINDINGS: The visualized portion of the brain demonstrates an old infarct in left temporal occipital region. There is chronic scarring at the lung apices. There is a stent in right subclavian vein. C1 r ing is ununited posteriorly, a normal variant. There is 4 degrees dextrocurvature of cervical spine. Vertebral body heights and intervertebral disc heights are normal. The following disc levels are spec ifically discussed: C2-C3: There is no uncovertebral joint osteoarthritis. There is no facet joint osteoarthritis. There is no neural foraminal stenosis. There is no central canal stenosis. C3-C4: There is mild left uncovertebral joint osteoarthritis. There is mild left facet joint osteoart hritis. There is no neural foraminal stenosis. There is mild central canal stenosis. C4-C5: There is no uncovertebral joint osteoarthritis. There is severe left facet joint osteoarthriti s. There is mild left neural foraminal stenosis. There is no central canal stenosis. C5-C6: There is mild left uncovertebral joint osteoarthritis. There is mild right and moderate left f acet joint osteoarthritis. There is mild left neural foraminal stenosis. There is mild central canal stenosis. C6-C7: There is no uncovertebral joint osteoarthritis. There is moderate right and mild left facet david int osteoarthritis. There is no neural foraminal stenosis. There is no central canal stenosis. C7-T1: There is no uncovertebral joint osteoarthritis. There is mild bilateral facet joint osteoarthr itis. There is no neural foraminal stenosis. There is no central canal stenosis. IMPRESSION: 1. Mild cervical spondylosis. Reviewed, dictated and finalized at location A.
--- NOTE | ~2022-03-03 | CT_ITS ---
EXAMINATION: CT brain wo con DATE: 03/10/2022 13:13 INDICATION: Confusion. TECHNIQUE: Computed tomography (CT) of the head was performed without intravenous contrast. The mA wa s adjusted according to patient size. Iterative reconstruction technique was employed. The dose-lengt h product was 605.33 mGy-cm. COMPARISON: Head CT 03/03/2022 FINDINGS: There is an old infarct in left temporal occipital region. There is an old infarct involvin g the right frontal lobe and right insula. There is an old infarct involving the right temporal parie elza region. There is no intracranial hemorrhage, acute infarction, or abnormal intracranial mass lesi on. There is ex vacuo dilatation of trigone and occipital horn of left lateral ventricle. There are l ikely changes of ocular lens replacement surgeries. There is mild mucosal thickening in the paranasal sinuses. There is a small right mastoid effusion. IMPRESSION: 1. Old infarcts in the brain. Reviewed, dictated and finalized at location A.
--- NOTE | ~2022-03-03 | CT_ITS ---
EXAMINATION: CT brain wo con DATE: 03/03/2022 12:14 INDICATION: Sudden onset generalized weakness TECHNIQUE: Computed tomography (CT) of the head was performed without intravenous contrast. Sagittal and coronal reconstructions were performed. The mA was adjusted according to patient size. Iterative reconstruction technique was employed. The dose-length product was 605.33 mGy-cm. COMPARISON: head CT dated 06/26/2021 FINDINGS: Unchanged large region of encephalomalacia involving the left occipital and medial left temporal lobe s consistent with chronic infarct. Associated ex vacuo dilation of the occipital and temporal horns o f the left lateral ventricle. Additional unchanged small to moderate-sized regions of encephalomalaci a consistent with chronic infarct in the left frontal and parietal lobes. Unchanged prominent perivas cular space versus old lacunar infarct at the inferior left basal ganglia. No acute intracranial hemo rrhage, acute infarction or abnormal extra axial fluid collection. There is mild scattered white jose er hypoattenuation consistent with chronic small vessel ischemic disease. Symmetric prominence of the sulci consistent with mild age-appropriate diffuse cerebral volume loss. No mass/mass effect. Change s of bilateral intraocular lens replacement. The orbits and mastoid air cells are normal. Mild mucosa l thickening in the right maxillary and bilateral ethmoid sinuses. Intracranial calcified cerebral at herosclerosis is noted. IMPRESSION: 1. No acute intracranial process. 2. Stable appearance of old infarcts in the left temporal-occipital, right parietal and right frontal lobes. 3. Age-related changes including mild diffuse volume loss and mild scattered white matter hypoattenua tion consistent with chronic small vessel ischemic disease. Reviewed, dictated and finalized at location B. IMPRESSION: 1. No acute intracranial process. 2. Stable appearance of old infarcts in the left temporal-occipital, right ioana etal and right frontal lobes. 3. Age-related changes including mild diffuse volume loss and mild scattered wh ite matter hypoattenuation consistent with chronic small vessel ischemic diseas e.
--- NOTE | ~2022-03-03 | XR_ITS ---
EXAMINATION: XR shoulder RT min 2V DATE: 03/04/2022 09:31 INDICATION: Right shoulder pain. TECHNIQUE: 4 views of right shoulder were obtained. COMPARISON: Right shoulder radiographs 06/26/2021 FINDINGS: There is superior subluxation of humeral head with respect to glenoid with narrowing of the subacromial space, consistent with rotator cuff tear. There is moderate osteoarthritis of glenohumer al joint and severe osteoarthritis of the acromioclavicular joint. There is a stent in right subclavi an vein. Partially visualized is a left chest pacer. IMPRESSION: 1. Polyarticular osteoarthritis. 2. Right rotator cuff tear. Reviewed, dictated and finalized at location A.
--- NOTE | ~2022-03-03 | XR_ITS ---
EXAMINATION: XR chest 2V DATE: 03/03/2022 12:20 INDICATION: Shortness of breath. TECHNIQUE: Frontal and lateral views of the chest were obtained. COMPARISON: Chest single view 11/02/2021, chest CT 11/26/2020, 07/31/2019 FINDINGS: Again seen is scarring at right lung apex. No pleural effusion or pneumothorax. Cardiomegal y is noted. There is a left chest wall pacer with leads in the right atrium and right ventricle. Ther e is a stent in right subclavian vein. There is mild chronic anterior wedging of multiple vertebral b odies. IMPRESSION: 1. Chronic scarring at right lung apex. 2. Cardiomegaly. Reviewed, dictated and finalized at location A.
--- NOTE | ~2022-03-03 | XR_ITS ---
EXAMINATION: XR chest 1V portable DATE: 03/13/2022 11:46 INDICATION: Shortness of breath TECHNIQUE: frontal view of the chest was obtained. COMPARISON: Chest radiograph dated 03/03/[address] dated 11/26/2020 FINDINGS: Persistent chronic masslike opacity at the right apex. The lungs remain otherwise clear with no new a irspace opacities, pulmonary edema, pleural effusion or pneumothorax. Cardiomegaly. Dual lead pacemak er seen with leads projecting over the expected locations of the right atrium and right ventricle. St enting at the right subclavian vein. IMPRESSION: 1. No acute cardiopulmonary disease. 2. Chronic masslike opacity right apex which has remained stable and without evident FDG uptake on PE T CT studies dating back to CT study dated 05/26/2018 Reviewed, dictated and finalized at location B. IMPRESSION: 1. No acute cardiopulmonary disease. 2. Chronic masslike opacity right apex which has remained stable and without ev ident FDG uptake on PET CT studies dating back to CT study dated 05/26/2018
--- NOTE | ~2022-03-03 | XR_ITS ---
EXAMINATION: XR ankle LT 2V DATE: 03/12/2022 15:48 INDICATION: Left ankle swelling TECHNIQUE: Two views of the left ankle were obtained. COMPARISON: None. FINDINGS: Bone alignment is normal. No fracture is identified. There is advanced osteoarthritis of th e talocalcaneal joint. There is moderate osteoarthritis of the midfoot. Ankle soft tissue swelling is present. Calcified atherosclerosis is noted. There is a plantar calcaneal enthesophyte. IMPRESSION: 1. Osteoarthritis without acute osseous abnormality identified. Reviewed, dictated and finalized at location F.
--- NOTE | ~2022-03-03 | XR_ITS ---
EXAMINATION: XR foot LT min 3V DATE: 03/12/2022 15:48 INDICATION: Left foot swelling TECHNIQUE: Dorsoplantar, lateral, and 2 oblique views of the left foot were obtained. COMPARISON: None. FINDINGS: The bones are osteopenic which limits the sensitivity for fracture however none is seen. Th ere is moderate osteoarthritis of multiple interphalangeal joints. Calcified atherosclerosis is noted . There are chronic appearing flexion deformities of the second through fifth proximal interphalangea l joints. There is advanced osteoarthritis at the talocalcaneal joint and moderate osteoarthritis of the midfoot. IMPRESSION: 1. Polyarticular osteoarthritis without acute osseous abnormality identified. Reviewed, dictated and finalized at location F.
--- NOTE | ~2022-03-03 | XR_ITS ---
EXAMINATION: XR ankle RT 2V INDICATION: Right ankle swelling TECHNIQUE: Two views of the right ankle are obtained. COMPARISON: None available FINDINGS: Bone alignment is normal. No fracture is identified. There is advanced osteoarthritis of th e talocalcaneal joint. There is moderate osteoarthritis of the midfoot. Ankle soft tissue swelling is present. Calcified atherosclerosis is noted. There is a plantar calcaneal enthesophyte. IMPRESSION: 1. Osteoarthritis without acute osseous abnormality. Reviewed, dictated and finalized at location F.
--- NOTE | ~2022-03-03 | XR_ITS ---
EXAMINATION: XR foot RT min 3V DATE: 03/12/2022 15:47 INDICATION: Right foot swelling TECHNIQUE: Dorsoplantar, lateral, and 2 oblique views of the right foot were obtained. COMPARISON: None. FINDINGS: The bones are osteopenic which limits the sensitivity for fracture however none is seen. De formity of the distal fifth metatarsal has the appearance of a healed fracture. There is moderate ost eoarthritis of multiple interphalangeal joints. Calcified atherosclerosis is noted. There are chronic appearing flexion deformities of the second through fifth proximal interphalangeal joints. There is advanced osteoarthritis at the talocalcaneal joint and moderate osteoarthritis of the midfoot. IMPRESSION: 1. Polyarticular osteoarthritis without acute osseous abnormality identified. Reviewed, dictated and finalized at location F.
--- NOTE | ~2022-03-03 | CT_ITS ---
EXAMINATION: CTA abdomen pelvis DATE: 03/07/2022 18:14 CDT INDICATION: Rectal bleeding TECHNIQUE: Computed tomographic angiography (CTA) of the abdomen and pelvis was performed with 100 mL Omnipaque-300 intravenous contrast. The dose-length product was 1445.24 mGy-cm. Maximum intensity pr ojection 3D-reconstructions of the aorta and other arteries were constructed by the technologist on a separate workstation. Automated exposure control and iterative reconstruction technique were venturae raúl. COMPARISON: CT dated 07/17/2019. FINDINGS: Lung bases are unremarkable. Cardiomegaly. No significant pleural or pericardial effusion. There is moderate atherosclerosis of the aorta with stenosis of the celiac axis, SMA and renal arteri es. There is bilateral renal atrophy. The LOUISA is patent. There is serpiginous high density material i n the rectum, suspicious for active rectal bleeding. The liver, spleen, pancreas, adrenal glands are unremarkable. Severe bilateral renal atrophy. Small r ight renal cyst. Nonobstructive bowel gas pattern. Colonic diverticulosis without evidence for divert iculitis. No hydronephrosis. Bladder is decompressed. There is advanced osteoarthritis of the hips, r ight greater than left. Severe lower thoracic and mild lumbar spondylosis. IMPRESSION: 1. Abnormal serpiginous contrast material in the rectum, suspicious for active rectal hemorrhage. 2: Advanced atherosclerosis of the aorta with stenosis of the celiac axis, SMA and renal arteries. Se mariola bilateral renal atrophy. Reviewed, dictated and finalized at location A. IMPRESSION: 1. Abnormal serpiginous contrast material in the rectum, suspicious for active rectal hemorrhage. 2: Advanced atherosclerosis of the aorta with stenosis of the celiac axis, SMA and renal arteries. Severe bilateral renal atrophy.
--- NOTE | 2022-03-03 11:27 | ECG_ITS ---
Measurements Intervals Line [place] Rate: 70 P: LA: 0 QRS: -66 QRSD: 170 T: 83 QT: 466 QTc: 504 Interpretive Statements ELECTRONIC VENTRICULAR PACEMAKER NO FURTHER INTERPRETATION IS POSSIBLE ATYPICAL ECG Electronically Signed On 03-03-2022 11:36:41 CDT by Nagi Devi D.O.
[2022-03-03 11:46] LABS: Basophils Percent Auto 0.4 % (0.2-1.2); Eosinophils Absolute Auto 0.2 K/mm3 (0-0.3); Eosinophils Percent Auto 3.3 % (0-4.4); Hematocrit 35.7 % (37.0-47.0); Immature Granulocyte Absolute 0.01 K/mm3 (0.00-0.031); Immature Granulocyte Percent A 0.2 % (0-0.5); Lymphocytes Absolute Auto 0.85 K/mm3 (0.9-3.2); Lymphocytes Percent Auto 16.6 % (18.3-44.2); Mean Corpuscular HGB Conc 30.8 g/dl (32-36); Mean Corpuscular Hemoglobin 34.2 pg (26-34); Mean Corpuscular Volume 110.9 fl (80-100); Monocytes Absolute Auto 0.7 K/mm3 (0.1-0.6); Monocytes Percent Auto 13.7 % (2.6-8.5); Neutrophils Absolute Auto 3.4 K/mm3 (1.3-6.7); Neutrophils Percent Auto 65.8 % (45.5-73.1); Platelet Count Result 143 k/mm3 (150-375); Red Blood Count 3.22 M/mm3 (4.2-5.4); Red Cell Distribution Width 14.8 % (11.5-14.5); White Blood Count 5.1 K/mm3 (4.5-10.0)
[2022-03-03 11:56] LABS: Alanine Aminotransferase 20 U/L (6-35); Albumin Level 4.4 g/dL (3.5-5.1); Alkaline Phosphatase 158 U/L (38-126); Anion Gap 18 mmol/L (8-16); Aspartate Amino Transferase 25 U/L (14-36); Bilirubin,Total 0.7 mg/dL (0.2-1.3); Blood Urea Nitrogen 57 mg/dL (7-17); Carbon Dioxide 19 mmol/L (22-30); Chloride 96 mmol/L (98-107); Estimated CRCL calculation 5 ml/min; Estimated Glomerular Filt Rate 4; Glucose 201 mg/dL (65-110); Sodium 133 mmol/L (137-145)
--- NOTE | 2022-03-03 12:06 | PC.NURSE ---
Pt to CT.
[2022-03-03 12:10] LABS: INR 1.2; Partial Thromboplastin Time 33.6 SECONDS (22.3-36.8); Prothrombin Time 14.9 Seconds (11.1-14.7)
[2022-03-03 12:25] LABS: Magnesium 1.9 mg/dL (1.6-2.3)
[2022-03-03 12:42] LABS: NT Pro B Type Natriuretic Pept 13500 pg/mL (5-100); Troponin I 0.057 ng/mL (0.000-0.034)
[2022-03-03 12:45] LABS: SARS-CoV-2 RNA PCR Negative
--- NOTE | 2022-03-03 13:06 | ED.SOB ---
HPI - SOB/Dyspnea General Chief Complaint: Shortness of Breath/Dyspnea Stated Complaint: sob Time Seen by Provider: 03/03/22 11:36 Source: patient, family, RN notes reviewed and old records reviewed Mode of arrival: EMS History of Present Illness HPI Narrative: This is an 81 year old female with history of CHF, hypertension, chronic renal disease on dialysis who presents for evaluation of weakness and shortness of breath. Patient has been having pain and weakness in her lower extremities for 1 week but it got worse last night. Patient states she can barely walk. She also reports shortness of breath over the past couple of days. She denies chest pain, nausea, vomiting, fever or worsening cough. She reports bilateral leg swelling that seems to be worse. She gets dialysis Wednesday, Wednesday and Wednesday and she did receive dialysis on Wednesday. Her daughter states she is worried patient may have had a stroke. Related Data Home Medications Medication Instructions Recorded Confirmed carvedilol 3.125 mg tablet 3.125 mg PO BID 11/02/19 03/03/22 gabapentin 100 mg capsule 100 mg PO BID 11/02/19 03/03/22 insulin glargine 100 unit/mL (3 15 unit subcut HS 11/02/19 03/03/22 mL) subcutaneous pen (Basaglar KwikPen U-100 Insulin) simvastatin 10 mg tablet 10 mg PO HS 11/02/19 03/03/22 docusate sodium 100 mg tablet 100 mg PO HS PRN Constipation 11/03/19 03/03/22 colchicine 0.6 mg tablet 0.6 mg PO QMWF 11/26/19 03/03/22 ergocalciferol (vitamin D2) 1,250 50,000 unit PO WEEKLY 11/26/19 03/03/22 mcg (50,000 unit) capsule (Vitamin D2) alprazolam 0.5 mg tablet 0.5 mg PO BID PRN Anxiety 06/21/20 03/03/22 aspirin 81 mg tablet,delayed 81 mg PO DAILY 06/21/20 03/03/22 release (Aspirin Low Dose) sertraline 50 mg tablet 50 mg PO DAILY 06/21/20 03/03/22 albuterol sulfate 1.25 mg/3 mL 1.25 mg inhalation Q6H PRN 11/27/20 03/03/22 solution for nebulization Shortness Of Breath Or Wheezing midodrine 5 mg tablet 5 mg PO QMWF 05/06/21 03/03/22 acetaminophen 500 mg tablet 500 mg PO Q6H PRN Pain 05/24/21 03/03/22 (Acetaminophen Extra Strength) bumetanide 2 mg tablet 2 mg PO DAILY 05/24/21 03/03/22 colchicine 0.6 mg tablet 0.3 mg PO QMWF 05/24/21 03/03/22 diphenhydramine 25 1 tablet PO HS PRN Insomnia 05/24/21 03/03/22 mg-acetaminophen 500 mg tablet (Acetaminophen PM) guaifenesin 100 mg/5 mL oral 200 mg PO Q4H PRN Cough 05/24/21 03/03/22 liquid (Robafen) hydroxyzine HCl 25 mg tablet 25 mg PO QID PRN Itching 05/24/21 03/03/22 levothyroxine 25 mcg tablet 25 mcg PO DAILY 05/24/21 03/03/22 melatonin 3 mg tablet 3 mg PO HS PRN Insomnia 05/24/21 03/03/22 polyethylene glycol 3350 17 17 g PO DAILY PRN Constipation 05/24/21 03/03/22 gram/dose oral powder (Gavilax) tramadol 50 mg tablet 50 mg PO TID PRN Pain 05/24/21 03/03/22 pantoprazole 40 mg tablet,delayed 40 mg PO BID 03/03/22 03/03/22 release Allergies Allergy/AdvReac Type Severity Reaction Status Date / Time Penicillins Allergy Unknown Rash Verified 03/03/22 11:28 Review of Systems Constitutional: Constitutional: Denies chills, Denies fatigue and Reports weakness Eyes: Eyes: Denies change in vision and Denies photophobia ENT: Denies dizziness and Denies nasal congestion Cardiovascular: Cardiovascular: Denies chest pain and Denies rapid heart rate Respiratory: Respiratory: Denies dyspnea and Denies wheezing Gastrointestinal: Gastrointestinal: Denies abdominal pain, Denies nausea and Denies vomiting Musculoskeletal: Musculoskeletal: Reports myalgias, Denies joint swelling and Reports muscle cramps Neurologic: Denies vertigo, Denies dizziness, Denies headache(s), Denies numbness and Reports weakness PMFSH Past Medical History Medical History Abnormal esophagram Amyloidosis Anemia Arthritis Asthma Bronchitis Chronic diastolic CHF (congestive heart failure) CVA (cerebral vascular accident) Several. Affected he
--- NOTE | 2022-03-03 13:23 | PC.NURSE ---
Dr. Phipps at bedside attempting ABG draw.
[2022-03-03 13:38] LABS: Alveolar/Arterial O2 Gradient 20.4 mmHg; Base Excess ABG -5.7 mEq/l (+/-2.0); Carboxyhemoglobin 0.7 % THb (0-2.0); Fractional Inspired Oxygen 21 %; HCO3 ABG 20.4 mEq/l (22.0-26.0); Methemoglobin ABG 0.3 %THb (0-1.5); Oxygen Saturation ABG 94.5 % (95.0-100.0); Oxyhemoglobin 93.1 % THb (90.0-100.0); PCO2 ABG 42.3 mmHg (35.0-45.0); PO2 ABG 78.7 mmHg (80.0-100.0); PO2 FiO2 Ratio Arterial Blood 3.75 %; Reduced Hemoglobin 5.9 %THb (0-5.0); Site Drawn LEFT RADIAL; Total Hemoglobin 12.2 g/dL (12.0-18.0); pH ABG 7.301 (7.350-7.450)
--- NOTE | 2022-03-03 13:53 | PC.NURSE ---
Pt to ultrasound.
[2022-03-03] MEDS: FUROSEMIDE INJ 40 MG/4 ML VIAL IV PUSH (14:25)
--- NOTE | 2022-03-03 14:45 | PM.IMHP ---
H&P: HPI History of Present Illness Date/Time: 03/03/22 14:45 Chief Complaint: Weakness, worried about a stroke. Narrative: This is an 81-year-old female with history of stroke, short-term memory loss, hypertension, insulin-dependent diabetes, chronic kidney disease on hemodialysis, amyloidosis, congestive heart failure, and hypothyroidism who presented to the ER from [facility] with complaints of weakness and concerns for possible stroke. She reports increasing difficulties with everyday activities due to progressive, generalized weakness and dyspnea on exertion. She has had a couple of falls in the past month and she is now having difficulties using her right arm due to a right rotator cuff tear. More recently she has noticed a possible callused area just above her right heel that has been causing her pain with walking. She seems to be moving slower and slower and she has become deconditioned and is now getting short of breath with everyday activities. She was previously ambulating with a walker however did recently purchased a wheelchair due to the symptoms. Today she had difficulties getting out of bed due to weakness and she came in for evaluation as she was worried that she may have had a stroke. Vital signs were stable on arrival. Brain CT showed no acute findings. Her labs were reviewed and they are pretty stable when compared to prior tests. I was asked to admit the patient in this setting. At the time my evaluation she has no complaints and she denies vertigo, headache, diplopia, facial droop, dysarthria, dysphagia, chest pain, pleuritic pain, palpitations, and focal weakness. She has intermittent paresthesias in her right hand but that has been an ongoing thing that is unchanged. She has some short-term memory loss from previous stroke and that is also unchanged. Review of Systems Review of Systems: Twelve systems were reviewed. No fever, chills, or sweats. No sinus congestion or sore throat. Her appetite is good. No nausea, vomiting, or diarrhea. She leans more towards constipation. She urinates only a very small amount in the mornings. No dysuria or malodorous urine. Her glucose has been running higher than normal last couple of days. No blurry vision, polydipsia, or polyuria. Except as documented, all other systems were reviewed and are negative. COUNTS INCLUDE 234 BEDS AT THE [facility] Past Medical History Medical History (Updated 03/03/22 @ 20:52 by Lakisha Carreon PA-C) Amyloidosis This is the etiology of her renal disease. Anemia Arthritis Asthma Cerebrovascular accident Residual peripheral vision loss and short-term memory loss. Chronic diastolic congestive heart failure Depression End-stage renal disease on hemodialysis Wednesday, Wednesday, Wednesday. Essential hypertension Glaucoma Gout History of GI bleed Hypercholesteremia Hypothyroidism Interstitial cystitis Non-cardiac chest pain Obstructive sleep apnea Severe obstructive sleep apnea on polysomnogram in December 2019. Patient intolerant to CPAP. Peripheral neuropathy Persistent atrial fibrillation Reflux esophagitis Renal osteodystrophy Transient ischemic attack Type 2 diabetes mellitus Surgical History Surgical History History of appendectomy History of bilateral cataract extraction History of cholecystectomy History of colonoscopy with polypectomy History of hysterectomy History of permanent cardiac pacemaker placement Battery exchange 05/06/2021. Managed by Dr. Gregorio. Status post creation of arteriovenous fistula Right forearm. Family History Family History Father Acute myocardial infarction Mother Breast cancer Family history of congestive heart failure Sibling Family history of cardiovascular disease Family history of rheumatic fever Sister Hypertension Daughter Diabetes mellitus Other Cerebrovascular accident Family hist
[2022-03-03 16:16] LABS: Glucose Point of Care 198 mg/dl (65-105)
--- NOTE | 2022-03-03 16:16 | ADMGEN ---
This patient, Christopher Larry, was admitted to IMU Room 206-02 1540. Patient/family oriented to hospital policies and general routines including ID bracelet, bed and alarms, visiting hours, pain management, procedures, bathroom and other care routines, personal items, smoking policy, room service/diet, and visiting hours. Information on how to activate the Rapid Response Team has been discussed. Patient/Family are encouraged to report perceived risks to care and to ask questions if they do not understand what they are told or what they should do.
[2022-03-03 17:03] LABS: Troponin I 0.054 ng/mL (0.000-0.034)
[2022-03-03 19:01] LABS: Troponin I 0.055 ng/mL (0.000-0.034)
[2022-03-03 20:37] LABS: Glucose Point of Care 232 mg/dl (65-105)
[2022-03-03] MEDS: INSULIN GLARGINE (*BKC) 100 UNITS/ML 15 UNITS SUB-Q (23:36)
[2022-03-03] MEDS: ACETAMINOPHEN 500 MG TABLET PO (23:37)
[2022-03-03] MEDS: MELATONIN 3 MG TABLET PO (23:38)
[2022-03-04] VITALS (33 sets, daily range): BP systolic 110–157; BP diastolic 40–65; PULSE 60–72; RESP 16–22; TEMP 36.4–37.2; O2SAT 92–100
[2022-03-04] MEDS: GABAPENTIN 100 MG CAPSULE PO ×3 (00:05→21:05)
[2022-03-04] MEDS: SEVELAMER CARBONATE 800 MG TABLET BY MOUTH ×3 (00:05→21:05)
[2022-03-04 04:45] LABS: Basophils Percent Auto 0.5 % (0.2-1.2); Eosinophils Absolute Auto 0.1 K/mm3 (0-0.3); Eosinophils Percent Auto 3.2 % (0-4.4); Hematocrit 32.8 % (37.0-47.0); Hemoglobin 10.6 g/dL (12.0-15.0); Immature Granulocyte Absolute 0.01 K/mm3 (0.00-0.031); Immature Granulocyte Percent A 0.2 % (0-0.5); Immature Platelet Fraction Pct 5.7 % (0.9-11.2); Lymphocytes Absolute Auto 0.97 K/mm3 (0.9-3.2); Lymphocytes Percent Auto 22.2 % (18.3-44.2); Mean Corpuscular HGB Conc 32.3 g/dl (32-36); Mean Corpuscular Hemoglobin 34.9 pg (26-34); Mean Corpuscular Volume 107.9 fl (80-100); Mean Platelet Volume 10.8 fl (7.4-10.4); Monocytes Absolute Auto 0.6 K/mm3 (0.1-0.6); Monocytes Percent Auto 13.3 % (2.6-8.5); Neutrophils Absolute Auto 2.6 K/mm3 (1.3-6.7); Neutrophils Percent Auto 60.6 % (45.5-73.1); Platelet Count Result 132 k/mm3 (150-375); Red Blood Count 3.04 M/mm3 (4.2-5.4); Red Cell Distribution Width 14.5 % (11.5-14.5); White Blood Count 4.4 K/mm3 (4.5-10.0)
[2022-03-04 04:55] LABS: Anion Gap 16 mmol/L (8-16); Blood Urea Nitrogen 62 mg/dL (7-17); Calcium 8.5 mg/dL (8.4-10.2); Carbon Dioxide 18 mmol/L (22-30); Chloride 92 mmol/L (98-107); Estimated CRCL calculation 5 ml/min; Estimated Glomerular Filt Rate 4; Glucose 173 mg/dL (65-110); Hemoglobin A1C 7.4 % (<5.7); Magnesium 2.1 mg/dL (1.6-2.3); Sodium 126 mmol/L (137-145)
[2022-03-04 05:10] LABS: Iron 51 ug/dL (37-170)
[2022-03-04 05:20] LABS: Percent Iron Saturation 18 % (20-50)
[2022-03-04] MEDS: LEVOTHYROXINE SODIUM 25 MCG TABLET PO (05:56)
[2022-03-04 06:01] LABS: Folic Acid 8.9 ng/mL (2.76->20)
--- NOTE | 2022-03-04 07:33 | PCOTNOTE ---
Will complete OT evaluation after x-ray of hip and shoulder are completed. Will follow.
[2022-03-04 08:24] LABS: Glucose Point of Care 162 mg/dl (65-105)
[2022-03-04] MEDS: PANTOPRAZOLE 40 MG TABLET PO ×2 (10:30→21:05)
[2022-03-04 11:03] LABS: Hepatitis B Surface Antigen Negative (Negative)
[2022-03-04 11:21] LABS: Hepatitis B Surface Anti Res Negative
[2022-03-04 12:16] LABS: Glucose Point of Care 224 mg/dl (65-105)
--- NOTE | 2022-03-04 12:23 | PM.CNNEP ---
Assessment and Plan Assessment and plan (1) End stage renal disease: Code(s): N18.6 - End stage renal disease Status: Chronic Assessment and Plan: HD today and continue M/W/F dialysis schedule follow electrolytes, volume status, and clearance (2) Generalized weakness: Code(s): R53.1 - Weakness Status: Acute Assessment and Plan: appears multifactorial: #3 frequent falls DJD/osteoarthritis age iron deficiency CT of brain without CVA or any other pathology PT/OT as tolerated (3) Physical deconditioning: Code(s): R53.81 - Other malaise Status: Acute Assessment and Plan: see #2 (4) Anemia: Qualifiers: Anemia type: unspecified type Qualified Code(s): D64.9 - Anemia, unspecified Code(s): D64.9 - Anemia, unspecified Status: Chronic Assessment and Plan: related to ESRD evidence of iron deficiency (by anemia studies) despite H/H at goal for ESRD consider IV venofer if no infection present follow trend of H/H (5) SOB (shortness of breath): Code(s): R06.02 - Shortness of breath Status: Acute Assessment and Plan: probably related to fluid, diastolic CHF, limitations with fluid removal with HD attempt to be more aggressive with ultrafiltration with dialysis follow volume status monitor symptoms (6) Hypertension: Code(s): I10 - Essential (primary) hypertension Status: Chronic Assessment and Plan: reasonable control at this time follow trend of hemodynamics (7) Diabetes: Code(s): E11.9 - Type 2 diabetes mellitus without complications Status: Chronic Assessment and Plan: follow accuchecks glycemic control Will continue to follow. Additional Plan Patient seen and evaluated on hemodialysis treatment ([id number]). History of Present Illness Reason for Consult Consult date: 03/04/22 Reason for consult: end stage renal disease Chief Complaint Chief complaint: Weakness/dyspnea/CHF/dialysis/elevated troponin History of Present Illness Narrative: The patient is a 89y/o female with past medical history as outlined below who presented to the [facility] ER from her assisted living facility with complaints of weakness, shortness of breath and concern for a stroke. Most of the information I have obtained is from review of the electronic medical record as well as discussion with the physician/ nurses involved in her care as well as the patient's self as is difficult to get a full incomplete history from the patient. The patient states that she has had increasing difficulty with her normal activities of daily living due to progressive and generalized weakness in association with shortness of breath on exertion. She reports a couple falls in the last month and is now having difficulty using her right arm in conjunction with ambulating due to severity of her lower extremity weakness and possibly pain. The pain in her lower extremity seems related to a right heel callus that makes it quite difficult for her to ambulate. Coupled with her shortness of breath, she has noted that her ambulatory status has decreased significantly and she has become more deconditioned to the point now where she uses a wheelchair for mobility. On the day of admission, she had quite severe difficulty in just getting out of bed due to the weakness and was sent to the ER as she had concerns that she may have had a stroke. Workup and evaluation in the emergency room demonstrated labs consistent with her known history of end-stage renal disease and her CT scan of her brain showed no acute intracranial pathology. She denied any other complaints with regard to headaches, vertigo, diplopia, facial droop, dysarthria, dysphagia, chest pain, palpitations, dizziness, or lightheadedness. Given her constellation of symptoms as well as her chronic medical issues/problems, she was admitted th
--- NOTE | 2022-03-04 12:23 | P.CONNP_ITS ---
Assessment and Plan Assessment and plan (1) End stage renal disease: Code(s): N18.6 - End stage renal disease Status: Chronic Assessment and Plan: * HD today and continue M/W/F dialysis schedule * follow electrolytes, volume status, and clearance (2) Generalized weakness: Code(s): R53.1 - Weakness Status: Acute Assessment and Plan: * appears multifactorial: * #3 * frequent falls * DJD/osteoarthritis * age * iron deficiency * CT of brain without CVA or any other pathology * PT/OT as tolerated (3) Physical deconditioning: Code(s): R53.81 - Other malaise Status: Acute Assessment and Plan: * see #2 (4) Anemia: Qualifiers: Anemia type: unspecified type Qualified Code(s): D64.9 - Anemia, unspecified Code(s): D64.9 - Anemia, unspecified Status: Chronic Assessment and Plan: * related to ESRD * evidence of iron deficiency (by anemia studies) despite H/H at goal for ESRD * consider IV venofer if no infection present * follow trend of H/H (5) SOB (shortness of breath): Code(s): R06.02 - Shortness of breath Status: Acute Assessment and Plan: * probably related to fluid, diastolic CHF, limitations with fluid removal with HD * attempt to be more aggressive with ultrafiltration with dialysis * follow volume status * monitor symptoms (6) Hypertension: Code(s): I10 - Essential (primary) hypertension Status: Chronic Assessment and Plan: * reasonable control at this time * follow trend of hemodynamics (7) Diabetes: Code(s): E11.9 - Type 2 diabetes mellitus without complications Status: Chronic Assessment and Plan: * follow accuchecks * glycemic control Will continue to follow. Additional Plan Patient seen and evaluated on hemodialysis treatment ([id number]). History of Present Illness Reason for Consult Consult date: 03/04/22 Reason for consult: end stage renal disease Chief Complaint Chief complaint: Weakness/dyspnea/CHF/dialysis/elevated troponin History of Present Illness Narrative: The patient is a 89y/o female with past medical history as outlined below who presented to the [facility] ER from her assisted living f acility with complaints of weakness, shortness of breath and concern for a stroke. Most of the information I have obtained is from review of the electronic medical record as well as discussion with the physician/ nurses involved in her care as well as the patient's self as is difficult to get a full incomplete history from the patient. The patient states that she has had increasing difficulty with her normal activities of daily living due to progressive and generalized weakness in association with shortness of breath on exertion. She reports a couple falls in the last month and is now having difficulty using her right arm in conjunction with ambulating due to severity of her lower extremity weakness and possibly pain. The pain in her lower extremity seems related to a right heel callus that makes it quite difficult for her to ambulate. Coupled with her shortness of breath, she has noted that her ambulatory status has decreased significantly and she has become more deconditioned to the point now where she uses a wheelchair for mobility. On the day of admission, she had quite severe difficulty in just getting out of bed due to the weakness and was sent to the ER as she had conc erns that she may have had a stroke. Workup and evaluatio
--- NOTE | 2022-03-04 13:04 | PC.NURSE ---
1210-to dialysis room for treatment via bed accompanied by staff
--- NOTE | 2022-03-04 13:15 | PM.IMPN ---
Progress Note: A&P Assessment and Plan (1) Generalized weakness: Code(s): R53.1 - Weakness Status: Acute (2) Metabolic acidosis: Code(s): E87.2 - Acidosis Status: Acute (3) Elevated troponin: Code(s): R77.8 - Other specified abnormalities of plasma proteins Status: Acute (4) Physical deconditioning: Code(s): R53.81 - Other malaise Status: Acute (5) Macrocytic anemia: Code(s): D53.9 - Nutritional anemia, unspecified Status: Acute (6) End-stage renal disease on hemodialysis: Code(s): N18.6 - End stage renal disease; Z99.2 - Dependence on renal dialysis Status: Acute (7) Type 2 diabetes mellitus: Code(s): E11.9 - Type 2 diabetes mellitus without complications Status: Acute (8) Hypothyroidism: Code(s): E03.9 - Hypothyroidism, unspecified Status: Acute (9) Obstructive sleep apnea: Code(s): G47.33 - Obstructive sleep apnea (adult) (pediatric) Status: Acute (10) Chronic diastolic congestive heart failure: Code(s): I50.32 - Chronic diastolic (congestive) heart failure Status: Acute (11) Right shoulder pain: Code(s): M25.511 - Pain in right shoulder Status: Acute (12) Right hip pain: Code(s): M25.551 - Pain in right hip Status: Acute Plan The patient presented to the ED with weakness and concerns that she is having a stroke. She has become progressively more weak with several falls in the last couple of months. She has mobility issues with her right arm due to shoulder pain as well as right hip and right heel pain. In the ED, she was hemodynamically stable. She had a macrocytic anemia with hgb 11.0 and mild low plt count. She has SHANE and ABG showing 7.30/42/79 on RA. She had a metabolic gap acidosis with Anion Gap at 18. Glucose was 201. [place] related to her renal failure. Potassium 5.0 and Na 130. COVID was negative. 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 CXR showing scarring at the right lung apex and cardiomegaly. Lower extremity venous Doppler was negative for DVT. Shoulder x-ray shows polyarticular osteoarthritis and right rotator cuff tear. Right hip x-ray shows severe osteoarthritis and possible avascular necrosis. Fall precautions were initiated. PT/OT consulted. B12 and folate levels were normal. Nephrology was consulted for dialysis orders. Sliding scale insulin, Accu-Cheks, and hypoglycemic protocol started. EKG showed paced rhythm. Troponin were mildly elevated and flat and due to lack of chest pain, these are likely elevated in the setting of her end-stage renal disease. BNP 13,500 so consider fluid overload as etiology of her elevated troponins. Home medications were resumed as appropriate. Metabolic acidosis has persisted. Check cortisol level. TSH is normal. Appreciate Nephrology input. Use dialysis to control fluid status and to correct acidosis. Check lactic acid and BHOB if persistent after HD. Continue PT/OT. Care coordination to arrange for possible SNF. DVT prophylaxis - SCDs Code status - Full Subjective Date/time seen: 03/04/22 13:15 Interval history: 81yo female with hx of ESRD, CVA and HTN here for weakness. She denies chest pain but feels short of breath worse with activity. Also complains of leg pain but this is more chronic. Cannot tolerate compression hose. No n/v. No odynophagia or dysphagia. Exam Narrative: AF 98.5 146/52 69 22 98% ra Gen - NARD lying semi-recumbent in bed undergoing HD Chest - lungs clear anteriorly, nml RR CV - RRR S1/S2. Tele showing paced rhythm Abd - Soft, obese, NT Ext - 1+ pitting pedal edema Psych - Nml mood and affect Skin - Warm and dry Objective Data Vital Signs Vital Signs: Vital Signs - 24 hr 03/03/22 13:21 03/03/22 14:17 03/03/22 14:30 Temperature Pulse Rate 66 Respiratory Rate 14 16 Blood Pressure 108/54 L 135/53 L Pulse Oximetry 99 Oxygen Delivery
[2022-03-04 16:35] LABS: Glucose Point of Care 100 mg/dl (65-105)
[2022-03-04] MEDS: COLCHICINE 0.3 MG TABLET PO (16:39)
[2022-03-04] MEDS: ASPIRIN 81 MG ENTERIC TABLET PO (16:40)
[2022-03-04] MEDS: SERTRALINE HCL 50 MG TABLET PO (16:40)
[2022-03-04 20:21] LABS: Glucose Point of Care 168 mg/dl (65-105)
[2022-03-04] MEDS: INSULIN GLARGINE (*BKC) 100 UNITS/ML 15 UNITS SUB-Q (21:05)
[2022-03-04] MEDS: carvediloL 3.125 MG TABLET PO (21:05)
[2022-03-04] MEDS: ACETAMINOPHEN 500 MG TABLET PO (21:10)
[2022-03-04] MEDS: MELATONIN 3 MG TABLET PO (21:11)
[2022-03-05] VITALS (11 sets, daily range): BP systolic 105–143; BP diastolic 43–57; PULSE 69–70; RESP 16–21; TEMP 36.2–37.3; O2SAT 93–100
[2022-03-05 05:11] LABS: Hemoglobin 10.7 g/dL (12.0-15.0); Mean Corpuscular HGB Conc 31.5 g/dl (32-36); Mean Corpuscular Hemoglobin 34.3 pg (26-34); Mean Platelet Volume 10.5 fl (7.4-10.4); Platelet Count Result 147 k/mm3 (150-375); Red Blood Count 3.12 M/mm3 (4.2-5.4); Red Cell Distribution Width 14.8 % (11.5-14.5); White Blood Count 3.6 K/mm3 (4.5-10.0)
[2022-03-05 05:26] LABS: Albumin Level 3.8 g/dL (3.5-5.1); Anion Gap 10 mmol/L (8-16); Blood Urea Nitrogen 38 mg/dL (7-17); Calcium 8.9 mg/dL (8.4-10.2); Carbon Dioxide 28 mmol/L (22-30); Chloride 96 mmol/L (98-107); Estimated CRCL calculation 6 ml/min; Estimated Glomerular Filt Rate 6; Glucose 106 mg/dL (65-110); Phosphorus 6.4 mg/dL (2.5-4.5); Potassium 4.2 mmol/L (3.4-5.0); Sodium 134 mmol/L (137-145)
[2022-03-05] MEDS: LEVOTHYROXINE SODIUM 25 MCG TABLET PO (06:25)
[2022-03-05 08:35] LABS: Glucose Point of Care 126 mg/dl (65-105)
[2022-03-05] MEDS: PANTOPRAZOLE 40 MG TABLET PO ×2 (09:50→22:21)
--- NOTE | 2022-03-05 12:26 | PM.PNNEP ---
Progress Note: A&P Assessment and Plan (1) End stage renal disease: Code(s): N18.6 - End stage renal disease Status: Chronic Assessment and Plan: HD tomorrow and continue M/W/F dialysis schedule follow electrolytes, volume status, and clearance (2) Generalized weakness: Code(s): R53.1 - Weakness Status: Acute Assessment and Plan: appears multifactorial: #3 frequent falls DJD/osteoarthritis age iron deficiency CT of brain without CVA or any other pathology PT/OT as tolerated (3) Physical deconditioning: Code(s): R53.81 - Other malaise Status: Acute Assessment and Plan: see #2 (4) Anemia: Qualifiers: Anemia type: unspecified type Qualified Code(s): D64.9 - Anemia, unspecified Code(s): D64.9 - Anemia, unspecified Status: Chronic Assessment and Plan: related to ESRD evidence of iron deficiency (by anemia studies) despite H/H at goal for ESRD consider IV venofer if no infection present follow trend of H/H (5) SOB (shortness of breath): Code(s): R06.02 - Shortness of breath Status: Acute Assessment and Plan: probably related to fluid, diastolic CHF, limitations with fluid removal with HD attempt to be more aggressive with ultrafiltration with dialysis follow volume status monitor symptoms (6) Hypertension: Code(s): I10 - Essential (primary) hypertension Status: Chronic Assessment and Plan: reasonable control at this time follow trend of hemodynamics (7) Diabetes: Code(s): E11.9 - Type 2 diabetes mellitus without complications Status: Chronic Assessment and Plan: follow accuchecks glycemic control Will continue to follow. Subjective Date/time seen: 03/05/22 12:26 Tolerated dialysis yesterday without any issues or problems; still feels weak and sometimes dizzy when she stands as well; working with PT/OT as tolerated; major complaints are related to arthritis/degenerative joint disease as noted by admission imaging. Exam Narrative: General: WD/WN female in NAD Heart: normal S1 and S2; no rub Lungs: clear to auscultation Abdomen: soft, nontender, nondistended, positive bowel sounds Extremities: no cyanosis or clubbing; trace edema Skin: warm and dry Objective Data Vital Signs Vital Signs: Vital Signs Temp Pulse Resp BP Pulse Ox O2 Del Method 03/05/22 12:00 70 18 96 Room Air 03/05/22 08:00 70 18 96 Room Air 03/05/22 12:00 70 03/05/22 10:00 70 03/05/22 12:00 37.3 C 70 18 105/48 L 96 03/05/22 08:00 36.7 C 70 18 121/43 L 93 03/05/22 08:00 70 03/05/22 06:00 70 03/05/22 04:00 Room Air 03/05/22 04:00 70 03/05/22 04:00 36.7 C 70 18 143/57 H 96 03/05/22 02:00 70 03/05/22 00:00 70 03/05/22 00:00 Room Air 03/04/22 23:22 36.6 C 70 20 130/47 L 97 03/04/22 22:00 70 03/04/22 20:00 70 03/04/22 20:00 Room Air 03/04/22 19:58 36.5 C 70 20 134/45 L 97 03/04/22 18:00 70 Intake/Output Intake/Output: Intake & Output 03/02/22 03/03/22 03/04/22 03/05/22 23:59 23:59 23:59 23:59 Intake Total 240 660 700 Output Total 0 3001 Balance 240 -2341 700 Meds/Results Medications: Active Medications Generic Name Dose Route Start Last Admin Trade Name Freq PRN Reason Stop Dose Admin Acetaminophen 500 mg 03/03/22 22:06 03/04/22 21:10 Acetaminophen 500 Mg Tablet PO 500 mg Q6H PRN Administration MILD Pain Albuterol 2 puff 03/03/22 22:06 Albuterol Sulfate (*Sp) Aerosol 1 Puff INHALATION Q6HRT PRN Shortness Of Breath Alprazolam 0.5 mg 03/05/22 15:52 Alprazolam (*Crx) 0.5 Mg Tablet PO BID PRN Anxiety Aspirin 81 mg 03/04/22 12:00 03/05/22 13:47 Aspirin 81 Mg Enteric Tablet PO 81 mg 1200 ANISA Administration Bumetanide
--- NOTE | 2022-03-05 12:26 | P.PNNP_ITS ---
Progress Note: A&P Assessment and Plan (1) End stage renal disease: Code(s): N18.6 - End stage renal disease Status: Chronic Assessment and Plan: * HD tomorrow and continue M/W/F dialysis schedule * follow electrolytes, volume status, and clearance (2) Generalized weakness: Code(s): R53.1 - Weakness Status: Acute Assessment and Plan: * appears multifactorial: * #3 * frequent falls * DJD/osteoarthritis * age * iron deficiency * CT of brain without CVA or any other pathology * PT/OT as tolerated (3) Physical deconditioning: Code(s): R53.81 - Other malaise Status: Acute Assessment and Plan: * see #2 (4) Anemia: Qualifiers: Anemia type: unspecified type Qualified Code(s): D64.9 - Anemia, unspecified Code(s): D64.9 - Anemia, unspecified Status: Chronic Assessment and Plan: * related to ESRD * evidence of iron deficiency (by anemia studies) despite H/H at goal for ESRD * consider IV venofer if no infection present * follow trend of H/H (5) SOB (shortness of breath): Code(s): R06.02 - Shortness of breath Status: Acute Assessment and Plan: * probably related to fluid, diastolic CHF, limitations with fluid removal with HD * attempt to be more aggressive with ultrafiltration with dialysis * follow volume status * monitor symptoms (6) Hypertension: Code(s): I10 - Essential (primary) hypertension Status: Chronic Assessment and Plan: * reasonable control at this time * follow trend of hemodynamics (7) Diabetes: Code(s): E11.9 - Type 2 diabetes mellitus without complications Status: Chronic Assessment and Plan: * follow accuchecks * glycemic control Will continue to follow. Subjective Date/time seen: 03/05/22 12:26 Tolerated dialysis yesterday without any issues or problems; still feels weak and sometimes dizzy when she stands as well; working with PT/OT as tolerated; major complaints are related to arthritis/degenerative joint disease as noted by admission imaging. Exam Narrative: General: WD/WN female in NAD Heart: normal S1 and S2; no rub Lungs: clear to auscultation Abdomen: soft, nontender, nondistended, positive bowel sounds Extremities: no cyanosis or clubbing; trace edema Skin: warm and dry Objective Data Vital Signs Vital Signs: Vital Signs Temp Pulse Resp BP Pulse Ox O2 Del Method 03/05/22 12:00 70 18 96 Room Air 03/05/22 08:00 70 18 96 Room Air 03/05/22 12:00 70 03/05/22 10:00 70 03/05/22 12:00 37.3 C 70 18 105/48 L 96 03/05/22 08:00 36.7 C 70 18 121/43 L 93 03/05/22 08:00 70 03/05/22 06:00 70 03/05/22 04:00 Room Air 03/05/22 04:00 70 03/05/22 04:00 36.7 C 70 18 143/57 H 96 03/05/22 02:00 70 03/05/22 00:00 70 03/05/22 00:00 Room Air 03/04/22 23:22 36.6 C 70 20 130/47 L 97 03/04/22 22:00 70 03/04/22 20:00 70 03/04/22 20:00 Room Air 03/04/22 19:58 36.5 C 70 20 134/45 L 97 03/04/22 18:00 70 Intake/Output Intake/Output:
[2022-03-05 12:31] LABS: Glucose Point of Care 197 mg/dl (65-105)
--- NOTE | 2022-03-05 13:36 | PM.IMPN ---
Progress Note: A&P Assessment and Plan (1) Generalized weakness: Code(s): R53.1 - Weakness Status: Acute (2) Metabolic acidosis: Code(s): E87.2 - Acidosis Status: Acute (3) Elevated troponin: Code(s): R77.8 - Other specified abnormalities of plasma proteins Status: Acute (4) Physical deconditioning: Code(s): R53.81 - Other malaise Status: Acute (5) Macrocytic anemia: Code(s): D53.9 - Nutritional anemia, unspecified Status: Acute (6) End-stage renal disease on hemodialysis: Code(s): N18.6 - End stage renal disease; Z99.2 - Dependence on renal dialysis Status: Acute (7) Type 2 diabetes mellitus: Code(s): E11.9 - Type 2 diabetes mellitus without complications Status: Acute (8) Hypothyroidism: Code(s): E03.9 - Hypothyroidism, unspecified Status: Acute (9) Obstructive sleep apnea: Code(s): G47.33 - Obstructive sleep apnea (adult) (pediatric) Status: Acute (10) Chronic diastolic congestive heart failure: Code(s): I50.32 - Chronic diastolic (congestive) heart failure Status: Acute (11) Right shoulder pain: Code(s): M25.511 - Pain in right shoulder Status: Acute (12) Right hip pain: Code(s): M25.551 - Pain in right hip Status: Acute Plan The patient presented to the ED with weakness and concerns that she is having a stroke. She has become progressively more weak with several falls in the last couple of months. She has mobility issues with her right arm due to shoulder pain as well as right hip and right heel pain. In the ED, she was hemodynamically stable. She had a macrocytic anemia with hgb 11.0 and mild low plt count. She has SHANE (unable to tolerate CPAP) and ABG showing 7.30/42/79 on RA. She had a metabolic gap acidosis with Anion Gap at 18. Glucose was 201. Potassium 5.0 and Na 130. [place] the metabolic acidosis and hyperkalemia related to her renal failure. COVID was negative. 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 CXR showing scarring at the right lung apex and cardiomegaly. Lower extremity venous Doppler was negative for DVT. Shoulder x-ray shows polyarticular osteoarthritis and right rotator cuff tear. Right hip x-ray shows severe osteoarthritis and possible avascular necrosis. Fall precautions were initiated. PT/OT consulted. B12 and folate levels were normal. Nephrology was consulted for dialysis orders. Sliding scale insulin, Accu-Cheks, and hypoglycemic protocol started. EKG showed paced rhythm. Troponin were mildly elevated and flat and due to lack of chest pain, these are likely elevated in the setting of her end-stage renal disease. BNP 13,500 so consider fluid overload as etiology of her elevated troponins. Home medications were resumed as appropriate. Metabolic acidosis resolved with HD. Cortisol level normal. TSH is normal. Appreciate Nephrology input. Continue to use dialysis to control fluid status and electrolytes. Continue PT/OT. Care coordination to arrange for SNF. Check Echo. Check CT lumber spine without contrast to assess for spinal stenosis (no MR due to PM). DVT prophylaxis - Heparin Code status - Full Subjective Date/time seen: 03/05/22 13:36 Interval history: 81yo female with hx of ESRD, CVA and HTN here for weakness. Complains of right heel callus that causes her pain with walking. Having difficulty standing. Patient uses a walker and WC at her [facility]. She does have low back pain but chronic and without change. She denies CP, SOB, cough nausea of vomiting. Does feel lightheaded with standing Exam Narrative: AF 99.2 105/48 70 18 96% ra Gen - NARD Chest - L>R bibasilar inspiratory crackles. nml RR CV - RRR S1/S2 +murmur Abd - Soft, obese, NT Ext - trace pedal edema. thrill and bruit RUE Psych - Nml mood and affect Neuro - 4/5 hip flexures. no ankle clonus. Skin - Warm and dry. small callus right posterior francine
[2022-03-05] MEDS: ASPIRIN 81 MG ENTERIC TABLET PO (13:47)
[2022-03-05] MEDS: BUMETANIDE 1 MG TABLET 2 MG PO (13:47)
[2022-03-05] MEDS: SERTRALINE HCL 50 MG TABLET PO (13:48)
[2022-03-05] MEDS: GABAPENTIN 100 MG CAPSULE PO ×2 (13:48→22:20)
[2022-03-05] MEDS: carvediloL 3.125 MG TABLET PO ×2 (13:48→22:20)
[2022-03-05] MEDS: SEVELAMER CARBONATE 800 MG TABLET BY MOUTH ×3 (13:49→22:21)
[2022-03-05 16:20] LABS: Glucose Point of Care 265 mg/dl (65-105)
[2022-03-05 16:44] LABS: Hematocrit 36.1 % (37.0-47.0); Hemoglobin 11.3 g/dL (12.0-15.0)
--- NOTE | 2022-03-05 16:45 | PC.NURSE ---
This patient, Christopher Larry, was transferred to [[id number] ] on 03/05/22 at 1645. Personal belongings sent with patient. Report given to [ Fouzia SHUKLA]. Appropriate documentation sent with patient.
--- NOTE | 2022-03-05 16:52 | PC.NURSE ---
This patient, Christopher Larry, was received from [[facility]] on 03/05/22 at 1652. Patient/family oriented to unit policies and routines
[2022-03-05] MEDS: INSULIN ASPART (*BKC) 100 UNITS/ML SUB-Q (16:56)
[2022-03-05 21:40] LABS: Hematocrit 32.9 % (37.0-47.0); Hemoglobin 10.5 g/dL (12.0-15.0)
[2022-03-05] MEDS: MELATONIN 3 MG TABLET PO (22:19)
[2022-03-05] MEDS: traMADol HCL (*CRX) 50 MG TABLET PO (22:19)
[2022-03-05] MEDS: HEPARIN SODIUM 5,000 UNITS/ML VIAL 5000 UNITS SUB-Q (22:20)
[2022-03-05] MEDS: TOLNAFTATE 1% POWDER 45 GM BTL 1 APPLIC TOPICAL (22:21)
[2022-03-05] MEDS: SIMVASTATIN 10 MG TABLET PO (22:21)
[2022-03-05] MEDS: INSULIN GLARGINE (*BKC) 100 UNITS/ML 15 UNITS SUB-Q (22:29)
[2022-03-06] VITALS (22 sets, daily range): BP systolic 116–162; BP diastolic 38–70; PULSE 69–80; RESP 16–21; TEMP 34.7–36.6; O2SAT 95–100
--- NOTE | 2022-03-06 | ECHO_ITS ---
Patient Info Name: Christopher Larry Age: 81 years : 1940 Gender: Female Ht: 63 in Wt: 227 lbs BSA: 2.19 m2 HR: 70 bpm BP: 153 / 62 mmHg Heart Rhythm: Sinus Rhythm, Paced Technical Quality: Fair Exam Date: 03/06/2022 8:42 AM Exam Location: [facility] Card Pulmonary Patient Status: Inpatient Admit Date: 03/05/2022 Staff Ordering Physician: Aguilar Reddy MD Ldr Rn: Sharmin Ramirez RDCS Attending Provider: Aguilar Reddy MD Exam Type: CA echo doppler color flow Study Info Indications - murmur, weakness Complete two-dimensional, color flow and Doppler transthoracic echocardiogram is performed. Summary 1. Complete two-dimensional, color flow and Doppler transthoracic echocardiogram is performed. 2. There is mild concentric increased left ventricular wall thickness. 3. Left ventricular systolic function is hyperdynamic, estimated at >70%. 4. Marked biatrial dilation. 5. Pacemaker lead noted. 6. Mild sclerosis of the aortic valve. 7. Small amount of aortic and pulmonic regurgitation. 8. Moderate amount of mitral and tricuspid regurgitation. 9. Compared to examination from November of 2020 there are no differences. Left Ventricle Left ventricular chamber dimension is normal. Left ventricular systolic function is hyperdynamic, estimated at >70%. There is mild concentric increased left ventricular wall thickness. The left ventricular diastolic function is grade I diastolic dysfunction. Right Ventricle Right ventricular chamber dimension is normal. Linear artifact in right ventricle suggestive of catheter(s), pacemaker lead(s), or ICD lead(s). Left Atria Left atrial chamber dimension is severely enlarged. Right Atria Right atrial chamber dimension is mildly enlarged. Aortic Valve The aortic valve is trileaflet. There is mild aortic valve sclerosis. There is mild aortic valve regurgitation. Pulmonic Valve The pulmonic valve is not well visualized. There is mild pulmonic regurgitation. Mitral Valve The mitral valve has normal leaflets. There is mild to moderate mitral valve regurgitation. The mitral valve annulus is mildly calcified. Tricuspid Valve The tricuspid valve leaflets are normal. There is mild to moderate tricuspid valve regurgitation. Moderate pulmonary hypertension, estimated pulmonary arterial systolic pressure is 52 mmHg. Pericardium/Pleural The pericardium appears normal. Aorta The aortic root size at the sinus of Valsalva is normal. Left Ventricular Outflow Tract Name Value Normal LVOT 2D LVOT Diameter 2.0 cm LVOT Doppler LVOT Peak Gradient 5 mmHg LVOT Mean Gradient 3 mmHg LVOT VTI 28 cm LVOT VTI/AV VTI Ratio 0.6 LVOT Stroke Volume 86 ml LVOT CO 6.1 l/min LVOT CI 2.8 l/min/m2 Pulmonic Valve Name Value Normal
[2022-03-06 01:01] LABS: Glucose Point of Care 179 mg/dl (65-105)
[2022-03-06 04:07] LABS: Hematocrit 32.6 % (37.0-47.0); Hemoglobin 10.3 g/dL (12.0-15.0)
[2022-03-06] MEDS: LEVOTHYROXINE SODIUM 25 MCG TABLET PO (06:41)
[2022-03-06 07:48] LABS: Glucose Point of Care 143 mg/dl (65-105)
[2022-03-06] MEDS: HEPARIN SODIUM 5,000 UNITS/ML VIAL 5000 UNITS SUB-Q ×2 (08:01→20:39)
[2022-03-06] MEDS: TOLNAFTATE 1% POWDER 45 GM BTL 1 APPLIC TOPICAL ×2 (08:01→20:40)
[2022-03-06] MEDS: PANTOPRAZOLE 40 MG TABLET PO ×2 (08:01→20:40)
--- NOTE | 2022-03-06 08:44 | PCPTNOTE ---
The patient treatment was not able to be completed this morning 03/06/2022 due to patient having a procedure done and patient having to go straight to dialysis after, per RN. Will plan to continue treatment per plan of care.
--- NOTE | 2022-03-06 09:15 | PM.IMPN ---
Progress Note: A&P Assessment and Plan (1) Generalized weakness: Code(s): R53.1 - Weakness Status: Acute (2) Metabolic acidosis: Code(s): E87.2 - Acidosis Status: Acute (3) Elevated troponin: Code(s): R77.8 - Other specified abnormalities of plasma proteins Status: Acute (4) Physical deconditioning: Code(s): R53.81 - Other malaise Status: Acute (5) Macrocytic anemia: Code(s): D53.9 - Nutritional anemia, unspecified Status: Acute (6) End-stage renal disease on hemodialysis: Code(s): N18.6 - End stage renal disease; Z99.2 - Dependence on renal dialysis Status: Acute (7) Type 2 diabetes mellitus: Code(s): E11.9 - Type 2 diabetes mellitus without complications Status: Acute (8) Hypothyroidism: Code(s): E03.9 - Hypothyroidism, unspecified Status: Acute (9) Obstructive sleep apnea: Code(s): G47.33 - Obstructive sleep apnea (adult) (pediatric) Status: Acute (10) Chronic diastolic congestive heart failure: Code(s): I50.32 - Chronic diastolic (congestive) heart failure Status: Acute (11) Right shoulder pain: Code(s): M25.511 - Pain in right shoulder Status: Acute (12) Right hip pain: Code(s): M25.551 - Pain in right hip Status: Acute (13) Rectal bleeding: Code(s): K62.5 - Hemorrhage of anus and rectum Status: Acute Plan The patient presented to the ED with weakness and concerns that she is having a stroke. She has become progressively more weak with several falls in the last couple of months. She has mobility issues with her right arm due to shoulder pain as well as right hip and right heel pain. In the ED, she was hemodynamically stable. She had a macrocytic anemia with hgb 11.0 and mild low plt count. She has SHANE (unable to tolerate CPAP) and ABG showing 7.30/42/79 on RA. She had a metabolic gap acidosis with Anion Gap at 18. Glucose was 201. Potassium 5.0 and Na 130. [place] the metabolic acidosis and hyperkalemia related to her renal failure. COVID was negative. 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 CXR showing scarring at the right lung apex and cardiomegaly. Lower extremity venous Doppler was negative for DVT. Shoulder x-ray shows polyarticular osteoarthritis and right rotator cuff tear. Right hip x-ray shows severe osteoarthritis and possible avascular necrosis. Fall precautions were initiated. PT/OT consulted. B12 and folate levels were normal. Nephrology was consulted for dialysis orders. Sliding scale insulin, Accu-Cheks, and hypoglycemic protocol started. EKG showed paced rhythm. Troponin were mildly elevated and flat and due to lack of chest pain, these are likely elevated in the setting of her end-stage renal disease. BNP 13,500 so consider fluid overload as etiology of her elevated troponins. Home medications were resumed as appropriate. Metabolic acidosis resolved with HD. Cortisol level normal. TSH is normal. Appreciate Nephrology input. Continue to use dialysis to control fluid status and electrolytes. Echo pending. CT lumber spine showing mild-moderate central canal stenosis. Rectal bleeding felt related to her hemorrhoids given her colonoscopy findings, her hx of episodic rectal bleeding and stable HH. Follow for worsening rectal bleeding. Will check cervical spine to exclude cervical spinal stenosis. HD planned for today. Continue PT/OT. Care coordination to arrange for SNF. DVT prophylaxis - Heparin Code status - Full Subjective Date/time seen: 03/06/22 09:15 Interval history: 81yo female with hx of ESRD, CVA and HTN here for weakness. Still feels weak diffusely. Legs feel 'heavy' and has trouble lifting them. Not able to walk yet. Did have an episode of rectal bleeding as BRBPR x 1 yesterday with BM. She has had this in the past and it is intermittent. Colonoscopy 2017 showing a few small diverticuli and a few large size uncom
--- NOTE | 2022-03-06 09:32 | PCOTNOTE ---
Attempted to see patient this am, however patient going for CT scan and then straight to dialysis.
--- NOTE | 2022-03-06 09:48 | PC.NURSE ---
Patient transported to dialysis 0940am
--- NOTE | 2022-03-06 10:23 | P.PNNP_ITS ---
Progress Note: A&P Assessment and Plan (1) End stage renal disease: Code(s): N18.6 - End stage renal disease Status: Chronic Assessment and Plan: * HD today and continue M/W/F dialysis schedule * follow electrolytes, volume status, and clearance (2) Generalized weakness: Code(s): R53.1 - Weakness Status: Acute Assessment and Plan: * appears multifactorial: * #3 * frequent falls * DJD/osteoarthritis * age * iron deficiency * CT of brain without CVA or any other pathology * PT/OT as tolerated (3) Physical deconditioning: Code(s): R53.81 - Other malaise Status: Acute Assessment and Plan: * see #2 (4) Anemia: Qualifiers: Anemia type: unspecified type Qualified Code(s): D64.9 - Anemia, unspecified Code(s): D64.9 - Anemia, unspecified Status: Chronic Assessment and Plan: * related to ESRD but BRBPR could be contributing * evidence of iron deficiency (by anemia studies) despite H/H at goal for ESRD * consider IV venofer if no infection present * follow trend of H/H (5) SOB (shortness of breath): Code(s): R06.02 - Shortness of breath Status: Acute Assessment and Plan: * probably related to fluid, diastolic CHF, limitations with fluid removal with HD * attempt to be more aggressive with ultrafiltration with dialysis * follow volume status * monitor symptoms (6) Hypertension: Code(s): I10 - Essential (primary) hypertension Status: Chronic Assessment and Plan: * reasonable control at this time * follow trend of hemodynamics (7) Diabetes: Code(s): E11.9 - Type 2 diabetes mellitus without complications Status: Chronic Assessment and Plan: * follow accuchecks * glycemic control Will continue to follow. Subjective Date/time seen: 03/06/22 10:23 Patient tolerating dialysis treatment at the time of my visit (seen on HD at 10:10AM); still feels weak and continues to have difficulty walking in general; results of lumbar spine CT scan done this morning noted; still feels quite weak with difficulty moving her lower extremities; episode of BRBPR yesterday as well. Exam Narrative: General: WD/WN female in NAD Heart: normal S1 and S2; no rub Lungs: clear anteriorly bu decreased at base Abdomen: soft, nontender, nondistended, positive bowel sounds Extremities: no cyanosis or clubbing; trace edema Skin: warm and intact Objective Data Vital Signs Vital Signs: Vital Signs Temp Pulse Resp BP Pulse Ox O2 Del Method 03/06/22 09:56 70 142/64 H 03/06/22 09:45 36.5 C 71 18 128/55 L 03/06/22 07:50 Room Air 03/06/22 06:00 36.2 C L 79 21 H 116/40 L 100 03/05/22 22:00 36.2 C L 69 21 H 110/50 L 100 03/05/22 17:07 Room Air 03/05/22 16:00 36.7 C 70 16 121/47 L 97 03/05/22 14:00 70 03/05/22 13:48 70 03/05/22 12:00 70 18 96 Room Air 03/05/22 12:00 70 03/05/22 12:00 37.3 C 70 18 105/48 L 96 Intake/Output Intake/Output: Intake & Output 03/03/22 03/04/22 03/05/22 03/06/22 23:59 23:59 23:59 23:59 Intake Total 240 660 940 440 Output Total 0 3001 0
--- NOTE | 2022-03-06 10:23 | PM.PNNEP ---
Progress Note: A&P Assessment and Plan (1) End stage renal disease: Code(s): N18.6 - End stage renal disease Status: Chronic Assessment and Plan: HD today and continue M/W/F dialysis schedule follow electrolytes, volume status, and clearance (2) Generalized weakness: Code(s): R53.1 - Weakness Status: Acute Assessment and Plan: appears multifactorial: #3 frequent falls DJD/osteoarthritis age iron deficiency CT of brain without CVA or any other pathology PT/OT as tolerated (3) Physical deconditioning: Code(s): R53.81 - Other malaise Status: Acute Assessment and Plan: see #2 (4) Anemia: Qualifiers: Anemia type: unspecified type Qualified Code(s): D64.9 - Anemia, unspecified Code(s): D64.9 - Anemia, unspecified Status: Chronic Assessment and Plan: related to ESRD but BRBPR could be contributing evidence of iron deficiency (by anemia studies) despite H/H at goal for ESRD consider IV venofer if no infection present follow trend of H/H (5) SOB (shortness of breath): Code(s): R06.02 - Shortness of breath Status: Acute Assessment and Plan: probably related to fluid, diastolic CHF, limitations with fluid removal with HD attempt to be more aggressive with ultrafiltration with dialysis follow volume status monitor symptoms (6) Hypertension: Code(s): I10 - Essential (primary) hypertension Status: Chronic Assessment and Plan: reasonable control at this time follow trend of hemodynamics (7) Diabetes: Code(s): E11.9 - Type 2 diabetes mellitus without complications Status: Chronic Assessment and Plan: follow accuchecks glycemic control Will continue to follow. Subjective Date/time seen: 03/06/22 10:23 Patient tolerating dialysis treatment at the time of my visit (seen on HD at 10:10AM); still feels weak and continues to have difficulty walking in general; results of lumbar spine CT scan done this morning noted; still feels quite weak with difficulty moving her lower extremities; episode of BRBPR yesterday as well. Exam Narrative: General: WD/WN female in NAD Heart: normal S1 and S2; no rub Lungs: clear anteriorly bu decreased at base Abdomen: soft, nontender, nondistended, positive bowel sounds Extremities: no cyanosis or clubbing; trace edema Skin: warm and intact Objective Data Vital Signs Vital Signs: Vital Signs Temp Pulse Resp BP Pulse Ox O2 Del Method 03/06/22 09:56 70 142/64 H 03/06/22 09:45 36.5 C 71 18 128/55 L 03/06/22 07:50 Room Air 03/06/22 06:00 36.2 C L 79 21 H 116/40 L 100 03/05/22 22:00 36.2 C L 69 21 H 110/50 L 100 03/05/22 17:07 Room Air 03/05/22 16:00 36.7 C 70 16 121/47 L 97 03/05/22 14:00 70 03/05/22 13:48 70 03/05/22 12:00 70 18 96 Room Air 03/05/22 12:00 70 03/05/22 12:00 37.3 C 70 18 105/48 L 96 Intake/Output Intake/Output: Intake & Output 03/03/22 03/04/22 03/05/22 03/06/22 23:59 23:59 23:59 23:59 Intake Total 240 660 940 440 Output Total 0 3001 0 Balance 240 -2341 940 440 Meds/Results Medications: Active Medications Generic Name Dose Route Start Last Admin Trade Name Freq PRN Reason Stop Dose Admin Acetaminophen 500 mg 03/03/22 22:06 03/04/22 21:10 Acetaminophen 500 Mg Tablet PO 500 mg Q6H PRN Administration MILD Pain Albuterol 2 puff 03/03/22 22:06 Albuterol Sulfate (*Sp) Aerosol 1 Puff INHALATION Q6HRT PRN Shortness Of Breath Alprazolam 0.5 mg 03/05/22 15:52 Alprazolam (*Crx) 0.5 Mg Tablet PO BID PRN Anxiety Aspirin 81 mg 03/04/22 12:00 03/05/22 13:47 Aspirin 81 Mg Enteric Tablet PO 81 mg 1200 ANISA Administration Bumetanide 2 mg 03/04/22 12:00 03/05/22 13:47 Bumetanide 1 Mg Tablet PO 2 mg 1200 ANISA Administ
[2022-03-06] MEDS: EPOETIN ALFA-EPBX 4,000 UNITS/ML VIAL 4000 UNITS IV PUSH (12:11)
[2022-03-06] MEDS: SODIUM CHLORIDE 0.9% IV 1,000 ML 999 ML IV CONT (12:12)
--- NOTE | 2022-03-06 13:43 | PCPTNOTE ---
The patient treatment was not able to be completed on 03/06/2022 due to patient out of room for dialysis. Will plan to continue treatment per plan of care.
[2022-03-06] MEDS: COLCHICINE 0.6 MG TABLET PO (13:54)
[2022-03-06] MEDS: ASPIRIN 81 MG ENTERIC TABLET PO (13:54)
[2022-03-06] MEDS: carvediloL 3.125 MG TABLET PO ×2 (13:54→20:38)
[2022-03-06] MEDS: GABAPENTIN 100 MG CAPSULE PO ×2 (13:55→20:38)
[2022-03-06] MEDS: SEVELAMER CARBONATE 800 MG TABLET BY MOUTH ×3 (13:56→20:40)
[2022-03-06] MEDS: SERTRALINE HCL 50 MG TABLET PO (13:56)
[2022-03-06 14:18] LABS: Glucose Point of Care 129 mg/dl (65-105)
[2022-03-06] MEDS: BUMETANIDE 1 MG TABLET 2 MG PO (14:33)
[2022-03-06 16:21] LABS: Glucose Point of Care 117 mg/dl (65-105)
[2022-03-06] MEDS: MIDODRINE HCL 2.5 MG TABLET 5 MG PO (16:42)
[2022-03-06] MEDS: COLCHICINE 0.3 MG TABLET PO (16:42)
[2022-03-06] MEDS: ACETAMINOPHEN 500 MG TABLET PO (19:33)
[2022-03-06] MEDS: INSULIN GLARGINE (*BKC) 100 UNITS/ML 15 UNITS SUB-Q (20:39)
[2022-03-06] MEDS: traMADol HCL (*CRX) 50 MG TABLET PO (20:43)
[2022-03-06] MEDS: MELATONIN 3 MG TABLET PO (20:43)
[2022-03-06 20:46] LABS: Glucose Point of Care 213 mg/dl (65-105)
[2022-03-07] VITALS (10 sets, daily range): BP systolic 108–134; BP diastolic 41–50; PULSE 65–71; RESP 14–19; TEMP 35.6–36.9; O2SAT 92–100
[2022-03-07 05:37] LABS: Hematocrit 36.3 % (37.0-47.0); Hemoglobin 11.3 g/dL (12.0-15.0); Mean Corpuscular HGB Conc 31.1 g/dl (32-36); Mean Corpuscular Hemoglobin 34.7 pg (26-34); Mean Corpuscular Volume 111.3 fl (80-100); Mean Platelet Volume 10.5 fl (7.4-10.4); Platelet Count Result 152 k/mm3 (150-375); Red Blood Count 3.26 M/mm3 (4.2-5.4); Red Cell Distribution Width 14.3 % (11.5-14.5); White Blood Count 3.4 K/mm3 (4.5-10.0)
[2022-03-07 05:51] LABS: Albumin Level 3.8 g/dL (3.5-5.1); Anion Gap 10 mmol/L (8-16); Blood Urea Nitrogen 33 mg/dL (7-17); Carbon Dioxide 30 mmol/L (22-30); Chloride 96 mmol/L (98-107); Estimated CRCL calculation 7 ml/min; Estimated Glomerular Filt Rate 6; Glucose 126 mg/dL (65-110); Phosphorus 6.1 mg/dL (2.5-4.5); Potassium 4.5 mmol/L (3.4-5.0); Sodium 136 mmol/L (137-145)
[2022-03-07] MEDS: traMADol HCL (*CRX) 50 MG TABLET PO (06:34)
[2022-03-07] MEDS: LEVOTHYROXINE SODIUM 25 MCG TABLET PO (06:34)
[2022-03-07 07:48] LABS: Glucose Point of Care 123 mg/dl (65-105)
[2022-03-07] MEDS: PANTOPRAZOLE 40 MG TABLET PO (08:16)
[2022-03-07] MEDS: HEPARIN SODIUM 5,000 UNITS/ML VIAL 5000 UNITS SUB-Q (08:16)
[2022-03-07] MEDS: TOLNAFTATE 1% POWDER 45 GM BTL 1 APPLIC TOPICAL (08:24)
--- NOTE | 2022-03-07 11:27 | PM.IMPN ---
Progress Note: A&P Assessment and Plan (1) Generalized weakness: Code(s): R53.1 - Weakness Status: Acute Assessment and Plan: will continue with physical therapy and monitor hemoglobin closely. (2) Metabolic acidosis: Code(s): E87.2 - Acidosis Status: Acute Assessment and Plan: getting better. (3) Elevated troponin: Code(s): R77.8 - Other specified abnormalities of plasma proteins Status: Acute Assessment and Plan: continue medical meds today. (4) Physical deconditioning: Code(s): R53.81 - Other malaise Status: Acute Assessment and Plan: Continue physical therapy. (5) Macrocytic anemia: Code(s): D53.9 - Nutritional anemia, unspecified Status: Acute Assessment and Plan: GI consult and monitor closely (6) End-stage renal disease on hemodialysis: Code(s): N18.6 - End stage renal disease; Z99.2 - Dependence on renal dialysis Status: Acute Assessment and Plan: continue current treatment. (7) Type 2 diabetes mellitus: Code(s): E11.9 - Type 2 diabetes mellitus without complications Status: Acute Assessment and Plan: Stable on current meds (8) Hypothyroidism: Code(s): E03.9 - Hypothyroidism, unspecified Status: Acute Assessment and Plan: stable (9) Obstructive sleep apnea: Code(s): G47.33 - Obstructive sleep apnea (adult) (pediatric) Status: Acute Assessment and Plan: stable (10) Chronic diastolic congestive heart failure: Code(s): I50.32 - Chronic diastolic (congestive) heart failure Status: Acute Assessment and Plan: continue medical management (11) Right shoulder pain: Code(s): M25.511 - Pain in right shoulder Status: Acute Assessment and Plan: continue with physical therapy and pain management (12) Right hip pain: Code(s): M25.551 - Pain in right hip Status: Acute Assessment and Plan: continue with physical therapy and pain management (13) Rectal bleeding: Code(s): K62.5 - Hemorrhage of anus and rectum Status: Acute Assessment and Plan: GI evaluation Plan The patient presented to the ED with weakness and concerns that she is having a stroke. She has become progressively more weak with several falls in the last couple of months. She has mobility issues with her right arm due to shoulder pain as well as right hip and right heel pain. In the ED, she was hemodynamically stable. She had a macrocytic anemia with hgb 11.0 and mild low plt count. She has SHANE (unable to tolerate CPAP) and ABG showing 7.30/42/79 on RA. She had a metabolic gap acidosis with Anion Gap at 18. Glucose was 201. Potassium 5.0 and Na 130. [place] the metabolic acidosis and hyperkalemia related to her renal failure. COVID was negative. 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 CXR showing scarring at the right lung apex and cardiomegaly. Lower extremity venous Doppler was negative for DVT. Shoulder x-ray shows polyarticular osteoarthritis and right rotator cuff tear. Right hip x-ray shows severe osteoarthritis and possible avascular necrosis. Fall precautions were initiated. PT/OT consulted. B12 and folate levels were normal. Nephrology was consulted for dialysis orders. Sliding scale insulin, Accu-Cheks, and hypoglycemic protocol started. EKG showed paced rhythm. Troponin were mildly elevated and flat and due to lack of chest pain, these are likely elevated in the setting of her end-stage renal disease. BNP 13,500 so consider fluid overload as etiology of her elevated troponins. Home medications were resumed as appropriate. Metabolic acidosis resolved with HD. Cortisol level normal. TSH is normal. Appreciate Nephrology input. Continue to use dialysis to control fluid status and electrolytes. Echo pending. CT lumber spine showing mild-moderate central canal stenosis. Rectal b
[2022-03-07 11:47] LABS: Glucose Point of Care 182 mg/dl (65-105)
[2022-03-07] MEDS: carvediloL 3.125 MG TABLET PO (12:05)
[2022-03-07] MEDS: GABAPENTIN 100 MG CAPSULE PO (12:05)
[2022-03-07] MEDS: SEVELAMER CARBONATE 800 MG TABLET BY MOUTH (12:05)
[2022-03-07] MEDS: BUMETANIDE 1 MG TABLET 2 MG PO (12:05)
[2022-03-07] MEDS: SERTRALINE HCL 50 MG TABLET PO (12:05)
[2022-03-07] MEDS: ASPIRIN 81 MG ENTERIC TABLET PO (12:05)
--- NOTE | 2022-03-07 13:00 | PM.PNNEP ---
Progress Note: A&P Assessment and Plan (1) End stage renal disease: Code(s): N18.6 - End stage renal disease Status: Chronic Assessment and Plan: HD yesterday and continue M/W/F dialysis schedule follow electrolytes, volume status, and clearance (2) Generalized weakness: Code(s): R53.1 - Weakness Status: Acute Assessment and Plan: appears multifactorial: #3 frequent falls DJD/osteoarthritis age iron deficiency - possible GI bleed(?) CT of brain without CVA or any other pathology PT/OT as tolerated (3) Physical deconditioning: Code(s): R53.81 - Other malaise Status: Acute Assessment and Plan: see #2 (4) Anemia: Qualifiers: Anemia type: unspecified type Qualified Code(s): D64.9 - Anemia, unspecified Code(s): D64.9 - Anemia, unspecified Status: Chronic Assessment and Plan: related to ESRD but BRBPR could be contributing evidence of iron deficiency (by anemia studies) despite H/H at goal for ESRD consider IV venofer if no infection present Gastroenterology consulted follow trend of H/H (5) SOB (shortness of breath): Code(s): R06.02 - Shortness of breath Status: Acute Assessment and Plan: probably related to fluid, diastolic CHF, limitations with fluid removal with HD attempt to be more aggressive with ultrafiltration with dialysis follow volume status monitor symptoms (6) Hypertension: Code(s): I10 - Essential (primary) hypertension Status: Chronic Assessment and Plan: reasonable control at this time follow trend of hemodynamics (7) Diabetes: Code(s): E11.9 - Type 2 diabetes mellitus without complications Status: Chronic Assessment and Plan: follow accuchecks glycemic control Will continue to follow. Subjective Date/time seen: 03/07/22 13:00 Tolerated dialysis treatment yesterday without any issues or problems; H/H remains stable in spite of ongoing rectal bleeding/BRBPR; noted plans for GI consultation; issues with weakness and fatigue persist and not really clear if it is much better. Exam Narrative: General: WD/WN female in NAD Heart: normal S1 and S2; no rub Lungs: clear to auscultation Abdomen: soft, nontender, nondistended, positive bowel sounds Extremities: no cyanosis or clubbing; trace edema Skin: no rash Objective Data Vital Signs Vital Signs: Vital Signs Temp Pulse Resp BP Pulse Ox O2 Del Method 03/07/22 13:00 35.6 C L 70 18 134/50 L 100 03/07/22 06:18 36.9 C 71 14 120/50 L 92 03/06/22 21:00 96 Room Air 03/06/22 21:58 36.6 C 70 16 147/50 H 96 03/06/22 20:38 80 Intake/Output Intake/Output: Intake & Output 03/04/22 03/05/22 03/06/22 03/07/22 23:59 23:59 23:59 23:59 Intake Total 901 696 0968 800 Output Total 3001 0 3500 0 Balance -2341 940 -2320 800 Meds/Results Medications: Active Medications Generic Name Dose Route Start Last Admin Trade Name Freq PRN Reason Stop Dose Admin Acetaminophen 500 mg 03/03/22 22:06 03/06/22 19:33 Acetaminophen 500 Mg Tablet PO 500 mg Q6H PRN Administration MILD Pain Albuterol 2 puff 03/03/22 22:06 Albuterol Sulfate (*Sp) Aerosol 1 Puff INHALATION Q6HRT PRN Shortness Of Breath Alprazolam 0.5 mg 03/05/22 15:52 Alprazolam (*Crx) 0.5 Mg Tablet PO BID PRN Anxiety Aspirin 81 mg 03/04/22 12:00 03/07/22 12:05 Aspirin 81 Mg Enteric Tablet PO 81 mg 1200 ANISA Administration Bumetanide 2 mg 03/04/22 12:00 03/07/22 12:05 Bumetanide 1 Mg Tablet PO 2 mg 1200 ANISA Administration Carvedilol 3.125 mg 03/04/22 12:00 03/07/22 12:05 Carvedilol 3.125 Mg Tablet PO 3.125 mg 1200,2100 ANISA Administration Colchicine 0.3 mg 03/03/22 17:00 03/06/22 16:42 Colchicine 0.3 Mg Tablet PO 0.3 mg MoWeFr ANISA Administration Colchicine 0.6 mg
--- NOTE | 2022-03-07 13:00 | P.PNNP_ITS ---
Progress Note: A&P Assessment and Plan (1) End stage renal disease: Code(s): N18.6 - End stage renal disease Status: Chronic Assessment and Plan: * HD yesterday and continue M/W/F dialysis schedule * follow electrolytes, volume status, and clearance (2) Generalized weakness: Code(s): R53.1 - Weakness Status: Acute Assessment and Plan: * appears multifactorial: * #3 * frequent falls * DJD/osteoarthritis * age * iron deficiency - possible GI bleed(?) * CT of brain without CVA or any other pathology * PT/OT as tolerated (3) Physical deconditioning: Code(s): R53.81 - Other malaise Status: Acute Assessment and Plan: * see #2 (4) Anemia: Qualifiers: Anemia type: unspecified type Qualified Code(s): D64.9 - Anemia, unspecified Code(s): D64.9 - Anemia, unspecified Status: Chronic Assessment and Plan: * related to ESRD but BRBPR could be contributing * evidence of iron deficiency (by anemia studies) despite H/H at goal for ESRD * consider IV venofer if no infection present * Gastroenterology consulted * follow trend of H/H (5) SOB (shortness of breath): Code(s): R06.02 - Shortness of breath Status: Acute Assessment and Plan: * probably related to fluid, diastolic CHF, limitations with fluid removal with HD * attempt to be more aggressive with ultrafiltration with dialysis * follow volume status * monitor symptoms (6) Hypertension: Code(s): I10 - Essential (primary) hypertension Status: Chronic Assessment and Plan: * reasonable control at this time * follow trend of hemodynamics (7) Diabetes: Code(s): E11.9 - Type 2 diabetes mellitus without complications Status: Chronic Assessment and Plan: * follow accuchecks * glycemic control Will continue to follow. Subjective Date/time seen: 03/07/22 13:00 Tolerated dialysis treatment yesterday without any issues or problems; H/H remains stable in spite of ongoing rectal bleeding/BRBPR; noted plans for GI consultation; issues with weakness and fatigue persist and not really clear if it is much better. Exam Narrative: General: WD/WN female in NAD Heart: normal S1 and S2; no rub Lungs: clear to auscultation Abdomen: soft, nontender, nondistended, positive bowel sounds Extremities: no cyanosis or clubbing; trace edema Skin: no rash Objective Data Vital Signs Vital Signs: Vital Signs Temp Pulse Resp BP Pulse Ox O2 Del Method 03/07/22 13:00 35.6 C L 70 18 134/50 L 100 03/07/22 06:18 36.9 C 71 14 120/50 L 92 03/06/22 21:00 96 Room Air 03/06/22 21:58 36.6 C 70 16 147/50 H 96 03/06/22 20:38 80 Intake/Output Intake/Output: Intake & Output 03/04/22 03/05/22 03/06/22 03/07/22 23:59 23:59 23:59 23:59 Intake Total 903 788 0506 800 Output Total 3001 0 3500 0 Balance -2341 940 -2320 800 Meds/Results Medications: Active Medications Generic Name Dose Route Start Last Admin Trade Name Freq PRN Reason Stop Dose Admin Acetaminophen 500 mg 03/03/22 22:06 03/06/22 19:33 Aceta
--- NOTE | 2022-03-07 13:01 | PC.NURSE ---
Patient finished having a bowel movement and has rectal bleeding. Called Dr. Julio and notified and he ordered stat CBC and GI consult. Patient has no signs of distress and vital signs are stable.
[2022-03-07 13:31] LABS: Hematocrit 38.6 % (37.0-47.0); Hemoglobin 11.8 g/dL (12.0-15.0); Mean Corpuscular HGB Conc 30.6 g/dl (32-36); Mean Corpuscular Hemoglobin 34.3 pg (26-34); Mean Corpuscular Volume 112.2 fl (80-100); Mean Platelet Volume 10.4 fl (7.4-10.4); Platelet Count Result 154 k/mm3 (150-375); Red Blood Count 3.44 M/mm3 (4.2-5.4); Red Cell Distribution Width 14.3 % (11.5-14.5); White Blood Count 4.7 K/mm3 (4.5-10.0)
--- NOTE | 2022-03-07 13:34 | WPDGICN ---
GI Consult Note Consult date/time: 03/07/22 13:34 Reason for consult: GI bleeding. HPI: Christopher Larry is a 81 year old female Seen in consultation at the request of the hospitalist with the patient's permission. The patient was examined and the chart was reviewed. Impression: Rectal bleeding. The bleeding may be diverticular in origin, AVM, neoplasia or inflammatory disease. Anemia multifactorial origin. There may be a component of acute blood loss anemia from rectal bleeding. A chronic component of anemia certainly reasonable in view of for end-stage renal disease. 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 B12 and folic acid levels are normal. GERD controlled with medication. The patient does have dysphagia to both solids and liquids which may indicate possible globus reaction. History gastric ulcer disease and GI bleeding and in the past. History of colon polyps. PMH/problems: Physical deconditioning, amyloidosis, end-stage renal disease on dialysis, CVA/TIA, carotid arterial disease, depression, Hypothyroidism,CHF, glaucoma, gout, HLD, HTN, AFib status post cardiac pacemaker placement, interstitial cystitis, asthma, peripheral neuropathy, DM, renal osteodystrophy, vitamin-D deficiency, hypothyroidism, SHANE, peripheral neuropathy. Recommendation: Continue PPI. Follow hemoglobin hematocrit. Discontinue heparin. Tagged red blood cell scan. Consider colonoscopy on Wednesday. H&H greater than 04/30. History: This very pleasant lady with the above past medical history presenting to the ED with complaints of increasing weakness, and memory loss. There was a concern of underlying stroke. Patient was reportedincreasing difficulties with everyday activities due to progressive, generalized weakness and dyspnea on exertion. She has had a couple of falls in the past month and she is now having difficulties using her right arm due to a right rotator cuff tear. She seems to be moving slower and slower and she has become deconditioned and is now getting short of breath with everyday activities. she denies any cough or sputum production. This morning the patient developed Dark red blood per rectum mixed with stool. she does have a history of rectal bleeding in the past which usually consist of blood on the tissue paper. She has never passed this much blood previously. She denies any nausea, vomiting or hematemesis. She does have dysphagia to both solids and liquids. She reports that the food will not go past her throat. She has a history of GI bleeding in the past and gastric ulcer disease. She had an EGD in 2020 revealing reflux esophagitis. She reports a history of heartburn, but is not having any breakthrough symptoms on PPIs. NSAID use is denied. She denies any constipation, diarrhea, melena, abdominal pain, fever, chills or weight loss. The patient has previously had a colonoscopy several years ago revealing colon polyps. She is not sure where was done or the exact date. Patient continues to have weakness. She continues to complain of shortness of breath. She has difficulty with ambulation at this time. She feels she cannot walk. [place] [employer] systems otherwise unremarkable. General: very pleasant patient in no acute distress. HEENT: Head was normocephalic sclerae is clear mouth without masses neck was supple. Heart: Rate rhythm regular without S3 or S4. Lungs: CTA. Abdomen: Soft with no guarding or rigidity. Bowel sounds were active. Neurologic: Cranial nerves 2 through 12 intact. No focal defects. No clonus. Musculoskeletal system: Revealed no joint tenderness or swelling no muscle atrophy. Extremities: Reveal no significant edema. Skin: Warm and dry with normal turgor. Mental status: intact. Patient is alert and oriented. [facility] Past Medical History Medical History (Updated 03/06/22 @ 09:25 by Aguilar Reddy MD) Amyloidosis This is the etiology of her renal disea
[2022-03-07 14:53] LABS: Anion Gap 12 mmol/L (8-16); Blood Urea Nitrogen 38 mg/dL (7-17); Calcium 8.9 mg/dL (8.4-10.2); Carbon Dioxide 27 mmol/L (22-30); Chloride 94 mmol/L (98-107); Estimated CRCL calculation 6 ml/min; Estimated Glomerular Filt Rate 6; Glucose 237 mg/dL (65-110); Phosphorus 6.3 mg/dL (2.5-4.5); Potassium 4.7 mmol/L (3.4-5.0); Sodium 133 mmol/L (137-145)
[2022-03-07 14:55] LABS: Hematocrit 37.5 % (37.0-47.0); Hemoglobin 11.7 g/dL (12.0-15.0); INR 1.2; Mean Corpuscular HGB Conc 31.2 g/dl (32-36); Mean Corpuscular Hemoglobin 35.1 pg (26-34); Mean Corpuscular Volume 112.6 fl (80-100); Mean Platelet Volume 10.8 fl (7.4-10.4); Platelet Count Result 152 k/mm3 (150-375); Prothrombin Time 14.7 Seconds (11.1-14.7); Red Blood Count 3.33 M/mm3 (4.2-5.4); Red Cell Distribution Width 14.4 % (11.5-14.5); White Blood Count 4.1 K/mm3 (4.5-10.0)
--- NOTE | 2022-03-07 16:02 | PC.NURSE ---
Called Dr. Sims again and informed that since he saw patient she had two depends/ diapers full of blood/clots and it appears to be getting worse each time. Patient does not complain of any pain. Dr. Sims stated to check H&H and report if below 8. Also Dr. Sims states to call with CT of abdomen results and possible colonoscopy in the morning.
[2022-03-07 16:33] LABS: Glucose Point of Care 187 mg/dl (65-105)
[2022-03-07 19:08] LABS: Hematocrit 32.9 % (37.0-47.0); Hemoglobin 9.9 g/dL (12.0-15.0)
--- NOTE | 2022-03-07 19:41 | WPDANESEPP ---
Anes - Eval Pre Procedure Date/Time: 03/07/22 19:41 Pre Op Diagnosis: Weakness/dyspnea/CHF/dialysis/elevated troponin Patient Data Age: 81 Gender: F Height: 1.6 m Weight: 98.8 kg Last Vital Signs Temp 36.4 C 03/07/22 18:30 Pulse 70 03/07/22 18:30 Resp 16 03/07/22 18:30 BP 116/42 L 03/07/22 18:30 Pulse Ox 97 03/07/22 18:30 O2 Del Method Room Air 03/06/22 21:00 Allergies Allergy/AdvReac Type Severity Reaction Status Date / Time Penicillins Allergy Unknown Rash Verified 03/03/22 11:28 Home Medications Medication Instructions Recorded Confirmed Type carvedilol 3.125 mg tablet 3.125 mg PO BID 11/02/19 03/03/22 History gabapentin 100 mg capsule 100 mg PO BID 11/02/19 03/03/22 History insulin glargine 100 unit/mL (3 15 unit subcut HS 11/02/19 03/03/22 History mL) subcutaneous pen (Basaglar KwikPen U-100 Insulin) simvastatin 10 mg tablet 10 mg PO HS 11/02/19 03/03/22 History docusate sodium 100 mg tablet 100 mg PO HS PRN Constipation 11/03/19 03/03/22 History colchicine 0.6 mg tablet 0.6 mg PO QMWF 11/26/19 03/03/22 History ergocalciferol (vitamin D2) 1,250 50,000 unit PO WEEKLY 11/26/19 03/03/22 History mcg (50,000 unit) capsule (Vitamin D2) albuterol sulfate 90 mcg/actuation 2 puff inhalation Q6H PRN 05/15/20 03/03/22 Rx aerosol inhaler Shortness Of Breath #8.5 grams alprazolam 0.5 mg tablet 0.5 mg PO BID PRN Anxiety 06/21/20 03/03/22 History aspirin 81 mg tablet,delayed 81 mg PO DAILY 06/21/20 03/03/22 History release (Aspirin Low Dose) sertraline 50 mg tablet 50 mg PO DAILY 06/21/20 03/03/22 History albuterol sulfate 1.25 mg/3 mL 1.25 mg inhalation Q6H PRN 11/27/20 03/03/22 History solution for nebulization Shortness Of Breath Or Wheezing midodrine 5 mg tablet 5 mg PO QMWF 05/06/21 03/03/22 History acetaminophen 500 mg tablet 500 mg PO Q6H PRN Pain 05/24/21 03/03/22 History (Acetaminophen Extra Strength) bumetanide 2 mg tablet 2 mg PO DAILY 05/24/21 03/03/22 History colchicine 0.6 mg tablet 0.3 mg PO QMWF 05/24/21 03/03/22 History diphenhydramine 25 1 tablet PO HS PRN Insomnia 05/24/21 03/03/22 History mg-acetaminophen 500 mg tablet (Acetaminophen PM) guaifenesin 100 mg/5 mL oral 200 mg PO Q4H PRN Cough 05/24/21 03/03/22 History liquid (Robafen) hydroxyzine HCl 25 mg tablet 25 mg PO QID PRN Itching 05/24/21 03/03/22 History levothyroxine 25 mcg tablet 25 mcg PO DAILY 05/24/21 03/03/22 History melatonin 3 mg tablet 3 mg PO HS PRN Insomnia 05/24/21 03/03/22 History polyethylene glycol 3350 17 17 g PO DAILY PRN Constipation 05/24/21 03/03/22 History gram/dose oral powder (Gavilax) tramadol 50 mg tablet 50 mg PO TID PRN Pain 05/24/21 03/03/22 History blood sugar diagnostic (OneTouch #100 ea 10/07/21 03/03/22 Rx Ultra Test) hydrocodone 5 mg-acetaminophen 325 1 tablet PO Q8H PRN pain #45 tabs 12/30/21 03/03/22 Rx mg tablet sevelamer carbonate 800 mg tablet See Rx Instructions .Route 12/31/21 03/03/22 Rx .COMPLEX #90 tabs pantoprazole 40 mg tablet,delayed 40 mg PO BID 03/03/22 03/03/22 History release Laboratory Tests 03/06/22 03/07/22 03/07/22 20:37 05:30 05:30 WBC 3.4 K/mm3 L K/mm3 (4.5-10.0) RBC 3.26 M/mm3 L M/mm3 (4.2-5.4) Hgb 11.3 g/dL L g/dL (12.0-15.0) Hct 36.3 % L % (37.0-47.0) MCV 111.3 fl H fl (80-100) MCH 34.7 pg H pg (26-34) MCHC 31.1 g/dl L g/dl (32-36) RDW 14.3 % % (11.5-14.5) Plt Count 152 k/mm3 k/mm3 (150-375) MPV 10.5 fl H fl (7.4-10.4) PT INR Sodium 136 mmol/L L mmol/L (137-145) Potassium 4.5 mmol/L mmol/L (3.4-5.0) Chloride 96 mmol/L L mmol/L (98-107) Carbon Dioxide 30 mmol/L mmol/L (22-30) Anion Gap 10 mmol/L mmol/L (8-16) BUN 33 mg/dL H mg/dL (7-17) Creatinine 6.20 mg/dL H mg/dL (0.7-1.0) Estim C
[2022-03-07 21:36] LABS: Glucose Point of Care 171 mg/dl (65-105)
[2022-03-07] MEDS: SODIUM CHLORIDE 0.9% IV 500 ML 100 ML IV CONT (21:54)
--- NOTE | 2022-03-07 21:55 | P.PNAN_ITS ---
Anes - Eval Final PreProcedure Day of Procedure 03/07/22 21:55 Patient weight: obese Heart: regular rate and rhythm Lungs: clear to auscultation Airway: Mallampati scale class II Neurological: alert and oriented Last oral intake: >/= 8 hours ASA classification: IV Emergent: yes Anesthetic plan: proceed Anesthesia type and monitoring: general GIVS and standard monitoring Results Review: All pre-operative results and documents have been reviewed as part of the pre- operative evaluation. Informed Consent: The patient's anesthetic plan and its attendant risks and benefits were discussed with the patient/family/POA. Questions were solicited and answers provided to the satisfaction of the patient/family/POA.
[2022-03-07] MEDS: ONDANSETRON INJ 4 MG/2 ML VIAL IV PUSH (23:17)
[2022-03-08] VITALS (17 sets, daily range): BP systolic 82–118; BP diastolic 34–64; PULSE 70–116; RESP 12–18; TEMP 36.4–37.5; O2SAT 94–100
[2022-03-08] MEDS: INSULIN GLARGINE (*BKC) 100 UNITS/ML 15 UNITS SUB-Q ×2 (00:23→20:46)
[2022-03-08] MEDS: SIMVASTATIN 10 MG TABLET PO ×2 (00:24→20:49)
[2022-03-08] MEDS: PANTOPRAZOLE 40 MG TABLET PO ×2 (00:24→20:47)
[2022-03-08] MEDS: SEVELAMER CARBONATE 800 MG TABLET BY MOUTH ×4 (00:25→20:47)
[2022-03-08] MEDS: TOLNAFTATE 1% POWDER 45 GM BTL 1 APPLIC TOPICAL ×3 (00:25→20:49)
[2022-03-08 01:18] LABS: Hematocrit 27.4 % (37.0-47.0); Hemoglobin 8.6 g/dL (12.0-15.0)
[2022-03-08] MEDS: SODIUM CHLORIDE 0.9% IV 250 ML IV CONT (02:07)
[2022-03-08] MEDS: LEVOTHYROXINE SODIUM 25 MCG TABLET PO (05:46)
[2022-03-08 06:31] LABS: Mean Corpuscular HGB Conc 30.8 g/dl (32-36); Mean Corpuscular Hemoglobin 34.5 pg (26-34); Mean Corpuscular Volume 112.1 fl (80-100); Mean Platelet Volume 11.3 fl (7.4-10.4); Platelet Count Result 160 k/mm3 (150-375); Red Blood Count 2.32 M/mm3 (4.2-5.4); Red Cell Distribution Width 14.2 % (11.5-14.5)
[2022-03-08 06:42] LABS: Alanine Aminotransferase 11 U/L (6-35); Albumin Level 3.1 g/dL (3.5-5.1); Alkaline Phosphatase 117 U/L (38-126); Anion Gap 9 mmol/L (8-16); Aspartate Amino Transferase 18 U/L (14-36); Bilirubin,Total 0.4 mg/dL (0.2-1.3); Blood Urea Nitrogen 46 mg/dL (7-17); Calcium 8.5 mg/dL (8.4-10.2); Carbon Dioxide 30 mmol/L (22-30); Chloride 93 mmol/L (98-107); Estimated CRCL calculation 6 ml/min; Estimated Glomerular Filt Rate 5; Glucose 150 mg/dL (65-110); Potassium 4.9 mmol/L (3.4-5.0); Sodium 132 mmol/L (137-145)
[2022-03-08] MEDS: ACETAMINOPHEN 500 MG TABLET PO (08:05)
[2022-03-08] MEDS: ONDANSETRON INJ 4 MG/2 ML VIAL IV PUSH (08:05)
[2022-03-08] MEDS: SODIUM CHLORIDE 0.9% IV 1,000 ML 50 ML (08:08)
[2022-03-08 08:24] LABS: Glucose Point of Care 149 mg/dl (65-105)
--- NOTE | 2022-03-08 09:02 | PCOTNOTE ---
Per RN pt is not appropriate for Occupational Therapy tx today due to needing a blood transfusion. Will continue per poc duration/frequency at next available session.
--- NOTE | 2022-03-08 09:16 | WPDGICN ---
[facility] Past Medical History Medical History Amyloidosis This is the etiology of her renal disease. Anemia Arthritis Asthma Cerebrovascular accident Residual peripheral vision loss and short-term memory loss. Chronic diastolic congestive heart failure Depression End-stage renal disease on hemodialysis Wednesday, Wednesday, Wednesday. Essential hypertension Glaucoma Gout History of GI bleed Hypercholesteremia Hypothyroidism Interstitial cystitis Non-cardiac chest pain Obstructive sleep apnea Severe obstructive sleep apnea on polysomnogram in December 2019. Patient intolerant to CPAP. Peripheral neuropathy Persistent atrial fibrillation Reflux esophagitis Renal osteodystrophy Transient ischemic attack Type 2 diabetes mellitus Surgical History Surgical History History of appendectomy History of bilateral cataract extraction History of cholecystectomy History of colonoscopy with polypectomy History of hysterectomy History of permanent cardiac pacemaker placement Battery exchange 05/06/2021. Managed by Dr. Gregorio. Status post creation of arteriovenous fistula Right forearm. Family History Family History Father Acute myocardial infarction Mother Breast cancer Family history of congestive heart failure Sibling Family history of cardiovascular disease Family history of rheumatic fever Sister Hypertension Daughter Diabetes mellitus Other Cerebrovascular accident Family history of malignant neoplasm Social History Social History Social History: Lives in assisted living at [facility]. with 3 children. 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 No alcohol, tobacco, drug use. Surrogate decision maker: Stephanie Dyson or Giana Baldwin, daughters. Code status: Full code. Spiritual care concerns: No Agree to blood products: Yes Meds Home Medications and Allergies Home Medications Medication Instructions Recorded Confirmed Type carvedilol 3.125 mg tablet 3.125 mg PO BID 11/02/19 03/03/22 History gabapentin 100 mg capsule 100 mg PO BID 11/02/19 03/03/22 History insulin glargine 100 unit/mL (3 15 unit subcut HS 11/02/19 03/03/22 History mL) subcutaneous pen (Basaglar KwikPen U-100 Insulin) simvastatin 10 mg tablet 10 mg PO HS 11/02/19 03/03/22 History docusate sodium 100 mg tablet 100 mg PO HS PRN Constipation 11/03/19 03/03/22 History colchicine 0.6 mg tablet 0.6 mg PO QMWF 11/26/19 03/03/22 History ergocalciferol (vitamin D2) 1,250 50,000 unit PO WEEKLY 11/26/19 03/03/22 History mcg (50,000 unit) capsule (Vitamin D2) albuterol sulfate 90 mcg/actuation 2 puff inhalation Q6H PRN 05/15/20 03/03/22 Rx aerosol inhaler Shortness Of Breath #8.5 grams alprazolam 0.5 mg tablet 0.5 mg PO BID PRN Anxiety 06/21/20 03/03/22 History aspirin 81 mg tablet,delayed 81 mg PO DAILY 06/21/20 03/03/22 History release (Aspirin Low Dose) sertraline 50 mg tablet 50 mg PO DAILY 06/21/20 03/03/22 History albuterol sulfate 1.25 mg/3 mL 1.25 mg inhalation Q6H PRN 11/27/20 03/03/22 History solution for nebulization Shortness Of Breath Or Wheezing midodrine 5 mg tablet 5 mg PO QMWF 05/06/21 03/03/22 History acetaminophen 500 mg tablet 500 mg PO Q6H PRN Pain 05/24/21 03/03/22 History (Acetaminophen Extra Strength) bumetanide 2 mg tablet 2 mg PO DAILY 05/24/21 03/03/22 History colchicine 0.6 mg tablet 0.3 mg PO QMWF 05/24/21 03/03/22 History diphenhydramine 25 1 tablet PO HS PRN Insomnia 05/24/21 03/03/22 History mg-acetaminophen 500 mg tablet (Acetaminophen PM) guaifenesin 100 mg/5 mL oral 200 mg PO Q4H PRN Cough 05/24/21 03/03/22 History liquid (Robafen) hydroxyzine HCl 25 mg tablet 25 mg PO QID PRN Itching 05/24/21 03/03/22 History levothyroxine 25 mcg tablet
--- NOTE | 2022-03-08 09:17 | WPDGIPROGNO ---
Subjective Date/time seen: 03/08/22 09:17 The patient is feeling better. No further rectal bleeding. No abdominal pain, nausea or vomiting. Vital signs stable. Heart rate rhythm regular. Lungs CTA. Abdomen is soft. Impression: Rectal bleeding secondary to rectal ulceration? Anemia multifactorial origin.? There may be a component of acute blood loss anemia from rectal bleeding.? A chronic component of anemia certainly reasonable in view of for end-stage renal disease.? 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 B12 and folic acid levels are normal. GERD controlled with medication.? The patient does have dysphagia to both solids and liquids which may indicate possible globus reaction.? History gastric ulcer disease and GI bleeding and in the past. History of colon polyps. PMH/problems:? Physical deconditioning, amyloidosis, end-stage renal disease on dialysis, CVA/TIA, carotid arterial disease, depression, Hypothyroidism,CHF, glaucoma, gout, HLD, HTN, AFib status post cardiac pacemaker placement, interstitial cystitis, asthma, peripheral neuropathy, DM, renal osteodystrophy, vitamin-D deficiency, hypothyroidism, SHANE. Recommendation: Continue to follow hemoglobin hematocrit. Will need colonoscopy sometime next week to better image the bleeding site. Advance to full liquids. Objective Data Vital Signs Vital Signs: Vital Signs - 24 hr 03/07/22 13:00 03/07/22 18:30 03/07/22 20:23 Temperature 35.6 C L 36.4 C 36.6 C Pulse Rate 70 70 70 Respiratory Rate 18 16 16 Blood Pressure 134/50 L 116/42 L 134/41 L Pulse Oximetry 100 97 96 Oxygen Delivery Oxygen Flow Rate 03/07/22 21:55 03/07/22 22:05 03/07/22 22:10 Temperature Pulse Rate 70 69 70 Respiratory Rate 18 16 19 Blood Pressure 130/45 L 121/44 L 109/48 L Pulse Oximetry 98 97 99 Oxygen Delivery Nasal Cannula Nasal Cannula Nasal Cannula Oxygen Flow Rate 4 4 4 03/07/22 21:04 03/07/22 23:00 03/08/22 00:04 Temperature 36.4 C 36.4 C L Pulse Rate 67 65 70 Respiratory Rate 16 16 16 Blood Pressure 124/47 L 108/42 L 102/38 L Pulse Oximetry 96 98 98 Oxygen Delivery Nasal Cannula Oxygen Flow Rate 2 03/07/22 20:00 03/08/22 00:00 03/08/22 01:48 Temperature 36.4 C Pulse Rate 70 70 70 Respiratory Rate 14 Blood Pressure 82/34 L Pulse Oximetry 99 Oxygen Delivery Oxygen Flow Rate 03/08/22 03:29 03/08/22 04:00 03/08/22 05:42 Temperature 36.6 C Pulse Rate 70 70 Respiratory Rate 16 Blood Pressure 110/48 L 118/42 L Pulse Oximetry 100 Oxygen Delivery Oxygen Flow Rate 03/08/22 08:19 Temperature Pulse Rate Respiratory Rate Blood Pressure 100/64 Pulse Oximetry Oxygen Delivery Oxygen Flow Rate Intake/Output Intake/Output: Intake & Output 03/05/22 03/06/22 03/07/22 03/08/22 23:59 23:59 23:59 23:59 Intake Total 940 1180 1240 550 Output Total 0 3500 0 Balance 940 -2320 1240 550 Meds/Results Medications: Active Medications Generic Name Dose Route Start Last Admin Trade Name Freq PRN Reason Stop Dose Admin Acetaminophen 500 mg 03/03/22 22:06 03/08/22 08:05 Acetaminophen 500 Mg Tablet PO 500 mg Q6H PRN Administration MILD Pain Albuterol 2 puff 03/03/22 22:06 Albuterol Sulfate (*Sp) Aerosol 1 Puff INHALATION Q6HRT PRN Shortness Of Breath Alprazolam 0.5 mg 03/05/22 15:52 Alprazolam (*Crx) 0.5 Mg Tablet PO BID PRN Anxiety Aspirin 81 mg 03/04/22 12:00 03/07/22 12:05 Aspirin 81 Mg Enteric Tablet PO 81 mg 1200 [facility] Administration Bumetanide 2 mg 03/04/22 12:00 03/07/22 12:05 Bumetanide 1 Mg Tablet PO 2 mg 1200 [facility] Administration Carvedilol 3.125 mg 03/04/22 12:00 03/08/22 00:20 Carvedilol 3.125 Mg Tablet PO Not Given 1200,2100 [facility] Colchicine 0.3 mg 03/03/22 17:00 03/06/22 16:42 Colchicine 0.3 Mg Tablet PO 0.3 mg MoWeFr [facility] Administration Colchicine 0.6 mg 03/04/22 12:00
[2022-03-08 10:07] LABS: Hematocrit 25.3 % (37.0-47.0); Hemoglobin 7.8 g/dL (12.0-15.0); Mean Corpuscular HGB Conc 30.8 g/dl (32-36); Mean Corpuscular Hemoglobin 34.1 pg (26-34); Mean Corpuscular Volume 110.5 fl (80-100); Mean Platelet Volume 10.9 fl (7.4-10.4); Platelet Count Result 155 k/mm3 (150-375); Red Blood Count 2.29 M/mm3 (4.2-5.4); Red Cell Distribution Width 14.2 % (11.5-14.5); White Blood Count 6.2 K/mm3 (4.5-10.0)
[2022-03-08 10:19] LABS: Anion Gap 11 mmol/L (8-16); Blood Urea Nitrogen 48 mg/dL (7-17); Calcium 8.4 mg/dL (8.4-10.2); Carbon Dioxide 24 mmol/L (22-30); Chloride 96 mmol/L (98-107); Estimated CRCL calculation 6 ml/min; Estimated Glomerular Filt Rate 5; Glucose 167 mg/dL (65-110); Phosphorus 6.9 mg/dL (2.5-4.5); Potassium 4.9 mmol/L (3.4-5.0); Sodium 131 mmol/L (137-145)
[2022-03-08] MEDS: SODIUM CHLORIDE 0.9% IV 250 ML 30 ML IV CONT (10:52)
[2022-03-08 11:43] LABS: Glucose Point of Care 167 mg/dl (65-105)
--- NOTE | 2022-03-08 13:17 | PM.PNNEP ---
Progress Note: A&P Assessment and Plan (1) End stage renal disease: Code(s): N18.6 - End stage renal disease Status: Chronic Assessment and Plan: HD tomorrow and continue M/W/F dialysis schedule follow electrolytes, volume status, and clearance (2) Generalized weakness: Code(s): R53.1 - Weakness Status: Acute Assessment and Plan: appears multifactorial: #3 frequent falls DJD/osteoarthritis age iron deficiency anemia (GI bleed) CT of brain without CVA or any other pathology PT/OT as tolerated (3) Physical deconditioning: Code(s): R53.81 - Other malaise Status: Acute Assessment and Plan: see #2 (4) Anemia: Qualifiers: Anemia type: unspecified type Qualified Code(s): D64.9 - Anemia, unspecified Code(s): D64.9 - Anemia, unspecified Status: Chronic Assessment and Plan: related to ESRD but GI loss contributing low H/H noted along with CTA of abdomen and simoidoscopy findings Gastroenterology following follow trend of H/H high dose Epogen with HD PRBC transfusion per protocol (5) SOB (shortness of breath): Code(s): R06.02 - Shortness of breath Status: Acute Assessment and Plan: probably related to fluid, diastolic CHF, limitations with fluid removal with HD, and possible anemia attempt to be more aggressive with ultrafiltration with dialysis follow volume status monitor symptoms (6) Hypertension: Code(s): I10 - Essential (primary) hypertension Status: Chronic Assessment and Plan: reasonable control at this time follow trend of hemodynamics (7) Diabetes: Code(s): E11.9 - Type 2 diabetes mellitus without complications Status: Chronic Assessment and Plan: follow accuchecks glycemic control Will continue to follow. Subjective Date/time seen: 03/08/22 13:17 Events noted yesterday -- seen by Gastroenterology; tagged RBC scan unable to be done so CTA of abdomen done demonstrated active rectal hemorrhage; subsequent underwent sigmoidoscopy by GI given this findings with results noted; serial H/H demonstrate slow drop in hemglobin as well. Exam Narrative: General: WD/WN female in NAD Heart: normal S1 and S2; no rub Lungs: clear to auscultation Abdomen: soft, nontender, nondistended, positive bowel sounds Extremities: no cyanosis or clubbing; trace edema Skin: no nodules Objective Data Vital Signs Vital Signs: Vital Signs Temp Pulse Resp BP Pulse Ox O2 Del Method O2 Flow Rate 03/08/22 12:54 36.9 C 70 12 110/58 L 100 03/08/22 11:03 36.8 C 70 18 104/58 L 100 03/08/22 08:00 98 Nasal Cannula 2 03/08/22 08:00 116 H 03/08/22 10:48 36.6 C 70 18 98/56 L 96 03/08/22 10:35 36.6 C 70 16 100/64 100 03/08/22 08:19 100/64 03/08/22 05:42 36.6 C 70 16 118/42 L 100 03/08/22 04:00 70 03/08/22 03:29 110/48 L 03/08/22 01:48 36.4 C 70 14 82/34 L 99 03/08/22 00:00 70 03/07/22 20:00 70 03/08/22 00:04 36.4 C L 70 16 102/38 L 98 03/07/22 23:00 36.4 C 65 16 108/42 L 98 03/07/22 21:04 67 16 124/47 L 96 Nasal Cannula 2 03/07/22 22:10 70 19 109/48 L 99 Nasal Cannula 4 03/07/22 22:05 69 16 121/44 L 97 Nasal Cannula 4 03/07/22 21:55 70 18 130/45 L 98 Nasal Cannula 4 03/07/22 20:23 36.6 C 70 16 134/41 L 96 03/07/22 18:30 36.4 C 70 16 116/42 L 97 Intake/Output Intake/Output: Intake & Output 03/05/22 03/06/22 03/07/22 03/08/22 23:59 23:59 23:59 23:59 Intake Total 940 1180 1240 1210 Output Total 0 3500 0 Balance 940 -2320 1240 1210 Meds/Results Medications: Active Medications Generic Name Dose Route Start Last Admin Trade Name Sureshq PRN Reason Stop Dose Admin Acetaminophen 500 mg 03/03/22 22:06 03/08/22 08:05 Acetaminophen 500 Mg Tablet PO 500
--- NOTE | 2022-03-08 13:17 | P.PNNP_ITS ---
Progress Note: A&P Assessment and Plan (1) End stage renal disease: Code(s): N18.6 - End stage renal disease Status: Chronic Assessment and Plan: * HD tomorrow and continue M/W/F dialysis schedule * follow electrolytes, volume status, and clearance (2) Generalized weakness: Code(s): R53.1 - Weakness Status: Acute Assessment and Plan: * appears multifactorial: * #3 * frequent falls * DJD/osteoarthritis * age * iron deficiency * anemia (GI bleed) * CT of brain without CVA or any other pathology * PT/OT as tolerated (3) Physical deconditioning: Code(s): R53.81 - Other malaise Status: Acute Assessment and Plan: * see #2 (4) Anemia: Qualifiers: Anemia type: unspecified type Qualified Code(s): D64.9 - Anemia, unspecified Code(s): D64.9 - Anemia, unspecified Status: Chronic Assessment and Plan: * related to ESRD but GI loss contributing * low H/H noted along with CTA of abdomen and simoidoscopy findings * Gastroenterology following * follow trend of H/H * high dose Epogen with HD * PRBC transfusion per protocol (5) SOB (shortness of breath): Code(s): R06.02 - Shortness of breath Status: Acute Assessment and Plan: * probably related to fluid, diastolic CHF, limitations with fluid removal with HD, and possible anemia * attempt to be more aggressive with ultrafiltration with dialysis * follow volume status * monitor symptoms (6) Hypertension: Code(s): I10 - Essential (primary) hypertension Status: Chronic Assessment and Plan: * reasonable control at this time * follow trend of hemodynamics (7) Diabetes: Code(s): E11.9 - Type 2 diabetes mellitus without complications Status: Chronic Assessment and Plan: * follow accuchecks * glycemic control Will continue to follow. Subjective Date/time seen: 03/08/22 13:17 Events noted yesterday -- seen by Gastroenterology; tagged RBC scan unable to be done so CTA of abdomen done demonstrated active rectal hemorrhage; subsequent underwent sigmoidoscopy by GI given this findings with results noted; serial H/H demonstrate slow drop in hemglobin as well. Exam Narrative: General: WD/WN female in NAD Heart: normal S1 and S2; no rub Lungs: clear to auscultation Abdomen: soft, nontender, nondistended, positive bowel sounds Extremities: no cyanosis or clubbing; trace edema Skin: no nodules Objective Data Vital Signs Vital Signs: Vital Signs Temp Pulse Resp BP Pulse Ox O2 Del Method O2 Flow Rate 03/08/22 12:54 36.9 C 70 12 110/58 L 100 03/08/22 11:03 36.8 C 70 18 104/58 L 100 03/08/22 08:00 98 Nasal Cannula 2 03/08/22 08:00 116 H 03/08/22 10:48 36.6 C 70 18 98/56 L 96 03/08/22 10:35 36.6 C 70 16 100/64 100 03/08/22 08:19 100/64 03/08/22 05:42 36.6 C 70 16 118/42 L 100 03/08/22 04:00 70 03/08/22 03:29 110/48 L 03/08/22 01:48 36.4 C 70 14 82/34 L 99 03/08/22 00:00 70 03/07/22 20:00 70 03/08/22 00:04 36.4 C L 70 16 102/38 L 98 03/07/22 23:00 36.4 C 65 16 108/42 L 98 03/07/22 21:04 67 16 124/47 L 96 Nasal Cannula 2 03/07/22 22:10
[2022-03-08] MEDS: FUROSEMIDE INJ 40 MG/4 ML VIAL 20 MG IV PUSH (13:20)
[2022-03-08] MEDS: carvediloL 3.125 MG TABLET PO ×2 (13:20→20:46)
[2022-03-08] MEDS: BUMETANIDE 1 MG TABLET 2 MG PO (13:21)
[2022-03-08] MEDS: ASPIRIN 81 MG ENTERIC TABLET PO (13:21)
[2022-03-08] MEDS: GABAPENTIN 100 MG CAPSULE PO ×2 (13:21→20:46)
[2022-03-08] MEDS: SERTRALINE HCL 50 MG TABLET PO (13:22)
[2022-03-08 15:22] LABS: Hematocrit 26.4 % (37.0-47.0); Hemoglobin 8.5 g/dL (12.0-15.0)
[2022-03-08 16:38] LABS: Glucose Point of Care 186 mg/dl (65-105)
[2022-03-08 20:55] LABS: Glucose Point of Care 208 mg/dl (65-105)
[2022-03-09] VITALS (27 sets, daily range): BP systolic 72–116; BP diastolic 22–56; PULSE 68–75; RESP 14–20; TEMP 36.2–36.7; O2SAT 95–100
[2022-03-09 04:35] LABS: Hematocrit 25.8 % (37.0-47.0); Hemoglobin 8.2 g/dL (12.0-15.0)
[2022-03-09] MEDS: LEVOTHYROXINE SODIUM 25 MCG TABLET PO (06:04)
[2022-03-09 07:55] LABS: Glucose Point of Care 114 mg/dl (65-105)
[2022-03-09] MEDS: PANTOPRAZOLE 40 MG TABLET PO ×2 (08:36→22:03)
[2022-03-09] MEDS: TOLNAFTATE 1% POWDER 45 GM BTL 1 APPLIC TOPICAL ×2 (08:36→22:03)
--- NOTE | 2022-03-09 10:02 | P.PNIM_ITS ---
Progress Note: A&P Assessment and Plan (1) Generalized weakness: Code(s): R53.1 - Weakness Status: Acute Assessment and Plan: will continue with physical therapy and monitor hemoglobin closely. (2) Metabolic acidosis: Code(s): E87.2 - Acidosis Status: Acute Assessment and Plan: getting better. (3) Elevated troponin: Code(s): R77.8 - Other specified abnormalities of plasma proteins Status: Acute Assessment and Plan: continue medical meds today. (4) Physical deconditioning: Code(s): R53.81 - Other malaise Status: Acute Assessment and Plan: Continue physical therapy. (5) Macrocytic anemia: Code(s): D53.9 - Nutritional anemia, unspecified Status: Acute Assessment and Plan: GI consult and monitor closely (6) End-stage renal disease on hemodialysis: Code(s): N18.6 - End stage renal disease; Z99.2 - Dependence on renal dialysis Status: Acute Assessment and Plan: continue current treatment. (7) Type 2 diabetes mellitus: Code(s): E11.9 - Type 2 diabetes mellitus without complications Status: Acute Assessment and Plan: Stable on current meds (8) Hypothyroidism: Code(s): E03.9 - Hypothyroidism, unspecified Status: Acute Assessment and Plan: stable (9) Obstructive sleep apnea: Code(s): G47.33 - Obstructive sleep apnea (adult) (pediatric) Status: Acute Assessment and Plan: stable (10) Chronic diastolic congestive heart failure: Code(s): I50.32 - Chronic diastolic (congestive) heart failure Status: Acute Assessment and Plan: continue medical management (11) Right shoulder pain: Code(s): M25.511 - Pain in right shoulder Status: Acute Assessment and Plan: continue with physical therapy and pain management (12) Right hip pain: Code(s): M25.551 - Pain in right hip Status: Acute Assessment and Plan: continue with physical therapy and pain management (13) Rectal bleeding: Code(s): K62.5 - Hemorrhage of anus and rectum Status: Acute Assessment and Plan: GI evaluation Plan The patient presented to the ED with weakness and concerns that she is having a stroke. She has become progressively more weak with several falls in the last couple of months. She has mobility issues with her right arm due to shoulder pain as well as right hip and right heel pain. In the ED, she was hemodynamically stable. She had a macrocytic anemia with hgb 11.0 and mild low plt count. She has SHANE (unable to tolerate CPAP) and ABG showing 7.30/42/79 on RA. She had a metabolic gap acidosis with Anion Gap at 18. Glucose was 201. Potassium 5.0 and Na 130. Motley the metabolic acidosis and hyperkalemia related to her renal failure. COVID was negative. 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 CXR showing scarring at the right lung apex and cardiomegaly. Lower extremity venous Doppler was negative for DVT. Shoulder x- ray shows polyarticular osteoarthritis and right rotator cuff tear. Right hip x-ray shows severe osteoarthritis and possible avascular necrosis. Fall precautions were initiated. PT/OT consulted. B12 and folate levels were normal. Nephrology was consulted for dialysis orders. Sliding scale insulin, Accu-Cheks, and hypoglycemic protocol started. EKG showed paced rhythm. Troponin were mi ldly elevated and flat and due to lack of chest pain, these are likely elevated in the setting of her end-stage renal disease.
--- NOTE | 2022-03-09 10:32 | WPDGIPROGNO ---
Subjective Date/time seen: 03/09/22 10:32 Patient complains of no GI issues at this time. No bleeding reported at this time. Vital signs stable.? Heart rate rhythm regular.? Lungs CTA.? Abdomen is soft. Impression: Rectal bleeding secondary to rectal ulceration? Anemia multifactorial origin.? There may be a component of acute blood loss anemia from rectal bleeding.? A chronic component of anemia certainly reasonable in view of for end-stage renal disease.? 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 B12 and folic acid levels are normal. GERD controlled with medication.? The patient does have dysphagia to both solids and liquids which may indicate possible globus reaction.? History gastric ulcer disease and GI bleeding and in the past. History of colon polyps. PMH/problems:? Physical deconditioning, amyloidosis, end-stage renal disease on dialysis, CVA/TIA, carotid arterial disease, depression, Hypothyroidism,CHF, glaucoma, gout, HLD, HTN, AFib status post cardiac pacemaker placement, interstitial cystitis, asthma, peripheral neuropathy, DM, renal osteodystrophy, vitamin-D deficiency, hypothyroidism, SHANE. Recommendation: [facility] will resume care in the a.m.. Consider colonoscopy later this week to better ascertain etiology bleeding. Consider EGD/esophagram regarding dysphagia to solids and liquids. Objective Data Vital Signs Vital Signs: Vital Signs - 24 hr 03/08/22 10:35 03/08/22 10:48 03/08/22 11:03 Temperature 36.6 C 36.6 C 36.8 C Pulse Rate 70 70 70 Respiratory Rate 16 18 18 Blood Pressure 100/64 98/56 L 104/58 L Pulse Oximetry 100 96 100 Oxygen Delivery Oxygen Flow Rate 03/08/22 12:54 03/08/22 16:00 03/08/22 12:00 Temperature 36.9 C 37.1 C Pulse Rate 70 76 70 Respiratory Rate 12 14 Blood Pressure 110/58 L 102/60 Pulse Oximetry 100 94 Oxygen Delivery Oxygen Flow Rate 03/08/22 16:00 03/08/22 20:46 03/08/22 20:47 Temperature 37.5 C Pulse Rate 70 70 70 Respiratory Rate 16 Blood Pressure 118/42 L Pulse Oximetry 100 Oxygen Delivery Oxygen Flow Rate 03/08/22 20:00 03/09/22 00:00 03/09/22 01:18 Temperature 36.7 C Pulse Rate 71 70 68 Respiratory Rate 14 Blood Pressure 112/40 L Pulse Oximetry 99 Oxygen Delivery Oxygen Flow Rate 03/09/22 04:00 03/09/22 06:11 03/09/22 08:00 Temperature 36.6 C Pulse Rate 70 70 70 Respiratory Rate 16 Blood Pressure 114/44 L Pulse Oximetry 99 Oxygen Delivery Oxygen Flow Rate 03/09/22 08:00 Temperature Pulse Rate Respiratory Rate Blood Pressure Pulse Oximetry 95 Oxygen Delivery Nasal Cannula Oxygen Flow Rate 2 Intake/Output Intake/Output: Intake & Output 03/06/22 03/07/22 03/08/22 03/09/22 23:59 23:59 23:59 23:59 Intake Total 1180 1240 1210 980 Output Total 3500 0 Balance -2320 1240 1210 980 Meds/Results Medications: Active Medications Generic Name Dose Route Start Last Admin Trade Name Freq PRN Reason Stop Dose Admin Acetaminophen 500 mg 03/03/22 22:06 03/08/22 08:05 Acetaminophen 500 Mg Tablet PO 500 mg Q6H PRN Administration MILD Pain Albuterol 2 puff 03/03/22 22:06 Albuterol Sulfate (*Sp) Aerosol 1 Puff INHALATION Q6HRT PRN Shortness Of Breath Alprazolam 0.5 mg 03/05/22 15:52 Alprazolam (*Crx) 0.5 Mg Tablet PO BID PRN Anxiety Aspirin 81 mg 03/04/22 12:00 03/08/22 13:21 Aspirin 81 Mg Enteric Tablet PO 81 mg 1200 [facility] Administration Bumetanide 2 mg 03/04/22 12:00 03/08/22 13:21 Bumetanide 1 Mg Tablet PO 2 mg 1200 [facility] Administration Carvedilol 3.125 mg 03/04/22 12:00 03/08/22 20:46 Carvedilol 3.125 Mg Tablet PO 3.125 mg 1200,2100 [facility] Administration Colchicine 0.3 mg 03/03/22 17:00 03/06/22 16:42 Colchicine 0.3 Mg Tablet PO 0.3 mg MoWeFr [facility] Administration Colchicine 0.6 mg 03/04/22 12:00 03/06/22 13:54 Colchicine 0.6 Mg Tablet PO
--- NOTE | 2022-03-09 10:37 | PC.NURSE ---
[facility] was called at 0746 to notify them that the hospitalist wants the patient to give one unit of blood during dialysis. No call back was received from them. [facility] was called again at 1034. Zahra called back and said she will be dialyzed this afternoon. She requested that the type and screen be done so that the blood could be transfused this afternoon. Type and screen has already been completed.
[2022-03-09 11:32] LABS: Glucose Point of Care 136 mg/dl (65-105)
[2022-03-09] MEDS: traMADol HCL (*CRX) 50 MG TABLET PO (11:39)
[2022-03-09] MEDS: carvediloL 3.125 MG TABLET PO (11:40)
[2022-03-09] MEDS: COLCHICINE 0.6 MG TABLET PO (11:40)
[2022-03-09] MEDS: ASPIRIN 81 MG ENTERIC TABLET PO (11:40)
[2022-03-09] MEDS: BUMETANIDE 1 MG TABLET 2 MG PO (11:41)
[2022-03-09] MEDS: SEVELAMER CARBONATE 800 MG TABLET BY MOUTH ×3 (11:41→22:03)
[2022-03-09] MEDS: GABAPENTIN 100 MG CAPSULE PO ×2 (11:41→22:04)
[2022-03-09] MEDS: SERTRALINE HCL 50 MG TABLET PO (11:41)
--- NOTE | 2022-03-09 12:33 | PC.NURSE ---
Called Dr. Julio and reported that patient is stating that she feels like she is having trouble talking and she feels like she had another stroke. Dr. Julio came to see patient and will continue to monitor.
[2022-03-09 16:39] LABS: Glucose Point of Care 176 mg/dl (65-105)
[2022-03-09] MEDS: MIDODRINE HCL 2.5 MG TABLET 5 MG PO (16:41)
--- NOTE | 2022-03-09 18:12 | PC.NURSE ---
Patient taken off 2nd floor to 3rd floor med surg for dialysis.
--- NOTE | 2022-03-09 18:35 | PM.PNNEP ---
Progress Note: A&P Assessment and Plan (1) End stage renal disease: Code(s): N18.6 - End stage renal disease Status: Chronic Assessment and Plan: HD today and continue M/W/F dialysis schedule follow electrolytes, volume status, and clearance (2) Anemia: Qualifiers: Anemia type: unspecified type Qualified Code(s): D64.9 - Anemia, unspecified Code(s): D64.9 - Anemia, unspecified Status: Chronic Assessment and Plan: related to ESRD but GI loss contributing low H/H noted along with CTA of abdomen and sigmoidoscopy findings Gastroenterology following follow trend of H/H high dose Epogen with HD PRBC transfusion yesterday and plan another with HD today (3) Generalized weakness: Code(s): R53.1 - Weakness Status: Acute Assessment and Plan: appears multifactorial: #3 frequent falls DJD/osteoarthritis age iron deficiency anemia (GI bleed) CT of brain without CVA or any other pathology PT/OT as tolerated (4) Physical deconditioning: Code(s): R53.81 - Other malaise Status: Acute Assessment and Plan: see #3 (5) SOB (shortness of breath): Code(s): R06.02 - Shortness of breath Status: Acute Assessment and Plan: probably related to fluid, diastolic CHF, limitations with fluid removal with HD, and possible anemia attempt to be more aggressive with ultrafiltration with dialysis follow volume status monitor symptoms (6) Hypertension: Code(s): I10 - Essential (primary) hypertension Status: Chronic Assessment and Plan: reasonable control at this time follow trend of hemodynamics (7) Diabetes: Code(s): E11.9 - Type 2 diabetes mellitus without complications Status: Chronic Assessment and Plan: follow accuchecks glycemic control Will continue to follow. Subjective Date/time seen: 03/09/22 18:35 Patient tolerating dialysis treatment at the time of my visit (seen on HD at 6:25PM); BP quite low so holding off on fluid removal at this time and hopefully use of IV albumin + PRBC transfusion with help; tolerated PRBC transfusion yesterday without any issue. Exam Narrative: General: WD/WN female in NAD Heart: normal S1 and S2; no rub Lungs: clear to auscultation Abdomen: soft, nontender, nondistended, positive bowel sounds Extremities: no cyanosis or clubbing; trace edema Skin: no nodules Objective Data Vital Signs Vital Signs: Vital Signs Temp Pulse Resp BP Pulse Ox O2 Del Method O2 Flow Rate 03/09/22 17:50 36.4 C 70 16 107/31 L 98 03/09/22 16:00 70 03/09/22 16:00 36.5 C 72 16 112/48 L 98 03/09/22 12:33 36.6 C 70 16 116/35 L 100 03/09/22 12:00 70 03/09/22 10:00 36.6 C 70 16 110/56 L 98 03/09/22 08:00 95 Nasal Cannula 2 03/09/22 08:00 70 03/09/22 06:11 36.6 C 70 16 114/44 L 99 03/09/22 04:00 70 03/09/22 01:18 36.7 C 68 14 112/40 L 99 03/09/22 00:00 70 03/08/22 20:00 71 03/08/22 20:47 37.5 C 70 16 118/42 L 100 03/08/22 20:46 70 Intake/Output Intake/Output: Intake & Output 03/06/22 03/07/22 03/08/22 03/09/22 23:59 23:59 23:59 23:59 Intake Total 1180 1240 1210 1542 Output Total 3500 0 Balance -2320 1240 1210 1542 Meds/Results Medications: Active Medications Generic Name Dose Route Start Last Admin Trade Name Freq PRN Reason Stop Dose Admin Acetaminophen 500 mg 03/03/22 22:06 03/08/22 08:05 Acetaminophen 500 Mg Tablet PO 500 mg Q6H PRN Administration MILD Pain Albuterol 2 puff 03/03/22 22:06 Albuterol Sulfate (*Sp) Aerosol 1 Puff INHALATION Q6HRT PRN Shortness Of Breath Alprazolam 0.5 mg 03/05/22 15:52 Alprazolam (*Crx) 0.5 Mg Tablet PO BID PRN Anxiety Aspirin 81 mg 03/04/22 12:00 03/09/22 11:40 Aspirin 81 Mg Enteric Table
--- NOTE | 2022-03-09 18:35 | P.PNNP_ITS ---
Progress Note: A&P Assessment and Plan (1) End stage renal disease: Code(s): N18.6 - End stage renal disease Status: Chronic Assessment and Plan: * HD today and continue M/W/ dialysis schedule * follow electrolytes, volume status, and clearance (2) Anemia: Qualifiers: Anemia type: unspecified type Qualified Code(s): D64.9 - Anemia, unspecified Code(s): D64.9 - Anemia, unspecified Status: Chronic Assessment and Plan: * related to ESRD but GI loss contributing * low H/H noted along with CTA of abdomen and sigmoidoscopy findings * Gastroenterology following * follow trend of H/H * high dose Epogen with HD * PRBC transfusion yesterday and plan another with HD today (3) Generalized weakness: Code(s): R53.1 - Weakness Status: Acute Assessment and Plan: * appears multifactorial: * #3 * frequent falls * DJD/osteoarthritis * age * iron deficiency * anemia (GI bleed) * CT of brain without CVA or any other pathology * PT/OT as tolerated (4) Physical deconditioning: Code(s): R53.81 - Other malaise Status: Acute Assessment and Plan: * see #3 (5) SOB (shortness of breath): Code(s): R06.02 - Shortness of breath Status: Acute Assessment and Plan: * probably related to fluid, diastolic CHF, limitations with fluid removal with HD, and possible anemia * attempt to be more aggressive with ultrafiltration with dialysis * follow volume status * monitor symptoms (6) Hypertension: Code(s): I10 - Essential (primary) hypertension Status: Chronic Assessment and Plan: * reasonable control at this time * follow trend of hemodynamics (7) Diabetes: Code(s): E11.9 - Type 2 diabetes mellitus without complications Status: Chronic Assessment and Plan: * follow accuchecks * glycemic control Will continue to follow. Subjective Date/time seen: 03/09/22 18:35 Patient tolerating dialysis treatment at the time of my visit (seen on HD at 6:25PM); BP quite low so holding off on fluid removal at this time and hopefully use of IV albumin + PRBC transfusion with help; tolerated PRBC transfusion yesterday without any issue. Exam Narrative: General: WD/WN female in NAD Heart: normal S1 and S2; no rub Lungs: clear to auscultation Abdomen: soft, nontender, nondistended, positive bowel sounds Extremities: no cyanosis or clubbing; trace edema Skin: no nodules Objective Data Vital Signs Vital Signs: Vital Signs Temp Pulse Resp BP Pulse Ox O2 Del Method O2 Flow Rate 03/09/22 17:50 36.4 C 70 16 107/31 L 98 03/09/22 16:00 70 03/09/22 16:00 36.5 C 72 16 112/48 L 98 03/09/22 12:33 36.6 C 70 16 116/35 L 100 03/09/22 12:00 70 03/09/22 10:00 36.6 C 70 16 110/56 L 98 03/09/22 08:00 95 Nasal Cannula 2 03/09/22 08:00 70 03/09/22 06:11 36.6 C 70 16 114/44 L 99 03/09/22 04:00 70 03/09/22 01:18 36.7 C 68 14 112/40 L 99 03/09/22 00:00 70 03/08/22 20:00 71 03/08/22 20:47 37.5 C 70 16 118/42 L 100 03/08/22 20:46 70 Intake/Output Intake/Output:
[2022-03-09] MEDS: EPOETIN ALFA-EPBX 20,000 UNITS/ML VIAL 20000 UNITS IV PUSH (19:26)
[2022-03-09] MEDS: ALBUMIN HUMAN 25% 12.5 GM/50ML 50 ML IVPB ×2 (19:50→21:00)
[2022-03-09] MEDS: INSULIN GLARGINE (*BKC) 100 UNITS/ML 15 UNITS SUB-Q (22:04)
[2022-03-09 22:12] LABS: Glucose Point of Care 124 mg/dl (65-105)
[2022-03-09] MEDS: COLCHICINE 0.3 MG TABLET PO (22:22)
--- NOTE | 2022-03-09 23:05 | PC.NURSE ---
assistant gm of content & delivery unable to document verification of blood transfusion in TAR. [employer] Installer assisted in manual override utilizing blood packaging and lab verification sheet to match the blood product to the patient post transfusion to complete documentation in TAR.
[2022-03-10] VITALS (28 sets, daily range): BP systolic 98–125; BP diastolic 30–69; PULSE 69–87; RESP 12–22; TEMP 35.8–37; O2SAT 99–100
[2022-03-10] MEDS: LEVOTHYROXINE SODIUM 25 MCG TABLET PO (05:50)
[2022-03-10 07:01] LABS: Alanine Aminotransferase 8 U/L (6-35); Albumin Level 3.4 g/dL (3.5-5.1); Alkaline Phosphatase 88 U/L (38-126); Anion Gap 15 mmol/L (8-16); Aspartate Amino Transferase 25 U/L (14-36); Bilirubin,Total 0.6 mg/dL (0.2-1.3); Blood Urea Nitrogen 33 mg/dL (7-17); Calcium 8.5 mg/dL (8.4-10.2); Carbon Dioxide 18 mmol/L (22-30); Chloride 98 mmol/L (98-107); Estimated CRCL calculation 7 ml/min; Estimated Glomerular Filt Rate 6; Glucose 118 mg/dL (65-110); Phosphorus 5.6 mg/dL (2.5-4.5); Potassium 5.4 mmol/L (3.4-5.0); Sodium 131 mmol/L (137-145)
[2022-03-10 07:13] LABS: Hemoglobin 8.3 g/dL (12.0-15.0); Mean Corpuscular HGB Conc 30.7 g/dl (32-36); Mean Corpuscular Hemoglobin 33.1 pg (26-34); Mean Corpuscular Volume 107.6 fl (80-100); Mean Platelet Volume 10.8 fl (7.4-10.4); Platelet Count Result 164 k/mm3 (150-375); Red Blood Count 2.51 M/mm3 (4.2-5.4); Red Cell Distribution Width 17.5 % (11.5-14.5); White Blood Count 6.1 K/mm3 (4.5-10.0)
[2022-03-10 07:57] LABS: Glucose Point of Care 111 mg/dl (65-105)
[2022-03-10] MEDS: TOLNAFTATE 1% POWDER 45 GM BTL 1 APPLIC TOPICAL ×2 (08:24→20:15)
[2022-03-10] MEDS: PANTOPRAZOLE 40 MG TABLET PO ×2 (08:24→20:14)
--- NOTE | 2022-03-10 10:24 | PM.IMPN ---
Progress Note: A&P Assessment and Plan (1) Rectal bleeding: Code(s): K62.5 - Hemorrhage of anus and rectum Status: Acute (2) Rectal ulcer: Code(s): K62.6 - Ulcer of anus and rectum Status: Acute (3) Generalized weakness: Code(s): R53.1 - Weakness Status: Acute (4) Metabolic acidosis: Code(s): E87.2 - Acidosis Status: Acute (5) Elevated troponin: Code(s): R77.8 - Other specified abnormalities of plasma proteins Status: Acute (6) Physical deconditioning: Code(s): R53.81 - Other malaise Status: Acute (7) Macrocytic anemia: Code(s): D53.9 - Nutritional anemia, unspecified Status: Acute (8) End-stage renal disease on hemodialysis: Code(s): N18.6 - End stage renal disease; Z99.2 - Dependence on renal dialysis Status: Acute (9) Type 2 diabetes mellitus: Code(s): E11.9 - Type 2 diabetes mellitus without complications Status: Acute (10) Hypothyroidism: Code(s): E03.9 - Hypothyroidism, unspecified Status: Acute (11) Obstructive sleep apnea: Code(s): G47.33 - Obstructive sleep apnea (adult) (pediatric) Status: Acute (12) Chronic diastolic congestive heart failure: Code(s): I50.32 - Chronic diastolic (congestive) heart failure Status: Acute (13) Right shoulder pain: Code(s): M25.511 - Pain in right shoulder Status: Acute (14) Right hip pain: Code(s): M25.551 - Pain in right hip Status: Acute Plan The patient presented to the ED with weakness and concerns that she is having a stroke. She has become progressively more weak with several falls in the last couple of months. She has mobility issues with her right arm due to shoulder pain as well as right hip and right heel pain. In the ED, she was hemodynamically stable. She had a macrocytic anemia with hgb 11.0 and mild low plt count. She has SHANE (unable to tolerate CPAP) and ABG showing 7.30/42/79 on RA. She had a metabolic gap acidosis with Anion Gap at 18. Glucose was 201. Potassium 5.0 and Na 130. [place] the metabolic acidosis and hyperkalemia related to her renal failure. COVID was negative. 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 CXR showing scarring at the right lung apex and cardiomegaly. Lower extremity venous Doppler was negative for DVT. Shoulder x-ray shows polyarticular osteoarthritis and right rotator cuff tear. Right hip x-ray shows severe osteoarthritis and possible avascular necrosis. CT lumber spine showing mild-moderate central canal stenosis. CT cervical spine showing mild cervical canal stenosis. Fall precautions were initiated. PT/OT consulted. B12 and folate levels were normal. Nephrology was consulted for dialysis orders. Sliding scale insulin, Accu-Cheks, and hypoglycemic protocol started. EKG showed paced rhythm. Troponin were mildly elevated and flat and due to lack of chest pain, these are likely elevated in the setting of her end-stage renal disease. BNP 13,500 so consider fluid overload as etiology of her elevated troponins. Home medications were resumed as appropriate. Cortisol level and TSH normal. Echo showing EF>70%, biatrial dilation, and Grade I diastolic dysfunction. Rectal bleeding felt related to rectal ulcer (noted by colonoscopy 03/07) that was actively bleeding now s/p Epi injection with cautery. She was transfused 2U PRBC total. She did not tolerate HD well yesterday with HoTN. HD planned again for today. Plan for Colonoscopy for tomorrow to re-assess ulcer. More confused today. Continue PT/OT. Care coordination to arrange for SNF. Appreciate Nephrology and GI input. Check CT brain. Metabolic acidosis persistent. Continue to use dialysis to control fluid status and electrolytes. Okay to stop tele. DVT prophylaxis - SCDs Code status - Full Subjective Date/time seen: 03/10/22 10:24 Interval history: 03/10/2022 81yo female with hx of ESRD, CVA and
--- NOTE | 2022-03-10 11:20 | P.PNNP_ITS ---
Progress Note: A&P Assessment and Plan (1) End stage renal disease: Code(s): N18.6 - End stage renal disease Status: Chronic Assessment and Plan: * short HD again today since HD treatment yesterday was suboptimal * follow electrolytes, volume status, and clearance (2) Anemia: Qualifiers: Anemia type: unspecified type Qualified Code(s): D64.9 - Anemia, unspecified Code(s): D64.9 - Anemia, unspecified Status: Chronic Assessment and Plan: * related to ESRD but GI loss contributing * low H/H noted along with CTA of abdomen and sigmoidoscopy findings * Gastroenterology following - EGD/colonoscopy planned tomorrow * follow trend of H/H * high dose Epogen with HD * PRBC transfusion per protocol (3) Generalized weakness: Code(s): R53.1 - Weakness Status: Acute Assessment and Plan: * appears multifactorial: * #3 * frequent falls * DJD/osteoarthritis * age * iron deficiency * anemia (GI bleed) * CT of brain without CVA or any other pathology * PT/OT as tolerated (4) Physical deconditioning: Code(s): R53.81 - Other malaise Status: Acute Assessment and Plan: * see #3 (5) SOB (shortness of breath): Code(s): R06.02 - Shortness of breath Status: Acute Assessment and Plan: * probably related to fluid, diastolic CHF, limitations with fluid removal with HD, and possible anemia * attempt to be more aggressive with ultrafiltration with dialysis * follow volume status * monitor symptoms (6) Hypertension: Code(s): I10 - Essential (primary) hypertension Status: Chronic Assessment and Plan: * reasonable control at this time * follow trend of hemodynamics (7) Diabetes: Code(s): E11.9 - Type 2 diabetes mellitus without complications Status: Chronic Assessment and Plan: * follow accuchecks * glycemic control Will continue to follow. Subjective Date/time seen: 03/10/22 11:20 Received hemodialysis yesterday but hypotension limited fluid removal despite use of IV albumin and PRBC transfusion; K+ elevated by AM labs today and seems a bit volume overloaded by exam today; no apparent distress voiced currently; no issues overnight other than low BP readings. Exam Narrative: General: WD/WN female in NAD Heart: normal S1 and S2; no rub Lungs: bibasilar crackles noted Abdomen: soft, nontender, nondistended, positive bowel sounds Extremities: no cyanosis or clubbing; trace edema Skin: warm and dry Objective Data Vital Signs Vital Signs: Vital Signs Temp Pulse Resp BP Pulse Ox O2 Del Method O2 Flow Rate 03/10/22 10:05 36.8 C 87 12 120/60 100 03/10/22 08:00 70 03/10/22 08:00 100 Nasal Cannula 2 03/10/22 04:00 70 03/10/22 03:37 35.9 C L 69 18 116/36 L 100 03/10/22 02:00 35.8 C L 71 18 114/37 L 99 03/10/22 02:00 35.8 C L 71 18 114/37 L 99 03/10/22 00:00 70 03/09/22 22:00 100 Nasal Cannula 2 03/09/22 22:00 70 03/09/22 22:26 70 03/09/22 22:02 36.2 C L 71 16 110/31 L 100 03/09/22 19:18 36.6 C 70 20 88/25 L 03/09/22 18:45 36.6 C 71 20 93/32 L 03/09/22 19:15 36.4 C 70 20 88/25 L
--- NOTE | 2022-03-10 11:20 | PM.PNNEP ---
Progress Note: A&P Assessment and Plan (1) End stage renal disease: Code(s): N18.6 - End stage renal disease Status: Chronic Assessment and Plan: short HD again today since HD treatment yesterday was suboptimal follow electrolytes, volume status, and clearance (2) Anemia: Qualifiers: Anemia type: unspecified type Qualified Code(s): D64.9 - Anemia, unspecified Code(s): D64.9 - Anemia, unspecified Status: Chronic Assessment and Plan: related to ESRD but GI loss contributing low H/H noted along with CTA of abdomen and sigmoidoscopy findings Gastroenterology following - EGD/colonoscopy planned tomorrow follow trend of H/H high dose Epogen with HD PRBC transfusion per protocol (3) Generalized weakness: Code(s): R53.1 - Weakness Status: Acute Assessment and Plan: appears multifactorial: #3 frequent falls DJD/osteoarthritis age iron deficiency anemia (GI bleed) CT of brain without CVA or any other pathology PT/OT as tolerated (4) Physical deconditioning: Code(s): R53.81 - Other malaise Status: Acute Assessment and Plan: see #3 (5) SOB (shortness of breath): Code(s): R06.02 - Shortness of breath Status: Acute Assessment and Plan: probably related to fluid, diastolic CHF, limitations with fluid removal with HD, and possible anemia attempt to be more aggressive with ultrafiltration with dialysis follow volume status monitor symptoms (6) Hypertension: Code(s): I10 - Essential (primary) hypertension Status: Chronic Assessment and Plan: reasonable control at this time follow trend of hemodynamics (7) Diabetes: Code(s): E11.9 - Type 2 diabetes mellitus without complications Status: Chronic Assessment and Plan: follow accuchecks glycemic control Will continue to follow. Subjective Date/time seen: 03/10/22 11:20 Received hemodialysis yesterday but hypotension limited fluid removal despite use of IV albumin and PRBC transfusion; K+ elevated by AM labs today and seems a bit volume overloaded by exam today; no apparent distress voiced currently; no issues overnight other than low BP readings. Exam Narrative: General: WD/WN female in NAD Heart: normal S1 and S2; no rub Lungs: bibasilar crackles noted Abdomen: soft, nontender, nondistended, positive bowel sounds Extremities: no cyanosis or clubbing; trace edema Skin: warm and dry Objective Data Vital Signs Vital Signs: Vital Signs Temp Pulse Resp BP Pulse Ox O2 Del Method O2 Flow Rate 03/10/22 10:05 36.8 C 87 12 120/60 100 03/10/22 08:00 70 03/10/22 08:00 100 Nasal Cannula 2 03/10/22 04:00 70 03/10/22 03:37 35.9 C L 69 18 116/36 L 100 03/10/22 02:00 35.8 C L 71 18 114/37 L 99 03/10/22 02:00 35.8 C L 71 18 114/37 L 99 03/10/22 00:00 70 03/09/22 22:00 100 Nasal Cannula 2 03/09/22 22:00 70 03/09/22 22:26 70 03/09/22 22:02 36.2 C L 71 16 110/31 L 100 03/09/22 19:18 36.6 C 70 20 88/25 L 03/09/22 18:45 36.6 C 71 20 93/32 L 03/09/22 19:15 36.4 C 70 20 88/25 L 03/09/22 18:45 36.6 C 71 20 93/32 L 03/09/22 19:00 36.6 C 70 20 88/23 L 03/09/22 18:45 36.6 C 71 20 93/32 L 03/09/22 21:45 36.6 C 69 20 100/51 L 03/09/22 21:15 75 72/22 L 03/09/22 21:00 72 84/25 L 03/09/22 20:45 71 88/28 L 03/09/22 20:30 70 84/26 L 03/09/22 20:00 71 89/32 L 03/09/22 19:30 69 96/28 L 03/09/22 19:15 72 88/25 L 03/09/22 18:45 71 102/29 L 03/09/22 18:30 70 95/27 L 03/09/22 18:15 70 92/29 L 03/09/22 17:10 2 03/09/22 18:10 36.6 C 74 18 88/29 L 03/09/22 17:50 36.4 C 70 16 107/31 L 98 03/09/22 16:00 70 03/09/22 16:00 36.5 C 72 16 112/48 L
[2022-03-10 11:39] LABS: Glucose Point of Care 154 mg/dl (65-105)
--- NOTE | 2022-03-10 13:55 | WPDGIPROGNO ---
Progress Note: A&P Assessment and Plan (1) Rectal ulcer: Code(s): K62.6 - Ulcer of anus and rectum Status: Acute Assessment and Plan: Patient is status post recent flex sig by covering MD over the weekend. Rectal ulceration requiring injection of epinephrine identified. Follow-up colonoscopy recommended after several days. We will plan follow-up colonoscopy tomorrow to assess rectal ulcer as well as to evaluate more proximal colon. Stool softeners encourage most likely etiology is that of stercal ulcerations secondary to constipation impaction. (2) Rectal bleeding: Code(s): K62.5 - Hemorrhage of anus and rectum Status: Acute Assessment and Plan: No additional bleeding noted after cautery and injection of rectal ulcer. (3) Dysphagia: Code(s): R13.10 - Dysphagia, unspecified Status: Acute Assessment and Plan: Patient has difficulty swallowing complaints. I see that an EGD was performed within the last year with evidence for esophagitis. Plan to continue for anti-reflux measures. Follow-up EGD will be planned tomorrow time of colonoscopy because of these complaints. Subjective Date/time seen: 03/10/22 13:55 Patient seen in evaluation this morning on follow-up. Seen by Dr. Sims for gastroenterology over the weekend. Patient offers no specific GI complaints. Seems unaware that she had bleeding from rectal ulceration. Review of records reveals that she has a distant history of gastric ulcer history of colon polyps. Endoscopy over the weekend revealed bleeding rectal ulcer that required epinephrine injection. follow-up colonoscopy suggested this time. Review of Systems Review of Systems: Noncontributory because of mental stat Exam Narrative: physical exam reveals patient be comfortable at rest. HEENT exam reveals no icterus. Lungs are clear. Heart without murmur. Abdomen bowel sounds present soft nontender with no organomegaly. Objective Data Vital Signs Vital Signs: Vital Signs - 24 hr 03/09/22 16:00 03/09/22 16:00 03/09/22 17:50 Temperature 97.7 F 97.6 F Pulse Rate 72 70 70 Respiratory Rate 16 16 Blood Pressure 112/48 L 107/31 L Pulse Oximetry 98 98 Oxygen Delivery Oxygen Flow Rate 03/09/22 18:10 03/09/22 17:10 03/09/22 18:15 Temperature 97.9 F Pulse Rate 74 70 Respiratory Rate 18 Blood Pressure 88/29 L 92/29 L Pulse Oximetry Oxygen Delivery Oxygen Flow Rate 2 03/09/22 18:30 03/09/22 18:45 03/09/22 19:15 Temperature Pulse Rate 70 71 72 Respiratory Rate Blood Pressure 95/27 L 102/29 L 88/25 L Pulse Oximetry Oxygen Delivery Oxygen Flow Rate 03/09/22 19:30 03/09/22 20:00 03/09/22 20:30 Temperature Pulse Rate 69 71 70 Respiratory Rate Blood Pressure 96/28 L 89/32 L 84/26 L Pulse Oximetry Oxygen Delivery Oxygen Flow Rate 03/09/22 20:45 03/09/22 21:00 03/09/22 21:15 Temperature Pulse Rate 71 72 75 Respiratory Rate Blood Pressure 88/28 L 84/25 L 72/22 L Pulse Oximetry Oxygen Delivery Oxygen Flow Rate 03/09/22 21:45 03/09/22 18:45 03/09/22 19:00 Temperature 97.9 F 97.8 F 97.8 F Pulse Rate 69 71 70 Respiratory Rate 20 20 20 Blood Pressure 100/51 L 93/32 L 88/23 L Pulse Oximetry Oxygen Delivery Oxygen Flow Rate 03/09/22 18:45 03/09/22 19:15 03/09/22 18:45 Temperature 97.8 F 97.6 F 97.8 F Pulse Rate 71 70 71 Respiratory Rate 20 20 20 Blood Pressure 93/32 L 88/25 L 93/32 L Pulse Oximetry Oxygen Delivery Oxygen Flow Rate 03/09/22 19:18 03/09/22 22:02 03/09/22 22:26 Temperature 97.8 F 97.2 F L Pulse Rate 70 71 70 Respiratory Rate 20 16 Blood Pressure 88/25 L 110/31 L Pulse Oximetry 100 Oxygen Delivery Oxygen Flow Rate 03/09/22 22:00 03/09/22 22:00 03/10/22 00:00 Temperature Pulse Rate 70 70 Respiratory Rate Blood Pressure Pulse Oximetry 100 Oxygen Delivery Nasal Cannula O
[2022-03-10] MEDS: MIDODRINE HCL 10 MG TABLET PO (16:38)
[2022-03-10] MEDS: SERTRALINE HCL 50 MG TABLET PO (19:45)
[2022-03-10] MEDS: ASPIRIN 81 MG ENTERIC TABLET PO (19:46)
[2022-03-10] MEDS: BUMETANIDE 1 MG TABLET 2 MG PO (19:46)
[2022-03-10] MEDS: SEVELAMER CARBONATE 800 MG TABLET BY MOUTH ×2 (19:47→20:14)
[2022-03-10] MEDS: PEG (High)/E-LYTE SOLN 4,000 ML BTL 4000 ML PO (19:48)
[2022-03-10] MEDS: INSULIN GLARGINE (*BKC) 100 UNITS/ML 15 UNITS SUB-Q (20:10)
[2022-03-10] MEDS: SIMVASTATIN 10 MG TABLET PO (20:14)
[2022-03-10] MEDS: GABAPENTIN 100 MG CAPSULE PO (20:14)
[2022-03-10] MEDS: carvediloL 3.125 MG TABLET PO (20:15)
[2022-03-10 21:30] LABS: Glucose Point of Care 126 mg/dl (65-105)
[2022-03-11] VITALS (17 sets, daily range): BP systolic 107–148; BP diastolic 30–88; PULSE 70–71; RESP 12–22; TEMP 35.9–36.7; O2SAT 93–100
[2022-03-11 03:01] LABS: Zinc 75 mcg/dL (60-130)
[2022-03-11 07:43] LABS: Hematocrit 27.7 % (37.0-47.0); Hemoglobin 8.3 g/dL (12.0-15.0); Mean Corpuscular Hemoglobin 33.3 pg (26-34); Mean Corpuscular Volume 111.2 fl (80-100); Mean Platelet Volume 10.2 fl (7.4-10.4); Platelet Count Result 168 k/mm3 (150-375); Red Blood Count 2.49 M/mm3 (4.2-5.4); Red Cell Distribution Width 17.1 % (11.5-14.5); White Blood Count 4.9 K/mm3 (4.5-10.0)
[2022-03-11 08:14] LABS: Alanine Aminotransferase 12 U/L (6-35); Albumin Level 3.6 g/dL (3.5-5.1); Alkaline Phosphatase 107 U/L (38-126); Anion Gap 7 mmol/L (8-16); Aspartate Amino Transferase 21 U/L (14-36); Bilirubin,Total 0.5 mg/dL (0.2-1.3); Blood Urea Nitrogen 22 mg/dL (7-17); Calcium 8.7 mg/dL (8.4-10.2); Carbon Dioxide 31 mmol/L (22-30); Chloride 95 mmol/L (98-107); Estimated CRCL calculation 8 ml/min; Estimated Glomerular Filt Rate 8; Glucose 97 mg/dL (65-110); Phosphorus 4.8 mg/dL (2.5-4.5); Sodium 133 mmol/L (137-145)
[2022-03-11] MEDS: TOLNAFTATE 1% POWDER 45 GM BTL 1 APPLIC TOPICAL ×2 (09:12→21:20)
[2022-03-11 09:14] LABS: Glucose Point of Care 95 mg/dl (65-105)
[2022-03-11 11:06] LABS: Vitamin D 1,25 (OH)2 Total 25 pg/mL (18-72); Vitamin D2 1,25 (OH)2 25 pg/mL; Vitamin D3 1,25 (OH)2 <8 pg/mL
[2022-03-11 11:57] LABS: Glucose Point of Care 96 mg/dl (65-105)
--- NOTE | 2022-03-11 13:40 | PCOTNOTE ---
Attempted OT treatment, patient is currently going off the unit for a procedure, will follow.
--- NOTE | 2022-03-11 13:50 | PC.NURSE ---
This patient, Christopher Larry, was transferred to GI Lab on 03/11/22 at 1351. Appropriate documentation sent with patient.
--- NOTE | 2022-03-11 13:55 | WPDANESEPPF ---
Anes - Initial Pre Proc Eval Procedure: Operation Date: 03/07/22 22:00 Proposed Procedures p Flexible Sigmoidoscopy - Trip Sims DO Operation Date: 03/11/22 14:00 Proposed Procedures p Esophagogastroduodenoscopy & Colonoscopy - Trip Estrada MD Date/Time: 03/11/22 13:55 Surgeon: Zechariah Caba MD Pre Op Diagnosis: Weakness/dyspnea/CHF/dialysis/elevated troponin Patient Data Age: 81 Gender: F Height: 1.6 m Weight: 102 kg Last Vital Signs Temp 98 F 03/11/22 09:10 Pulse 70 03/11/22 09:10 Resp 12 03/11/22 09:10 BP 128/68 03/11/22 09:10 Pulse Ox 99 03/11/22 09:10 O2 Del Method Nasal Cannula 03/11/22 04:56 O2 Flow Rate 1 03/11/22 04:56 Allergies Allergy/AdvReac Type Severity Reaction Status Date / Time Penicillins Allergy Unknown Rash Verified 03/07/22 22:39 Home Medications Medication Instructions Recorded Confirmed Type carvedilol 3.125 mg tablet 3.125 mg PO BID 11/02/19 03/03/22 History gabapentin 100 mg capsule 100 mg PO BID 11/02/19 03/03/22 History insulin glargine 100 unit/mL (3 15 unit subcut HS 11/02/19 03/03/22 History mL) subcutaneous pen (Basaglar KwikPen U-100 Insulin) simvastatin 10 mg tablet 10 mg PO HS 11/02/19 03/03/22 History docusate sodium 100 mg tablet 100 mg PO HS PRN Constipation 11/03/19 03/03/22 History colchicine 0.6 mg tablet 0.6 mg PO QMWF 11/26/19 03/03/22 History ergocalciferol (vitamin D2) 1,250 50,000 unit PO WEEKLY 11/26/19 03/03/22 History mcg (50,000 unit) capsule (Vitamin D2) albuterol sulfate 90 mcg/actuation 2 puff inhalation Q6H PRN 05/15/20 03/03/22 Rx aerosol inhaler Shortness Of Breath #8.5 grams alprazolam 0.5 mg tablet 0.5 mg PO BID PRN Anxiety 06/21/20 03/03/22 History aspirin 81 mg tablet,delayed 81 mg PO DAILY 06/21/20 03/03/22 History release (Aspirin Low Dose) sertraline 50 mg tablet 50 mg PO DAILY 06/21/20 03/03/22 History albuterol sulfate 1.25 mg/3 mL 1.25 mg inhalation Q6H PRN 11/27/20 03/03/22 History solution for nebulization Shortness Of Breath Or Wheezing midodrine 5 mg tablet 5 mg PO QMWF 05/06/21 03/03/22 History acetaminophen 500 mg tablet 500 mg PO Q6H PRN Pain 05/24/21 03/03/22 History (Acetaminophen Extra Strength) bumetanide 2 mg tablet 2 mg PO DAILY 05/24/21 03/03/22 History colchicine 0.6 mg tablet 0.3 mg PO QMWF 05/24/21 03/03/22 History diphenhydramine 25 1 tablet PO HS PRN Insomnia 05/24/21 03/03/22 History mg-acetaminophen 500 mg tablet (Acetaminophen PM) guaifenesin 100 mg/5 mL oral 200 mg PO Q4H PRN Cough 05/24/21 03/03/22 History liquid (Robafen) hydroxyzine HCl 25 mg tablet 25 mg PO QID PRN Itching 05/24/21 03/03/22 History levothyroxine 25 mcg tablet 25 mcg PO DAILY 05/24/21 03/03/22 History melatonin 3 mg tablet 3 mg PO HS PRN Insomnia 05/24/21 03/03/22 History polyethylene glycol 3350 17 17 g PO DAILY PRN Constipation 05/24/21 03/03/22 History gram/dose oral powder (Gavilax) tramadol 50 mg tablet 50 mg PO TID PRN Pain 05/24/21 03/03/22 History blood sugar diagnostic (OneTouch #100 ea 10/07/21 03/03/22 Rx Ultra Test) hydrocodone 5 mg-acetaminophen 325 1 tablet PO Q8H PRN pain #45 tabs 12/30/21 03/03/22 Rx mg tablet sevelamer carbonate 800 mg tablet See Rx Instructions .Route 12/31/21 03/03/22 Rx .COMPLEX #90 tabs pantoprazole 40 mg tablet,delayed 40 mg PO BID 03/03/22 03/03/22 History release Laboratory Tests 03/06/22 03/07/22 03/10/22 15:59 14:36 19:44 WBC RBC Hgb Hct MCV MCH MCHC RDW Plt Count MPV Sodium Potassium Chloride Carbon Dioxide Anion Gap BUN Creatinine Estim Creat Clear Calc Estimated GFR Glucose POC Capillary Glucose 126 mg/dl H mg/dl (65-105) Calcium
[2022-03-11] MEDS: SODIUM CHLORIDE 0.9% IV 500 ML 10 ML IV CONT (14:00)
[2022-03-11 14:07] LABS: Glucose Point of Care 87 mg/dl (65-105)
--- NOTE | 2022-03-11 14:40 | SUR.OPER ---
EGD ENDED AT 1434, COLONOSCOPY STARTED AT 1439.
[2022-03-11 15:04] LABS: Glucose Point of Care 88 mg/dl (65-105)
[2022-03-11] MEDS: ASPIRIN 81 MG ENTERIC TABLET PO (15:59)
[2022-03-11] MEDS: COLCHICINE 0.6 MG TABLET PO (16:00)
[2022-03-11] MEDS: BUMETANIDE 1 MG TABLET 2 MG PO (16:00)
[2022-03-11] MEDS: SERTRALINE HCL 50 MG TABLET PO (16:01)
[2022-03-11] MEDS: SEVELAMER CARBONATE 800 MG TABLET BY MOUTH ×2 (16:03→21:16)
[2022-03-11] MEDS: MIDODRINE HCL 2.5 MG TABLET 5 MG PO (16:04)
--- NOTE | 2022-03-11 18:05 | PM.IMPN ---
Progress Note: A&P Assessment and Plan (1) Rectal bleeding: Code(s): K62.5 - Hemorrhage of anus and rectum Status: Acute (2) Rectal ulcer: Code(s): K62.6 - Ulcer of anus and rectum Status: Acute (3) Generalized weakness: Code(s): R53.1 - Weakness Status: Acute (4) Metabolic acidosis: Code(s): E87.2 - Acidosis Status: Acute (5) Elevated troponin: Code(s): R77.8 - Other specified abnormalities of plasma proteins Status: Acute (6) Physical deconditioning: Code(s): R53.81 - Other malaise Status: Acute (7) Macrocytic anemia: Code(s): D53.9 - Nutritional anemia, unspecified Status: Acute (8) End-stage renal disease on hemodialysis: Code(s): N18.6 - End stage renal disease; Z99.2 - Dependence on renal dialysis Status: Acute (9) Type 2 diabetes mellitus: Code(s): E11.9 - Type 2 diabetes mellitus without complications Status: Acute (10) Hypothyroidism: Code(s): E03.9 - Hypothyroidism, unspecified Status: Acute (11) Obstructive sleep apnea: Code(s): G47.33 - Obstructive sleep apnea (adult) (pediatric) Status: Acute (12) Chronic diastolic congestive heart failure: Code(s): I50.32 - Chronic diastolic (congestive) heart failure Status: Acute (13) Right shoulder pain: Code(s): M25.511 - Pain in right shoulder Status: Acute (14) Right hip pain: Code(s): M25.551 - Pain in right hip Status: Acute Plan # generalized weakness progressive recurrent falls # recurrent falls CT head with no active findings with old CVAs. Shoulder x-ray with polyarticular osteoarthritis and rotator cuff tear. Right hip x-ray with severe osteoarthritis and possible avascular necrosis. CT lumbar spine showing mild to moderate central canal stenosis. Served the cervical spine showing mild cervical canal stenosis. Fall precautions PT OT to see. B12 and folate normal. # macrocytic anemia with hemoglobin of 11 on admission # SHANE unable to tolerate CPAP # end-stage renal disease on hemodialysis Wednesday. Nephrology on board for inpatient hemodialysis. # rectal bleeding felt to be related to rectal ulcer noted a colonoscopy 03/07 that was actively bleeding now status post epi injection with cautery. She was transfused 2 units PRBC total. She is plan for EGD and colonoscopy to further reassess the ulcer and any other source. # altered mental status CT brain is negative. Continue to monitor # DVT prophylaxis - SCDs # Code status - Full Subjective Date/time seen: 03/11/22 18:05 Interval history: 03/10/2022 81yo female with hx of ESRD, CVA and HTN here for weakness. Patient is alert but confused so history unreliable. She states he had a rough night . She returned late from dialysis last evening. She did receive 1 unit of packed red blood cells. Blood pressure was low during dialysis and Albumin was given. She only had 593 mL removed. 03/11/2022 she is planned to get EGD and colonoscopy today. Denies any other complaints. No chest pain or shortness of breath. Review of Systems Review of Systems: All systems reviewed & are unremarkable except as noted in HPI and below ( the history and physical examination.) Exam Narrative: Gen - NARD lying in bed Chest - Bibasialr R>L inspiratory crackles. nml RR CV - RRR S1/S2; Tele showing paced rhythm Abd - Soft, obese, NT Ext - no pedal edema. thrill and bruit RUE Neuro - alert, oriented to place and person but not to time no focal neurological deficits. Skin - Warm and dry Objective Data Vital Signs Vital Signs: Vital Signs - 24 hr 03/10/22 18:30 03/10/22 18:45 03/10/22 19:15 Temperature 97.6 F Pulse Rate 70 70 70 Respiratory Rate 16 Blood Pressure 121/33 L 119/39 L 125/52 L Pulse Oximetry 100 Oxygen Delivery Oxygen Flow Rate 03/10/22 18:15 03/10/22 18:54 03/10/22 20:15 T
[2022-03-11] MEDS: COLCHICINE 0.3 MG TABLET PO (21:16)
[2022-03-11] MEDS: GABAPENTIN 100 MG CAPSULE PO (21:16)
[2022-03-11] MEDS: carvediloL 3.125 MG TABLET PO (21:16)
[2022-03-11] MEDS: INSULIN GLARGINE (*BKC) 100 UNITS/ML 15 UNITS SUB-Q (21:17)
[2022-03-11 21:43] LABS: Glucose Point of Care 153 mg/dl (65-105)
[2022-03-12] VITALS (27 sets, daily range): BP systolic 108–150; BP diastolic 24–80; PULSE 54–72; RESP 16–20; TEMP 35.5–36.8; O2SAT 93–100; BMI 39.5
[2022-03-12 05:53] LABS: Hematocrit 26.9 % (37.0-47.0); Hemoglobin 8.1 g/dL (12.0-15.0); Mean Corpuscular HGB Conc 30.1 g/dl (32-36); Mean Corpuscular Hemoglobin 33.9 pg (26-34); Mean Corpuscular Volume 112.6 fl (80-100); Mean Platelet Volume 10.1 fl (7.4-10.4); Platelet Count Result 198 k/mm3 (150-375); Red Blood Count 2.39 M/mm3 (4.2-5.4); Red Cell Distribution Width 16.7 % (11.5-14.5); White Blood Count 4.6 K/mm3 (4.5-10.0)
[2022-03-12] MEDS: LEVOTHYROXINE SODIUM 25 MCG TABLET PO (05:55)
[2022-03-12 06:21] LABS: Alanine Aminotransferase 10 U/L (6-35); Albumin Level 3.5 g/dL (3.5-5.1); Alkaline Phosphatase 104 U/L (38-126); Anion Gap 8 mmol/L (8-16); Aspartate Amino Transferase 19 U/L (14-36); Bilirubin,Total 0.5 mg/dL (0.2-1.3); Blood Urea Nitrogen 24 mg/dL (7-17); Calcium 8.9 mg/dL (8.4-10.2); Carbon Dioxide 29 mmol/L (22-30); Chloride 95 mmol/L (98-107); Estimated CRCL calculation 7 ml/min; Estimated Glomerular Filt Rate 6; Glucose 81 mg/dL (65-110); Phosphorus 4.9 mg/dL (2.5-4.5); Potassium 4.2 mmol/L (3.4-5.0); Sodium 132 mmol/L (137-145)
[2022-03-12 07:47] LABS: Glucose Point of Care 81 mg/dl (65-105)
--- NOTE | 2022-03-12 09:07 | PC.NURSE ---
pt to dialysis via bed
--- NOTE | 2022-03-12 10:15 | PCOTNOTE ---
Attempted to see patient this am, however patient was off floor for dialysis.
[2022-03-12] MEDS: EPOETIN ALFA-EPBX 10,000 UNITS/ML VIAL 10000 UNITS IV PUSH (10:22)
--- NOTE | 2022-03-12 10:28 | PM.IMPN ---
Progress Note: A&P Assessment and Plan (1) Rectal bleeding: Code(s): K62.5 - Hemorrhage of anus and rectum Status: Acute (2) Rectal ulcer: Code(s): K62.6 - Ulcer of anus and rectum Status: Acute (3) Generalized weakness: Code(s): R53.1 - Weakness Status: Acute (4) Metabolic acidosis: Code(s): E87.2 - Acidosis Status: Acute (5) Elevated troponin: Code(s): R77.8 - Other specified abnormalities of plasma proteins Status: Acute (6) Physical deconditioning: Code(s): R53.81 - Other malaise Status: Acute (7) Macrocytic anemia: Code(s): D53.9 - Nutritional anemia, unspecified Status: Acute (8) End-stage renal disease on hemodialysis: Code(s): N18.6 - End stage renal disease; Z99.2 - Dependence on renal dialysis Status: Acute (9) Type 2 diabetes mellitus: Code(s): E11.9 - Type 2 diabetes mellitus without complications Status: Acute (10) Hypothyroidism: Code(s): E03.9 - Hypothyroidism, unspecified Status: Acute (11) Obstructive sleep apnea: Code(s): G47.33 - Obstructive sleep apnea (adult) (pediatric) Status: Acute (12) Chronic diastolic congestive heart failure: Code(s): I50.32 - Chronic diastolic (congestive) heart failure Status: Acute (13) Right shoulder pain: Code(s): M25.511 - Pain in right shoulder Status: Acute (14) Right hip pain: Code(s): M25.551 - Pain in right hip Status: Acute Plan # generalized weakness progressive recurrent falls # recurrent falls CT head with no active findings with old CVAs. Shoulder x-ray with polyarticular osteoarthritis and rotator cuff tear. Right hip x-ray with severe osteoarthritis and possible avascular necrosis. CT lumbar spine showing mild to moderate central canal stenosis. CT cervical spine showing mild cervical canal stenosis. Fall precautions PT OT to see. B12 and folate normal. # macrocytic anemia with hemoglobin of 11 on admission # SHANE unable to tolerate CPAP # end-stage renal disease on hemodialysis Wednesday. Nephrology on board for inpatient hemodialysis. # rectal bleeding felt to be related to rectal ulcer noted a colonoscopy 03/07 that was actively bleeding now status post epi injection with cautery. She was transfused 2 units PRBC total. status post repeat EGD and colonoscopy EGD is normal done 03/11/2022 Colonoscopy 03/11/2022 rectal ulcer internal hemorrhoids and diverticulosis without evidence of perforation abscess or bleeding. Continue to monitor H&H # bilateral feet pain no obvious abnormality in gross examination. Will get x-rays. Venous duplex has been negative. Likely peripheral neuropathy. She is on gabapentin at home. Also takes colchicine for gout check uric acid level increase gabapentin. On tramadol p.r.n. as well # altered mental status CT brain is negative. Continue to monitor # DVT prophylaxis - SCDs # Code status - Full Subjective Date/time seen: 03/12/22 10:28 Interval history: 03/10/2022 81yo female with hx of ESRD, CVA and HTN here for weakness. Patient is alert but confused so history unreliable. She states he had a rough night . She returned late from dialysis last evening. She did receive 1 unit of packed red blood cells. Blood pressure was low during dialysis and Albumin was given. She only had 593 mL removed. 03/11/2022 she is planned to get EGD and colonoscopy today. Denies any other complaints. No chest pain or shortness of breath. status post EGD and colonoscopy yesterday. EGD was normal. Colonoscopy showed rectal ulcer internal hemorrhoids and diverticulosis without perforation or abscess and bleeding. Suspected rectal ulcers are in category of stercorall ulceration related to fecal impaction.Planes of bilateral feet pain is been ongoing for the past 3 weeks. She is supposed to see a abstracter this Wednesday. Rev
--- NOTE | 2022-03-12 10:41 | PCPTNOTE ---
The patient treatment was not able to be completed on 03/12/2022 this morning due to patient out of room for dialysis. Will plan to continue treatment per plan of care.
[2022-03-12 12:36] LABS: Glucose Point of Care 84 mg/dl (65-105)
--- NOTE | 2022-03-12 12:42 | WPDGIPROGNO ---
Progress Note: A&P Assessment and Plan (1) Rectal ulcer: Code(s): K62.6 - Ulcer of anus and rectum Status: Acute Assessment and Plan: Rectal ulcer identified by endoscopy most likely a stercoral ulcer related to impaction. Would recommend stool softeners. The should continue after discharge. (2) Dysphagia: Code(s): R13.10 - Dysphagia, unspecified Status: Acute Assessment and Plan: Endoscopic evaluation for dysphagia not fruitful. No obstruction or narrowing of the esophagus. Suspect she may have some oral pharyngeal dysphagia. If swallowing difficulties persist consider modified barium swallow. (3) End-stage renal disease on hemodialysis: Code(s): N18.6 - End stage renal disease; Z99.2 - Dependence on renal dialysis Status: Acute (4) Macrocytic anemia: Code(s): D53.9 - Nutritional anemia, unspecified Status: Acute Assessment and Plan: Patient has ongoing anemia likely multifactorial in nature. Baseline anemia suspected secondary to end-stage renal disease. Monitor occasionally currently hemoglobin appears stable Subjective Date/time seen: 03/12/22 12:42 Patient alert comfortable this morning. No additional bleeding described. Apparently tolerating diet. Patient unable to give any useful history today. Appears to be at her baseline compared to the last several days. Review of Systems Review of Systems: Review of systems noncontributory. Exam Narrative: Physical exam patient is alert. Vital signs stable. HEENT exam reveals no icterus. Lungs are clear. Heart without murmur. Abdomen bowel sounds present soft nontender with no organomegaly. Objective Data Vital Signs Vital Signs: Vital Signs - 24 hr 03/11/22 14:10 03/11/22 14:56 03/11/22 15:06 Temperature 97.6 F Pulse Rate 70 70 70 Respiratory Rate 20 15 16 Blood Pressure 123/35 L 114/33 L 118/33 L Pulse Oximetry 100 100 100 Oxygen Delivery Nasal Cannula Nasal Cannula Nasal Cannula Oxygen Flow Rate 1 1 1 03/11/22 15:16 03/11/22 13:05 03/11/22 15:40 Temperature 97.8 F 98.1 F Pulse Rate 70 71 70 Respiratory Rate 18 14 12 Blood Pressure 116/31 L 144/88 H 120/54 L Pulse Oximetry 100 98 96 Oxygen Delivery Room Air Oxygen Flow Rate 03/11/22 15:55 03/11/22 16:25 03/11/22 17:25 Temperature 98 F 97.9 F 97.8 F Pulse Rate 70 70 70 Respiratory Rate 12 16 16 Blood Pressure 134/68 122/62 118/64 Pulse Oximetry 96 95 93 Oxygen Delivery Oxygen Flow Rate 03/11/22 20:51 03/11/22 21:16 03/11/22 21:55 Temperature 97.6 F Pulse Rate 70 70 Respiratory Rate 16 Blood Pressure 148/50 H Pulse Oximetry 97 93 Oxygen Delivery Room Air Oxygen Flow Rate 03/11/22 20:00 03/12/22 00:55 03/12/22 05:00 Temperature 97.9 F 98.2 F Pulse Rate 70 66 65 Respiratory Rate 16 20 16 Blood Pressure 124/52 L 150/62 H Pulse Oximetry 93 93 93 Oxygen Delivery Room Air Oxygen Flow Rate 03/12/22 08:51 03/12/22 08:55 03/12/22 09:00 Temperature 98.0 F Pulse Rate 61 63 Respiratory Rate 16 Blood Pressure 118/33 L 122/34 L Pulse Oximetry Oxygen Delivery Room Air Oxygen Flow Rate 03/12/22 09:15 03/12/22 09:30 03/12/22 09:45 Temperature Pulse Rate 60 59 L 54 L Respiratory Rate Blood Pressure 130/34 L 125/24 L 126/32 L Pulse Oximetry Oxygen Delivery Oxygen Flow Rate 03/12/22 10:00 03/12/22 10:15 03/12/22 10:30 Temperature Pulse Rate 56 L 70 71 Respiratory Rate Blood Pressure 129/39 L 132/32 L 126/36 L Pulse Oximetry Oxygen Delivery Oxygen Flow Rate 03/12/22 10:45 03/12/22 11:00 03/12/22 11:15 Temperature Pulse Rate 70 70 71 Respiratory Rate Blood Pressure 131/39 L 143/32 H 134/31 L Pulse Oximetry Oxygen Delivery Oxygen Flow Rate Intake/Output Intake/Output: Intake & Output 03/09/22 03/10/22 03/11/22 03/12/22 23:59 23:59 23:59 23:59 Intake Total 4489 350 1050 220
--- NOTE | 2022-03-12 12:56 | PM.PNNEP ---
Progress Note: A&P Assessment and Plan (1) End stage renal disease: Code(s): N18.6 - End stage renal disease Status: Chronic Assessment and Plan: HD today and plan HD tomorrow or Wednesday (with eventual plan to transition back to M// schedule follow electrolytes, volume status, and clearance (2) Anemia: Qualifiers: Anemia type: unspecified type Qualified Code(s): D64.9 - Anemia, unspecified Code(s): D64.9 - Anemia, unspecified Status: Chronic Assessment and Plan: related to ESRD but GI loss contributing low H/H noted along with CTA of abdomen and sigmoidoscopy findings Gastroenterology following s/p EGD/colonoscopy with findings significant for rectal ulcer GI recommendations noted follow trend of H/H high dose Epogen with HD PRBC transfusion per protocol (3) Generalized weakness: Code(s): R53.1 - Weakness Status: Acute Assessment and Plan: appears multifactorial: #3 frequent falls DJD/osteoarthritis age iron deficiency anemia (GI bleed) CT of brain without CVA or any other pathology PT/OT as tolerated (4) Physical deconditioning: Code(s): R53.81 - Other malaise Status: Acute Assessment and Plan: see #3 (5) SOB (shortness of breath): Code(s): R06.02 - Shortness of breath Status: Acute Assessment and Plan: probably related to fluid, diastolic CHF, limitations with fluid removal with HD, and possible anemia attempt to be more aggressive with ultrafiltration with dialysis follow volume status monitor symptoms (6) Hypertension: Code(s): I10 - Essential (primary) hypertension Status: Chronic Assessment and Plan: reasonable control at this time follow trend of hemodynamics (7) Diabetes: Code(s): E11.9 - Type 2 diabetes mellitus without complications Status: Chronic Assessment and Plan: follow accuchecks glycemic control Will continue to follow. Subjective Date/time seen: 03/12/22 12:56 Tolerating dialysis treatment at the time of my visit (seen on HD at 12:25PM); unable to see yesterday as was out of room for procedures (EGD/colonoscopy); tolerated EGD/colonoscopy yesterday with results noted; no issues/events overnight other than some issues with anxiety. Exam Narrative: General: WD/WN female in NAD Heart: normal S1 and S2; no rub Lungs: decreased at the bases Abdomen: soft, nontender, nondistended, positive bowel sounds Extremities: no cyanosis or clubbing; trace edema Skin: warm and intact Objective Data Vital Signs Vital Signs: Vital Signs Temp Pulse Resp BP Pulse Ox O2 Del Method O2 Flow Rate 03/12/22 12:40 36.7 C 72 16 120/37 L 03/12/22 12:35 71 133/36 L 03/12/22 12:15 70 136/32 L 03/12/22 12:00 71 130/26 L 03/12/22 11:45 69 129/30 L 03/12/22 11:30 70 129/39 L 03/12/22 11:15 71 134/31 L 03/12/22 11:00 70 143/32 H 03/12/22 10:45 70 131/39 L 03/12/22 10:30 71 126/36 L 03/12/22 10:15 70 132/32 L 03/12/22 10:00 56 L 129/39 L 03/12/22 09:45 54 L 126/32 L 03/12/22 09:30 59 L 125/24 L 03/12/22 09:15 60 130/34 L 03/12/22 09:00 63 122/34 L 03/12/22 08:55 36.7 C 61 16 118/33 L 03/12/22 08:51 Room Air 03/12/22 05:00 36.8 C 65 16 150/62 H 93 03/12/22 00:55 36.6 C 66 20 124/52 L 93 03/11/22 20:00 70 16 93 Room Air 03/11/22 21:55 93 Room Air 03/11/22 21:16 70 03/11/22 20:51 36.4 C 70 16 148/50 H 97 03/11/22 17:25 36.6 C 70 16 118/64 93 03/11/22 16:25 36.6 C 70 16 122/62 95 03/11/22 15:55 36.6 C 70 12 134/68 96 03/11/22 15:40 36.7 C 70 12 120/54 L 96 03/11/22 15:16 70 18 116/31 L 100 Room Air 03/11/22 15:06 70 16 118/33 L 100 Nasal Cannula 1 Intake/Output In
--- NOTE | 2022-03-12 12:56 | P.PNNP_ITS ---
Progress Note: A&P Assessment and Plan (1) End stage renal disease: Code(s): N18.6 - End stage renal disease Status: Chronic Assessment and Plan: * HD today and plan HD tomorrow or Wednesday (with eventual plan to transition back to // schedule * follow electrolytes, volume status, and clearance (2) Anemia: Qualifiers: Anemia type: unspecified type Qualified Code(s): D64.9 - Anemia, unspecified Code(s): D64.9 - Anemia, unspecified Status: Chronic Assessment and Plan: * related to ESRD but GI loss contributing * low H/H noted along with CTA of abdomen and sigmoidoscopy findings * Gastroenterology following * s/p EGD/colonoscopy with findings significant for rectal ulcer * GI recommendations noted * follow trend of H/H * high dose Epogen with HD * PRBC transfusion per protocol (3) Generalized weakness: Code(s): R53.1 - Weakness Status: Acute Assessment and Plan: * appears multifactorial: * #3 * frequent falls * DJD/osteoarthritis * age * iron deficiency * anemia (GI bleed) * CT of brain without CVA or any other pathology * PT/OT as tolerated (4) Physical deconditioning: Code(s): R53.81 - Other malaise Status: Acute Assessment and Plan: * see #3 (5) SOB (shortness of breath): Code(s): R06.02 - Shortness of breath Status: Acute Assessment and Plan: * probably related to fluid, diastolic CHF, limitations with fluid removal with HD, and possible anemia * attempt to be more aggressive with ultrafiltration with dialysis * follow volume status * monitor symptoms (6) Hypertension: Code(s): I10 - Essential (primary) hypertension Status: Chronic Assessment and Plan: * reasonable control at this time * follow trend of hemodynamics (7) Diabetes: Code(s): E11.9 - Type 2 diabetes mellitus without complications Status: Chronic Assessment and Plan: * follow accuchecks * glycemic control Will continue to follow. Subjective Date/time seen: 03/12/22 12:56 Tolerating dialysis treatment at the time of my visit (seen on HD at 12:25PM); unable to see yesterday as was out of room for procedures (EGD/colonoscopy); tolerated EGD/colonoscopy yesterday with results noted; no issues/events overnight other than some issues with anxiety. Exam Narrative: General: WD/WN female in NAD Heart: normal S1 and S2; no rub Lungs: decreased at the bases Abdomen: soft, nontender, nondistended, positive bowel sounds Extremities: no cyanosis or clubbing; trace edema Skin: warm and intact Objective Data Vital Signs Vital Signs: Vital Signs Temp Pulse Resp BP Pulse Ox O2 Del Method O2 Flow Rate 03/12/22 12:40 36.7 C 72 16 120/37 L 03/12/22 12:35 71 133/36 L 03/12/22 12:15 70 136/32 L 03/12/22 12:00 71 130/26 L 03/12/22 11:45 69 129/30 L 03/12/22 11:30 70 129/39 L 03/12/22 11:15 71 134/31 L 03/12/22 11:00 70 143/32 H 03/12/22 10:45 70 131/39 L 03/12/22 10:30 71 126/36 L 03/12/22 10:15 70 132/32 L 03/12/22 10:00 56 L 129/39 L 03/12/22 09:45 54 L 126/32 L 03/12/22 09:30 59 L 125/24 L
--- NOTE | 2022-03-12 13:47 | PCPTNOTE ---
Attempted to see patient for PT at this time, however patient declined. Patient reported I do not feel up to it.
[2022-03-12] MEDS: PANTOPRAZOLE 40 MG TABLET PO (14:07)
[2022-03-12] MEDS: GABAPENTIN 100 MG CAPSULE PO (14:08)
[2022-03-12] MEDS: carvediloL 3.125 MG TABLET PO ×2 (14:08→21:42)
[2022-03-12] MEDS: SEVELAMER CARBONATE 800 MG TABLET BY MOUTH ×3 (14:09→21:35)
[2022-03-12] MEDS: TOLNAFTATE 1% POWDER 45 GM BTL 1 APPLIC TOPICAL ×2 (14:10→21:36)
--- NOTE | 2022-03-12 14:10 | PC.NURSE ---
call to pharmacy for missing meds, getting meds caught up after dialysis and pt having lunch
[2022-03-12] MEDS: traMADol HCL (*CRX) 50 MG TABLET PO (14:11)
--- NOTE | 2022-03-12 14:45 | PCNSR ---
On 03/12/22, the student, Sandro Shen, provided care and completed [facility] documentation on this patient. I have reviewed the student's documentation and agree with the findings.
[2022-03-12] MEDS: diphenhydrAMINE HCl CAP 25 MG CAPSULE PO (15:07)
[2022-03-12] MEDS: BUMETANIDE 1 MG TABLET 2 MG PO (15:08)
[2022-03-12] MEDS: SERTRALINE HCL 50 MG TABLET PO (15:08)
[2022-03-12] MEDS: ASPIRIN 81 MG ENTERIC TABLET PO (15:08)
[2022-03-12 16:38] LABS: Glucose Point of Care 136 mg/dl (65-105)
[2022-03-12] MEDS: INSULIN GLARGINE (*BKC) 100 UNITS/ML 15 UNITS SUB-Q (21:31)
[2022-03-12] MEDS: SIMVASTATIN 10 MG TABLET PO (21:35)
[2022-03-12] MEDS: GABAPENTIN 300 MG CAPSULE PO (21:35)
[2022-03-12 21:48] LABS: Glucose Point of Care 115 mg/dl (65-105)
[2022-03-13] VITALS (18 sets, daily range): BP systolic 91–150; BP diastolic 33–64; PULSE 63–77; RESP 14–20; TEMP 36–36.6; O2SAT 96–100
[2022-03-13] MEDS: LEVOTHYROXINE SODIUM 25 MCG TABLET PO (05:30)
[2022-03-13 06:51] LABS: Hematocrit 29.2 % (37.0-47.0); Hemoglobin 8.8 g/dL (12.0-15.0); Mean Corpuscular HGB Conc 30.1 g/dl (32-36); Mean Corpuscular Hemoglobin 33.8 pg (26-34); Mean Corpuscular Volume 112.3 fl (80-100); Mean Platelet Volume 9.9 fl (7.4-10.4); Platelet Count Result 193 k/mm3 (150-375); Red Cell Distribution Width 16.7 % (11.5-14.5); White Blood Count 4.2 K/mm3 (4.5-10.0)
[2022-03-13 07:02] LABS: Alanine Aminotransferase 10 U/L (6-35); Albumin Level 3.8 g/dL (3.5-5.1); Alkaline Phosphatase 106 U/L (38-126); Anion Gap 9 mmol/L (8-16); Aspartate Amino Transferase 20 U/L (14-36); Bilirubin,Total 0.5 mg/dL (0.2-1.3); Blood Urea Nitrogen 16 mg/dL (7-17); Carbon Dioxide 30 mmol/L (22-30); Chloride 96 mmol/L (98-107); Estimated CRCL calculation 7 ml/min; Estimated Glomerular Filt Rate 7; Glucose 84 mg/dL (65-110); Phosphorus 4.5 mg/dL (2.5-4.5); Potassium 4.1 mmol/L (3.4-5.0); Sodium 135 mmol/L (137-145); Uric Acid 4.3 mg/dL (2.5-7.5)
[2022-03-13 08:02] LABS: Glucose Point of Care 86 mg/dl (65-105)
[2022-03-13] MEDS: TOLNAFTATE 1% POWDER 45 GM BTL 1 APPLIC TOPICAL ×2 (08:21→20:35)
[2022-03-13] MEDS: PANTOPRAZOLE 40 MG TABLET PO (08:21)
[2022-03-13 11:48] LABS: Glucose Point of Care 102 mg/dl (65-105)
[2022-03-13] MEDS: MIDODRINE HCL 2.5 MG TABLET 5 MG PO (12:47)
--- NOTE | 2022-03-13 13:01 | WPDGIPROGNO ---
Progress Note: A&P Assessment and Plan (1) Rectal ulcer: Code(s): K62.6 - Ulcer of anus and rectum Status: Acute Assessment and Plan: Rectal ulcer. No additional bleeding noted. Think this is likely related to constipation. Would recommend continuing stool softeners and laxatives as needed. Monitor hemoglobin closely. Anemia likely multifactorial given her end-stage renal disease as a contributing cause. (2) End stage renal disease: Code(s): N18.6 - End stage renal disease Status: Chronic Assessment and Plan: Nephrology service following. Creatinine 5.9 today. Patient on dialysis. Subjective Date/time seen: 03/13/22 13:01 No additional bleeding described. Patient apparently tolerating diet. Hemoglobin stable. Review of Systems Review of Systems: Review of systems unobtainable. Exam Narrative: Physical exam patient is alert comfortable at rest. Vital signs stable. HEENT exam reveals no icterus. Lungs are clear. Heart without murmur. Abdomen bowel sounds present soft nontender. Objective Data Vital Signs Vital Signs: Vital Signs - 24 hr 03/12/22 13:45 03/12/22 14:03 03/12/22 14:08 Temperature 97.7 F Pulse Rate 70 70 Respiratory Rate 20 Blood Pressure 108/48 L 108/48 L Pulse Oximetry 98 Oxygen Delivery 03/12/22 18:34 03/12/22 21:42 03/12/22 21:43 Temperature 97.7 F 97.8 F Pulse Rate 70 68 68 Respiratory Rate 20 16 Blood Pressure 116/80 146/54 H Pulse Oximetry 100 97 Oxygen Delivery 03/12/22 22:05 03/12/22 20:00 03/13/22 00:35 Temperature 97.9 F Pulse Rate 68 65 Respiratory Rate 16 16 Blood Pressure 130/50 L Pulse Oximetry 97 97 96 Oxygen Delivery Room Air Room Air 03/13/22 06:00 03/13/22 10:28 Temperature 97.6 F 97.7 F Pulse Rate 66 70 Respiratory Rate 16 20 Blood Pressure 150/54 H 100/50 L Pulse Oximetry 100 97 Oxygen Delivery Intake/Output Intake/Output: Intake & Output 03/10/22 03/11/22 03/12/22 03/13/22 23:59 23:59 23:59 23:59 Intake Total 350 1050 560 680 Output Total 1500 6 3000 0 Balance -1150 1044 -2440 680 Meds/Results Medications: Active Medications Generic Name Dose Route Start Last Admin Trade Name Reed PRN Reason Stop Dose Admin Acetaminophen 500 mg 03/03/22 22:06 03/08/22 08:05 Acetaminophen 500 Mg Tablet PO 500 mg Q6H PRN Administration MILD Pain Albuterol 2 puff 03/03/22 22:06 Albuterol Sulfate (*Sp) Aerosol 1 Puff INHALATION Q6HRT PRN Shortness Of Breath Alprazolam 0.5 mg 03/05/22 15:52 Alprazolam (*Crx) 0.5 Mg Tablet PO BID PRN Anxiety Aspirin 81 mg 03/04/22 12:00 03/12/22 15:08 Aspirin 81 Mg Enteric Tablet PO 81 mg 1200 ANISA Administration Bumetanide 2 mg 03/04/22 12:00 03/12/22 15:08 Bumetanide 1 Mg Tablet PO 2 mg 1200 ANISA Administration Carvedilol 3.125 mg 03/04/22 12:00 03/12/22 21:42 Carvedilol 3.125 Mg Tablet PO 3.125 mg 1200,2100 ANISA Administration Colchicine 0.3 mg 03/03/22 17:00 03/11/22 21:16 Colchicine 0.3 Mg Tablet PO 0.3 mg MoWeFr ANISA Administration Colchicine 0.6 mg 03/04/22 12:00 03/11/22 16:00 Colchicine 0.6 Mg Tablet PO 0.6 mg MoWeFr@1200 ANISA Administration Dextrose 12.5 gm 03/03/22 22:08 Dextrose 50% 25 Gm/50 Ml Syringe IV PUSH PRN PRN Hypoglycemia Protocol Docusate Sodium 100 mg 03/03/22 22:06 Docusate Sodium 100 Mg Capsule PO HS PRN Constipation Epoetin Wallace-epbx 10,000 units 03/13/22 22:50 Epoetin Wallace-Epbx 10,000 Units/Ml Vial IV PUSH 03/13/22 22:51 ONCE ONE Gabapentin 300 mg 03/12/22 21:00 03/12/22 21:35 Gabapentin 300 Mg Capsule PO 300 mg 1200,2100 ANISA Administration Glucagon 1 mg 03/03/22 22:08 Glucagon For Inj 1 Mg Vial IM PRN PRN Hypoglycemia Protocol Glucose 15 gm 03/03/22 22:08 Glucose Oral Gel 15 Gm Of Glucse In 37.5 Gm Tube PO
--- NOTE | 2022-03-13 13:04 | P.PNNP_ITS ---
Progress Note: A&P Assessment and Plan (1) End stage renal disease: Code(s): N18.6 - End stage renal disease Status: Chronic Assessment and Plan: * HD today to transition back to // schedule * follow electrolytes, volume status, and clearance (2) Anemia: Qualifiers: Anemia type: unspecified type Qualified Code(s): D64.9 - Anemia, unspecified Code(s): D64.9 - Anemia, unspecified Status: Chronic Assessment and Plan: * related to ESRD but GI loss contributing * low H/H noted along with CTA of abdomen and sigmoidoscopy findings * Gastroenterology following * s/p EGD/colonoscopy with findings significant for rectal ulcer * GI recommendations noted * follow trend of H/H * high dose Epogen with HD * PRBC transfusion per protocol (3) Generalized weakness: Code(s): R53.1 - Weakness Status: Acute Assessment and Plan: * appears multifactorial: * #3 * frequent falls * DJD/osteoarthritis * age * iron deficiency * anemia (GI bleed) * CT of brain without CVA or any other pathology * PT/OT as tolerated (4) Physical deconditioning: Code(s): R53.81 - Other malaise Status: Acute Assessment and Plan: * see #3 (5) SOB (shortness of breath): Code(s): R06.02 - Shortness of breath Status: Acute Assessment and Plan: * probably related to fluid, diastolic CHF, limitations with fluid removal with HD, and possible anemia * attempt to be more aggressive with ultrafiltration with dialysis * follow volume status * monitor symptoms (6) Hypertension: Code(s): I10 - Essential (primary) hypertension Status: Chronic Assessment and Plan: * reasonable control at this time * follow trend of hemodynamics (7) Diabetes: Code(s): E11.9 - Type 2 diabetes mellitus without complications Status: Chronic Assessment and Plan: * follow accuchecks * glycemic control Will continue to follow. Additional Plan Patient seen and evaluated on hemodialysis treatment ([id number]). Subjective Date/time seen: 03/13/22 13:04 Patient tolerating hemodialysis treatment at the time of my visit (seen on HD at 12:55PM); no apparent distress voiced at the time of my visit; other than weakness and difficulty ambulation; no apparent distress to report; hoping to go to rehab soon. Exam Narrative: General: WD/WN female in NAD Heart: normal S1 and S2; no rub Lungs: decreased at the bases Abdomen: soft, nontender, nondistended, positive bowel sounds Extremities: no cyanosis or clubbing; trace edema Skin: warm and intact Objective Data Vital Signs Vital Signs: Vital Signs Temp Pulse Resp BP Pulse Ox O2 Del Method 03/13/22 13:00 77 91/33 L 03/13/22 12:45 70 98/42 L 03/13/22 12:30 70 101/39 L 03/13/22 12:20 36.4 C L 63 18 94/53 L 03/13/22 08:30 Room Air 03/13/22 10:28 36.5 C 70 20 100/50 L 97 03/13/22 06:00 36.4 C 66 16 150/54 H 100 03/13/22 00:35 36.6 C 65 16 130/50 L 96 03/12/22 20:00 68 16 97 Room Air 03/12/22 22:05 97 Room Air 03/12/22 21:43 36.6 C 68 16 146/54 H 97 03/12/22 21:42 68 03/12/22 18:34 36.5 C 70 20 116/80 100
--- NOTE | 2022-03-13 13:04 | PM.PNNEP ---
Progress Note: A&P Assessment and Plan (1) End stage renal disease: Code(s): N18.6 - End stage renal disease Status: Chronic Assessment and Plan: HD today to transition back to M/W/F schedule follow electrolytes, volume status, and clearance (2) Anemia: Qualifiers: Anemia type: unspecified type Qualified Code(s): D64.9 - Anemia, unspecified Code(s): D64.9 - Anemia, unspecified Status: Chronic Assessment and Plan: related to ESRD but GI loss contributing low H/H noted along with CTA of abdomen and sigmoidoscopy findings Gastroenterology following s/p EGD/colonoscopy with findings significant for rectal ulcer GI recommendations noted follow trend of H/H high dose Epogen with HD PRBC transfusion per protocol (3) Generalized weakness: Code(s): R53.1 - Weakness Status: Acute Assessment and Plan: appears multifactorial: #3 frequent falls DJD/osteoarthritis age iron deficiency anemia (GI bleed) CT of brain without CVA or any other pathology PT/OT as tolerated (4) Physical deconditioning: Code(s): R53.81 - Other malaise Status: Acute Assessment and Plan: see #3 (5) SOB (shortness of breath): Code(s): R06.02 - Shortness of breath Status: Acute Assessment and Plan: probably related to fluid, diastolic CHF, limitations with fluid removal with HD, and possible anemia attempt to be more aggressive with ultrafiltration with dialysis follow volume status monitor symptoms (6) Hypertension: Code(s): I10 - Essential (primary) hypertension Status: Chronic Assessment and Plan: reasonable control at this time follow trend of hemodynamics (7) Diabetes: Code(s): E11.9 - Type 2 diabetes mellitus without complications Status: Chronic Assessment and Plan: follow accuchecks glycemic control Will continue to follow. Additional Plan Patient seen and evaluated on hemodialysis treatment ([id number]). Subjective Date/time seen: 03/13/22 13:04 Patient tolerating hemodialysis treatment at the time of my visit (seen on HD at 12:55PM); no apparent distress voiced at the time of my visit; other than weakness and difficulty ambulation; no apparent distress to report; hoping to go to rehab soon. Exam Narrative: General: WD/WN female in NAD Heart: normal S1 and S2; no rub Lungs: decreased at the bases Abdomen: soft, nontender, nondistended, positive bowel sounds Extremities: no cyanosis or clubbing; trace edema Skin: warm and intact Objective Data Vital Signs Vital Signs: Vital Signs Temp Pulse Resp BP Pulse Ox O2 Del Method 03/13/22 13:00 77 91/33 L 03/13/22 12:45 70 98/42 L 03/13/22 12:30 70 101/39 L 03/13/22 12:20 36.4 C L 63 18 94/53 L 03/13/22 08:30 Room Air 03/13/22 10:28 36.5 C 70 20 100/50 L 97 03/13/22 06:00 36.4 C 66 16 150/54 H 100 03/13/22 00:35 36.6 C 65 16 130/50 L 96 03/12/22 20:00 68 16 97 Room Air 03/12/22 22:05 97 Room Air 03/12/22 21:43 36.6 C 68 16 146/54 H 97 03/12/22 21:42 68 03/12/22 18:34 36.5 C 70 20 116/80 100 03/12/22 14:08 70 Intake/Output Intake/Output: Intake & Output 03/10/22 03/11/22 03/12/22 03/13/22 23:59 23:59 23:59 23:59 Intake Total 350 1050 560 680 Output Total 1500 6 3000 0 Balance -1150 1044 -2440 680 Meds/Results Medications: Active Medications Generic Name Dose Route Start Last Admin Trade Name Freq PRN Reason Stop Dose Admin Acetaminophen 500 mg 03/03/22 22:06 03/08/22 08:05 Acetaminophen 500 Mg Tablet PO 500 mg Q6H PRN Administration MILD Pain Albuterol 2 puff 03/03/22 22:06 Albuterol Sulfate (*Sp) Aerosol 1 Puff INHALATION Q6HRT PRN Shortness Of Breath Alprazolam 0.5 mg 03/05/22 15:52 Alprazolam (*Crx) 0.5 Mg Tablet PO BID
--- NOTE | 2022-03-13 13:06 | PCOTNOTE ---
Attempted to see patient this pm, however patient was off floor for dialysis.
[2022-03-13] MEDS: SERTRALINE HCL 50 MG TABLET PO (15:33)
[2022-03-13] MEDS: BUMETANIDE 1 MG TABLET 2 MG PO (15:33)
[2022-03-13] MEDS: GABAPENTIN 300 MG CAPSULE PO ×2 (15:33→20:33)
--- NOTE | 2022-03-13 15:45 | PM.IMPN ---
Progress Note: A&P Assessment and Plan (1) Rectal bleeding: Code(s): K62.5 - Hemorrhage of anus and rectum Status: Acute (2) Rectal ulcer: Code(s): K62.6 - Ulcer of anus and rectum Status: Acute (3) Generalized weakness: Code(s): R53.1 - Weakness Status: Acute (4) Metabolic acidosis: Code(s): E87.2 - Acidosis Status: Acute (5) Elevated troponin: Code(s): R77.8 - Other specified abnormalities of plasma proteins Status: Acute (6) Physical deconditioning: Code(s): R53.81 - Other malaise Status: Acute (7) Macrocytic anemia: Code(s): D53.9 - Nutritional anemia, unspecified Status: Acute (8) End-stage renal disease on hemodialysis: Code(s): N18.6 - End stage renal disease; Z99.2 - Dependence on renal dialysis Status: Acute (9) Type 2 diabetes mellitus: Code(s): E11.9 - Type 2 diabetes mellitus without complications Status: Acute (10) Hypothyroidism: Code(s): E03.9 - Hypothyroidism, unspecified Status: Acute (11) Obstructive sleep apnea: Code(s): G47.33 - Obstructive sleep apnea (adult) (pediatric) Status: Acute (12) Chronic diastolic congestive heart failure: Code(s): I50.32 - Chronic diastolic (congestive) heart failure Status: Acute (13) Right shoulder pain: Code(s): M25.511 - Pain in right shoulder Status: Acute (14) Right hip pain: Code(s): M25.551 - Pain in right hip Status: Acute Plan # generalized weakness progressive recurrent falls # recurrent falls CT head with no active findings with old CVAs. Shoulder x-ray with polyarticular osteoarthritis and rotator cuff tear. Right hip x-ray with severe osteoarthritis and possible avascular necrosis. CT lumbar spine showing mild to moderate central canal stenosis. CT cervical spine showing mild cervical canal stenosis. Fall precautions PT OT to see. B12 and folate normal. # macrocytic anemia with hemoglobin of 11 on admission # SHANE unable to tolerate CPAP # end-stage renal disease on hemodialysis Wednesday. Nephrology on board for inpatient hemodialysis. # rectal bleeding felt to be related to rectal ulcer noted a colonoscopy 03/07 that was actively bleeding now status post epi injection with cautery. She was transfused 2 units PRBC total. status post repeat EGD and colonoscopy EGD is normal done 03/11/2022 Colonoscopy 03/11/2022 rectal ulcer internal hemorrhoids and diverticulosis without evidence of perforation abscess or bleeding. Continue to monitor H&H # bilateral feet pain no obvious abnormality in gross examination. x-rays ordered and revealed poorly osteoarthritis. Venous duplex has been negative. Likely peripheral neuropathy. She is on gabapentin at home. Also takes colchicine for gout . Uric acid level is normal. increased gabapentin. On tramadol p.r.n. as well # altered mental status CT brain is negative. Continue to monitor # DVT prophylaxis - SCDs # Code status - Full Subjective Date/time seen: 03/13/22 15:45 Interval history: 03/10/2022 81yo female with hx of ESRD, CVA and HTN here for weakness. Patient is alert but confused so history unreliable. She states he had a rough night . She returned late from dialysis last evening. She did receive 1 unit of packed red blood cells. Blood pressure was low during dialysis and Albumin was given. She only had 593 mL removed. 03/11/2022 she is planned to get EGD and colonoscopy today. Denies any other complaints. No chest pain or shortness of breath. status post EGD and colonoscopy yesterday. EGD was normal. Colonoscopy showed rectal ulcer internal hemorrhoids and diverticulosis without perforation or abscess and bleeding. Suspected rectal ulcers are in category of stercorall ulceration related to fecal impaction.Planes of bilateral feet pain is been ongoing for the past 3 weeks. She is supposed
[2022-03-13] MEDS: SEVELAMER CARBONATE 800 MG TABLET BY MOUTH ×2 (16:00→20:35)
[2022-03-13] MEDS: COLCHICINE 0.3 MG TABLET PO (16:00)
[2022-03-13] MEDS: ASPIRIN 81 MG ENTERIC TABLET PO (16:01)
[2022-03-13 16:30] LABS: Glucose Point of Care 104 mg/dl (65-105)
[2022-03-13] MEDS: carvediloL 3.125 MG TABLET PO (20:34)
[2022-03-13] MEDS: INSULIN GLARGINE (*BKC) 100 UNITS/ML 15 UNITS SUB-Q (20:38)
[2022-03-13 21:04] LABS: Glucose Point of Care 150 mg/dl (65-105)
[2022-03-14 01:53] VITALS: BP 122/54; PULSE 74; RESP 16; TEMP 36.5; O2SAT 98
[2022-03-14 05:54] LABS: Alanine Aminotransferase 9 U/L (6-35); Albumin Level 3.4 g/dL (3.5-5.1); Alkaline Phosphatase 109 U/L (38-126); Anion Gap 7 mmol/L (8-16); Aspartate Amino Transferase 19 U/L (14-36); Bilirubin,Total 0.5 mg/dL (0.2-1.3); Blood Urea Nitrogen 16 mg/dL (7-17); Calcium 8.7 mg/dL (8.4-10.2); Carbon Dioxide 31 mmol/L (22-30); Chloride 96 mmol/L (98-107); Estimated CRCL calculation 9 ml/min; Estimated Glomerular Filt Rate 8; Glucose 90 mg/dL (65-110); Magnesium 2.1 mg/dL (1.6-2.3); Potassium 4.3 mmol/L (3.4-5.0); Sodium 134 mmol/L (137-145)
[2022-03-14 06:38] VITALS: BP 124/52; PULSE 70; RESP 16; TEMP 36.6; O2SAT 91
[2022-03-14] MEDS: LEVOTHYROXINE SODIUM 25 MCG TABLET PO (06:58)
[2022-03-14 07:44] LABS: Glucose Point of Care 87 mg/dl (65-105)
[2022-03-14] MEDS: TOLNAFTATE 1% POWDER 45 GM BTL 1 APPLIC TOPICAL (08:57)
[2022-03-14] MEDS: PANTOPRAZOLE 40 MG TABLET PO (08:58)
[2022-03-14 10:00] VITALS: BP 100/50; PULSE 71; RESP 12; TEMP 36.5; O2SAT 98
[2022-03-14 11:39] LABS: Glucose Point of Care 191 mg/dl (65-105)
[2022-03-14 11:51] LABS: Basophils Percent Auto 0.4 % (0.2-1.2); Eosinophils Absolute Auto 0.3 K/mm3 (0-0.3); Eosinophils Percent Auto 5.1 % (0-4.4); Hematocrit 29.2 % (37.0-47.0); Hemoglobin 8.9 g/dL (12.0-15.0); Immature Granulocyte Absolute 0.02 K/mm3 (0.00-0.031); Immature Granulocyte Percent A 0.4 % (0-0.5); Lymphocytes Absolute Auto 1.03 K/mm3 (0.9-3.2); Lymphocytes Percent Auto 20.2 % (18.3-44.2); Mean Corpuscular HGB Conc 30.5 g/dl (32-36); Mean Corpuscular Hemoglobin 33.7 pg (26-34); Mean Corpuscular Volume 110.6 fl (80-100); Monocytes Absolute Auto 0.7 K/mm3 (0.1-0.6); Monocytes Percent Auto 13.9 % (2.6-8.5); Neutrophils Absolute Auto 3.1 K/mm3 (1.3-6.7); Platelet Count Result 207 k/mm3 (150-375); Red Blood Count 2.64 M/mm3 (4.2-5.4); Red Cell Distribution Width 16.5 % (11.5-14.5); White Blood Count 5.1 K/mm3 (4.5-10.0)
[2022-03-14] MEDS: BUMETANIDE 1 MG TABLET 2 MG PO (12:33)
[2022-03-14 12:34] VITALS: PULSE 70
[2022-03-14] MEDS: carvediloL 3.125 MG TABLET PO (12:34)
[2022-03-14] MEDS: SEVELAMER CARBONATE 800 MG TABLET BY MOUTH (12:35)
[2022-03-14] MEDS: SERTRALINE HCL 50 MG TABLET PO (12:35)
[2022-03-14] MEDS: GABAPENTIN 300 MG CAPSULE PO (12:36)
--- NOTE | 2022-03-14 13:10 | PM.DS ---
DS: Admitting Diagnosis Discharge Date 03/14/2022 Admitting Diagnosis shortness of breath DS: Discharge Diagnosis Discharge Diagnosis (1) Rectal bleeding: Code(s): K62.5 - Hemorrhage of anus and rectum Status: Acute (2) Rectal ulcer: Code(s): K62.6 - Ulcer of anus and rectum Status: Acute (3) Generalized weakness: Code(s): R53.1 - Weakness Status: Acute (4) Metabolic acidosis: Code(s): E87.2 - Acidosis Status: Acute (5) Elevated troponin: Code(s): R77.8 - Other specified abnormalities of plasma proteins Status: Acute (6) Physical deconditioning: Code(s): R53.81 - Other malaise Status: Acute (7) Macrocytic anemia: Code(s): D53.9 - Nutritional anemia, unspecified Status: Acute (8) End-stage renal disease on hemodialysis: Code(s): N18.6 - End stage renal disease; Z99.2 - Dependence on renal dialysis Status: Acute (9) Type 2 diabetes mellitus: Code(s): E11.9 - Type 2 diabetes mellitus without complications Status: Acute (10) Hypothyroidism: Code(s): E03.9 - Hypothyroidism, unspecified Status: Acute (11) Obstructive sleep apnea: Code(s): G47.33 - Obstructive sleep apnea (adult) (pediatric) Status: Acute (12) Chronic diastolic congestive heart failure: Code(s): I50.32 - Chronic diastolic (congestive) heart failure Status: Acute (13) Right shoulder pain: Code(s): M25.511 - Pain in right shoulder Status: Acute (14) Right hip pain: Code(s): M25.551 - Pain in right hip Status: Acute Plan # generalized weakness progressive recurrent falls PT OT evaluated and recommended rehabilitation at long term facility which is being arranged at the time of discharge # recurrent falls CT head with no active findings with old CVAs. Shoulder x-ray with polyarticular osteoarthritis and rotator cuff tear. Right hip x-ray with severe osteoarthritis and possible avascular necrosis. CT lumbar spine showing mild to moderate central canal stenosis. CT cervical spine showing mild cervical canal stenosis. Fall precautions PT OT to see. B12 and folate normal. # macrocytic anemia with hemoglobin of 11 on admission # SHANE unable to tolerate CPAP # end-stage renal disease on hemodialysis Wednesday. Nephrology on board for inpatient hemodialysis. # rectal bleeding felt to be related to rectal ulcer noted a colonoscopy 03/07 that was actively bleeding now status post epi injection with cautery. She was transfused 2 units PRBC total. status post repeat EGD and colonoscopy EGD is normal done 03/11/2022 Colonoscopy 03/11/2022 rectal ulcer internal hemorrhoids and diverticulosis without evidence of perforation abscess or bleeding. Continue to monitor H&H which remains stable # bilateral feet pain no obvious abnormality in gross examination. x-rays ordered and revealed poorly osteoarthritis. Venous duplex has been negative. Likely peripheral neuropathy. She is on gabapentin at home. Also takes colchicine for gout . Uric acid level is normal. increased gabapentin. On tramadol p.r.n. as well. Gabapentin increase has helped her neuropathy pain and able to ambulate some. Will continue the same and continue therapy at the nursing facility # altered mental status CT brain is negative. Continue to monitor # DVT prophylaxis - SCDs # Code status - do not resuscitate DS: Summary Hospital Course Hospital Course: see above Time Spent with Patient Time attestation: Total time spent providing and/or coordinating discharge services: 45 minutes Exam Narrative: Gen - NARD lying in bed Chest - Bibasialr R>L inspiratory crackles. nml RR CV - RRR S1/S2; Tele showing paced rhythm Abd - Soft, obese, NT Ext - no pedal edema. thrill and bruit RUE Sensitive bilateral feet to touch unrestricted range of motion on ankle Neuro - alert, oriented to place and person but no
[2022-03-14] MEDS: ASPIRIN 81 MG ENTERIC TABLET PO (13:27)
[2022-03-14 13:53] LABS: EDCOVIDSCREEN Negative (Negative)
== END 2022-03-14 15:56 | DRG 377 ==
LOC: ANHED 14:43 → ANHIMU 15:14 → ANH2MED 03-05 16:20
PROVIDERS: Internal Medicine; Internal Medicine Gastroenterology; Internal Medicine Nephrology; Physician Assistant; Admitting Provider Internal Medicine; Emergency Provider General Practice; PCP Physician Assistant; Visit Provider Internal Medicine
PROC: 0DJD8ZZ Inspection of Lower Intestinal Tract, Via Natural or Artificial Opening Endoscopic (ICD-10-PCS; CPT 45330; principal; 2022-03-07 22:00)
PROC: 0DJ08ZZ Inspection of Upper Intestinal Tract, Via Natural or Artificial Opening Endoscopic (ICD-10-PCS; CPT 43235; principal; 2022-03-11 14:00)
DX: K62.5 Hemorrhage of anus and rectum (principal); N18.6 End stage renal disease; K62.6 Ulcer of anus and rectum; I13.2 Hypertensive heart and chronic kidney disease with heart failure and with stage 5 chronic kidney disease, or end stage renal disease; I50.32 Chronic diastolic (congestive) heart failure; I48.19 Other persistent atrial fibrillation; E87.2 Acidosis; E85.9 Amyloidosis, unspecified; E11.22 Type 2 diabetes mellitus with diabetic chronic kidney disease; D63.1 Anemia in chronic kidney disease; Z99.2 Dependence on renal dialysis; R53.1 Weakness; R53.81 Other malaise; Z20.822 Contact with and (suspected) exposure to COVID-19; I95.9 Hypotension, unspecified; K57.30 Diverticulosis of large intestine without perforation or abscess without bleeding; K64.8 Other hemorrhoids; G47.33 Obstructive sleep apnea (adult) (pediatric); E03.9 Hypothyroidism, unspecified; N25.0 Renal osteodystrophy; E78.00 Pure hypercholesterolemia, unspecified; N30.10 Interstitial cystitis (chronic) without hematuria; K21.9 Gastro-esophageal reflux disease without esophagitis; R13.12 Dysphagia, oropharyngeal phase; R77.8 Other specified abnormalities of plasma proteins; D53.9 Nutritional anemia, unspecified; R29.6 Repeated falls; M48.061 Spinal stenosis, lumbar region without neurogenic claudication; M25.511 Pain in right shoulder; M19.011 Primary osteoarthritis, right shoulder; M75.101 Unspecified rotator cuff tear or rupture of right shoulder, not specified as traumatic; M25.551 Pain in right hip; M16.11 Unilateral primary osteoarthritis, right hip; H40.9 Unspecified glaucoma; M10.9 Gout, unspecified; J45.909 Unspecified asthma, uncomplicated; E55.9 Vitamin D deficiency, unspecified; I77.9 Disorder of arteries and arterioles, unspecified; I69.311 Memory deficit following cerebral infarction; Z79.4 Long term (current) use of insulin; Z79.82 Long term (current) use of aspirin; Z79.899 Other long term (current) drug therapy; Z88.0 Allergy status to penicillin; Z95.0 Presence of cardiac pacemaker; Z98.41 Cataract extraction status, right eye; Z98.42 Cataract extraction status, left eye
CPT/HCPCS: 36415; 36430; 36600; 70450; 71045; 71046; 72125; 72131; 73030; 73502; 73600; 73630; 74174; 80048; 80053; 80069; 82375; 82525; 82533; 82607; 82652; 82728; 82746; 82805; 82948; 83036; 83050; 83540; 83550; 83735; 83880; 84100; 84443; 84484; 84550; 84630; 85014; 85018; 85025; 85027; 85055; 85610; 85730; 86706; 86850; 86900; 86901; 86920; 87340; 87426; 93005; 93306; 93970; 96374; 97110; 97161; 97165; 97530; 97535; 99285; A9270; C9803; G0257; G0378; J0171; J0330; J1644; J1815; J1940; J2370; J2405; J2704; J7030; J7040; J7050; P9016; P9047; Q5105; Q9967; U0003; U0005

== ENCOUNTER 2022-03-24 01:10 | Emergency (ER) | payer MEDICARE, MEDICAID, SELFPAY ==
--- NOTE | ~2022-03-24 | XR_ITS ---
XR knee LT min 4V DATE: 03/24/2022 01:56 INDICATION: Trauma TECHNIQUE: Portable 4 view examination including crosstable lateral COMPARISON: None FINDINGS: There is a slightly displaced breast intra-articular fracture of the lateral tibial plateau . Mild suprapatellar knee joint effusion is noted. Osteopenia. Extensive calcification of the femoral, popliteal and trifurcation arteries. IMPRESSION: Minimally depressed intra-articular fracture of the lateral tibial plateau Mild knee joint effusion Osteopenia Reviewed, dictated and finalized at location A.
[2022-03-24 01:14] VITALS: BP 130/50; PULSE 70; RESP 13; TEMP 37.1; O2SAT 97
[2022-03-24 01:35] VITALS: BP 126/49; PULSE 70; RESP 18; TEMP 36.1; O2SAT 96
--- NOTE | 2022-03-24 02:16 | ED.FALL ---
HPI - Fall General Chief Complaint: Fall Stated Complaint: tib fx Time Seen by Provider: 03/24/22 01:22 History of Present Illness HPI Narrative: Is an 81-year-old female who presents ER with left knee pain. Reports that her nurse at her residential or moving around changing to a chair. She feels that the nurse almost dropped her patient never actually fell. Shortly afterwards patient developed some knee discomfort on left side. Imaging there showed a fracture of the lateral tibial plateau so she was sent to the ER for further evaluation. Patient had no actual fall and did not strike her head or lose consciousness. No numbness or tingling to her lower extremity. She is currently rehabbing due to frequent falls and weakness. Recently admitted and hospitalized for GI bleed. Related Data Home Medications Medication Instructions Recorded Confirmed carvedilol 3.125 mg tablet 3.125 mg PO BID 11/02/19 03/03/22 insulin glargine 100 unit/mL (3 15 unit subcut HS 11/02/19 03/03/22 mL) subcutaneous pen ([employer] KwikPen U-100 Insulin) simvastatin 10 mg tablet 10 mg PO HS 11/02/19 03/03/22 docusate sodium 100 mg tablet 100 mg PO HS PRN Constipation 11/03/19 03/03/22 colchicine 0.6 mg tablet 0.6 mg PO QMWF 11/26/19 03/03/22 ergocalciferol (vitamin D2) 1,250 50,000 unit PO WEEKLY 11/26/19 03/03/22 mcg (50,000 unit) capsule (Vitamin D2) alprazolam 0.5 mg tablet 0.5 mg PO BID PRN Anxiety 06/21/20 03/03/22 aspirin 81 mg tablet,delayed 81 mg PO DAILY 06/21/20 03/03/22 release (Cristela Low Dose Aspirin) sertraline 50 mg tablet 50 mg PO DAILY 06/21/20 03/03/22 albuterol sulfate 1.25 mg/3 mL 1.25 mg inhalation Q6H PRN 11/27/20 03/03/22 solution for nebulization Shortness Of Breath Or Wheezing midodrine 5 mg tablet 5 mg PO QMWF 05/06/21 03/03/22 acetaminophen 500 mg tablet 500 mg PO Q6H PRN Pain 05/24/21 03/03/22 (Acetaminophen Extra Strength) bumetanide 2 mg tablet 2 mg PO DAILY 05/24/21 03/03/22 colchicine 0.6 mg tablet 0.3 mg PO QMWF 05/24/21 03/03/22 diphenhydramine 25 1 tablet PO HS PRN Insomnia 05/24/21 03/03/22 mg-acetaminophen 500 mg tablet (Acetaminophen PM) guaifenesin 100 mg/5 mL oral 200 mg PO Q4H PRN Cough 05/24/21 03/03/22 liquid (Robafen) hydroxyzine HCl 25 mg tablet 25 mg PO QID PRN Itching 05/24/21 03/03/22 levothyroxine 25 mcg tablet 25 mcg PO DAILY 05/24/21 03/03/22 melatonin 3 mg tablet 3 mg PO HS PRN Insomnia 05/24/21 03/03/22 polyethylene glycol 3350 17 17 g PO DAILY PRN Constipation 05/24/21 03/03/22 gram/dose oral powder (Gavilax) tramadol 50 mg tablet 50 mg PO TID PRN Pain 05/24/21 03/03/22 pantoprazole 40 mg tablet,delayed 40 mg PO BID 03/03/22 03/03/22 release Allergies Allergy/AdvReac Type Severity Reaction Status Date / Time Penicillins Allergy Unknown Rash Verified 03/11/22 14:07 Review of Systems Review of Systems: All systems reviewed & are unremarkable except as noted in HPI and below Gastrointestinal: Gastrointestinal: Denies abdominal pain, Denies nausea and Denies vomiting Musculoskeletal: Musculoskeletal: Reports arthralgias, Reports joint swelling and Denies muscle cramps Neurologic: Denies syncope, Denies focal weakness and Denies numbness PMFSH Past Medical History Medical History Amyloidosis This is the etiology of her renal disease. Anemia Arthritis Asthma Cerebrovascular accident Residual peripheral vision loss and short-term memory loss. Chronic diastolic congestive heart failure Depression End-stage renal disease on hemodialysis Wednesday, Wednesday, Wednesday. Essential hypertension Glaucoma Gout History of GI bleed Hypercholesteremia Hypothyroidism Interstitial cystitis Non-cardiac chest pain Obstructive sleep apnea Severe obstructive sleep apnea on polysomnogram in December 2019. Patient intolerant to CPAP. Peripheral neuropathy Persistent atrial fibrillation Reflux esophagitis Renal osteodystroph
[2022-03-24] MEDS: fentaNYL CITRATE INJ (*CRX) 100 MCG/2 ML VIAL 50 MCG IV PUSH (03:13)
[2022-03-24] MEDS: NALOXONE HCL 0.4 MG/ML VIAL IV PUSH (03:32)
[2022-03-24 04:00] VITALS: BP 141/61; PULSE 70; RESP 18; O2SAT 96
--- NOTE | 2022-03-24 05:45 | PC.NURSE ---
Pt pain controlled since Fentynal admin. However Pt refused knee immobilizer. Immobilizer sent with Pt. [facility] called for Pt at 0340 am or so, was given a 0700am pick time. Pt cont resting comfortable. Daughter at the Bed side. Rmau at [facility] called and advised of Pt being sent back.
[2022-03-24 07:50] VITALS: BP 153/61; PULSE 75; RESP 18; O2SAT 95
== END 2022-03-24 07:55 ==
PROVIDERS: Emergency Provider Emergency Medicine; PCP Physician Assistant
DX: S82.142A Displaced bicondylar fracture of left tibia, initial encounter for closed fracture (principal); E11.22 Type 2 diabetes mellitus with diabetic chronic kidney disease; N18.6 End stage renal disease; I13.2 Hypertensive heart and chronic kidney disease with heart failure and with stage 5 chronic kidney disease, or end stage renal disease; I50.32 Chronic diastolic (congestive) heart failure; I69.912 Visuospatial deficit and spatial neglect following unspecified cerebrovascular disease; I69.911 Memory deficit following unspecified cerebrovascular disease; I48.19 Other persistent atrial fibrillation; E11.42 Type 2 diabetes mellitus with diabetic polyneuropathy; E78.00 Pure hypercholesterolemia, unspecified; E03.9 Hypothyroidism, unspecified; H40.9 Unspecified glaucoma; G47.33 Obstructive sleep apnea (adult) (pediatric); N25.0 Renal osteodystrophy; K21.00 Gastro-esophageal reflux disease with esophagitis, without bleeding; M10.9 Gout, unspecified; M19.90 Unspecified osteoarthritis, unspecified site; Z99.2 Dependence on renal dialysis; Z86.2 Personal history of diseases of the blood and blood-forming organs and certain disorders involving the immune mechanism; Z98.42 Cataract extraction status, left eye; Z98.41 Cataract extraction status, right eye; Z95.0 Presence of cardiac pacemaker; Z79.4 Long term (current) use of insulin; X58.XXXA Exposure to other specified factors, initial encounter
CPT/HCPCS: 73564; 96374; 96375; 99284; J2310; J3010